=== PATIENT | female | born 1995 | race Caucasian/White ===

== ENCOUNTER 2019-08-02 19:02 | Inpatient (IN) | payer MEDICARE, OTHER ==
[~2019-08-02] VITALS: Ht 162.6 cm; Wt 47.9 kg
[~2019-08-02 19:02] MED LIST: APIX2.5T PO; CARV6.2511 PO; DIPH25CA58 PO; FLUT9.9S NS; FOLI0.8T21 PO; LEVO75TA5 PO; PANT20TA2 PO; POTA20TA4 PO; PRED-220 PO; SERT100T PO; SEVE800T8 PO; TACR1CAP5 PO; TRAM100T2 PO; TRAZ-118 PO; VANC125C3 PO
--- NOTE | 2019-08-02 19:18 | PHYS DOC ---
Past Medical History Past Medical History: A-Fib, GERD, Hyperthyroid, Immunosuppression, Other Additional Past Medical Histor: ESRD Past Surgical History: Appendectomy, Other Additional Past Surgical Histo: kidney transplant Smoking Status: Former Smoker Alcohol Use: None General Adult EDM: Chief Complaint: ALTERED MENTAL STATUS HPI: HPI: Patient is a 24 year old female who presents via EMS with report of confusion, reportedly having hallucinations at home, thinking that her long grandfather was there. Patient reportedly was noted to have altered mental status earlier today by family and home health did come by and evaluated patient and given patient some IV fluids. Patient does have end-stage renal disease and is on hemodialysis. Patient states that she hurts everywhere and has had nausea and vomiting. Patient stated that she has not made any urine for the last 5 years. Additional history is limited as patient is very poor historian. [] Review of Systems: Review of Systems: Constitutional: No reported fever or chills. [] Respiratory: Positive cough without shortness of breath. [] Cardiovascular: Denies chest pain or edema. [] GI: Complains of abdominal pain with nausea and vomiting. [] Musculoskeletal: Complains of diffuse body aches/pain. [] Unable to fully assess review of systems due to patient's inability to provide adequate history. Heart Score: Risk Factors: Risk Factors: DM, Current or recent (<one month) smoker, HTN, HLP, family history of CAD, obesity. Risk Scores: Score 0 - 3: 2.5% MACE over next 6 weeks - Discharge Home Score 4 - 6: 20.3% MACE over next 6 weeks - Admit for Clinical Observation Score 7 - 10: 72.7% MACE over next 6 weeks - Early Invasive Strategies Allergies: Allergies: Allergies Coded Allergies Type Severity Reaction Last Updated Verified Iodinated Contrast Media Allergy Mild 07/22/19 Yes NSAIDS (Non-Steroidal Anti-Inflamma Allergy Mild 07/22/19 Yes losartan Allergy Mild 07/22/19 Yes phenobarbital Allergy Mild 07/22/19 Yes Physical Exam: PE: Constitutional: Appears malnourished, in mild distress. [] HENT: Normocephalic, atraumatic, bilateral external ears normal, oropharynx dry, no oral exudates, nose normal. [] Eyes: PERRLA, EOMI, conjunctiva normal, no discharge. [] Neck: Normal range of motion, no tenderness, supple. [] Cardiovascular: Tachycardic rate with regular rhythm [] Lungs & Thorax: Bilateral breath sounds clear to auscultation [] Abdomen: Bowel sounds normal, soft, with diffuse tenderness. [] Skin: Warm, dry, no erythema, no rash. [] Extremities: No cyanosis, no clubbing, ROM intact, no edema. [] Neurologic: Awake and alert, no focal deficits noted. [] EKG: EKG: EKG demonstrates sinus tachycardia with a rate of 115. [] Radiology/Procedures: Radiology/Procedures: [] Impression: PROCEDURE: CT HEAD WO CONTRAST CT HEAD WO CONTRAST History: Altered mental status. Comparison: None. Technique: Noncontrast CT imaging was performed of the head. Exposure: One or more of the following individualized dose reduction techniques were utilized for this examination: 1. Automated exposure control 2. Adjustment of the mA and/or kV according to patient size 3. Use of iterative reconstruction technique. Findings: No intracranial hemorrhage. No mass effect. No hydrocephalus. Prominent falcine and tentorial calcifications. Postoperative changes bilateral globes. Imaged paranasal sinuses and mastoid air cells are clear. No acute calvarial fracture. Diffuse thickening of the maxillofacial bones without focal lesion. Atheromatous calcifications. Right superior scalp subcutaneous lesion measures 0.7 cm. Impression: 1. No acute intracranial abnormality. 2. Prominent falcine and tentorial calcifications. 3. Atheromatous calcifications advanced for age. 4. Right superior scalp subcutaneous lesion, may represent epidermal inclusion cyst. Electronically signed by: Tyrese Naidu DO (08/02/2019 9:26 PM) [facility] Course & Med Decision Making: Course & Med Decision Making Pertinent Labs and Imaging studies reviewed. (See chart for details) [] Dragon Disclaimer: Dragon Disclaimer: This electronic medical record was generated, in whole or in part, using a voice recognition dictation system. COVID-19 Patient Risks: Age 65 or older: No Sign of co-morbidity: Yes Exp to person + for COVID: No Exp to PUI: No Travel from affected area: No Lower respiratory symptoms: No Fever: No Other: No Comments: AMS; hallucinations PPE Use: Full PPE with N95 mask or PAPR: Yes Departure Departure Impression: Primary Impression: AMS (altered mental status) Qualified Codes: R41.82 - Altered mental status, unspecified Additional Impressions: Hallucination Failure to thrive in adult Disposition: 09 ADMITTED INPATIENT Admitting Physician: RADHA Condition: IMPROVED Referrals: BETTY MEYERS MD (PCP) KIANNA HERNANDEZ Jr. DO August 02, 2019 19:18
[2019-08-02 19:41] LABS: BASO # 0.2 x10^3/uL (0.0-0.2); BASO % 2 % (0-3); EOS # 0.1 x10^3/uL (0.0-0.7); EOS % 2 % (0-3); HEMATOCRIT 47.6 % (36.0-47.0); HEMOGLOBIN 15.6 g/dL (12.0-15.5); LYMPH # 1.3 x10^3/uL (1.0-4.8); LYMPH % 16 % (24-48); MEAN CORPUSCULAR HEMOGLOBIN 31 pg (25-35); MEAN CORPUSCULAR HGB CONC 33 g/dL (31-37); MEAN CORPUSCULAR VOLUME 95 fL (79-100); MONO # 0.8 x10^3/uL (0.0-1.1); MONO % 9 % (0-9); NEUT % 71 % (31-73); PLATELET COUNT 327 x10^3/uL (140-400); RED BLOOD COUNT 5.01 x10^6/uL (3.50-5.40); RED CELL DISTRIBUTION WIDTH 17.8 % (11.5-14.5); WHITE BLOOD COUNT 8.4 x10^3/uL (4.0-11.0)
[2019-08-02 19:49] LABS: CREATININE 8.1 mg/dL (0.6-1.0); GFR 6.2; POTASSIUM 4.4 mmol/L (3.5-5.1)
[2019-08-02 19:55] LABS: ALBUMIN 2.1 g/dL (3.4-5.0); ALBUMIN/GLOBULIN RATIO 0.9 (1.0-1.7); MAGNESIUM 1.9 mg/dL (1.8-2.4); PHOSPHORUS 5.3 mg/dL (2.6-4.7); TOTAL BILIRUBIN 0.3 mg/dL (0.2-1.0); TOTAL PROTEIN 4.5 g/dL (6.4-8.2)
--- NOTE | 2019-08-02 20:28 | RAD ---
EXAM: CHEST ONE VIEW. HISTORY: Cough. COMPARISON: 07/22/2019. FINDINGS: A frontal view of the chest is obtained. There are no confluent infiltrates. There is no pneumothorax or pleural effusion. The heart is not enlarged. Sclerosis of both humeral head suggests avascular necrosis. IMPRESSION: 1. No confluent infiltrates. 2. Correlate for bilateral avascular necrosis of the humeral heads. Electronically signed by: April Green MD (08/02/2019 8:25 PM) [facility]
[2019-08-02] MEDS ORDERED: DEXTROSE 50% 25 GM / 50ML DISP.SYRIN. IV ONE (20:30)
[2019-08-02 20:46] LABS: PREG TEST PT QUAL NEGATIVE (NEG)
--- NOTE | 2019-08-02 21:30 | RAD ---
CT HEAD WO CONTRAST History: Altered mental status. Comparison: None. Technique: Noncontrast CT imaging was performed of the head. Exposure: One or more of the following individualized dose reduction techniques were utilized for this examination: 1. Automated exposure control 2. Adjustment of the mA and/or kV according to patient size 3. Use of iterative reconstruction technique. Findings: No intracranial hemorrhage. No mass effect. No hydrocephalus. Prominent falcine and tentorial calcifications. Postoperative changes bilateral globes. Imaged paranasal sinuses and mastoid air cells are clear. No acute calvarial fracture. Diffuse thickening of the maxillofacial bones without focal lesion. Atheromatous calcifications. Right superior scalp subcutaneous lesion measures 0.7 cm. Impression: 1. No acute intracranial abnormality. 2. Prominent falcine and tentorial calcifications. 3. Atheromatous calcifications advanced for age. 4. Right superior scalp subcutaneous lesion, may represent epidermal inclusion cyst. Electronically signed by: Tyrese Naidu DO (08/02/2019 9:26 PM) [facility]
[2019-08-02] MEDS ORDERED: ONDANSETRON PF 4 MG/2 ML VIAL. IV PRN (23:00)
[2019-08-02] MEDS ORDERED: MORPHINE SULFATE 2 MG/ML VIAL. IV PRN (23:00)
[2019-08-03] MEDS ORDERED: DEXTROSE 50% 25 GM / 50ML DISP.SYRIN. IV ONE (00:45)
[2019-08-03] MEDS: IV DEXTROSE 10% 1,000 ML IV SCH ×2 (02:20→21:15)
[2019-08-03 02:45] VITALS: BP 106/80
--- NOTE | 2019-08-03 04:47 | NUR ---
Jennifer arrived around 0145 via bed from ED w/ AMS, Hallucinations, PUI and Failure to Thrive. She is A/O x 4 and will make needs known.
[2019-08-03 05:51] LABS: BASO # 0.2 x10^3/uL (0.0-0.2); BASO % 2 % (0-3); EOS # 0.2 x10^3/uL (0.0-0.7); EOS % 2 % (0-3); HEMATOCRIT 48.7 % (36.0-47.0); HEMOGLOBIN 15.5 g/dL (12.0-15.5); LYMPH # 1.4 x10^3/uL (1.0-4.8); LYMPH % 15 % (24-48); MEAN CORPUSCULAR HEMOGLOBIN 31 pg (25-35); MEAN CORPUSCULAR HGB CONC 32 g/dL (31-37); MEAN CORPUSCULAR VOLUME 97 fL (79-100); MONO % 10 % (0-9); NEUT # 6.8 x10^3/uL (1.8-7.7); NEUT % 71 % (31-73); PLATELET COUNT 286 x10^3/uL (140-400); RED BLOOD COUNT 5.04 x10^6/uL (3.50-5.40); RED CELL DISTRIBUTION WIDTH 18.3 % (11.5-14.5); WHITE BLOOD COUNT 9.6 x10^3/uL (4.0-11.0)
[2019-08-03 06:08] LABS: CALCIUM 8.8 mg/dL (8.5-10.1); CREATININE 8.6 mg/dL (0.6-1.0); GFR 5.8; POTASSIUM 4.2 mmol/L (3.5-5.1)
[2019-08-03 07:00] VITALS: BP 109/74
--- NOTE | 2019-08-03 07:33 | NUR ---
Just notified 's answering service about consult. Dr. Ybarra talent acquisition consultant.
[2019-08-03] MEDS: ACETAMINOPHEN 325 MG TABLET. PO PRN ×2 (08:14→14:58)
--- NOTE | 2019-08-03 08:31 | EKG ---
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 Electronically Signed On 08-03-2019 11:02:03 CDT by Darek Flynn
--- NOTE | 2019-08-03 09:38 | PDOC1 ---
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 She was admitted and treated for stopping PD at home and worsening colitis 8 days prior to this admission and continue on vancomycin therapy for recent c. difficile colitis after treatment for gluteal abscess at [facility]. Patient reportedly was noted to have altered mental status 5/10 that is worse than baseline per her mother and home health did come by and evaluated patient and gave patient some IV fluids, but is apparently calling nursing staff at [facility] requesting PICC access. Patient does have end-stage renal disease and is on peritoneal dialysis. Patient states that she hurts everywhere and has had nausea and vomiting. Patient stated that she has not made any urine for the last 5 years. Additional history is limited as patient is very poor historian. CT head - revealed no acute intracranial abnormality, but prominent falcine and tentorial calcifications as well as atheromatous calcifications advanced for age and a right superior scalp subcutaneous lesion (epidermal cyst?) She complains of chest pain during interview, but then says she thinks it went away, becomes tearful when asked how she is eating, says she has an appetite. She says she remembers me taking care of her in the hospital 10 days ago. Troponin 0.121->0.118 overnight. Labs consistent with ESRD. K 4.4 and Na 139. She was tested for COVID 19 in ED, admitted for further care Past Medical History Cardiovascular: AFIB Pulmonary: No pertinent hx GI: No pertinent hx Heme/Onc: No pertinent hx Hepatobiliary: No pertinent hx Psych: No pertinent hx Rheumatologic: No pertinent hx Infectious disease: No pertinent hx Renal/: Chronic renal failure Endocrine: Hypothyroidism Past Surgical History Past Surgical History: Appendectomy, Other Family History Family History: Hypertension Social History Smoke: No ALCOHOL: none Drugs: None Current Problem List Problem List Problems Medical Problems: (1) AMS (altered mental status) Status: Acute (2) Failure to thrive in adult Status: Acute (3) Hallucination Status: Acute Current Medications Current Medications Current Medications Dextrose (Dextrose 50%-Water Syringe) 12.5 gm 1X ONCE IV Last administered on 08/02/19at 20:38; Start 08/02/19 at 20:30; Stop 08/02/19 at 20:31; Status DC Ondansetron HCl (Zofran) 4 mg PRN Q8HRS PRN IV NAUSEA/VOMITING Last administered on 08/03/19at 02:21; Start 08/02/19 at 23:00; Stop 08/03/19 at 22:59 Morphine Sulfate (Morphine Sulfate) 2 mg PRN Q2HR PRN IV SEVERE PAIN 7-10 Last administered on 08/03/19at 01:00; Start 08/02/19 at 23:00; Stop 08/03/19 at 22:59 Dextrose (Dextrose 50%-Water Syringe) 12.5 gm 1X ONCE IV Last administered on 08/03/19at 00:35; Start 08/03/19 at 00:45; Stop 08/03/19 at 00:46; Status DC Dextrose 1,000 ml @ 50 mls/hr Q20H IV Last administered on 08/03/19at 02:20; Start 08/03/19 at 01:15 Acetaminophen (Tylenol) 650 mg PRN Q6HRS PRN PO HEADACHE Last administered on 08/03/19at 08:14; Start 08/03/19 at 08:00 Active Scripts Active Potassium Chloride (Potassium Chloride) 20 Meq Tablet.er 20 Meq PO DAILY 7 Days Vancomycin Hcl 125 Mg Capsule 1 Cap PO QID 10 Days Reported Tramadol Hcl 100 Mg Tbmp.24hr 100 Mg PO TID PRN PRN Flonase Allergy Relief (Fluticasone Propionate) 9.9 Ml [place].susp 2 Sprays NS PRN Renagel (Sevelamer Hcl) 800 Mg Tablet 800 Mg PO TID PRN Marry-Dori Tablet (Folic Acid/Vitamin B Comp W-C) 0.8 Mg Tablet 1 Tab PO DAILY 30 Days Trazodone Hcl 50 Mg Tablet 50 Mg PO HS Levothyroxine Sodium 75 Mcg Tablet 75 Mcg PO DAILYAC Eliquis (Apixaban) 2.5 Mg Tablet 2.5 Mg PO BID PRN Benadryl (Diphenhydramine Hcl) 25 Mg Capsule 2 Cap PO QHS 30 Days Prograf (Tacrolimus) 1 Mg Capsule 1 Mg PO BID Prednisone (Prednisone) 10 Mg Tablet 5 Mg PO DAILY Protonix (Pantoprazole Sodium) 20 Mg Tablet.dr 20 Mg PO DAILY Carvedilol (Carvedilol) 6.25 Mg Tablet 6.25 Mg PO DAILY Zoloft (Sertraline Hcl) 100 Mg Tablet 150 Mg PO DAILY Allergies Allergies: Coded Allergies: Iodinated Contrast Media (Verified Allergy, Intermediate, 08/03/19) NSAIDS (Non-Steroidal Anti-Inflamma (Verified Allergy, Intermediate, 08/03/19) losartan (Verified Allergy, Intermediate, 08/03/19) phenobarbital (Verified Allergy, Intermediate, 08/03/19) ROS General: YES: Fatigue, Malaise; No: Chills, Night Sweats, Appetite, Other PSYCHOLOGICAL ROS: YES: Anxiety, Behavioral Disorder, Disorientation, Memory difficulties; No: Concentration difficultie, Decreased libido, Depression, Hallucinations, Hostility, Irritablity, Mood Swings, Obsessive thoughts, Physical abuse, Sexual abuse, Sleep disturbances, Suicidal ideation, Other Eyes: No Blurry vision, No Decreased vision, No Double vision, No Dry eyes, No Excessive tearing, No Eye Pain, No Itchy Eyes, No Loss of vision, No Photophobia, No Scotomata, No Uses contacts, No Uses glasses, No Other HEENT: No: Heacaches, Visual Changes, Hearing change, Nasal congestion, Nasal discharge, Oral lesions, Sinus pain, Sore Throat, Epistaxis, Sneezing, Snoring, Tinnitus, Vertigo, Vocal changes, Other ALLERGY AND IMMUNOLOGY: No: Hives, Insect Bite Sensitivity, Itchy/Watery Eyes, Nasal Congestion, Post Nasal Drip, Seasonal Allergies, Other Hematological and Lymphatic: No: Bleeding Problems, Blood Clots, Blood Transfusions, Brusing, Night Sweats, Pallor, Swollen Lymph Nodes, Other ENDOCRINE: No: Breast Changes, Galactorrhea, Hair Pattern Changes, Hot Flashes, Malaise/lethargy, Mood Swings, Palpitations, Polydipsia/polyuria, Skin Changes, Temperature Intolerance, Unexpected Weight Changes, Other Breast: No New/Changing Breast Lumps, No Nipple changes, No Nipple discharge, No Other Respiratory: YES: Cough; No: Hemoptysis, Orthopnea, Pleuritic Pain, Shortness of breath, SOB with excertion, Sputum Changes, Stridor, Tachypnea, Wheezing, Other Cardiovascular: No Chest Pain, No Palpitations, No Orthopnea, No Paroxysmal Noc. Dyspnea, No Edema, No Lt Headedness, No Other Gastrointestinal: Yes Nausea; No Vomiting, No Abdominal Pain, No Diarrhea, No Constipation, No Melena, No Hematochezia, No Other Genitourinary: No Dysuria, No Frequency, No Incontinence, No Hematuria, No Retention, No Discharge, No Urgency, No Pain, No Flank Pain, No Other, No , No , No , No , No , No , No Musculoskeletal: Yes Gait Disturbance, Yes Joint Pain, Yes Joint Stiffness, Yes Muscular Weakness; No Joint Swelling, No Muscle Pain, No Pain In:, No Swelling In:, No Other Neurological: Yes Confusion, Yes Gait Disturbance, Yes Memory Loss, Yes Weakness; No Behavorial Changes, No Bowel/Bladder ControlChng, No Dizziness, No Headaches, No Impaired Coord/balance, No Numbness/Tingling, No Seizures, No Speech Problems, No Tremors, No Visual Changes, No Other Skin: No Dry Skin, No Eczema, No Hair Changes, No Lumps, No Mole Changes, No Mottling, No Nail Changes, No Pruritus, No Rash, No Skin Lesion Changes, No Other, No Acne Physical Exam General: Alert, Cooperative, No acute distress HEENT: Atraumatic, PERRLA, EOMI, Mucous membr. moist/pink Lungs: Clear to auscultation, Normal air movement Heart: S1S2, RRR, no thrills, no rubs, no gallops, no murmurs Abdomen: Normal bowel sounds, Soft, No tenderness, No hepatosplenomegaly, No masses, Other (PD catheter clean, dry intact) Extremities: No cyanosis, No edema, Normal pulses, Other (cachectic appearing, bony prominences apparent) Skin: No rashes, No significant lesion, Other (Healing gluteal ulcer) Neuro: Normal speech, Strength at 5/5 X4 ext, Normal tone, Sensation intact, Cranial nerves 3-12 NL, Reflexes 2+ Psych/Mental Status: Other (Confused) Vitals Vitals Vital Signs Date Time Temp Pulse Resp B/P (MAP) Pulse Ox O2 Delivery O2 Flow Rate FiO2 08/03/19 08:00 Room Air 08/03/19 07:00 99.0 80 18 109/74 (86) 100 99.0 Labs Labs Laboratory Tests Test 08/02/19 19:11 08/02/19 19:20 08/02/19 20:28 08/02/19 21:27 Sodium Level 139 mmol/L (136-145) Potassium Level 4.4 mmol/L (3.5-5.1) Chloride Level 102 mmol/L (98-107) Carbon Dioxide Level 24 mmol/L (21-32) Anion Gap 13 (6-14) Blood Urea Nitrogen 22 mg/dL (7-20) Creatinine 8.1 mg/dL (0.6-1.0) Estimated GFR (Cockcroft-Gault) 6.2 BUN/Creatinine Ratio 3 (6-20) Glucose Level 87 mg/dL (70-99) Calcium Level 9.0 mg/dL (8.5-10.1) Phosphorus Level 5.3 mg/dL (2.6-4.7) Magnesium Level 1.9 mg/dL (1.8-2.4) Total Bilirubin 0.3 mg/dL (0.2-1.0) Aspartate Amino Transf (AST/SGOT) 14 U/L (15-37) Alanine Aminotransferase (ALT/SGPT) 21 U/L (14-59) Alkaline Phosphatase 111 U/L (46-116) Total Protein 4.5 g/dL (6.4-8.2) Albumin 2.1 g/dL (3.4-5.0) Albumin/Globulin Ratio 0.9 (1.0-1.7) White Blood Count 8.4 x10^3/uL (4.0-11.0) Red Blood Count 5.01 x10^6/uL (3.50-5.40) Hemoglobin 15.6 g/dL (12.0-15.5) Hematocrit 47.6 % (36.0-47.0) Mean Corpuscular Volume 95 fL (79-100) Mean Corpuscular Hemoglobin 31 pg (25-35) Mean Corpuscular Hemoglobin Concent 33 g/dL (31-37) Red Cell Distribution Width 17.8 % (11.5-14.5) Platelet Count 327 x10^3/uL (140-400) Neutrophils (%) (Auto) 71 % (31-73) Lymphocytes (%) (Auto) 16 % (24-48) Monocytes (%) (Auto) 9 % (0-9) Eosinophils (%) (Auto) 2 % (0-3) Basophils (%) (Auto) 2 % (0-3) Neutrophils # (Auto) 6.0 x10^3/uL (1.8-7.7) Lymphocytes # (Auto) 1.3 x10^3/uL (1.0-4.8) Monocytes # (Auto) 0.8 x10^3/uL (0.0-1.1) Eosinophils # (Auto) 0.1 x10^3/uL (0.0-0.7) Basophils # (Auto) 0.2 x10^3/uL (0.0-0.2) Lactic Acid Level 2.7 mmol/L (0.4-2.0) Ammonia < 10 mcmol/L (11-34) Troponin I Quantitative 0.121 ng/mL (0.000-0.055) FA-Wav-H-Type Natriuretic Peptide > 40378 pg/mL (0-124) Serum Test, Qualitative Negative (NEG) Glucose (Fingerstick) 64 mg/dL (70-99) 91 mg/dL (70-99) Test 08/02/19 22:45 08/03/19 00:18 08/03/19 01:55 08/03/19 05:10 Lactic Acid Level 1.9 mmol/L (0.4-2.0) Glucose (Fingerstick) 51 mg/dL (70-99) 107 mg/dL (70-99) White Blood Count 9.6 x10^3/uL (4.0-11.0) Red Blood Count 5.04 x10^6/uL (3.50-5.40) Hemoglobin 15.5 g/dL (12.0-15.5) Hematocrit 48.7 % (36.0-47.0) Mean Corpuscular Volume 97 fL (79-100) Mean Corpuscular Hemoglobin 31 pg (25-35) Mean Corpuscular Hemoglobin Concent 32 g/dL (31-37) Red Cell Distribution Width 18.3 % (11.5-14.5) Platelet Count 286 x10^3/uL (140-400) Neutrophils (%) (Auto) 71 % (31-73) Lymphocytes (%) (Auto) 15 % (24-48) Monocytes (%) (Auto) 10 % (0-9) Eosinophils (%) (Auto) 2 % (0-3) Basophils (%) (Auto) 2 % (0-3) Neutrophils # (Auto) 6.8 x10^3/uL (1.8-7.7) Lymphocytes # (Auto) 1.4 x10^3/uL (1.0-4.8) Monocytes # (Auto) 1.0 x10^3/uL (0.0-1.1) Eosinophils # (Auto) 0.2 x10^3/uL (0.0-0.7) Basophils # (Auto) 0.2 x10^3/uL (0.0-0.2) Sodium Level 141 mmol/L (136-145) Potassium Level 4.2 mmol/L (3.5-5.1) Chloride Level 103 mmol/L (98-107) Carbon Dioxide Level 25 mmol/L (21-32) Anion Gap 13 (6-14) Blood Urea Nitrogen 24 mg/dL (7-20) Creatinine 8.6 mg/dL (0.6-1.0) Estimated GFR (Cockcroft-Gault) 5.8 Glucose Level 125 mg/dL (70-99) Calcium Level 8.8 mg/dL (8.5-10.1) Troponin I Quantitative 0.118 ng/mL (0.000-0.055) Test 08/03/19 06:11 08/03/19 07:37 Glucose (Fingerstick) 88 mg/dL (70-99) 90 mg/dL (70-99) Laboratory Tests Test 08/02/19 19:11 08/02/19 19:20 08/02/19 20:28 08/02/19 21:27 Sodium Level 139 mmol/L (136-145) Potassium Level 4.4 mmol/L (3.5-5.1) Chloride Level 102 mmol/L (98-107) Carbon Dioxide Level 24 mmol/L (21-32) Anion Gap 13 (6-14) Blood Urea Nitrogen 22 mg/dL (7-20) Creatinine 8.1 mg/dL (0.6-1.0) Estimated GFR (Cockcroft-Gault) 6.2 BUN/Creatinine Ratio 3 (6-20) Glucose Level 87 mg/dL (70-99) Calcium Level 9.0 mg/dL (8.5-10.1) Phosphorus Level 5.3 mg/dL (2.6-4.7) Magnesium Level 1.9 mg/dL (1.8-2.4) Total Bilirubin 0.3 mg/dL (0.2-1.0) Aspartate Amino Transf (AST/SGOT) 14 U/L (15-37) Alanine Aminotransferase (ALT/SGPT) 21 U/L (14-59) Alkaline Phosphatase 111 U/L (46-116) Total Protein 4.5 g/dL (6.4-8.2) Albumin 2.1 g/dL (3.4-5.0) Albumin/Globulin Ratio 0.9 (1.0-1.7) White Blood Count 8.4 x10^3/uL (4.0-11.0) Red Blood Count 5.01 x10^6/uL (3.50-5.40) Hemoglobin 15.6 g/dL (12.0-15.5) Hematocrit 47.6 % (36.0-47.0) Mean Corpuscular Volume 95 fL (79-100) Mean Corpuscular Hemoglobin 31 pg (25-35) Mean Corpuscular Hemoglobin Concent 33 g/dL (31-37) Red Cell Distribution Width 17.8 % (11.5-14.5) Platelet Count 327 x10^3/uL (140-400) Neutrophils (%) (Auto) 71 % (31-73) Lymphocytes (%) (Auto) 16 % (24-48) Monocytes (%) (Auto) 9 % (0-9) Eosinophils (%) (Auto) 2 % (0-3) Basophils (%) (Auto) 2 % (0-3) Neutrophils # (Auto) 6.0 x10^3/uL (1.8-7.7) Lymphocytes # (Auto) 1.3 x10^3/uL (1.0-4.8) Monocytes # (Auto) 0.8 x10^3/uL (0.0-1.1) Eosinophils # (Auto) 0.1 x10^3/uL (0.0-0.7) Basophils # (Auto) 0.2 x10^3/uL (0.0-0.2) Lactic Acid Level 2.7 mmol/L (0.4-2.0) Ammonia < 10 mcmol/L (11-34) Troponin I Quantitative 0.121 ng/mL (0.000-0.055) AS-Lba-I-Type Natriuretic Peptide > 26885 pg/mL (0-124) Serum Test, Qualitative Negative (NEG) Glucose (Fingerstick) 64 mg/dL (70-99) 91 mg/dL (70-99) Test 08/02/19 22:45 08/03/19 00:18 08/03/19 01:55 08/03/19 05:10 Lactic Acid Level 1.9 mmol/L (0.4-2.0) Glucose (Fingerstick) 51 mg/dL (70-99) 107 mg/dL (70-99) White Blood Count 9.6 x10^3/uL (4.0-11.0) Red Blood Count 5.04 x10^6/uL (3.50-5.40) Hemoglobin 15.5 g/dL (12.0-15.5) Hematocrit 48.7 % (36.0-47.0) Mean Corpuscular Volume 97 fL (79-100) Mean Corpuscular Hemoglobin 31 pg (25-35) Mean Corpuscular Hemoglobin Concent 32 g/dL (31-37) Red Cell Distribution Width 18.3 % (11.5-14.5) Platelet Count 286 x10^3/uL (140-400) Neutrophils (%) (Auto) 71 % (31-73) Lymphocytes (%) (Auto) 15 % (24-48) Monocytes (%) (Auto) 10 % (0-9) Eosinophils (%) (Auto) 2 % (0-3) Basophils (%) (Auto) 2 % (0-3) Neutrophils # (Auto) 6.8 x10^3/uL (1.8-7.7) Lymphocytes # (Auto) 1.4 x10^3/uL (1.0-4.8) Monocytes # (Auto) 1.0 x10^3/uL (0.0-1.1) Eosinophils # (Auto) 0.2 x10^3/uL (0.0-0.7) Basophils # (Auto) 0.2 x10^3/uL (0.0-0.2) Sodium Level 141 mmol/L (136-145) Potassium Level 4.2 mmol/L (3.5-5.1) Chloride Level 103 mmol/L (98-107) Carbon Dioxide Level 25 mmol/L (21-32) Anion Gap 13 (6-14) Blood Urea Nitrogen 24 mg/dL (7-20) Creatinine 8.6 mg/dL (0.6-1.0) Estimated GFR (Cockcroft-Gault) 5.8 Glucose Level 125 mg/dL (70-99) Calcium Level 8.8 mg/dL (8.5-10.1) Troponin I Quantitative 0.118 ng/mL (0.000-0.055) Test 08/03/19 06:11 08/03/19 07:37 Glucose (Fingerstick) 88 mg/dL (70-99) 90 mg/dL (70-99) Images Images CXR - There are no confluent infiltrates. There is no pneumothorax or pleural effusion. The heart is not enlarged. Sclerosis of both humeral head suggests avascular necrosis. IMPRESSION: 1. No confluent infiltrates. 2. Correlate for bilateral avascular necrosis of the humeral heads. CT head - No intracranial hemorrhage. No mass effect. No hydrocephalus. Prominent falcine and tentorial calcifications. Postoperative changes bilateral globes. Imaged paranasal sinuses and mastoid air cells are clear. No acute calvarial fracture. Diffuse thickening of the maxillofacial bones without focal lesion. Atheromatous calcifications. Right superior scalp subcutaneous lesion measures 0.7 cm. Impression: 1. No acute intracranial abnormality. 2. Prominent falcine and tentorial calcifications. 3. Atheromatous calcifications advanced for age. 4. Right superior scalp subcutaneous lesion, may represent epidermal inclusion cyst. VTE Prophylaxis Ordered VTE Prophylaxis Devices: No VTE Pharmacological Prophylaxi: Yes Assessment/Plan Assessment/Plan A/P: Acute encephalopathy - unclear etiology, seems metabolic, no sign this is toxic. Hypoglycemia - her mental status did not improve with glucose elevation, will monitor Colitis - 2/2 c. difficile will complete her vancomycin 10 day course here ESRD on PD - nephrology consulted C. Difficile - recently treated, will give her last few doses here Severe protein calorie malnutrition Failed renal transplant - will continue Elevated troponin - likely stress related, will monitor Lactic acidosis - trend. Likely from poor nutrition. Hemoconcentration - 2/2 dehydration from diarrhea Afib - paroxsymal by history, will cont eliquis, coreg if her BP can tolerate Hypothyroidism - apparently amiodarone induced, on levothyroxine now. Unable to walk - progressed over the past year likely 2/2 hyperphosphatemia Bilateral shoulder abnormalities on CXR - possibly avascular necrosis Diffuse pain - she has renal osteodystrophy, likely related to this. FEN - Renal diet PPX - eliquis FULL CODE Dispo - inpatient for acute mental status changes. COVID-19 CRITERIA: The patient was evaluated during the global COVID-19 pandemic, and that diagnosis was suspected/considered upon their initial presentation. Their evaluation, treatment and testing was consistent with current guidelines for patients who present with complaints or symptoms that may be related to COVID-19. LILA DEMPSEY MD August 03, 2019 09:38
[2019-08-03] MEDS ORDERED: HYDROmorphone 2 MG/ML VIAL IVP PRN (09:45)
[2019-08-03] MEDS: APIXABAN 2.5 MG TABLET. PO SCH ×3 (10:00→21:00)
[2019-08-03] MEDS: FOLIC/VIT B COMP W-C (RENAL) TABLET. PO SCH ×2 (10:00→10:08)
[2019-08-03] MEDS: POTASSIUM CHLORIDE 20 MEQ TABLET.ER. PO SCH ×2 (10:00→10:08)
[2019-08-03] MEDS: PANTOPRAZOLE 40 MG TABLET.DR. PO SCH ×2 (10:00→10:07)
[2019-08-03] MEDS: TACROLIMUS 1 MG CAPSULE PO SCH ×3 (10:00→21:00)
[2019-08-03] MEDS: LEVOTHYROXINE 75 MCG TABLET PO SCH ×2 (10:00→10:08)
[2019-08-03] MEDS: predniSONE 5 MG TABLET PO SCH ×2 (10:00→10:06)
[2019-08-03] MEDS: SERTRALINE 50 MG TABLET. PO SCH ×2 (10:07→10:30)
[2019-08-03] MEDS: traMADol 50 MG TABLET PO PRN (10:07)
[2019-08-03 10:58] VITALS: BP 111/66
--- NOTE | 2019-08-03 11:37 | PDOC2 ---
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 She was admitted recently with worsening colitis , dced on vancomycin for c. difficile colitis . She had a gluteal abscess at [facility] prior treated with Abx Patient states that she hurts everywhere and has had nausea and vomiting. Denies any RRF History is limited as patient is poor historian. Past Medical History Cardiovascular: AFIB Pulmonary: No pertinent hx GI: No pertinent hx Heme/Onc: No pertinent hx Hepatobiliary: No pertinent hx Psych: No pertinent hx Rheumatologic: No pertinent hx Infectious disease: No pertinent hx Renal/: Chronic renal failure Endocrine: Hypothyroidism Past Surgical History Past Surgical History: Appendectomy, Other Family History Family History: Hypertension Social History ALCOHOL: none Drugs: None Lives: with Family Current Problem List Problem List Problems Medical Problems: (1) AMS (altered mental status) Status: Acute (2) Failure to thrive in adult Status: Acute (3) Hallucination Status: Acute Current Medications Current Medications Current Medications Dextrose (Dextrose 50%-Water Syringe) 12.5 gm 1X ONCE IV Last administered on 08/02/19at 20:38; Admin Dose 12.5 GM; Start 08/02/19 at 20:30; Stop 08/02/19 at 20:31; Status DC Ondansetron HCl (Zofran) 4 mg PRN Q8HRS PRN IV NAUSEA/VOMITING Last administered on 08/03/19at 02:21; Admin Dose 4 MG; Start 08/02/19 at 23:00; Stop 08/03/19 at 09:41; Status DC Morphine Sulfate (Morphine Sulfate) 2 mg PRN Q2HR PRN IV SEVERE PAIN 7-10 Last administered on 08/03/19at 01:00; Admin Dose 2 MG; Start 08/02/19 at 23:00; Stop 08/03/19 at 09:41; Status DC Dextrose (Dextrose 50%-Water Syringe) 12.5 gm 1X ONCE IV Last administered on 08/03/19at 00:35; Admin Dose 12.5 GM; Start 08/03/19 at 00:45; Stop 08/03/19 at 00:46; Status DC Dextrose 1,000 ml @ 50 mls/hr Q20H IV Last administered on 08/03/19at 02:20; Admin Dose 50 MLS/HR; Start 08/03/19 at 01:15 Acetaminophen (Tylenol) 650 mg PRN Q6HRS PRN PO HEADACHE Last administered on 08/03/19at 08:14; Admin Dose 650 MG; Start 08/03/19 at 08:00 Ondansetron HCl (Zofran) 4 mg PRN Q4HRS PRN IV NAUSEA/VOMITING; Start 08/03/19 at 09:45 Hydromorphone HCl (Dilaudid) 0.4 mg PRN Q4HRS PRN IVP PAIN; Start 08/03/19 at 09:45 Apixaban (Eliquis) 2.5 mg BID PO Last administered on 08/03/19at 10:08; Admin Dose 2.5 MG; Start 08/03/19 at 10:00 Carvedilol (Coreg) 6.25 mg DAILY PO ; Start 08/04/19 at 09:00 Diphenhydramine HCl (Benadryl) 50 mg PRN QHS PRN PO sleep/itching; Start 08/03/19 at 21:00 Vitamin B Complex/ Vitamin C (Marry-Dori) 1 tab DAILY PO Last administered on 08/03/19 10:08; Admin Dose 1 TAB; Start 08/03/19 at 10:00 Levothyroxine Sodium (Synthroid) 75 mcg DAILYAC PO Last administered on 08/03/19 10:08; Admin Dose 75 MCG; Start 08/03/19 at 10:00 Potassium Chloride (Klor-Con) 20 meq DAILY PO Last administered on 08/03/19 10:08; Admin Dose 20 MEQ; Start 08/03/19 at 10:00 Prednisone (Prednisone) 5 mg DAILY PO Last administered on 08/03/19 10:06; Admin Dose 5 MG; Start 08/03/19 at 10:00 Tacrolimus (Prograf) 1 mg BID PO Last administered on 08/03/19 10:07; Admin Dose 1 MG; Start 08/03/19 at 10:00 Trazodone HCl (Desyrel) 50 mg HS PO ; Start 08/03/19 at 21:00 Fluticasone Propionate (Flonase) 2 spray PRN DAILY PRN NS ALLERGIC RHINITIS; S tart 08/04/19 at 09:00 Pantoprazole Sodium (Protonix) 40 mg DAILYAC PO Last administered on 08/03/19at 10:07; Admin Dose 40 MG; Start 08/03/19 at 10:00 Sertraline HCl (Zoloft) 150 mg DAILY PO Last administered on 08/03/19at 10:07; Admin Dose 150 MG; Start 08/03/19 at 10:30 Sevelamer Carbonate (Renvela) 800 mg TIDWMEALS PO ; Start 08/03/19 at 12:00 Tramadol HCl (Ultram) 100 mg PRN Q8HRS PRN PO PAIN Last administered on 08/03/19at 10:07; Admin Dose 100 MG; Start 08/03/19 at 10:15 Vancomycin HCl (Vancomycin Oral Solution) 125 mg [id number] PO ; Start 08/03/19 at 13:00; Stop 08/04/19 at 09:01 Info (Anti-Coagulation Monitoring By Pharmacy) 1 each PRN DAILY PRN MC SEE COMMENTS; Start 08/03/19 at 10:00 Active Scripts Active Potassium Chloride (Potassium Chloride) 20 Meq Tablet.er 20 Meq PO DAILY 7 Days Vancomycin Hcl 125 Mg Capsule 1 Cap PO QID 10 Days Reported Tramadol Hcl 100 Mg Tbmp.24hr 100 Mg PO TID PRN PRN Flonase Allergy Relief (Fluticasone Propionate) 9.9 Ml [facility].susp 2 Sprays NS PRN Renagel (Sevelamer Hcl) 800 Mg Tablet 800 Mg PO TID PRN Marry-Dori Tablet (Folic Acid/Vitamin B Comp W-C) 0.8 Mg Tablet 1 Tab PO DAILY 30 Days Trazodone Hcl 50 Mg Tablet 50 Mg PO HS Levothyroxine Sodium 75 Mcg Tablet 75 Mcg PO DAILYAC Eliquis (Apixaban) 2.5 Mg Tablet 2.5 Mg PO BID PRN Benadryl (Diphenhydramine Hcl) 25 Mg Capsule 2 Cap PO QHS 30 Days Prograf (Tacrolimus) 1 Mg Capsule 1 Mg PO BID Prednisone (Prednisone) 10 Mg Tablet 5 Mg PO DAILY Protonix (Pantoprazole Sodium) 20 Mg Tablet. 20 Mg PO DAILY Carvedilol (Carvedilol) 6.25 Mg Tablet 6.25 Mg PO DAILY Zoloft (Sertraline Hcl) 100 Mg Tablet 150 Mg PO DAILY Allergies Allergies: Coded Allergies: Iodinated Contrast Media (Verified Allergy, Intermediate, 08/03/19) NSAIDS (Non-Steroidal Anti-Inflamma (Verified Allergy, Intermediate, 08/03/19) losartan (Verified Allergy, Intermediate, 08/03/19) phenobarbital (Verified Allergy, Intermediate, 08/03/19) ROS Review of System Per HPI Physical Exam Physical Exam General: Alert, Cooperative, No acute distress HEEN OM moist Lungs CTA, Non labored Heart: s1 s2 Abdomen: Soft, No tenderness, PD catheter + Extremities: No clubbing, No cyanosis, No edema, Skin: No rashes, No CVA or sp tenderbess, No Mcgrath Vital Signs Vital Signs Date Time Temp Pulse Resp B/P (MAP) Pulse Ox O2 Delivery O2 Flow Rate FiO2 08/03/19 10:58 98.8 79 16 111/66 (81) 99 Room Air 98.8 Assessment & Plan ESRD on PD - Has been on Dialysis for 5 years [employer] [facility] [place] per home prescription (1.5% Dineal) , dw lpn home health Acute encephalopathy Severe protein calorie malnutrition Afib - paroxsymal by history, On eliquis, coreg Hypothyroidism - apparently amiodarone induced, on levothyroxine now. Severe protein calorie malnutrition Failed renal transplant Hyperphosphatemia- On Binders CoVid pending Labs Labs Laboratory Tests Test 08/02/19 19:11 08/02/19 19:20 08/02/19 20:28 08/02/19 21:27 Sodium Level 139 mmol/L (136-145) Potassium Level 4.4 mmol/L (3.5-5.1) Chloride Level 102 mmol/L (98-107) Carbon Dioxide Level 24 mmol/L (21-32) Anion Gap 13 (6-14) Blood Urea Nitrogen 22 mg/dL (7-20) Creatinine 8.1 mg/dL (0.6-1.0) Estimated GFR (Cockcroft-Gault) 6.2 BUN/Creatinine Ratio 3 (6-20) Glucose Level 87 mg/dL (70-99) Calcium Level 9.0 mg/dL (8.5-10.1) Phosphorus Level 5.3 mg/dL (2.6-4.7) Magnesium Level 1.9 mg/dL (1.8-2.4) Total Bilirubin 0.3 mg/dL (0.2-1.0) Aspartate Amino Transf (AST/SGOT) 14 U/L (15-37) Alanine Aminotransferase (ALT/SGPT) 21 U/L (14-59) Alkaline Phosphatase 111 U/L (46-116) Total Protein 4.5 g/dL (6.4-8.2) Albumin 2.1 g/dL (3.4-5.0) Albumin/Globulin Ratio 0.9 (1.0-1.7) White Blood Count 8.4 x10^3/uL (4.0-11.0) Red Blood Count 5.01 x10^6/uL (3.50-5.40) Hemoglobin 15.6 g/dL (12.0-15.5) Hematocrit 47.6 % (36.0-47.0) Mean Corpuscular Volume 95 fL (79-100) Mean Corpuscular Hemoglobin 31 pg (25-35) Mean Corpuscular Hemoglobin Concent 33 g/dL (31-37) Red Cell Distribution Width 17.8 % (11.5-14.5) Platelet Count 327 x10^3/uL (140-400) Neutrophils (%) (Auto) 71 % (31-73) Lymphocytes (%) (Auto) 16 % (24-48) Monocytes (%) (Auto) 9 % (0-9) Eosinophils (%) (Auto) 2 % (0-3) Basophils (%) (Auto) 2 % (0-3) Neutrophils # (Auto) 6.0 x10^3/uL (1.8-7.7) Lymphocytes # (Auto) 1.3 x10^3/uL (1.0-4.8) Monocytes # (Auto) 0.8 x10^3/uL (0.0-1.1) Eosinophils # (Auto) 0.1 x10^3/uL (0.0-0.7) Basophils # (Auto) 0.2 x10^3/uL (0.0-0.2) Lactic Acid Level 2.7 mmol/L (0.4-2.0) Ammonia < 10 mcmol/L (11-34) Troponin I Quantitative 0.121 ng/mL (0.000-0.055) KP-Kor-M-Type Natriuretic Peptide > 10611 pg/mL (0-124) Serum Test, Qualitative Negative (NEG) Glucose (Fingerstick) 64 mg/dL (70-99) 91 mg/dL (70-99) Test 08/02/19 22:45 08/03/19 00:18 08/03/19 01:55 08/03/19 05:10 Lactic Acid Level 1.9 mmol/L (0.4-2.0) Glucose (Fingerstick) 51 mg/dL (70-99) 107 mg/dL (70-99) White Blood Count 9.6 x10^3/uL (4.0-11.0) Red Blood Count 5.04 x10^6/uL (3.50-5.40) Hemoglobin 15.5 g/dL (12.0-15.5) Hematocrit 48.7 % (36.0-47.0) Mean Corpuscular Volume 97 fL (79-100) Mean Corpuscular Hemoglobin 31 pg (25-35) Mean Corpuscular Hemoglobin Concent 32 g/dL (31-37) Red Cell Distribution Width 18.3 % (11.5-14.5) Platelet Count 286 x10^3/uL (140-400) Neutrophils (%) (Auto) 71 % (31-73) Lymphocytes (%) (Auto) 15 % (24-48) Monocytes (%) (Auto) 10 % (0-9) Eosinophils (%) (Auto) 2 % (0-3) Basophils (%) (Auto) 2 % (0-3) Neutrophils # (Auto) 6.8 x10^3/uL (1.8-7.7) Lymphocytes # (Auto) 1.4 x10^3/uL (1.0-4.8) Monocytes # (Auto) 1.0 x10^3/uL (0.0-1.1) Eosinophils # (Auto) 0.2 x10^3/uL (0.0-0.7) Basophils # (Auto) 0.2 x10^3/uL (0.0-0.2) Sodium Level 141 mmol/L (136-145) Potassium Level 4.2 mmol/L (3.5-5.1) Chloride Level 103 mmol/L (98-107) Carbon Dioxide Level 25 mmol/L (21-32) Anion Gap 13 (6-14) Blood Urea Nitrogen 24 mg/dL (7-20) Creatinine 8.6 mg/dL (0.6-1.0) Estimated GFR (Cockcroft-Gault) 5.8 Glucose Level 125 mg/dL (70-99) Calcium Level 8.8 mg/dL (8.5-10.1) Troponin I Quantitative 0.118 ng/mL (0.000-0.055) Test 08/03/19 06:11 08/03/19 07:37 Glucose (Fingerstick) 88 mg/dL (70-99) 90 mg/dL (70-99) Laboratory Tests Test 08/02/19 19:11 08/02/19 19:20 08/02/19 20:28 08/02/19 21:27 Sodium Level 139 mmol/L (136-145) Potassium Level 4.4 mmol/L (3.5-5.1) Chloride Level 102 mmol/L (98-107) Carbon Dioxide Level 24 mmol/L (21-32) Anion Gap 13 (6-14) Blood Urea Nitrogen 22 mg/dL (7-20) Creatinine 8.1 mg/dL (0.6-1.0) Estimated GFR (Cockcroft-Gault) 6.2 BUN/Creatinine Ratio 3 (6-20) Glucose Level 87 mg/dL (70-99) Calcium Level 9.0 mg/dL (8.5-10.1) Phosphorus Level 5.3 mg/dL (2.6-4.7) Magnesium Level 1.9 mg/dL (1.8-2.4) Total Bilirubin 0.3 mg/dL (0.2-1.0) Aspartate Amino Transf (AST/SGOT) 14 U/L (15-37) Alanine Aminotransferase (ALT/SGPT) 21 U/L (14-59) Alkaline Phosphatase 111 U/L (46-116) Total Protein 4.5 g/dL (6.4-8.2) Albumin 2.1 g/dL (3.4-5.0) Albumin/Globulin Ratio 0.9 (1.0-1.7) White Blood Count 8.4 x10^3/uL (4.0-11.0) Red Blood Count 5.01 x10^6/uL (3.50-5.40) Hemoglobin 15.6 g/dL (12.0-15.5) Hematocrit 47.6 % (36.0-47.0) Mean Corpuscular Volume 95 fL (79-100) Mean Corpuscular Hemoglobin 31 pg (25-35) Mean Corpuscular Hemoglobin Concent 33 g/dL (31-37) Red Cell Distribution Width 17.8 % (11.5-14.5) Platelet Count 327 x10^3/uL (140-400) Neutrophils (%) (Auto) 71 % (31-73) Lymphocytes (%) (Auto) 16 % (24-48) Monocytes (%) (Auto) 9 % (0-9) Eosinophils (%) (Auto) 2 % (0-3) Basophils (%) (Auto) 2 % (0-3) Neutrophils # (Auto) 6.0 x10^3/uL (1.8-7.7) Lymphocytes # (Auto) 1.3 x10^3/uL (1.0-4.8) Monocytes # (Auto) 0.8 x10^3/uL (0.0-1.1) Eosinophils # (Auto) 0.1 x10^3/uL (0.0-0.7) Basophils # (Auto) 0.2 x10^3/uL (0.0-0.2) Lactic Acid Level 2.7 mmol/L (0.4-2.0) Ammonia < 10 mcmol/L (11-34) Troponin I Quantitative 0.121 ng/mL (0.000-0.055) HE-Lgr-F-Type Natriuretic Peptide > 55989 pg/mL (0-124) Serum Test, Qualitative Negative (NEG) Glucose (Fingerstick) 64 mg/dL (70-99) 91 mg/dL (70-99) Test 08/02/19 22:45 08/03/19 00:18 08/03/19 01:55 08/03/19 05:10 Lactic Acid Level 1.9 mmol/L (0.4-2.0) Glucose (Fingerstick) 51 mg/dL (70-99) 107 mg/dL (70-99) White Blood Count 9.6 x10^3/uL (4.0-11.0) Red Blood Count 5.04 x10^6/uL (3.50-5.40) Hemoglobin 15.5 g/dL (12.0-15.5) Hematocrit 48.7 % (36.0-47.0) Mean Corpuscular Volume 97 fL (79-100) Mean Corpuscular Hemoglobin 31 pg (25-35) Mean Corpuscular Hemoglobin Concent 32 g/dL (31-37) Red Cell Distribution Width 18.3 % (11.5-14.5) Platelet Count 286 x10^3/uL (140-400) Neutrophils (%) (Auto) 71 % (31-73) Lymphocytes (%) (Auto) 15 % (24-48) Monocytes (%) (Auto) 10 % (0-9) Eosinophils (%) (Auto) 2 % (0-3) Basophils (%) (Auto) 2 % (0-3) Neutrophils # (Auto) 6.8 x10^3/uL (1.8-7.7) Lymphocytes # (Auto) 1.4 x10^3/uL (1.0-4.8) Monocytes # (Auto) 1.0 x10^3/uL (0.0-1.1) Eosinophils # (Auto) 0.2 x10^3/uL (0.0-0.7) Basophils # (Auto) 0.2 x10^3/uL (0.0-0.2) Sodium Level 141 mmol/L (136-145) Potassium Level 4.2 mmol/L (3.5-5.1) Chloride Level 103 mmol/L (98-107) Carbon Dioxide Level 25 mmol/L (21-32) Anion Gap 13 (6-14) Blood Urea Nitrogen 24 mg/dL (7-20) Creatinine 8.6 mg/dL (0.6-1.0) Estimated GFR (Cockcroft-Gault) 5.8 Glucose Level 125 mg/dL (70-99) Calcium Level 8.8 mg/dL (8.5-10.1) Troponin I Quantitative 0.118 ng/mL (0.000-0.055) Test 08/03/19 06:11 08/03/19 07:37 Glucose (Fingerstick) 88 mg/dL (70-99) 90 mg/dL (70-99) Review All relevant outside records, renal labs, imaging studies, telemetry/EKG's were reviewed. VIRGIE SEALS MD August 03, 2019 11:37
[2019-08-03] MEDS: SEVELAMER CARBONATE 800 MG TABLET. PO SCH ×2 (12:00→17:00)
[2019-08-03] MEDS: VANCOMYCIN 125 MG/2.5 ML ORAL SOLUTION. PO SCH ×4 (13:00→21:00)
[2019-08-03] MEDS: LORazepam 0.5 MG TABLET PO PRN ×3 (14:14→22:16)
--- NOTE | 2019-08-03 14:48 | NUR ---
SS following up with discharge planning. SS reviewed pt chart and discussed with pt RN. Pt is from home with parents and is currently on room air. Pt has peritoneal dialysis at home and is currently on services with [facility], ; fax [phone]. Per RN, pt admitted for altered mental status. Pt is COVID19 pending. SS will continue to follow for discharge planning.
--- NOTE | 2019-08-03 14:59 | NUR ---
entered pt room to give ativan and tylenol. pt states "I think you guys are trying to kill me and I'm not taking those pills". questioned what she meant by that and she informed RN that she is having reactions to "all the meds I'm getting". explained to pt that she had only received tylenol and zofran to that point, and that she had refused her a.m. pills. Pt states "that's a lie and I'm calling my mom". pt proceeded to call mom on facetime and told her she thought staff was trying to kill her. mom reassured pt that this was not the case, that she needed to trust the staff. pt continued to refuse to take the meds. RN offered to leave pt alone to talk with mother. after stepping out of the room for a few minutes, pt called again for RN to return. pt then agreed to take pills and apologized for what she had said. med packs had already been discarded so unable to re-scan ativan and tylenol.
[2019-08-03 15:00] VITALS: BP 108/76
--- NOTE | 2019-08-03 17:55 | PDOC2 ---
NEUROLOGY CONSULT Date of Admission Date of Admission DATE: 08/03/19 TIME: 17:44 Reason for Consult Reason for Consult: IMPRESSION: Metabolic encephalopathy. Hypothyroidism, TSH 347.528 Confusion. Renal failure on dialysis. Elevate T 99.4 degree. Failed kidney transplant. AFib. RECOMMENDATIONS/PLAN: Treat medical diseases. Treat hypothyroidism per floor team. Brain MRI w/o contrast. Lab: see orders. OT/Pt. History of Present Illness This is a 24-year-old female patient with above medical diseases was hospitalized recently then discharged home. She was brought back yesterday due to mental status changes especially after dialysis. No focalized motor deficits reported. Neurology consultation is requested due to MS changes. Her TSH is significantly elevated. Past Medical History Cardiovascular: AFIB Pulmonary: No pertinent hx GI: No pertinent hx Heme/Onc: No pertinent hx Hepatobiliary: No pertinent hx Psych: No pertinent hx Rheumatologic: No pertinent hx Infectious disease: No pertinent hx Renal/: Chronic renal failure Endocrine: Hypothyroidism Past Surgical History Appendectomy. Family History =Hypertension Social History Smoke: No ALCOHOL: none Drugs: None Allergies Coded Allergies: Iodinated Contrast Media (Verified Allergy, Intermediate, 08/03/19) NSAIDS (Non-Steroidal Anti-Inflamma (Verified Allergy, Intermediate, 08/03/19) losartan (Verified Allergy, Intermediate, 08/03/19) phenobarbital (Verified Allergy, Intermediate, 08/03/19) MEDICATIONS: Refer to MAR REVIEW OF SYSTEMS: Constitutional: No malnutrition, cachexia. Head: No traumatic brain or head injury. Skin: No edema, or rash. Ear: No infection. Eyes: No vision loss or color blindness. Nose: No bleeding or purulent discharges. Hearing: No hearing decrease. Neck: No injury. Breast: No history of cancer, masses,or discharges. Cardiac: No [place], arrhythmia. Pulmonary: No COPD. GI: No GI ulcer, GI bleeding. Urinary/genital: Renal failure on dialysis. Endocrinologic: Hypothyroidism. Skeletomuscular: Generalized weakness. Neurological: see HP. Psychiatric: Denies drug use/abuse. Otherwise, not [id number] review of systems. Current Medications Current Medications Current Medications Dextrose (Dextrose 50%-Water Syringe) 12.5 gm 1X ONCE IV Last administered on 08/02/19at 20:38; Start 08/02/19 at 20:30; Stop 08/02/19 at 20:31; Status DC Ondansetron HCl (Zofran) 4 mg PRN Q8HRS PRN IV NAUSEA/VOMITING Last administered on 08/03/19at 02:21; Start 08/02/19 at 23:00; Stop 08/03/19 at 09:41; Status DC Morphine Sulfate (Morphine Sulfate) 2 mg PRN Q2HR PRN IV SEVERE PAIN 7-10 Last administered on 08/03/19at 01:00; Start 08/02/19 at 23:00; Stop 08/03/19 at 09:41; Status DC Dextrose (Dextrose 50%-Water Syringe) 12.5 gm 1X ONCE IV Last administered on 08/03/19at 00:35; Start 08/03/19 at 00:45; Stop 08/03/19 at 00:46; Status DC Dextrose 1,000 ml @ 50 mls/hr Q20H IV Last administered on 08/03/19at 02:20; Start 08/03/19 at 01:15 Acetaminophen (Tylenol) 650 mg PRN Q6HRS PRN PO HEADACHE Last administered on 08/03/19at 14:58; Start 08/03/19 at 08:00 Ondansetron HCl (Zofran) 4 mg PRN Q4HRS PRN IV NAUSEA/VOMITING; Start 08/03/19 at 09:45 Hydromorphone HCl (Dilaudid) 0.4 mg PRN Q4HRS PRN IVP PAIN; Start 08/03/19 at 09:45 Apixaban (Eliquis) 2.5 mg BID PO ; Start 08/03/19 at 10:00 Carvedilol (Coreg) 6.25 mg DAILY PO ; Start 08/04/19 at 09:00 Diphenhydramine HCl (Benadryl) 50 mg PRN QHS PRN PO sleep/itching; Start 08/03/19 at 21:00 Vitamin B Complex/ Vitamin C (Marry-Dori) 1 tab DAILY PO ; Start 08/03/19 at 10:00 Levothyroxine Sodium (Synthroid) 75 mcg DAILYAC PO ; Start 08/03/19 at 10:00 Potassium Chloride (Klor-Con) 20 meq DAILY PO ; Start 08/03/19 at 10:00 Prednisone (Prednisone) 5 mg DAILY PO ; Start 08/03/19 at 10:00 Tacrolimus (Prograf) 1 mg BID PO ; Start 08/03/19 at 10:00 Trazodone HCl (Desyrel) 50 mg HS PO ; Start 08/03/19 at 21:00 Fluticasone Propionate (Flonase) 2 spray PRN DAILY PRN NS ALLERGIC RHINITIS; Start 08/04/19 at 09:00 Pantoprazole Sodium (Protonix) 40 mg DAILYAC PO ; Start 08/03/19 at 10:00 Sertraline HCl (Zoloft) 150 mg DAILY PO ; Start 08/03/19 at 10:30 Sevelamer Carbonate (Renvela) 800 mg TIDWMEALS PO ; Start 08/03/19 at 12:00 Tramadol HCl (Ultram) 100 mg PRN Q8HRS PRN PO PAIN; Start 08/03/19 at 10:15 Vancomycin HCl (Vancomycin Oral Solution) 125 mg [id number] PO Last administered on 08/03/19at 13:00; Start 08/03/19 at 13:00; Stop 08/04/19 at 09:01 Info (Anti-Coagulation Monitoring By Pharmacy) 1 each PRN DAILY PRN MC SEE COMMENTS; Start 08/03/19 at 10:00 Lorazepam (Ativan) 0.5 mg PRN Q8HRS PRN PO ANXIETY / AGITATION Last administered on 08/03/19at 14:58; Start 08/03/19 at 13:30 Active Scripts Active Potassium Chloride (Potassium Chloride) 20 Meq Tablet.er 20 Meq PO DAILY 7 Days Vancomycin Hcl 125 Mg Capsule 1 Cap PO QID 10 Days Reported Tramadol Hcl 100 Mg Tbmp.24hr 100 Mg PO TID PRN PRN Flonase Allergy Relief (Fluticasone Propionate) 9.9 Ml [place].susp 2 Sprays NS PRN Renagel (Sevelamer Hcl) 800 Mg Tablet 800 Mg PO TID PRN Marry-Dori Tablet (Folic Acid/Vitamin B Comp W-C) 0.8 Mg Tablet 1 Tab PO DAILY 30 Days Trazodone Hcl 50 Mg Tablet 50 Mg PO HS Levothyroxine Sodium 75 Mcg Tablet 75 Mcg PO DAILYAC Eliquis (Apixaban) 2.5 Mg Tablet 2.5 Mg PO BID PRN Benadryl (Diphenhydramine Hcl) 25 Mg Capsule 2 Cap PO QHS 30 Days Prograf (Tacrolimus) 1 Mg Capsule 1 Mg PO BID Prednisone (Prednisone) 10 Mg Tablet 5 Mg PO DAILY Protonix (Pantoprazole Sodium) 20 Mg Tablet.dr 20 Mg PO DAILY Carvedilol (Carvedilol) 6.25 Mg Tablet 6.25 Mg PO DAILY Zoloft (Sertraline Hcl) 100 Mg Tablet 150 Mg PO DAILY Allergies Allergies: Allergies Coded Allergies Type Severity Reaction Last Updated Verified Iodinated Contrast Media Allergy Intermediate 08/03/19 Yes NSAIDS (Non-Steroidal Anti-Inflamma Allergy Intermediate 08/03/19 Yes losartan Allergy Intermediate 08/03/19 Yes phenobarbital Allergy Intermediate 08/03/19 Yes ROS Review of System The patient denies any associated fevers, chills, headache, ear pain, rhinorrhe a, sore throat, stiff neck, productive cough, chest pain, shortness of breath, back or flank pain, abdominal pain, nausea, vomiting, diarrhea, constipation, dysuria, rash, numbness, weakness, tingling, incontinence, difficulty ambulating, or diaphoresis. Physical Exam Physical Exam General: Well developed, well nourished, no acute distress, well appearing HEENT: Pupils equally round and reactive to light, EOMI, no discharge, normal conjunctiva Neck: Supple, no nuchal rigidity, no JVD, trachea midline, no tenderness Cardiac: RRR, no murmurs, no gallops, no rubs Chest/Lungs: CTAB, no wheeze, no rhonchi, no crackles Abdomen: soft, non-distended, no guarding, no peritoneal signs, non-tender Back: No tenderness Extremities: no edema, pulses intact, non-tender,capillary refill <3 sec bilateral upper and lower extremities, Neuro: Alert and oriented x 4, no focal deficits, normal speech Vitals Vitals: Vital Signs Date Time Temp Pulse Resp B/P (MAP) Pulse Ox O2 Delivery O2 Flow Rate FiO2 08/03/19 15:00 100.2 88 17 108/76 (87) 99 Room Air 100.2 Labs Labs Laboratory Tests Test 08/02/19 19:11 08/02/19 19:20 08/02/19 20:28 08/02/19 21:27 Sodium Level 139 mmol/L (136-145) Potassium Level 4.4 mmol/L (3.5-5.1) Chloride Level 102 mmol/L (98-107) Carbon Dioxide Level 24 mmol/L (21-32) Anion Gap 13 (6-14) Blood Urea Nitrogen 22 mg/dL (7-20) Creatinine 8.1 mg/dL (0.6-1.0) Estimated GFR (Cockcroft-Gault) 6.2 BUN/Creatinine Ratio 3 (6-20) Glucose Level 87 mg/dL (70-99) Calcium Level 9.0 mg/dL (8.5-10.1) Phosphorus Level 5.3 mg/dL (2.6-4.7) Magnesium Level 1.9 mg/dL (1.8-2.4) Total Bilirubin 0.3 mg/dL (0.2-1.0) Aspartate Amino Transf (AST/SGOT) 14 U/L (15-37) Alanine Aminotransferase (ALT/SGPT) 21 U/L (14-59) Alkaline Phosphatase 111 U/L (46-116) Total Protein 4.5 g/dL (6.4-8.2) Albumin 2.1 g/dL (3.4-5.0) Albumin/Globulin Ratio 0.9 (1.0-1.7) White Blood Count 8.4 x10^3/uL (4.0-11.0) Red Blood Count 5.01 x10^6/uL (3.50-5.40) Hemoglobin 15.6 g/dL (12.0-15.5) Hematocrit 47.6 % (36.0-47.0) Mean Corpuscular Volume 95 fL (79-100) Mean Corpuscular Hemoglobin 31 pg (25-35) Mean Corpuscular Hemoglobin Concent 33 g/dL (31-37) Red Cell Distribution Width 17.8 % (11.5-14.5) Platelet Count 327 x10^3/uL (140-400) Neutrophils (%) (Auto) 71 % (31-73) Lymphocytes (%) (Auto) 16 % (24-48) Monocytes (%) (Auto) 9 % (0-9) Eosinophils (%) (Auto) 2 % (0-3) Basophils (%) (Auto) 2 % (0-3) Neutrophils # (Auto) 6.0 x10^3/uL (1.8-7.7) Lymphocytes # (Auto) 1.3 x10^3/uL (1.0-4.8) Monocytes # (Auto) 0.8 x10^3/uL (0.0-1.1) Eosinophils # (Auto) 0.1 x10^3/uL (0.0-0.7) Basophils # (Auto) 0.2 x10^3/uL (0.0-0.2) Lactic Acid Level 2.7 mmol/L (0.4-2.0) Ammonia < 10 mcmol/L (11-34) Troponin I Quantitative 0.121 ng/mL (0.000-0.055) UB-Agn-D-Type Natriuretic Peptide > 03791 pg/mL (0-124) Serum Test, Qualitative Negative (NEG) Glucose (Fingerstick) 64 mg/dL (70-99) 91 mg/dL (70-99) Test 08/02/19 22:45 08/03/19 00:18 08/03/19 01:55 08/03/19 05:10 Lactic Acid Level 1.9 mmol/L (0.4-2.0) Glucose (Fingerstick) 51 mg/dL (70-99) 107 mg/dL (70-99) White Blood Count 9.6 x10^3/uL (4.0-11.0) Red Blood Count 5.04 x10^6/uL (3.50-5.40) Hemoglobin 15.5 g/dL (12.0-15.5) Hematocrit 48.7 % (36.0-47.0) Mean Corpuscular Volume 97 fL (79-100) Mean Corpuscular Hemoglobin 31 pg (25-35) Mean Corpuscular Hemoglobin Concent 32 g/dL (31-37) Red Cell Distribution Width 18.3 % (11.5-14.5) Platelet Count 286 x10^3/uL (140-400) Neutrophils (%) (Auto) 71 % (31-73) Lymphocytes (%) (Auto) 15 % (24-48) Monocytes (%) (Auto) 10 % (0-9) Eosinophils (%) (Auto) 2 % (0-3) Basophils (%) (Auto) 2 % (0-3) Neutrophils # (Auto) 6.8 x10^3/uL (1.8-7.7) Lymphocytes # (Auto) 1.4 x10^3/uL (1.0-4.8) Monocytes # (Auto) 1.0 x10^3/uL (0.0-1.1) Eosinophils # (Auto) 0.2 x10^3/uL (0.0-0.7) Basophils # (Auto) 0.2 x10^3/uL (0.0-0.2) Sodium Level 141 mmol/L (136-145) Potassium Level 4.2 mmol/L (3.5-5.1) Chloride Level 103 mmol/L (98-107) Carbon Dioxide Level 25 mmol/L (21-32) Anion Gap 13 (6-14) Blood Urea Nitrogen 24 mg/dL (7-20) Creatinine 8.6 mg/dL (0.6-1.0) Estimated GFR (Cockcroft-Gault) 5.8 Glucose Level 125 mg/dL (70-99) Calcium Level 8.8 mg/dL (8.5-10.1) Troponin I Quantitative 0.118 ng/mL (0.000-0.055) Vitamin B12 Level 1005 pg/mL (247-911) Thyroid Stimulating Hormone (TSH) 347.528 uIU/mL (0.358-3.74) Test 08/03/19 06:11 08/03/19 07:37 08/03/19 12:32 08/03/19 16:04 Glucose (Fingerstick) 88 mg/dL (70-99) 90 mg/dL (70-99) 86 mg/dL (70-99) 130 mg/dL (70-99) Laboratory Tests Test 08/02/19 19:11 08/02/19 19:20 08/02/19 20:28 08/02/19 21:27 Sodium Level 139 mmol/L (136-145) Potassium Level 4.4 mmol/L (3.5-5.1) Chloride Level 102 mmol/L (98-107) Carbon Dioxide Level 24 mmol/L (21-32) Anion Gap 13 (6-14) Blood Urea Nitrogen 22 mg/dL (7-20) Creatinine 8.1 mg/dL (0.6-1.0) Estimated GFR (Cockcroft-Gault) 6.2 BUN/Creatinine Ratio 3 (6-20) Glucose Level 87 mg/dL (70-99) Calcium Level 9.0 mg/dL (8.5-10.1) Phosphorus Level 5.3 mg/dL (2.6-4.7) Magnesium Level 1.9 mg/dL (1.8-2.4) Total Bilirubin 0.3 mg/dL (0.2-1.0) Aspartate Amino Transf (AST/SGOT) 14 U/L (15-37) Alanine Aminotransferase (ALT/SGPT) 21 U/L (14-59) Alkaline Phosphatase 111 U/L (46-116) Total Protein 4.5 g/dL (6.4-8.2) Albumin 2.1 g/dL (3.4-5.0) Albumin/Globulin Ratio 0.9 (1.0-1.7) White Blood Count 8.4 x10^3/uL (4.0-11.0) Red Blood Count 5.01 x10^6/uL (3.50-5.40) Hemoglobin 15.6 g/dL (12.0-15.5) Hematocrit 47.6 % (36.0-47.0) Mean Corpuscular Volume 95 fL (79-100) Mean Corpuscular Hemoglobin 31 pg (25-35) Mean Corpuscular Hemoglobin Concent 33 g/dL (31-37) Red Cell Distribution Width 17.8 % (11.5-14.5) Platelet Count 327 x10^3/uL (140-400) Neutrophils (%) (Auto) 71 % (31-73) Lymphocytes (%) (Auto) 16 % (24-48) Monocytes (%) (Auto) 9 % (0-9) Eosinophils (%) (Auto) 2 % (0-3) Basophils (%) (Auto) 2 % (0-3) Neutrophils # (Auto) 6.0 x10^3/uL (1.8-7.7) Lymphocytes # (Auto) 1.3 x10^3/uL (1.0-4.8) Monocytes # (Auto) 0.8 x10^3/uL (0.0-1.1) Eosinophils # (Auto) 0.1 x10^3/uL (0.0-0.7) Basophils # (Auto) 0.2 x10^3/uL (0.0-0.2) Lactic Acid Level 2.7 mmol/L (0.4-2.0) Ammonia < 10 mcmol/L (11-34) Troponin I Quantitative 0.121 ng/mL (0.000-0.055) ZG-Ido-Y-Type Natriuretic Peptide > 01023 pg/mL (0-124) Serum Test, Qualitative Negative (NEG) Glucose (Fingerstick) 64 mg/dL (70-99) 91 mg/dL (70-99) Test 08/02/19 22:45 08/03/19 00:18 08/03/19 01:55 08/03/19 05:10 Lactic Acid Level 1.9 mmol/L (0.4-2.0) Glucose (Fingerstick) 51 mg/dL (70-99) 107 mg/dL (70-99) White Blood Count 9.6 x10^3/uL (4.0-11.0) Red Blood Count 5.04 x10^6/uL (3.50-5.40) Hemoglobin 15.5 g/dL (12.0-15.5) Hematocrit 48.7 % (36.0-47.0) Mean Corpuscular Volume 97 fL (79-100) Mean Corpuscular Hemoglobin 31 pg (25-35) Mean Corpuscular Hemoglobin Concent 32 g/dL (31-37) Red Cell Distribution Width 18.3 % (11.5-14.5) Platelet Count 286 x10^3/uL (140-400) Neutrophils (%) (Auto) 71 % (31-73) Lymphocytes (%) (Auto) 15 % (24-48) Monocytes (%) (Auto) 10 % (0-9) Eosinophils (%) (Auto) 2 % (0-3) Basophils (%) (Auto) 2 % (0-3) Neutrophils # (Auto) 6.8 x10^3/uL (1.8-7.7) Lymphocytes # (Auto) 1.4 x10^3/uL (1.0-4.8) Monocytes # (Auto) 1.0 x10^3/uL (0.0-1.1) Eosinophils # (Auto) 0.2 x10^3/uL (0.0-0.7) Basophils # (Auto) 0.2 x10^3/uL (0.0-0.2) Sodium Level 141 mmol/L (136-145) Potassium Level 4.2 mmol/L (3.5-5.1) Chloride Level 103 mmol/L (98-107) Carbon Dioxide Level 25 mmol/L (21-32) Anion Gap 13 (6-14) Blood Urea Nitrogen 24 mg/dL (7-20) Creatinine 8.6 mg/dL (0.6-1.0) Estimated GFR (Cockcroft-Gault) 5.8 Glucose Level 125 mg/dL (70-99) Calcium Level 8.8 mg/dL (8.5-10.1) Troponin I Quantitative 0.118 ng/mL (0.000-0.055) Vitamin B12 Level 1005 pg/mL (247-911) Thyroid Stimulating Hormone (TSH) 347.528 uIU/mL (0.358-3.74) Test 08/03/19 06:11 08/03/19 07:37 08/03/19 12:32 08/03/19 16:04 Glucose (Fingerstick) 88 mg/dL (70-99) 90 mg/dL (70-99) 86 mg/dL (70-99) 130 mg/dL (70-99) ARMAND MONTGOMERY MD August 03, 2019 17:54
[2019-08-03 18:40] LABS: FREE T4 0.42 ng/dL (0.76-1.46)
[2019-08-03] MEDS: ONDANSETRON PF 4 MG/2 ML VIAL. IV PRN (19:42)
[2019-08-03 19:45] VITALS: BP 104/87
[2019-08-03] MEDS: traZODone 50 MG TABLET. PO SCH (21:00)
--- NOTE | 2019-08-03 22:17 | NUR ---
have been in pts room majority of shift so far. pt hallucinating, paranoid, uncooperative, defiant, and verbally aggressive. have sat at bedside trying to ease pts anxiety without much success. mother has called desk twice stating pt is "flipping out" due to not recognizing where she is and that she thinks we "are trying to kill her." pt did take hs meds but trazadone and benadryl have yet to help pt rest. pt just pt has just turned off dialysis machine, clamped tubing and turned her port to the off position. pt called her mom and with her assistance we got pt to let me unclamp her tubing.
[2019-08-03 23:00] VITALS: BP 110/77
[2019-08-04 03:25] VITALS: BP 98/48
[2019-08-04 07:00] VITALS: BP 95/62
[2019-08-04] MEDS: SERTRALINE 50 MG TABLET. PO SCH (08:30)
[2019-08-04] MEDS: SEVELAMER CARBONATE 800 MG TABLET. PO SCH ×3 (08:30→17:00)
[2019-08-04] MEDS: TACROLIMUS 0.5 MG CAPSULE PO SCH ×2 (08:30→20:32)
[2019-08-04] MEDS: POTASSIUM CHLORIDE 20 MEQ TABLET.ER. PO SCH (08:30)
[2019-08-04] MEDS: APIXABAN 2.5 MG TABLET. PO SCH ×2 (08:30→20:31)
[2019-08-04] MEDS: FOLIC/VIT B COMP W-C (RENAL) TABLET. PO SCH (08:31)
[2019-08-04] MEDS: predniSONE 5 MG TABLET PO SCH (08:31)
[2019-08-04] MEDS: traMADol 50 MG TABLET PO PRN ×2 (08:31→20:32)
[2019-08-04] MEDS: PANTOPRAZOLE 40 MG TABLET.DR. PO SCH (08:31)
[2019-08-04] MEDS: LEVOTHYROXINE 75 MCG TABLET PO SCH (08:31)
[2019-08-04] MEDS: VANCOMYCIN 125 MG/2.5 ML ORAL SOLUTION. PO SCH (08:33)
[2019-08-04] MEDS: LORazepam 0.5 MG TABLET PO PRN ×2 (08:44→20:31)
--- NOTE | 2019-08-04 08:58 | PDOC ---
PROGRESS NOTES Chief Complaint Chief Complaint A/P: Acute encephalopathy - clear etiology, significantly hypothyroid, seems metabolic, no sign this is toxic. Hypoglycemia - her mental status did not improve with glucose elevation, will monitor Colitis - 2/2 c. difficile will complete her vancomycin 10 day course here ESRD on PD - nephrology consulted C. Difficile - recently treated, will give her last few doses here Severe protein calorie malnutrition Failed renal transplant - will continue Elevated troponin - likely stress related, will monitor Lactic acidosis - trend. Likely from poor nutrition. Hemoconcentration - 2/2 dehydration from diarrhea Afib - paroxsymal by history, will cont eliquis, coreg if her BP can tolerate Hypothyroidism - apparently amiodarone induced, tested at 347, on levothyroxine now, will ensure it is administered an hour prior to other meds or food. Unable to walk - progressed over the past year likely 2/2 hyperphosphatemia Bilateral shoulder abnormalities on CXR - possibly avascular necrosis Diffuse pain - she has renal osteodystrophy, likely related to this. FEN - Renal diet PPX - eliquis FULL CODE Dispo - inpatient for acute mental status changes. COVID-19 CRITERIA: The patient was evaluated during the global COVID-19 pandemic, and that diagnosis was suspected/considered upon their initial presentation. Their evaluation, treatment and testing was consistent with current guidelines for patients who present with complaints or symptoms that may be related to COVID-19. 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 She was admitted and treated for stopping PD at home and worsening colitis 8 days prior to this admission and continue on vancomycin therapy for recent c. difficile colitis after treatment for gluteal abscess at [facility]. Patient reportedly was noted to have altered mental status 5/10 that is worse than baseline per her mother and home health did come by and evaluated patient and gave patient some IV fluids, but is apparently calling nursing staff at [facility] requesting PICC access. Patient does have end-stage renal disease and is on peritoneal dialysis. Patient states that she hurts everywhere and has had nausea and vomiting. Patient stated that she has not made any urine for the last 5 years. Additional history is limited as patient is very poor historian. CT head - revealed no acute intracranial abnormality, but prominent falcine and tentorial calcifications as well as atheromatous calcifications advanced for age and a right superior scalp subcutaneous lesion (epidermal cyst?) She complains of chest pain during interview, but then says she thinks it went away, becomes tearful when asked how she is eating, says she has an appetite. She says she remembers me taking care of her in the hospital 10 days ago. Troponin 0.121->0.118 overnight. Labs consistent with ESRD. K 4.4 and Na 139. Neurology consulted, ordered TSH, found significantly elevated at 347 with low T4 and T3. She was tested for COVID 19 in ED, admitted for further care TSH results discussed with mother, reportedly taking all medications recently. TMax 100.2F overnight. D/w mother need for appropriate dosing of levothyroxine. Vitals Vitals Vital Signs Date Time Temp Pulse Resp B/P (MAP) Pulse Ox O2 Delivery O2 Flow Rate FiO2 08/04/19 03:25 97.8 80 20 98/48 (65) 94 Room Air 97.8 Physical Exam General: Alert, Cooperative, No acute distress Abdomen: Normal bowel sounds, Soft, No tenderness, No hepatosplenomegaly, No masses, Other (PD catheter clean, dry intact) Extremities: No cyanosis, No edema, Normal pulses, Other (cachectic appearing, bony prominences apparent) Skin: No rashes, No significant lesion, Other (Healing gluteal ulcer) Labs LABS Laboratory Tests Test 08/03/19 12:32 08/03/19 16:04 08/03/19 21:08 08/04/19 08:50 Glucose (Fingerstick) 86 mg/dL (70-99) 130 mg/dL (70-99) 135 mg/dL (70-99) 93 mg/dL (70-99) Assessment and Plan Assessmemt and Plan Problems Medical Problems: (1) AMS (altered mental status) Status: Acute (2) Failure to thrive in adult Status: Acute (3) Hallucination Status: Acute Comment Review of Relevant I have reviewed the following items tim (where applicable) has been applied. Labs Laboratory Tests Test 08/02/19 19:11 5/10/20 19:20 08/02/19 20:28 08/02/19 21:27 Sodium Level 139 mmol/L (136-145) Potassium Level 4.4 mmol/L (3.5-5.1) Chloride Level 102 mmol/L (98-107) Carbon Dioxide Level 24 mmol/L (21-32) Anion Gap 13 (6-14) Blood Urea Nitrogen 22 mg/dL (7-20) Creatinine 8.1 mg/dL (0.6-1.0) Estimated GFR (Cockcroft-Gault) 6.2 BUN/Creatinine Ratio 3 (6-20) Glucose Level 87 mg/dL (70-99) Calcium Level 9.0 mg/dL (8.5-10.1) Phosphorus Level 5.3 mg/dL (2.6-4.7) Magnesium Level 1.9 mg/dL (1.8-2.4) Total Bilirubin 0.3 mg/dL (0.2-1.0) Aspartate Amino Transf (AST/SGOT) 14 U/L (15-37) Alanine Aminotransferase (ALT/SGPT) 21 U/L (14-59) Alkaline Phosphatase 111 U/L (46-116) Total Protein 4.5 g/dL (6.4-8.2) Albumin 2.1 g/dL (3.4-5.0) Albumin/Globulin Ratio 0.9 (1.0-1.7) White Blood Count 8.4 x10^3/uL (4.0-11.0) Red Blood Count 5.01 x10^6/uL (3.50-5.40) Hemoglobin 15.6 g/dL (12.0-15.5) Hematocrit 47.6 % (36.0-47.0) Mean Corpuscular Volume 95 fL (79-100) Mean Corpuscular Hemoglobin 31 pg (25-35) Mean Corpuscular Hemoglobin Concent 33 g/dL (31-37) Red Cell Distribution Width 17.8 % (11.5-14.5) Platelet Count 327 x10^3/uL (140-400) Neutrophils (%) (Auto) 71 % (31-73) Lymphocytes (%) (Auto) 16 % (24-48) Monocytes (%) (Auto) 9 % (0-9) Eosinophils (%) (Auto) 2 % (0-3) Basophils (%) (Auto) 2 % (0-3) Neutrophils # (Auto) 6.0 x10^3/uL (1.8-7.7) Lymphocytes # (Auto) 1.3 x10^3/uL (1.0-4.8) Monocytes # (Auto) 0.8 x10^3/uL (0.0-1.1) Eosinophils # (Auto) 0.1 x10^3/uL (0.0-0.7) Basophils # (Auto) 0.2 x10^3/uL (0.0-0.2) Lactic Acid Level 2.7 mmol/L (0.4-2.0) Ammonia < 10 mcmol/L (11-34) Troponin I Quantitative 0.121 ng/mL (0.000-0.055) JS-Uhy-F-Type Natriuretic Peptide > 34043 pg/mL (0-124) Serum Test, Qualitative Negative (NEG) Glucose (Fingerstick) 64 mg/dL (70-99) 91 mg/dL (70-99) Test 08/02/19 22:45 08/03/19 00:18 08/03/19 01:55 08/03/19 05:10 Lactic Acid Level 1.9 mmol/L (0.4-2.0) Glucose (Fingerstick) 51 mg/dL (70-99) 107 mg/dL (70-99) White Blood Count 9.6 x10^3/uL (4.0-11.0) Red Blood Count 5.04 x10^6/uL (3.50-5.40) Hemoglobin 15.5 g/dL (12.0-15.5) Hematocrit 48.7 % (36.0-47.0) Mean Corpuscular Volume 97 fL (79-100) Mean Corpuscular Hemoglobin 31 pg (25-35) Mean Corpuscular Hemoglobin Concent 32 g/dL (31-37) Red Cell Distribution Width 18.3 % (11.5-14.5) Platelet Count 286 x10^3/uL (140-400) Neutrophils (%) (Auto) 71 % (31-73) Lymphocytes (%) (Auto) 15 % (24-48) Monocytes (%) (Auto) 10 % (0-9) Eosinophils (%) (Auto) 2 % (0-3) Basophils (%) (Auto) 2 % (0-3) Neutrophils # (Auto) 6.8 x10^3/uL (1.8-7.7) Lymphocytes # (Auto) 1.4 x10^3/uL (1.0-4.8) Monocytes # (Auto) 1.0 x10^3/uL (0.0-1.1) Eosinophils # (Auto) 0.2 x10^3/uL (0.0-0.7) Basophils # (Auto) 0.2 x10^3/uL (0.0-0.2) Sodium Level 141 mmol/L (136-145) Potassium Level 4.2 mmol/L (3.5-5.1) Chloride Level 103 mmol/L (98-107) Carbon Dioxide Level 25 mmol/L (21-32) Anion Gap 13 (6-14) Blood Urea Nitrogen 24 mg/dL (7-20) Creatinine 8.6 mg/dL (0.6-1.0) Estimated GFR (Cockcroft-Gault) 5.8 Glucose Level 125 mg/dL (70-99) Calcium Level 8.8 mg/dL (8.5-10.1) Troponin I Quantitative 0.118 ng/mL (0.000-0.055) Vitamin B12 Level 1005 pg/mL (247-911) Thyroid Stimulating Hormone (TSH) 347.528 uIU/mL (0.358-3.74) Free Thyroxine 0.42 ng/dL (0.76-1.46) Free Triiodothyronine (T3) pg/mL 0.52 pg/mL (2.18-3.98) Test 08/03/19 06:11 08/03/19 07:37 08/03/19 12:32 08/03/19 16:04 Glucose (Fingerstick) 88 mg/dL (70-99) 90 mg/dL (70-99) 86 mg/dL (70-99) 130 mg/dL (70-99) Test 08/03/19 21:08 08/04/19 08:50 Glucose (Fingerstick) 135 mg/dL (70-99) 93 mg/dL (70-99) Laboratory Tests Test 08/03/19 12:32 08/03/19 16:04 08/03/19 21:08 08/04/19 08:50 Glucose (Fingerstick) 86 mg/dL (70-99) 130 mg/dL (70-99) 135 mg/dL (70-99) 93 mg/dL (70-99) Microbiology 08/02/19 Blood Culture - Preliminary, Resulted NO GROWTH AFTER 1 DAY Medications Current Medications Dextrose (Dextrose 50%-Water Syringe) 12.5 gm 1X ONCE IV Last administered on 08/02/19at 20:38; Start 08/02/19 at 20:30; Stop 08/02/19 at 20:31; Status DC Ondansetron HCl (Zofran) 4 mg PRN Q8HRS PRN IV NAUSEA/VOMITING Last administered on 08/03/19at 02:21; Start 08/02/19 at 23:00; Stop 08/03/19 at 09:41; Status DC Morphine Sulfate (Morphine Sulfate) 2 mg PRN Q2HR PRN IV SEVERE PAIN 7-10 Last administered on 08/03/19at 01:00; Start 08/02/19 at 23:00; Stop 08/03/19 at 09:41; Status DC Dextrose (Dextrose 50%-Water Syringe) 12.5 gm 1X ONCE IV Last administered on 08/03/19at 00:35; Start 08/03/19 at 00:45; Stop 08/03/19 at 00:46; Status DC Dextrose 1,000 ml @ 50 mls/hr Q20H IV Last administered on 08/03/19at 21:15; Start 08/03/19 at 01:15 Acetaminophen (Tylenol) 650 mg PRN Q6HRS PRN PO HEADACHE Last administered on 08/03/19at 14:58; Start 08/03/19 at 08:00 Ondansetron HCl (Zofran) 4 mg PRN Q4HRS PRN IV NAUSEA/VOMITING Last administered on 08/03/19at 19:42; Start 08/03/19 at 09:45 Hydromorphone HCl (Dilaudid) 0.4 mg PRN Q4HRS PRN IVP PAIN; Start 08/03/19 at 09:45 Apixaban (Eliquis) 2.5 mg BID PO Last administered on 08/04/19at 08:30; Start 08/03/19 at 10:00 Carvedilol (Coreg) 6.25 mg DAILY PO ; Start 08/04/19 at 09:00 Diphenhydramine HCl (Benadryl) 50 mg PRN QHS PRN PO sleep/itching; Start 08/03/19 at 21:00 Vitamin B Complex/ Vitamin C (Marry-Dori) 1 tab DAILY PO Last administered on 08/04/19 08:31; Start 08/03/19 at 10:00 Levothyroxine Sodium (Synthroid) 75 mcg DAILYAC PO Last administered on 08/04/19 08:31; Start 08/03/19 at 10:00 Potassium Chloride (Klor-Con) 20 meq DAILY PO Last administered on 08/04/19 08:30; Start 08/03/19 at 10:00 Prednisone (Prednisone) 5 mg DAILY PO Last administered on 08/04/19 08:31; Start 08/03/19 at 10:00 Tacrolimus (Prograf) 1 mg BID PO Last administered on 08/03/19 21:00; Start 08/03/19 at 10:00; Stop 08/04/19 at 04:20; Status DC Trazodone HCl (Desyrel) 50 mg HS PO Last administered on 08/03/19 21:00; S tart 08/03/19 at 21:00 Fluticasone Propionate (Flonase) 2 spray PRN DAILY PRN NS ALLERGIC RHINITIS; Start 08/04/19 at 09:00 Pantoprazole Sodium (Protonix) 40 mg DAILYAC PO Last administered on 08/04/19 08:31; Start 08/03/19 at 10:00 Sertraline HCl (Zoloft) 150 mg DAILY PO Last administered on 08/04/19 08:30; Start 08/03/19 at 10:30 Sevelamer Carbonate (Renvela) 800 mg TIDWMEALS PO Last administered on 08/04/19 08:30; Start 08/03/19 at 12:00 Tramadol HCl (Ultram) 100 mg PRN Q8HRS PRN PO PAIN Last administered on 08/04/19 08:31; Start 08/03/19 at 10:15 Vancomycin HCl (Vancomycin Oral Solution) 125 mg [id number] PO Last administered on 5/12/20at 08:33; Start 08/03/19 at 13:00; Stop 08/04/19 at 09:01 Info (Anti-Coagulation Monitoring By Pharmacy) 1 each PRN DAILY PRN MC SEE COMMENTS; Start 08/03/19 at 10:00 Lorazepam (Ativan) 0.5 mg PRN Q8HRS PRN PO ANXIETY / AGITATION Last admin istered on 08/04/19at 08:44; Start 08/03/19 at 13:30 Tacrolimus (Prograf) 1 mg BID PO Last administered on 08/04/19at 08:30; Start 08/04/19 at 09:00 Active Scripts Active Potassium Chloride (Potassium Chloride) 20 Meq Tablet.er 20 Meq PO DAILY 7 Days Vancomycin Hcl 125 Mg Capsule 1 Cap PO QID 10 Days Reported Tramadol Hcl 100 Mg Tbmp.24hr 100 Mg PO TID PRN PRN Flonase Allergy Relief (Fluticasone Propionate) 9.9 Ml Levels.susp 2 Sprays NS PRN Renagel (Sevelamer Hcl) 800 Mg Tablet 800 Mg PO TID PRN Marry-Dori Tablet (Folic Acid/Vitamin B Comp W-C) 0.8 Mg Tablet 1 Tab PO DAILY 30 Days Trazodone Hcl 50 Mg Tablet 50 Mg PO HS Levothyroxine Sodium 75 Mcg Tablet 75 Mcg PO DAILYAC Eliquis (Apixaban) 2.5 Mg Tablet 2.5 Mg PO BID PRN Benadryl (Diphenhydramine Hcl) 25 Mg Capsule 2 Cap PO QHS 30 Days Prograf (Tacrolimus) 1 Mg Capsule 1 Mg PO BID Prednisone (Prednisone) 10 Mg Tablet 5 Mg PO DAILY Protonix (Pantoprazole Sodium) 20 Mg Tablet.dr 20 Mg PO DAILY Carvedilol (Carvedilol) 6.25 Mg Tablet 6.25 Mg PO DAILY Zoloft (Sertraline Hcl) 100 Mg Tablet 150 Mg PO DAILY Vitals/I & O Vital Sign - Last 24 Hours 08/03/19 08/03/19 08/03/19 08/03/19 10:58 15:00 19:45 19:45 Temp 98.8 100.2 98.8 100.2 Pulse 79 88 79 Resp 16 17 20 B/P (MAP) 111/66 (81) 108/76 (87) 104/87 (93) Pulse Ox 99 99 98 O2 Delivery Room Air Room Air Room Air Room Air 08/03/19 08/04/19 23:00 03:25 Temp 98.6 97.8 98.6 97.8 Pulse 79 80 Resp 20 B/P (MAP) 110/77 (88) 98/48 (65) Pulse Ox 98 94 O2 Delivery Room Air Room Air Intake and Output 08/03/19 08/03/19 08/04/19 15:00 23:00 07:00 Intake Total 500 ml 360 ml 200 ml Balance 500 ml 360 ml 200 ml LILA DEMPSEY MD August 04, 2019 08:58
[2019-08-04] MEDS ORDERED: FLUTICASONE 50MCG/NASAL SPRAY 16GM BOTTLE. NS PRN (09:00)
[2019-08-04] MEDS: CARVEDILOL 6.25 MG TABLET. PO SCH (09:00)
[2019-08-04] MEDS ORDERED: LEVOTHYROXINE SODIUM IVP ONE (09:30)
[2019-08-04] MEDS ORDERED: NORMAL SALINE IVP ONE (09:30)
[2019-08-04] MEDS: ONDANSETRON PF 4 MG/2 ML VIAL. IV PRN ×3 (09:34→20:52)
[2019-08-04] MEDS: LIOTHYRONINE 5 MCG TABLET. PO SCH (09:38)
[2019-08-04 11:00] VITALS: BP 99/76
--- NOTE | 2019-08-04 11:00 | NUR ---
IP: Pt is COVID negative.
[2019-08-04] MEDS: ANTI-COAG MONITOR BY PHARMACY. MC PRN (13:08)
[2019-08-04] MEDS: IV DEXTROSE 10% 1,000 ML IV SCH (14:17)
[2019-08-04 14:30] VITALS: BP 103/72
--- NOTE | 2019-08-04 14:30 | NUR ---
SS following up with discharge planning. SS discussed with pt and pt's RN. Pt is COVID19 negative and transferring to room 667. Pt is currently on room air. SS will continue to follow for discharge planning.
--- NOTE | 2019-08-04 14:42 | PDOC ---
SUBJECTIVE ROS States feeling tired OBJECTIVE Vital Signs Vital Signs Date Time Temp Pulse Resp B/P (MAP) Pulse Ox O2 Delivery O2 Flow Rate FiO2 08/04/19 14:30 97.9 74 17 103/72 (82) 97 Room Air 97.9 I & 0 Intake and Output 08/04/19 07:00 Intake Total 1060 ml Balance 1060 ml Intake Oral 1060 ml # Voids 2 # Bowel Movements 2 PHYSICAL EXAM Physical Exam General: Alert, Cooperative, No acute distress HEEN OM moist Lungs CTA, Non labored Heart: s1 s2 Abdomen: Soft, No tenderness, PD catheter + Extremities: No clubbing, No cyanosis, No edema, Skin: No rashes, No CVA or sp tenderbess, No Mcgrath DIAGNOSIS/ASSESSMENT Assessment & Plan ESRD on PD - Has been on Dialysis for 5 years 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 Severe protein calorie malnutrition Failed renal transplant Hyperphosphatemia- On Binders CoVid Negative Evaluated during Global Covid 19 pandemic COMMENT/RELEVANT DATA Meds Current Medications Medications (Trade) Dose Ordered Sig/Olga Start Time Stop Time Status Last Admin Dose Admin Acetaminophen (Tylenol) 650 mg PRN Q6HRS PRN 08/03/19 08:00 08/03/19 14:58 650 MG Apixaban (Eliquis) 2.5 mg BID 08/03/19 10:00 08/04/19 08:30 2.5 MG Carvedilol (Coreg) 6.25 mg DAILY 08/04/19 09:00 Dextrose 1,000 ml @ 50 mls/hr Q20H 08/03/19 01:15 08/04/19 14:17 50 MLS/HR Dextrose (Dextrose 50%-Water Syringe) 12.5 gm 1X ONCE 08/03/19 00:45 08/03/19 00:46 DC 08/03/19 00:35 12.5 GM Diphenhydramine HCl (Benadryl) 50 mg PRN QHS PRN 08/03/19 21:00 Fluticasone Propionate (Flonase) 2 spray PRN DAILY PRN 08/04/19 09:00 Hydromorphone HCl (Dilaudid) 0.4 mg PRN Q4HRS PRN 08/03/19 09:45 Info (Anti-Coagulation Monitoring By Pharmacy) 1 each PRN DAILY PRN 08/03/19 10:00 08/04/19 13:08 1 EACH Levothyroxine Sodium (Synthroid) 75 mcg DAILY06 08/07/19 06:00 Levothyroxine Sodium 200 mcg/ Sodium Chloride 10 ml @ 200 mls/hr 1X ONCE 08/04/19 09:30 08/04/19 09:32 DC 08/04/19 09:38 200 MLS/HR Levothyroxine Sodium 50 mcg/ Sodium Chloride 5 ml @ 100 mls/hr DAILY 08/05/19 09:00 08/06/19 09:02 Liothyronine Sodium (Cytomel) 5 mcg DAILY 08/04/19 09:15 08/06/19 09:01 08/04/19 09:38 5 MCG Lorazepam (Ativan) 0.5 mg PRN Q8HRS PRN 08/03/19 13:30 08/04/19 08:44 0.5 MG Morphine Sulfate (Morphine Sulfate) 2 mg PRN Q2HR PRN 08/02/19 23:00 08/03/19 09:41 DC 08/03/19 01:00 2 MG Ondansetron HCl (Zofran) 4 mg PRN Q4HRS PRN 08/03/19 09:45 08/04/19 14:16 4 MG Pantoprazole Sodium (Protonix) 40 mg DAILYAC 08/03/19 10:00 08/04/19 08:31 40 MG Potassium Chloride (Klor-Con) 20 meq DAILY 08/03/19 10:00 08/04/19 08:30 20 MEQ Prednisone (Prednisone) 5 mg DAILY 08/03/19 10:00 08/04/19 08:31 5 MG Sertraline HCl (Zoloft) 150 mg DAILY 08/03/19 10:30 08/04/19 08:30 150 MG Sevelamer Carbonate (Renvela) 800 mg TIDWMEALS 08/03/19 12:00 08/04/19 11:46 800 MG Tacrolimus (Prograf) 1 mg BID 08/04/19 09:00 08/04/19 08:30 1 MG Tramadol HCl (Ultram) 100 mg PRN Q8HRS PRN 08/03/19 10:15 Trazodone HCl (Desyrel) 50 mg HS 08/03/19 21:00 08/03/19 21:00 50 MG Vancomycin HCl (Vancomycin Oral Solution) 125 mg [id number] 08/03/19 13:00 08/04/19 09:01 DC 08/04/19 08:33 125 MG Vitamin B Complex/ Vitamin C (Marry-Dori) 1 tab DAILY 08/03/19 10:00 08/04/19 08:31 1 TAB Lab Laboratory Tests Test 08/03/19 16:04 08/03/19 21:08 08/04/19 08:50 08/04/19 11:20 Glucose (Fingerstick) 130 mg/dL (70-99) 135 mg/dL (70-99) 93 mg/dL (70-99) 82 mg/dL (70-99) Results All relevant outside records, renal labs, imaging studies, telemetry/EKG's were reviewed. VIRGIE SEALS MD August 04, 2019 14:42
--- NOTE | 2019-08-04 16:57 | PDOC ---
PROGRESS NOTES Assessment Problems Medical Problems: (1) AMS (altered mental status) Status: Acute (2) Failure to thrive in adult Status: Acute (3) Hallucination Status: Acute Metabolic encephalopathy. Hypothyroidism, TSH 347.528 Renal failure on dialysis. Failed kidney transplant. AFib. Plan Treat medical diseases. Treat hypothyroidism per floor team. Go ahead with brain MRI w/o contrast. Discussed with mother Subjective no complaints Objective Vital Signs Date Time Temp Pulse Resp B/P (MAP) Pulse Ox O2 Delivery O2 Flow Rate FiO2 08/04/19 14:30 97.9 74 17 103/72 (82) 97 Room Air 97.9 Intake and Output 08/04/19 07:00 Intake Total 1060 ml Balance 1060 ml Intake Oral 1060 ml # Voids 2 # Bowel Movements 2 PHYSICAL EXAM Alert. Oriented to time, place and person. PERRL. EOMI. CN: no focal findings. Muscle tone: normal. Muscle strength: 4/5 DTR: 1+ Plantar reflex: flexor Gait: not examined in bed. Sensory exam: no abnormal findings. No cerebellar signs elicited. Review of Relevant I have reviewed the following items tim (where applicable) has been applied. Labs Laboratory Tests Test 08/02/19 19:11 08/02/19 19:20 08/02/19 19:32 08/02/19 20:28 Sodium Level 139 mmol/L (136-145) Potassium Level 4.4 mmol/L (3.5-5.1) Chloride Level 102 mmol/L (98-107) Carbon Dioxide Level 24 mmol/L (21-32) Anion Gap 13 (6-14) Blood Urea Nitrogen 22 mg/dL (7-20) Creatinine 8.1 mg/dL (0.6-1.0) Estimated GFR (Cockcroft-Gault) 6.2 BUN/Creatinine Ratio 3 (6-20) Glucose Level 87 mg/dL (70-99) Calcium Level 9.0 mg/dL (8.5-10.1) Phosphorus Level 5.3 mg/dL (2.6-4.7) Magnesium Level 1.9 mg/dL (1.8-2.4) Total Bilirubin 0.3 mg/dL (0.2-1.0) Aspartate Amino Transf (AST/SGOT) 14 U/L (15-37) Alanine Aminotransferase (ALT/SGPT) 21 U/L (14-59) Alkaline Phosphatase 111 U/L (46-116) Total Protein 4.5 g/dL (6.4-8.2) Albumin 2.1 g/dL (3.4-5.0) Albumin/Globulin Ratio 0.9 (1.0-1.7) White Blood Count 8.4 x10^3/uL (4.0-11.0) Red Blood Count 5.01 x10^6/uL (3.50-5.40) Hemoglobin 15.6 g/dL (12.0-15.5) Hematocrit 47.6 % (36.0-47.0) Mean Corpuscular Volume 95 fL (79-100) Mean Corpuscular Hemoglobin 31 pg (25-35) Mean Corpuscular Hemoglobin Concent 33 g/dL (31-37) Red Cell Distribution Width 17.8 % (11.5-14.5) Platelet Count 327 x10^3/uL (140-400) Neutrophils (%) (Auto) 71 % (31-73) Lymphocytes (%) (Auto) 16 % (24-48) Monocytes (%) (Auto) 9 % (0-9) Eosinophils (%) (Auto) 2 % (0-3) Basophils (%) (Auto) 2 % (0-3) Neutrophils # (Auto) 6.0 x10^3/uL (1.8-7.7) Lymphocytes # (Auto) 1.3 x10^3/uL (1.0-4.8) Monocytes # (Auto) 0.8 x10^3/uL (0.0-1.1) Eosinophils # (Auto) 0.1 x10^3/uL (0.0-0.7) Basophils # (Auto) 0.2 x10^3/uL (0.0-0.2) Lactic Acid Level 2.7 mmol/L (0.4-2.0) Ammonia < 10 mcmol/L (11-34) Troponin I Quantitative 0.121 ng/mL (0.000-0.055) ME-Kbb-C-Type Natriuretic Peptide > 83529 pg/mL (0-124) Serum Test, Qualitative Negative (NEG) Coronavirus (COVID-19)(PCR) See separate report Glucose (Fingerstick) 64 mg/dL (70-99) Test 08/02/19 21:27 08/02/19 22:45 08/03/19 00:18 08/03/19 01:55 Glucose (Fingerstick) 91 mg/dL (70-99) 51 mg/dL (70-99) 107 mg/dL (70-99) Lactic Acid Level 1.9 mmol/L (0.4-2.0) Test 08/03/19 05:10 08/03/19 06:11 08/03/19 07:37 08/03/19 12:32 White Blood Count 9.6 x10^3/uL (4.0-11.0) Red Blood Count 5.04 x10^6/uL (3.50-5.40) Hemoglobin 15.5 g/dL (12.0-15.5) Hematocrit 48.7 % (36.0-47.0) Mean Corpuscular Volume 97 fL (79-100) Mean Corpuscular Hemoglobin 31 pg (25-35) Mean Corpuscular Hemoglobin Concent 32 g/dL (31-37) Red Cell Distribution Width 18.3 % (11.5-14.5) Platelet Count 286 x10^3/uL (140-400) Neutrophils (%) (Auto) 71 % (31-73) Lymphocytes (%) (Auto) 15 % (24-48) Monocytes (%) (Auto) 10 % (0-9) Eosinophils (%) (Auto) 2 % (0-3) Basophils (%) (Auto) 2 % (0-3) Neutrophils # (Auto) 6.8 x10^3/uL (1.8-7.7) Lymphocytes # (Auto) 1.4 x10^3/uL (1.0-4.8) Monocytes # (Auto) 1.0 x10^3/uL (0.0-1.1) Eosinophils # (Auto) 0.2 x10^3/uL (0.0-0.7) Basophils # (Auto) 0.2 x10^3/uL (0.0-0.2) Sodium Level 141 mmol/L (136-145) Potassium Level 4.2 mmol/L (3.5-5.1) Chloride Level 103 mmol/L (98-107) Carbon Dioxide Level 25 mmol/L (21-32) Anion Gap 13 (6-14) Blood Urea Nitrogen 24 mg/dL (7-20) Creatinine 8.6 mg/dL (0.6-1.0) Estimated GFR (Cockcroft-Gault) 5.8 Glucose Level 125 mg/dL (70-99) Calcium Level 8.8 mg/dL (8.5-10.1) Troponin I Quantitative 0.118 ng/mL (0.000-0.055) Vitamin B12 Level 1005 pg/mL (247-911) Thyroid Stimulating Hormone (TSH) 347.528 uIU/mL (0.358-3.74) Free Thyroxine 0.42 ng/dL (0.76-1.46) Free Triiodothyronine (T3) pg/mL 0.52 pg/mL (2.18-3.98) Glucose (Fingerstick) 88 mg/dL (70-99) 90 mg/dL (70-99) 86 mg/dL (70-99) Test 08/03/19 16:04 08/03/19 21:08 08/04/19 08:50 08/04/19 11:20 Glucose (Fingerstick) 130 mg/dL (70-99) 135 mg/dL (70-99) 93 mg/dL (70-99) 82 mg/dL (70-99) Test 08/04/19 16:29 Glucose (Fingerstick) 105 mg/dL (70-99) Laboratory Tests Test 08/03/19 21:08 08/04/19 08:50 08/04/19 11:20 08/04/19 16:29 Glucose (Fingerstick) 135 mg/dL (70-99) 93 mg/dL (70-99) 82 mg/dL (70-99) 105 mg/dL (70-99) Microbiology 08/02/19 Blood Culture - Preliminary, Resulted NO GROWTH AFTER 1 DAY Medications Current Medications Dextrose (Dextrose 50%-Water Syringe) 12.5 gm 1X ONCE IV Last administered on 08/02/19at 20:38; Start 08/02/19 at 20:30; Stop 08/02/19 at 20:31; Status DC Ondansetron HCl (Zofran) 4 mg PRN Q8HRS PRN IV NAUSEA/VOMITING Last administered on 08/03/19at 02:21; Start 08/02/19 at 23:00; Stop 08/03/19 at 09:41; Status DC Morphine Sulfate (Morphine Sulfate) 2 mg PRN Q2HR PRN IV SEVERE PAIN 7-10 Last administered on 08/03/19at 01:00; Start 08/02/19 at 23:00; Stop 08/03/19 at 09:41; Status DC Dextrose (Dextrose 50%-Water Syringe) 12.5 gm 1X ONCE IV Last administered on 08/03/19at 00:35; Start 08/03/19 at 00:45; Stop 08/03/19 at 00:46; Status DC Dextrose 1,000 ml @ 50 mls/hr Q20H IV Last administered on 08/04/19 14:17; Start 08/03/19 at 01:15 Acetaminophen (Tylenol) 650 mg PRN Q6HRS PRN PO HEADACHE Last administered on 08/03/19at 14:58; Start 08/03/19 at 08:00 Ondansetron HCl (Zofran) 4 mg PRN Q4HRS PRN IV NAUSEA/VOMITING Last administere d on 08/04/19at 14:16; Start 08/03/19 at 09:45 Hydromorphone HCl (Dilaudid) 0.4 mg PRN Q4HRS PRN IVP PAIN; Start 08/03/19 at 09:45 Apixaban (Eliquis) 2.5 mg BID PO Last administered on 08/04/19at 08:30; Start 08/03/19 at 10:00 Carvedilol (Coreg) 6.25 mg DAILY PO ; Start 08/04/19 at 09:00 Diphenhydramine HCl (Benadryl) 50 mg PRN QHS PRN PO sleep/itching; Start 08/03/19 at 21:00 Vitamin B Complex/ Vitamin C (Marry-Dori) 1 tab DAILY PO Last administered on 08/04/19at 08:31; Start 08/03/19 at 10:00 Levothyroxine Sodium (Synthroid) 75 mcg DAILYAC PO Last administered on 08/04/19 08:31; Start 08/03/19 at 10:00; Stop 08/04/19 at 08:54; Status DC Potassium Chloride (Klor-Con) 20 meq DAILY PO Last administered on 08/04/19 08:30; Start 08/03/19 at 10:00 Prednisone (Prednisone) 5 mg DAILY PO Last administered on 08/04/19 08:31; Start 08/03/19 at 10:00 Tacrolimus (Prograf) 1 mg BID PO Last administered on 08/03/19 21:00; Start 08/03/19 at 10:00; Stop 08/04/19 at 04:20; Status DC Trazodone HCl (Desyrel) 50 mg HS PO Last administered on 08/03/19 21:00; Start 08/03/19 at 21:00 Fluticasone Propionate (Flonase) 2 spray PRN DAILY PRN NS ALLERGIC RHINITIS; Start 08/04/19 at 09:00 Pantoprazole Sodium (Protonix) 40 mg DAILYAC PO Last administered on 08/04/19 08:31; Start 08/03/19 at 10:00 Sertraline HCl (Zoloft) 150 mg DAILY PO Last administered on 08/04/19 08:30; Start 08/03/19 at 10:30 Sevelamer Carbonate (Renvela) 800 mg TIDWMEALS PO Last administered on 08/04/19 11:46; Start 08/03/19 at 12:00 Tramadol HCl (Ultram) 100 mg PRN Q8HRS PRN PO PAIN; Start 08/03/19 at 10:15 Vancomycin HCl (Vancomycin Oral Solution) 125 mg [id number] PO Last administered on 08/04/19 08:33; Start 08/03/19 at 13:00; Stop 08/04/19 at 09:01; Status DC Info (Anti-Coagulation Monitoring By Pharmacy) 1 each PRN DAILY PRN MC SEE COMMENTS Last administered on 08/04/19 13:08; Start 08/03/19 at 10:00 Lorazepam (Ativan) 0.5 mg PRN Q8HRS PRN PO ANXIETY / AGITATION Last administered on 08/04/19 08:44; Start 08/03/19 at 13:30 Tacrolimus (Prograf) 1 mg BID PO Last administered on 08/04/19 08:30; Start 08/04/19 at 09:00 Levothyroxine Sodium (Synthroid) 75 mcg DAILY06 PO ; Start 08/07/19 at 06:00 Levothyroxine Sodium 200 mcg/ Sodium Chloride 10 ml @ 200 mls/hr 1X ONCE IVP Last administered on 08/04/19at 09:38; Start 08/04/19 at 09:30; Stop 08/04/19 at 09:32; Status DC Levothyroxine Sodium 50 mcg/ Sodium Chloride 5 ml @ 100 mls/hr DAILY IVP ; Start 08/05/19 at 09:00; Stop 08/06/19 at 09:02 Liothyronine Sodium (Cytomel) 5 mcg DAILY PO Last administered on 08/04/19at 09:38; Start 08/04/19 at 09:15; Stop 08/06/19 at 09:01 Active Scripts Active Potassium Chloride (Potassium Chloride) 20 Meq Tablet.er 20 Meq PO DAILY 7 Days Vancomycin Hcl 125 Mg Capsule 1 Cap PO QID 10 Days Reported Tramadol Hcl 100 Mg Tbmp.24hr 100 Mg PO TID PRN PRN Flonase Allergy Relief (Fluticasone Propionate) 9.9 Ml Orient.susp 2 Sprays NS PRN Renagel (Sevelamer Hcl) 800 Mg Tablet 800 Mg PO TID PRN Marry-Droi Tablet (Folic Acid/Vitamin B Comp W-C) 0.8 Mg Tablet 1 Tab PO DAILY 30 Days Trazodone Hcl 50 Mg Tablet 50 Mg PO HS Levothyroxine Sodium 75 Mcg Tablet 75 Mcg PO DAILYAC Eliquis (Apixaban) 2.5 Mg Tablet 2.5 Mg PO BID PRN Benadryl (Diphenhydramine Hcl) 25 Mg Capsule 2 Cap PO QHS 30 Days Prograf (Tacrolimus) 1 Mg Capsule 1 Mg PO BID Prednisone (Prednisone) 10 Mg Tablet 5 Mg PO DAILY Protonix (Pantoprazole Sodium) 20 Mg Tablet.dr 20 Mg PO DAILY Carvedilol (Carvedilol) 6.25 Mg Tablet 6.25 Mg PO DAILY Zoloft (Sertraline Hcl) 100 Mg Tablet 150 Mg PO DAILY Vitals/I & O Vital Sign - Last 24 Hours 08/03/19 08/03/19 08/03/19 08/04/19 19:45 19:45 23:00 03:25 Temp 98.6 97.8 98.6 97.8 Pulse 79 79 80 Resp 20 20 B/P (MAP) 104/87 (93) 110/77 (88) 98/48 (65) Pulse Ox 98 98 94 O2 Delivery Room Air Room Air Room Air Room Air 08/04/19 08/04/19 08/04/19 08/04/19 07:00 08:00 09:00 11:00 Temp 98.8 98.4 98.8 98.4 Pulse 74 80 80 Resp 17 17 B/P (MAP) 95/62 (73) 95/62 99/76 (84) Pulse Ox 98 97 O2 Delivery Room Air Room Air Room Air 08/04/19 14:30 Temp 97.9 97.9 Pulse 74 Resp 17 B/P (MAP) 103/72 (82) Pulse Ox 97 O2 Delivery Room Air Intake and Output 08/03/19 08/03/19 08/04/19 15:00 23:00 07:00 Intake Total 500 ml 360 ml 200 ml Balance 500 ml 360 ml 200 ml FLORINA ELKINS MD August 04, 2019 16:57
--- NOTE | 2019-08-04 18:08 | NUR ---
Patient is requesting to have her heart monitor on because she claims she's having a "heart attack" and cant' breathe. This nurse took her VS BP 105/63 HR 114 RR 20 O2 sat 99% on room air. She's reassured that her vital signs are within the range but said that "that's not my heart rate." This nurse suggested ativan since she can have it to help her symptoms, but refused. She said that she doesn't want it since she took it already in the morning.The patient has been teary eyed and spoke to her mom over the phone. She also asked if she can have her blood glucose checked again despite reassurances that her glucose was ok.
[2019-08-04 19:00] VITALS: BP 97/62
--- NOTE | 2019-08-04 20:00 | NUR ---
Patient video her Peritoneal Dialysis therapy and sent a clip to her mother, She said, "The [facility] dialysis nurse here set it up all wrong! I do it all the time at home. I can set it up myself! You are all making me more sick then getting better." No one here knows how to take care of me and all the nurses here are causing me more harm, like those air bubbles are going to get inside of my body. I need to be transfer to [facility] and never come back to this Hospital again." Patient's Mother also panic and called multiple times to Hospital, This nurse was busy but charge nurse, LISA Cornelius had ran to room multiple times and had attempt to assist Patient and her Mother multiple times with this same situation. This nurse explained to her that the air bubbles she is talking about are in the tubes that are not even connected to her, showed both her and her mother which she still have on face time, on her IPhone currently while this nurse is in the room, Patient then calmed down as she and her mother notice that the Peritoneal Dialysis tube going towards her has not air bubbles and the mother explains to the Patients that the procedure looks correct. operations supervisor, LISA Freitas was also on unit and was notified of whole situation.
[2019-08-04] MEDS: traZODone 50 MG TABLET. PO SCH (20:31)
[2019-08-04] MEDS: diphenhydrAMINE HCL 25 MG CAPSULE PO PRN (20:32)
[2019-08-04 23:00] VITALS: BP 103/74
--- NOTE | 2019-08-05 00:30 | NUR ---
Patient called three hours after I already given her Tramadol for pain which was ordered 100mg q8Hr PRN pain, this nurse explained to her that it is order q8hrs and cannot be given any soon, when asked, What is your pain level on a scale of 0 to 10 with 10 being the worst? Patient answered, It does not hurt right now, it just comes and go, it is just a tingling feeling, I just want it just because I felt that if I dont take it now I will feel it soon. Explained to Patient that it was still too soon to give to her. Patient then said, I feel that you are just lying! This nurse shown patient the order on her profile where the doctor had ordered Tramadol 100 mg q8Hr PRN pain patient then was okayed with answer.
[2019-08-05 03:00] VITALS: BP 106/65
--- NOTE | 2019-08-05 03:30 | NUR ---
Patient called to Desk saying that her machine was making a sound this nurse went into room to see what was going on, upon entering room noted that Peritoneal Dialysis therapy machine was making noise saying to check Patient lines, this nurse check Patient lines and noted that the white clamp was clamp off tight, this nurse ask, Did you happened to rolled over accidently and clamp it up by accent? Patient smiled and said, You came in here and clamped it off. This nurse said, Why and how could I come in here to clamp you Dialysis tube off when I was at the desk with all the other staff when you called for me or my coworkers to come in here because your machine was beeping? Patient just continues on laughing as though it was funny to her. This nurse unclamp tube made sure clamp was further away from Patient, reset Peritoneal Dialysis therapy machine, reported issue, Patient behavior to Charge Nurse, LISA Cornelius.
[2019-08-05] MEDS: traMADol 50 MG TABLET PO PRN ×2 (05:50→17:02)
[2019-08-05] MEDS: ONDANSETRON PF 4 MG/2 ML VIAL. IV PRN ×4 (07:23→20:19)
[2019-08-05] MEDS: PANTOPRAZOLE 40 MG TABLET.DR. PO SCH (07:24)
--- NOTE | 2019-08-05 08:07 | PDOC ---
PROGRESS NOTES Chief Complaint Chief Complaint A/P: Acute encephalopathy - clear etiology, significantly hypothyroid, myxedema coma, seems metabolic, no sign this is toxic. 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 Hypoglycemia - her mental status did not improve with glucose elevation, will monitor as this is likely part of myxedema coma Colitis - 2/2 c. difficile will complete her vancomycin 10 day course here ESRD on PD - nephrology consulted C. Difficile - recently treated, will give her last few doses here Nausea - will add reglan prn Severe protein calorie malnutrition Failed renal transplant - will continue rejection meds, though an outpatient taper has been previously advised by consultants Elevated troponin - likely stress related, will monitor Lactic acidosis - trend. Likely from poor nutrition. Hemoconcentration - 2/2 dehydration from diarrhea Afib - paroxsymal by history, will cont eliquis, coreg if her BP can tolerate Unable to walk - progressed over the past year likely 2/2 hyperphosphatemia Bilateral shoulder abnormalities on CXR - possibly avascular necrosis Diffuse pain - she has renal osteodystrophy, likely related to this. FEN - Renal diet PPX - eliquis FULL CODE Dispo - inpatient for acute mental status changes. COVID-19 CRITERIA: The patient was evaluated during the global COVID-19 pandemic, and that diagnosis was suspected/considered upon their initial presentation. Their evaluation, treatment and testing was consistent with curr ent guidelines for patients who present with complaints or symptoms that may be related to COVID-19. 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 She was admitted and treated for stopping PD at home and worsening colitis 8 days prior to this admission and continue on vancomycin therapy for recent c. difficile colitis after treatment for gluteal abscess at [facility]. Patient reportedly was noted to have altered mental status 5/10 that is worse than baseline per her mother and home health did come by and evaluated patient and gave patient some IV fluids, but is apparently calling nursing staff at [facility] requesting PICC access. Patient does have end-stage renal disease and is on peritoneal dialysis. Patient states that she hurts everywhere and has had nausea and vomiting. Patient stated that she has not made any urine for the last 5 years. Additional history is limited as patient is very poor historian. CT head - revealed no acute intracranial abnormality, but prominent falcine and tentorial calcifications as well as atheromatous calcifications advanced for age and a right superior scalp subcutaneous lesion (epidermal cyst?) Troponin 0.121->0.118 overnight. Labs consistent with ESRD. K 4.4 and Na 139. Neurology consulted, ordered TSH, found significantly elevated at 347 with low T4 and T3. She was tested for COVID 19 in ED, NEGATIVE. Admitted for further care 08/03: Negative COVID 19. TSH results discussed with mother, reportedly taking all medications recently. TMax 100.2F overnight. D/w mother need for appropriate dosing of levothyroxine. More alert today. Afebrile overnight. MRI read as normal. Patient is paranoid that we are not telling her everything that is going on. I reassured her that she is being treated for myxedema coma. She has nausea and some epigastric discomfort that pantoprazole has not improved. Vitals Vitals Vital Signs Date Time Temp Pulse Resp B/P (MAP) Pulse Ox O2 Delivery O2 Flow Rate FiO2 08/05/19 06:50 18 97 Room Air 08/05/19 03:00 98.0 100 106/65 (79) 98.0 Physical Exam General: Alert, Cooperative, No acute distress Abdomen: Normal bowel sounds, Soft, No tenderness, No hepatosplenomegaly, No masses, Other (PD catheter clean, dry intact) Extremities: No cyanosis, No edema, Normal pulses, Other (cachectic appearing, bony prominences apparent) Skin: No rashes, No significant lesion, Other (Healing gluteal ulcer) Labs LABS Laboratory Tests Test 08/04/19 08:50 08/04/19 11:20 08/04/19 16:29 08/04/19 20:27 Glucose (Fingerstick) 93 mg/dL (70-99) 82 mg/dL (70-99) 105 mg/dL (70-99) 109 mg/dL (70-99) Assessment and Plan Assessmemt and Plan Problems Medical Problems: (1) AMS (altered mental status) Status: Acute (2) Failure to thrive in adult Status: Acute (3) Hallucination Status: Acute Comment Review of Relevant I have reviewed the following items tim (where applicable) has been applied. Labs Laboratory Tests Test 08/03/19 12:32 08/03/19 16:04 08/03/19 21:08 08/04/19 08:50 Glucose (Fingerstick) 86 mg/dL (70-99) 130 mg/dL (70-99) 135 mg/dL (70-99) 93 mg/dL (70-99) Test 08/04/19 11:20 08/04/19 16:29 08/04/19 20:27 Glucose (Fingerstick) 82 mg/dL (70-99) 105 mg/dL (70-99) 109 mg/dL (70-99) Laboratory Tests Test 08/04/19 08:50 08/04/19 11:20 08/04/19 16:29 08/04/19 20:27 Glucose (Fingerstick) 93 mg/dL (70-99) 82 mg/dL (70-99) 105 mg/dL (70-99) 109 mg/dL (70-99) Microbiology 08/02/19 Blood Culture - Preliminary, Resulted NO GROWTH AFTER 2 DAYS Medications Current Medications Dextrose (Dextrose 50%-Water Syringe) 12.5 gm 1X ONCE IV Last administered on 08/02/19at 20:38; Start 08/02/19 at 20:30; Stop 08/02/19 at 20:31; Status DC Ondansetron HCl (Zofran) 4 mg PRN Q8HRS PRN IV NAUSEA/VOMITING Last administered on 08/03/19at 02:21; Start 08/02/19 at 23:00; Stop 08/03/19 at 09:41; Status DC Morphine Sulfate (Morphine Sulfate) 2 mg PRN Q2HR PRN IV SEVERE PAIN 7-10 Last administered on 08/03/19at 01:00; Start 08/02/19 at 23:00; Stop 08/03/19 at 09:41; Status DC Dextrose (Dextrose 50%-Water Syringe) 12.5 gm 1X ONCE IV Last administered on 08/03/19at 00:35; Start 08/03/19 at 00:45; Stop 08/03/19 at 00:46; Status DC Dextrose 1,000 ml @ 50 mls/hr Q20H IV Last administered on 08/04/19 14:17; Start 08/03/19 at 01:15 Acetaminophen (Tylenol) 650 mg PRN Q6HRS PRN PO HEADACHE Last administered on 08/03/19 14:58; Start 08/03/19 at 08:00 Ondansetron HCl (Zofran) 4 mg PRN Q4HRS PRN IV NAUSEA/VOMITING Last administered on 08/05/19 07:23; Start 08/03/19 at 09:45 Hydromorphone HCl (Dilaudid) 0.4 mg PRN Q4HRS PRN IVP PAIN; Start 08/03/19 at 09:45 Apixaban (Eliquis) 2.5 mg BID PO Last administered on 08/04/19 20:31; Start 08/03/19 at 10:00 Carvedilol (Coreg) 6.25 mg DAILY PO ; Start 08/04/19 at 09:00 Diphenhydramine HCl (Benadryl) 50 mg PRN QHS PRN PO sleep/itching Last administered on 08/04/19 20:32; Start 08/03/19 at 21:00 Vitamin B Complex/ Vitamin C (Marry-Dori) 1 tab DAILY PO Last administered on 08/04/19 08:31; Start 08/03/19 at 10:00 Levothyroxine Sodium (Synthroid) 75 mcg DAILYAC PO Last administered on 08/04/19 08:31; Start 08/03/19 at 10:00; Stop 08/04/19 at 08:54; Status DC Potassium Chloride (Klor-Con) 20 meq DAILY PO Last administered on 08/04/19 08:30; Start 08/03/19 at 10:00 Prednisone (Prednisone) 5 mg DAILY PO Last administered on 08/04/19 08:31; Start 08/03/19 at 10:00 Tacrolimus (Prograf) 1 mg BID PO Last administered on 08/03/19 21:00; Start 08/03/19 at 10:00; Stop 08/04/19 at 04:20; Status DC Trazodone HCl (Desyrel) 50 mg HS PO Last administered on 5/12/20at 20:31; Start 08/03/19 at 21:00 Fluticasone Propionate (Flonase) 2 spray PRN DAILY PRN NS ALLERGIC RHINITIS; Start 08/04/19 at 09:00 Pantoprazole Sodium (Protonix) 40 mg DAILYAC PO Last administered on 08/05/19 07:24; Start 08/03/19 at 10:00 Sertraline HCl (Zoloft) 150 mg DAILY PO Last administered on 08/04/19 08:30; Start 08/03/19 at 10:30 Sevelamer Carbonate (Renvela) 800 mg TIDWMEALS PO Last administered on 08/04/19 11:46; Start 08/03/19 at 12:00 Tramadol HCl (Ultram) 100 mg PRN Q8HRS PRN PO PAIN Last administered on 08/05/19 05:50; Start 08/03/19 at 10:15 Vancomycin HCl (Vancomycin Oral Solution) 125 mg [id number] PO Last administered on 08/04/19 08:33; Start 08/03/19 at 13:00; Stop 08/04/19 at 09:01; Status DC Info (Anti-Coagulation Monitoring By Pharmacy) 1 each PRN DAILY PRN MC SEE COMMENTS Last administered on 08/04/19 13:08; Start 08/03/19 at 10:00 Lorazepam (Ativan) 0.5 mg PRN Q8HRS PRN PO ANXIETY / AGITATION Last administered on 08/04/19 08:44; Start 08/03/19 at 13:30 Tacrolimus (Prograf) 1 mg BID PO Last administered on 08/04/19at 20:32; Start 08/04/19 at 09:00 Levothyroxine Sodium (Synthroid) 75 mcg DAILY06 PO ; Start 08/07/19 at 06:00 Levothyroxine Sodium 200 mcg/ Sodium Chloride 10 ml @ 200 mls/hr 1X ONCE IVP Last administered on 08/04/19at 09:38; Start 08/04/19 at 09:30; Stop 08/04/19 at 09:32; Status DC Levothyroxine Sodium 50 mcg/ Sodium Chloride 5 ml @ 100 mls/hr DAILY IVP ; Start 08/05/19 at 09:00; Stop 08/06/19 at 09:02 Liothyronine Sodium (Cytomel) 5 mcg DAILY PO Last administered on 08/04/19at 09:38; Start 08/04/19 at 09:15; Stop 08/06/19 at 09:01 Active Scripts Active Potassium Chloride (Potassium Chloride) 20 Meq Tablet.er 20 Meq PO DAILY 7 Days Vancomycin Hcl 125 Mg Capsule 1 Cap PO QID 10 Days Reported Tramadol Hcl 100 Mg Tbmp.24hr 100 Mg PO TID PRN PRN Flonase Allergy Relief (Fluticasone Propionate) 9.9 Ml [place].susp 2 Sprays NS PRN Renagel (Sevelamer Hcl) 800 Mg Tablet 800 Mg PO TID PRN Marry-Dori Tablet (Folic Acid/Vitamin B Comp W-C) 0.8 Mg Tablet 1 Tab PO DAILY 30 Days Trazodone Hcl 50 Mg Tablet 50 Mg PO HS Levothyroxine Sodium 75 Mcg Tablet 75 Mcg PO DAILYAC Eliquis (Apixaban) 2.5 Mg Tablet 2.5 Mg PO BID PRN Benadryl (Diphenhydramine Hcl) 25 Mg Capsule 2 Cap PO QHS 30 Days Prograf (Tacrolimus) 1 Mg Capsule 1 Mg PO BID Prednisone (Prednisone) 10 Mg Tablet 5 Mg PO DAILY Protonix (Pantoprazole Sodium) 20 Mg Tablet.dr 20 Mg PO DAILY Carvedilol (Carvedilol) 6.25 Mg Tablet 6.25 Mg PO DAILY Zoloft (Sertraline Hcl) 100 Mg Tablet 150 Mg PO DAILY Vitals/I & O Vital Sign - Last 24 Hours 08/04/19 08/04/19 08/04/19 08/04/19 09:00 11:00 14:30 19:00 Temp 98.4 97.9 98.8 98.4 97.9 98.8 Pulse 80 80 74 102 Resp 17 17 18 B/P (MAP) 95/62 99/76 (84) 103/72 (82) 97/62 (74) Pulse Ox 97 97 97 O2 Delivery Room Air Room Air Room Air 08/04/19 08/04/19 08/04/19 08/04/19 20:00 20:32 21:32 23:00 Temp 98.0 98.0 Pulse 101 Resp 18 18 18 B/P (MAP) 103/74 (84) Pulse Ox 97 97 96 O2 Delivery Room Air Room Air Room Air Room Air 08/05/19 08/05/19 08/05/19 03:00 05:50 06:50 Temp 98.0 98.0 Pulse 100 Resp 18 18 18 B/P (MAP) 106/65 (79) Pulse Ox 97 97 97 O2 Delivery Room Air Room Air Room Air Intake and Output 08/04/19 08/04/19 08/05/19 15:00 23:00 07:00 Intake Total 500 ml 50 ml 100 ml Balance 500 ml 50 ml 100 ml Nutrition Consultation Dietary Evaluation: Recommendations by RD: Dietary education by RD, Increase Calorie Intake, Protein supplementation Comments: rec continue Renal diet with nepro bid Expected Outcomes/Goals: to meet >75% est nutr needs Interpretation of weight loss: >1-2% in 1 week Malnutrition Findings: Food and Nutrition Intake (Sev: <50% est energy req 5days Weight Status: Underweight LILA DEMPSEY MD August 05, 2019 08:07
[2019-08-05 08:45] VITALS: BP 108/82
--- NOTE | 2019-08-05 08:56 | RAD ---
MRI of the brain without contrast 08/05/2019 Clinical History: Altered mental status. Weakness. Technique: Unenhanced T1-weighted sagittal and axial, T2-weighted axial and coronal and FLAIR, gradient echo and diffusion-weighted axial images of the brain were obtained. Findings: Comparison is made to the patient's CT scan of the head dated 08/02/2019. Images from the study are degraded by patient motion. There is generalized parenchymal atrophy. Patchy and a few small scattered areas of increased signal intensity are seen within the periventricular and subcortical white matter of both cerebral hemispheres on the FLAIR and T2-weighted images consistent with areas of mild small vessel ischemic disease. No acute parenchymal abnormality is seen. No extra-axial fluid collection is seen. There is no MRI evidence of acute ischemia/infarction. The paranasal sinuses are essentially clear. There is a small right mastoid effusion. Normal flow voids are seen within the major vascular structures surrounding the brain parenchyma. Impression: No acute parenchymal abnormality is seen. Electronically signed by: Abdelrahman Vivas MD (08/05/2019 8:53 AM) [id number]
[2019-08-05] MEDS: FOLIC/VIT B COMP W-C (RENAL) TABLET. PO SCH (09:10)
[2019-08-05] MEDS: TACROLIMUS 0.5 MG CAPSULE PO SCH ×5 (09:10→23:09)
[2019-08-05] MEDS: SEVELAMER CARBONATE 800 MG TABLET. PO SCH ×3 (09:10→17:00)
[2019-08-05] MEDS: LIOTHYRONINE 5 MCG TABLET. PO SCH (09:10)
[2019-08-05] MEDS: SERTRALINE 50 MG TABLET. PO SCH (09:10)
[2019-08-05] MEDS: CARVEDILOL 6.25 MG TABLET. PO SCH (09:11)
[2019-08-05] MEDS: APIXABAN 2.5 MG TABLET. PO SCH ×5 (09:11→23:09)
[2019-08-05] MEDS: predniSONE 5 MG TABLET PO SCH (09:11)
[2019-08-05] MEDS: POTASSIUM CHLORIDE 20 MEQ TABLET.ER. PO SCH (09:13)
[2019-08-05] MEDS: LEVOTHYROXINE SODIUM INJ 50 MCG in NORMAL SALINE 5 ML IVP SCH (09:15)
[2019-08-05] MEDS: IV DEXTROSE 10% 1,000 ML IV SCH (09:15)
[2019-08-05] MEDS ORDERED: METOCLOPRAMIDE HCL 10 MG/2 ML VIAL. IVP ONE (09:45)
--- NOTE | 2019-08-05 09:49 | PDOC ---
PROGRESS NOTES Assessment Problems Medical Problems: (1) AMS (altered mental status) Status: Acute (2) Failure to thrive in adult Status: Acute (3) Hallucination Status: Acute Metabolic encephalopathy. Hypothyroidism, TSH 347.528 Renal failure on dialysis. Failed kidney transplant. Plan Treat medical diseases. Treat hypothyroidism per floor team. Okay for discharge neuro-drake Subjective No other complaints Objective Vital Signs Date Time Temp Pulse Resp B/P (MAP) Pulse Ox O2 Delivery O2 Flow Rate FiO2 08/05/19 09:11 98 108/82 08/05/19 08:45 97.7 16 100 Room Air 97.7 Intake and Output 08/05/19 07:00 Intake Total 650 ml Balance 650 ml Intake Oral 650 ml PHYSICAL EXAM Alert. Oriented to time, place and person. I told her I looked at her MRI and it looked fine to me but the radiologist needs to see it. The patient says that she was told that the doctor would look at it and she wonders why another doctor has to look at it. I explained that I just was looking at it on my own, but the radiologist makes the interpretation. Then the patient pointed to her tray and said that I should know she's a renal patient and why did she not have a renal diet. I explained to the patient that I did not order the diet for her and I would check with the nurse, but I note that the patient simply has salt and sugar on the side, which she could of course refrain from. PERRL. EOMI. CN: no focal findings. Muscle tone: normal. Muscle strength: 4/5 DTR: 1+ Plantar reflex: flexor Gait: not examined in bed. Sensory exam: no abnormal findings. No cerebellar signs elicited. Review of Relevant I have reviewed the following items tim (where applicable) has been applied. Labs Laboratory Tests Test 08/03/19 12:32 08/03/19 16:04 08/03/19 21:08 08/04/19 08:50 Glucose (Fingerstick) 86 mg/dL (70-99) 130 mg/dL (70-99) 135 mg/dL (70-99) 93 mg/dL (70-99) Test 08/04/19 11:20 08/04/19 16:29 08/04/19 20:27 08/05/19 08:47 Glucose (Fingerstick) 82 mg/dL (70-99) 105 mg/dL (70-99) 109 mg/dL (70-99) 68 mg/dL (70-99) Laboratory Tests Test 08/04/19 11:20 08/04/19 16:29 08/04/19 20:27 08/05/19 08:47 Glucose (Fingerstick) 82 mg/dL (70-99) 105 mg/dL (70-99) 109 mg/dL (70-99) 68 mg/dL (70-99) Microbiology 08/02/19 Blood Culture - Preliminary, Resulted NO GROWTH AFTER 2 DAYS Medications Current Medications Dextrose (Dextrose 50%-Water Syringe) 12.5 gm 1X ONCE IV Last administered on 08/02/19at 20:38; Start 08/02/19 at 20:30; Stop 08/02/19 at 20:31; Status DC Ondansetron HCl (Zofran) 4 mg PRN Q8HRS PRN IV NAUSEA/VOMITING Last administered on 08/03/19at 02:21; Start 08/02/19 at 23:00; Stop 08/03/19 at 09:41; Status DC Morphine Sulfate (Morphine Sulfate) 2 mg PRN Q2HR PRN IV SEVERE PAIN 7-10 Last administered on 08/03/19at 01:00; Start 08/02/19 at 23:00; Stop 08/03/19 at 09:41; Status DC Dextrose (Dextrose 50%-Water Syringe) 12.5 gm 1X ONCE IV Last administered on 08/03/19at 00:35; Start 08/03/19 at 00:45; Stop 08/03/19 at 00:46; Status DC Dextrose 1,000 ml @ 50 mls/hr Q20H IV Last administered on 08/05/19at 09:15; Start 08/03/19 at 01:15 Acetaminophen (Tylenol) 650 mg PRN Q6HRS PRN PO HEADACHE Last administered on 08/03/19at 14:58; Start 08/03/19 at 08:00 Ondansetron HCl (Zofran) 4 mg PRN Q4HRS PRN IV NAUSEA/VOMITING Last administered on 08/05/19at 07:23; Start 08/03/19 at 09:45 Hydromorphone HCl (Dilaudid) 0.4 mg PRN Q4HRS PRN IVP PAIN; Start 08/03/19 at 09:45 Apixaban (Eliquis) 2.5 mg BID PO Last administered on 08/05/19 09:11; Start 08/03/19 at 10:00 Carvedilol (Coreg) 6.25 mg DAILY PO Last administered on 08/05/19 09:11; Start 08/04/19 at 09:00 Diphenhydramine HCl (Benadryl) 50 mg PRN QHS PRN PO sleep/itching Last admin istered on 08/04/19at 20:32; Start 08/03/19 at 21:00 Vitamin B Complex/ Vitamin C (Marry-Dori) 1 tab DAILY PO Last administered on 08/05/19 09:10; Start 08/03/19 at 10:00 Levothyroxine Sodium (Synthroid) 75 mcg DAILYAC PO Last administered on 08/04/19 08:31; Start 08/03/19 at 10:00; Stop 08/04/19 at 08:54; Status DC Potassium Chloride (Klor-Con) 20 meq DAILY PO Last administered on 08/05/19 09:13; Start 08/03/19 at 10:00 Prednisone (Prednisone) 5 mg DAILY PO Last administered on 08/05/19 09:11; Start 08/03/19 at 10:00 Tacrolimus (Prograf) 1 mg BID PO Last administered on 08/03/19at 21:00; Start 08/03/19 at 10:00; Stop 08/04/19 at 04:20; Status DC Trazodone HCl (Desyrel) 50 mg HS PO Last administered on 08/04/19 20:31; Start 08/03/19 at 21:00 Fluticasone Propionate (Flonase) 2 spray PRN DAILY PRN NS ALLERGIC RHINITIS; Start 08/04/19 at 09:00 Pantoprazole Sodium (Protonix) 40 mg DAILYAC PO Last administered on 08/05/19at 07:24; Start 08/03/19 at 10:00 Sertraline HCl (Zoloft) 150 mg DAILY PO Last administered on 08/05/19at 09:10; Start 08/03/19 at 10:30 Sevelamer Carbonate (Renvela) 800 mg TIDWMEALS PO Last administered on 09:10; Start 08/03/19 at 12:00 Tramadol HCl (Ultram) 100 mg PRN Q8HRS PRN PO PAIN Last administered on 08/05/19at 05:50; Start 08/03/19 at 10:15 Vancomycin HCl (Vancomycin Oral Solution) 125 mg [id number] PO Last administered on 08/04/19 08:33; Start 08/03/19 at 13:00; Stop 08/04/19 at 09:01; Status DC Info (Anti-Coagulation Monitoring By Pharmacy) 1 each PRN DAILY PRN MC SEE COMMENTS Last administered on 08/04/19at 13:08; Start 08/03/19 at 10:00 Lorazepam (Ativan) 0.5 mg PRN Q8HRS PRN PO ANXIETY / AGITATION Last administered on 08/04/19at 08:44; Start 08/03/19 at 13:30 Tacrolimus (Prograf) 1 mg BID PO Last administered on 08/05/19 09:10; Start 08/04/19 at 09:00 Levothyroxine Sodium (Synthroid) 75 mcg DAILY06 PO ; Start 08/07/19 at 06:00 Levothyroxine Sodium 200 mcg/ Sodium Chloride 10 ml @ 200 mls/hr 1X ONCE IVP Last administered on 08/04/19at 09:38; Start 08/04/19 at 09:30; Stop 08/04/19 at 09:32; Status DC Levothyroxine Sodium 50 mcg/ Sodium Chloride 5 ml @ 100 mls/hr DAILY IVP Last administered on 08/05/19at 09:15; Start 08/05/19 at 09:00; Stop 08/06/19 at 09:02 Liothyronine Sodium (Cytomel) 5 mcg DAILY PO Last administered on 08/05/19 09:10; Start 08/04/19 at 09:15; Stop 08/06/19 at 09:01 Metoclopramide HCl (Reglan Vial) 5 mg 1X ONCE IVP ; Start 08/05/19 at 09:45; Stop 08/05/19 at 09:46 Active Scripts Active Potassium Chloride (Potassium Chloride) 20 Meq Tablet.er 20 Meq PO DAILY 7 Days Vancomycin Hcl 125 Mg Capsule 1 Cap PO QID 10 Days Reported Tramadol Hcl 100 Mg Tbmp.24hr 100 Mg PO TID PRN PRN Flonase Allergy Relief (Fluticasone Propionate) 9.9 Ml [place].susp 2 Sprays NS PRN Renagel (Sevelamer Hcl) 800 Mg Tablet 800 Mg PO TID PRN Marry-Dori Tablet (Folic Acid/Vitamin B Comp W-C) 0.8 Mg Tablet 1 Tab PO DAILY 30 Days Trazodone Hcl 50 Mg Tablet 50 Mg PO HS Levothyroxine Sodium 75 Mcg Tablet 75 Mcg PO DAILYAC Eliquis (Apixaban) 2.5 Mg Tablet 2.5 Mg PO BID PRN Benadryl (Diphenhydramine Hcl) 25 Mg Capsule 2 Cap PO QHS 30 Days Prograf (Tacrolimus) 1 Mg Capsule 1 Mg PO BID Prednisone (Prednisone) 10 Mg Tablet 5 Mg PO DAILY Protonix (Pantoprazole Sodium) 20 Mg Tablet.dr 20 Mg PO DAILY Carvedilol (Carvedilol) 6.25 Mg Tablet 6.25 Mg PO DAILY Zoloft (Sertraline Hcl) 100 Mg Tablet 150 Mg PO DAILY Vitals/I & O Vital Sign - Last 24 Hours 08/04/19 08/04/19 08/04/19 08/04/19 11:00 14:30 19:00 20:00 Temp 98.4 97.9 98.8 98.4 97.9 98.8 Pulse 80 74 102 Resp 17 17 18 B/P (MAP) 99/76 (84) 103/72 (82) 97/62 (74) Pulse Ox 97 97 97 O2 Delivery Room Air Room Air Room Air Room Air 08/04/19 08/04/19 08/04/19 08/05/19 20:32 21:32 23:00 03:00 Temp 98.0 98.0 98.0 98.0 Pulse 101 100 Resp 18 18 18 18 B/P (MAP) 103/74 (84) 106/65 (79) Pulse Ox 97 97 96 97 O2 Delivery Room Air Room Air Room Air Room Air 08/05/19 08/05/19 08/05/19 08/05/19 05:50 06:50 08:45 09:11 Temp 97.7 97.7 Pulse 98 98 Resp 18 18 16 B/P (MAP) 108/82 (91) 108/82 Pulse Ox 97 97 100 O2 Delivery Room Air Room Air Room Air Intake and Output 08/04/19 08/04/19 08/05/19 15:00 23:00 07:00 Intake Total 500 ml 50 ml 100 ml Balance 500 ml 50 ml 100 ml FLORINA ELKINS MD August 05, 2019 09:49
[2019-08-05] MEDS ORDERED: DEXTROSE 50% 25 GM / 50ML DISP.SYRIN. IV PRN (10:00)
[2019-08-05] MEDS ORDERED: LEVO75TA5 PO (10:37)
[2019-08-05] MEDS ORDERED: busPIRone 5 MG TABLET. PO PRN (10:45)
[2019-08-05] MEDS ORDERED: hydrOXYzine 10 MG TABLET PO PRN (10:45)
--- NOTE | 2019-08-05 11:12 | PDOC ---
SUBJECTIVE ROS Paranoid behavior documented by nursing and primary OBJECTIVE Vital Signs Vital Signs Date Time Temp Pulse Resp B/P (MAP) Pulse Ox O2 Delivery O2 Flow Rate FiO2 08/05/19 09:11 98 108/82 08/05/19 08:45 97.7 16 100 Room Air 97.7 I & 0 Intake and Output 08/05/19 07:00 Intake Total 650 ml Balance 650 ml Intake Oral 650 ml PHYSICAL EXAM Physical Exam General: Alert, Cooperative, No acute distress HEEN OM moist Lungs CTA, Non labored Heart: s1 s2 Abdomen: Soft, No tenderness, PD catheter + Extremities: No clubbing, No cyanosis, No edema, Skin: No rashes, No CVA or sp tenderbess, No Mcgrath DIAGNOSIS/ASSESSMENT Assessment & Plan ESRD on PD - Has been on Dialysis for 5 years 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 Severe protein calorie malnutrition Failed renal transplant Hyperphosphatemia- On Binders CoVid Negative COMMENT/RELEVANT DATA Meds Current Medications Medications (Trade) Dose Ordered Sig/Olga Start Time Stop Time Status Last Admin Dose Admin Acetaminophen (Tylenol) 650 mg PRN Q6HRS PRN 08/03/19 08:00 08/03/19 14:58 650 MG Apixaban (Eliquis) 2.5 mg BID 08/03/19 10:00 08/05/19 09:11 2.5 MG Buspirone HCl (Buspar) 5 mg PRN TID PRN 08/05/19 10:45 Carvedilol (Coreg) 6.25 mg DAILY 08/04/19 09:00 08/05/19 09:11 6.25 MG Dextrose (Dextrose 50%-Water Syringe) 12.5 gm PRN Q15MIN PRN 08/05/19 10:00 Diphenhydramine HCl (Benadryl) 50 mg PRN QHS PRN 08/03/19 21:00 08/04/19 20:32 50 MG Fluticasone Propionate (Flonase) 2 spray PRN DAILY PRN 08/04/19 09:00 Hydromorphone HCl (Dilaudid) 0.4 mg PRN Q4HRS PRN 08/03/19 09:45 Hydroxyzine HCl (Atarax) 10 mg PRN Q6HRS PRN 08/05/19 10:45 Info (Anti-Coagulation Monitoring By Pharmacy) 1 each PRN DAILY PRN 08/03/19 10:00 08/04/19 13:08 1 EACH Levothyroxine Sodium (Synthroid) 75 mcg DAILY06 08/07/19 06:00 Levothyroxine Sodium 200 mcg/ Sodium Chloride 10 ml @ 200 mls/hr 1X ONCE 08/04/19 09:30 08/04/19 09:32 DC 08/04/19 09:38 200 MLS/HR Levothyroxine Sodium 50 mcg/ Sodium Chloride 5 ml @ 100 mls/hr DAILY 08/05/19 09:00 08/06/19 09:02 08/05/19 09:15 100 MLS/HR Liothyronine Sodium (Cytomel) 5 mcg DAILY 08/04/19 09:15 08/06/19 09:01 08/05/19 09:10 5 MCG Lorazepam (Ativan) 0.5 mg PRN Q8HRS PRN 08/03/19 13:30 08/05/19 10:35 DC 08/04/19 08:44 0.5 MG Metoclopramide HCl (Reglan Vial) 5 mg 1X ONCE 08/05/19 09:45 08/05/19 09:46 DC 08/05/19 09:56 5 MG Morphine Sulfate (Morphine Sulfate) 2 mg PRN Q2HR PRN 08/02/19 23:00 08/03/19 09:41 DC 08/03/19 01:00 2 MG Ondansetron HCl (Zofran) 4 mg PRN Q4HRS PRN 08/03/19 09:45 08/05/19 07:23 4 MG Pantoprazole Sodium (Protonix) 40 mg DAILYAC 08/03/19 10:00 08/05/19 07:24 40 MG Potassium Chloride (Klor-Con) 20 meq DAILY 08/03/19 10:00 08/05/19 09:13 20 MEQ Prednisone (Prednisone) 5 mg DAILY 08/03/19 10:00 08/05/19 09:11 5 MG Sertraline HCl (Zoloft) 150 mg DAILY 08/03/19 10:30 08/05/19 09:10 150 MG Sevelamer Carbonate (Renvela) 800 mg TIDWMEALS 08/03/19 12:00 08/05/19 09:10 800 MG Tacrolimus (Prograf) 1 mg BID 08/04/19 09:00 08/05/19 09:10 1 MG Tramadol HCl (Ultram) 100 mg PRN Q8HRS PRN 08/03/19 10:15 08/05/19 05:50 100 MG Trazodone HCl (Desyrel) 50 mg HS 08/03/19 21:00 08/04/19 20:31 50 MG Vancomycin HCl (Vancomycin Oral Solution) 125 mg [id number] 08/03/19 13:00 08/04/19 09:01 DC 08/04/19 08:33 125 MG Vitamin B Complex/ Vitamin C (Marry-Dori) 1 tab DAILY 08/03/19 10:00 08/05/19 09:10 1 TAB Lab Laboratory Tests Test 08/04/19 11:20 08/04/19 16:29 08/04/19 20:27 08/05/19 08:47 Glucose (Fingerstick) 82 mg/dL (70-99) 105 mg/dL (70-99) 109 mg/dL (70-99) 68 mg/dL (70-99) Results All relevant outside records, renal labs, imaging studies, telemetry/EKG's were reviewed. VIRGIE SEALS MD August 05, 2019 11:12
[2019-08-05 11:36] VITALS: BP 120/85
[2019-08-05] MEDS: ANTI-COAG MONITOR BY PHARMACY. MC PRN (13:52)
--- NOTE | 2019-08-05 14:59 | NUR ---
SW following. Discussed with RN, pt not ready to discharge today, trying to stabilize thyroid level. Potential for discharge in the next couple days. SW will continue to follow.
[2019-08-05 15:15] VITALS: BP 127/90
[2019-08-05] MEDS ORDERED: OLAN2.5T3 PO (17:05)
--- NOTE | 2019-08-05 17:31 | PDOC1 ---
History & Psych Evaluation Date of Admission: Date of Admission DATE: 08/05/19 TIME: 17:14 Source: Source: Caregiver, Chart review, Patient Identification: Identification She is a young 24-year-old female with end-stage renal disease. Chief Complaint: Chief Complaint Mood instability, depression, anxiety, and paranoia History of Present Illness: HPI: She is a young female with known history of depression and anxiety with multiple medical comorbidities including ESRD admitted with altered mental status likely to metabolic encephalopathy. She has history of transplant rejection and on peritoneal dialysis. She is seen for initial psychiatric assessment. Upon interview, she appears irritable, frustrated, resistant to psychological exploration, and uncooperative. Seems to be confused and at times shouting. She called her mother over phone and FaceTime to discuss. According to the information provided by mother, she has longstanding history of depression, taking Zoloft 150 mg, since the age of 11. Recently, she is reportedly getting more confused and irrational. Talking about things that do not make any sense. She never had this kind of confusion previously. During conversation, patient had a panic attack with typical symptomatology, difficulty catching of her breath, and started shouting. Reportedly, having high anxiety and frequent panic attacks. For panic attacks, previously she was tried on Lorazepam or Atarax that made her worse and more confused. She continues to be depressed and anxious. Denies history of suicidal thoughts or attempt. Denies auditory or visual hallucinations. Past Psychiatric History: She has history of depression and anxiety. Denies history of suicidal attempt. She is on Zoloft 150 mg daily. Past Medical History: See medical chart for details Family History: Family history of psychiatric illness is not available. Social History: Social History: She lives with her mother, denies illicit substance use. Denies legal issues. Current Medications: Current Medications Current Medications Medications (Trade) Dose Ordered Sig/Olga Start Time Stop Time Status Last Admin Dose Admin Acetaminophen (Tylenol) 650 mg PRN Q6HRS PRN 08/03/19 08:00 08/03/19 14:58 650 MG Apixaban (Eliquis) 2.5 mg BID 08/03/19 10:00 08/05/19 09:11 2.5 MG Buspirone HCl (Buspar) 5 mg PRN TID PRN 08/05/19 10:45 08/05/19 11:04 5 MG Carvedilol (Coreg) 6.25 mg DAILY 08/04/19 09:00 08/05/19 09:11 6.25 MG Dextrose (Dextrose 50%-Water Syringe) 12.5 gm PRN Q15MIN PRN 08/05/19 10:00 08/05/19 12:09 12.5 GM Diphenhydramine HCl (Benadryl) 50 mg PRN QHS PRN 08/03/19 21:00 08/04/19 20:32 50 MG Fluticasone Propionate (Flonase) 2 spray PRN DAILY PRN 08/04/19 09:00 Hydromorphone HCl (Dilaudid) 0.4 mg PRN Q4HRS PRN 08/03/19 09:45 Hydroxyzine HCl (Atarax) 10 mg PRN Q6HRS PRN 08/05/19 10:45 08/05/19 17:02 10 MG Info (Anti-Coagulation Monitoring By Pharmacy) 1 each PRN DAILY PRN 08/03/19 10:00 08/05/19 13:52 1 EACH Levothyroxine Sodium (Synthroid) 75 mcg DAILY06 08/07/19 06:00 Levothyroxine Sodium 200 mcg/ Sodium Chloride 10 ml @ 200 mls/hr 1X ONCE 08/04/19 09:30 08/04/19 09:32 DC 08/04/19 09:38 200 MLS/HR Levothyroxine Sodium 50 mcg/ Sodium Chloride 5 ml @ 100 mls/hr DAILY 08/05/19 09:00 08/06/19 09:02 08/05/19 09:15 100 MLS/HR Liothyronine Sodium (Cytomel) 5 mcg DAILY 08/04/19 09:15 08/06/19 09:01 08/05/19 09:10 5 MCG Lorazepam (Ativan) 0.5 mg PRN Q8HRS PRN 08/03/19 13:30 08/05/19 10:35 DC 08/04/19 08:44 0.5 MG Metoclopramide HCl (Reglan Vial) 5 mg 1X ONCE 08/05/19 09:45 08/05/19 09:46 DC 08/05/19 09:56 5 MG Morphine Sulfate (Morphine Sulfate) 2 mg PRN Q2HR PRN 08/02/19 23:00 08/03/19 09:41 DC 08/03/19 01:00 2 MG Ondansetron HCl (Zofran) 4 mg PRN Q4HRS PRN 08/03/19 09:45 08/05/19 17:03 4 MG Pantoprazole Sodium (Protonix) 40 mg DAILYAC 08/03/19 10:00 08/05/19 07:24 40 MG Potassium Chloride (Klor-Con) 20 meq DAILY 08/03/19 10:00 08/05/19 09:13 20 MEQ Prednisone (Prednisone) 5 mg DAILY 08/03/19 10:00 08/05/19 09:11 5 MG Sertraline HCl (Zoloft) 150 mg DAILY 08/03/19 10:30 08/05/19 09:10 150 MG Sevelamer Carbonate (Renvela) 800 mg TIDWMEALS 08/03/19 12:00 08/05/19 09:10 800 MG Tacrolimus (Prograf) 1 mg BID 08/04/19 09:00 08/05/19 09:10 1 MG Tramadol HCl (Ultram) 100 mg PRN Q8HRS PRN 08/03/19 10:15 08/05/19 17:02 100 MG Trazodone HCl (Desyrel) 50 mg HS 08/03/19 21:00 08/04/19 20:31 50 MG Vancomycin HCl (Vancomycin Oral Solution) 125 mg [id number] 08/03/19 13:00 08/04/19 09:01 DC 08/04/19 08:33 125 MG Vitamin B Complex/ Vitamin C (Marry-Dori) 1 tab DAILY 08/03/19 10:00 08/05/19 09:10 1 TAB Allergies: Allergies: Coded Allergies: Iodinated Contrast Media (Verified Allergy, Intermediate, 08/03/19) NSAIDS (Non-Steroidal Anti-Inflamma (Verified Allergy, Intermediate, 08/03/19) losartan (Verified Allergy, Intermediate, 08/03/19) phenobarbital (Verified Allergy, Intermediate, 08/03/19) Mental Status Examination: Mental Status Examination Young female, appears in distress Uncooperative, difficult to engage. She is disoriented. Speech is rambling. Thought processes is concrete. Denies auditory or visual hallucinations. Denies suicidal or homicidal thoughts. She is paranoid. Mood is dysphoric. Affect is labile. Insight is limited, impulse control is fair. Judgment is fair. Attention span and concentration are impaired. ROS: Psychiatric review of system is positive for anxiety, panic attacks, confusion, altered mental status, depression, and paranoid ideation. Physical Exam: Refer to Physician's note. PEPPER PICKER: No focal deficit MSK: No EPS, TDK, or abnormal involuntary movements Vitals: Vitals Vital Signs Date Time Temp Pulse Resp B/P (MAP) Pulse Ox O2 Delivery O2 Flow Rate FiO2 08/05/19 17:02 16 Room Air 08/05/19 15:15 97.8 91 127/90 (102) 99 97.8 Labs: Labs Laboratory Tests Test 08/03/19 21:08 08/04/19 08:50 08/04/19 11:20 08/04/19 16:29 Glucose (Fingerstick) 135 mg/dL (70-99) 93 mg/dL (70-99) 82 mg/dL (70-99) 105 mg/dL (70-99) Test 08/04/19 20:27 08/05/19 08:47 08/05/19 11:57 08/05/19 16:59 Glucose (Fingerstick) 109 mg/dL (70-99) 68 mg/dL (70-99) 68 mg/dL (70-99) 99 mg/dL (70-99) Laboratory Tests Test 08/04/19 20:27 08/05/19 08:47 08/05/19 11:57 08/05/19 16:59 Glucose (Fingerstick) 109 mg/dL (70-99) 68 mg/dL (70-99) 68 mg/dL (70-99) 99 mg/dL (70-99) Diagnosis: Diagnosis: 1unspecified psychosis, likely to delirium. 2acute delirium, likely multifactorial and mixed 3unspecified anxiety disorder with panic attacks. 4depression Assessment: Young female with longstanding history of end-stage renal disease struggling with depression, severe anxiety with panic attacks, and psychosis. Apparently, her paranoia appears to be emerging from her delirium. Delirium appears to be multifactorial including uremic encephalopathy. Treatment options discussed in detail with patient and mother. Mother appears to be receptive with treatment. Recommending Zyprexa scheduled and as needed to help with delirium, mood instability, psychosis, and panic attacks. Plan: Start Zyprexa 2.5 mg nightly. She may take additional 2.5 mg during the day as needed for panic attacks. Avoid sedatives and hypnotics as they may worsen delirium. Monitor for psychosis, safety, and symptomatology. Will titrate Zyprexa accordingly. Risks, benefits, alternatives of the treatment are discussed. She is in agreement with plan and voiced understanding. Adverse drug reactions including but not limited to risk of metabolic syndrome, weight gain, EPS, tardive dyskinesia, and excessive sedation are discussed. She is informed to stop medication in case of adverse drug reactions. Thank you for involving good patient care. CELIA MEDINA MD August 05, 2019 17:31
--- NOTE | 2019-08-05 17:38 | RAD ---
INDICATION: Hypothyroidism COMPARISON: None. TECHNIQUE: Grayscale and color ultrasound images obtained of the thyroid. FINDINGS: Right Lobe: 40 x 18 x 12 mm. Left Lobe: 42 x 16 x 12 mm. There is a couple of nodules within the thyroid bilaterally with complex cystic appearance. This includes one on the right measuring 6 mm and on the left measuring 4 mm. There is some heterogeneity of the thyroid. IMPRESSION: * There are couple of complex cystic nodules in the thyroid bilaterally measuring up to 6 mm. Follow-up could be obtained in a year to ensure no growth. Electronically signed by: Cecil Camarillo MD (08/05/2019 5:35 PM) [id number]
[2019-08-05] MEDS ORDERED: OLANZapine 2.5 MG TABLET PO PRN (17:45)
[2019-08-05 19:57] VITALS: BP 122/89
[2019-08-05] MEDS: traZODone 50 MG TABLET. PO SCH ×3 (20:18→21:00)
[2019-08-05] MEDS: ACETAMINOPHEN 325 MG TABLET. PO PRN ×2 (20:18→20:43)
[2019-08-05] MEDS: OLANZapine 2.5 MG TABLET PO SCH ×3 (20:19→23:08)
[2019-08-05] MEDS ORDERED: METOPROLOL TARTRATE 5 MG/5 ML VIAL. IVP ONE (23:15)
[2019-08-05 23:36] VITALS: BP_SYST 116; BP_SYST 134; BP_DIAS 85; BP_DIAS 87
--- NOTE | 2019-08-06 01:59 | NUR ---
RECEIVED ORDERS FOR METOPROLOL FROM DR DEMPSEY AT APROX 11:30 PM FOR A HEART RATE OF 150 (BP @ 116/80). PT ASYMPTOMATIC. MED NOT GIVEN RATE DROPS TO 112. EKG DONE FOR ORDERS. PT NOW WITH MONITOR SHOWING SINUS TACH
[2019-08-06 03:38] VITALS: BP_SYST 124
--- NOTE | 2019-08-06 05:08 | NUR ---
PT REFUSES PM MEDS. APPEARS CONFUSED AND BELIEVES SHE IS GOING IN FOR SURGERY TOMORROW DESPITE NURSE ADVISING HER OTHERWISE
[2019-08-06 05:35] LABS: CREATININE 8.4 mg/dL (0.6-1.0); GFR 5.9; POTASSIUM 4.2 mmol/L (3.5-5.1)
[2019-08-06] MEDS: IV DEXTROSE 10% 1,000 ML IV SCH (06:23)
--- NOTE | 2019-08-06 06:35 | EKG ---
[facility] [address] [place] [address] Test Date: 2019-08-06 Test Time: 00:10:05 Pat Name: TY SANCHEZ Department: Room: [facility] Gender: F Manager Gyn: DELROY : 1995 Requested By: LILA DEMPSEY Order Number: [id number] Reading MD: Heron Patricio Measurements Intervals [place] Rate: 112 P: -61 MI: 178 QRS: 44 QRSD: 82 T: 44 QT: 340 QTc: 466 Interpretive Statements SINUS TACHYCARDIA Electronically Signed On 08-07-2019 8:33:55 CDT by Heron Patricio
[2019-08-06 07:46] VITALS: BP 114/83
[2019-08-06] MEDS: SEVELAMER CARBONATE 800 MG TABLET. PO SCH ×3 (08:00→18:19)
--- NOTE | 2019-08-06 10:31 | PDOC ---
SUBJECTIVE ROS stable OBJECTIVE Vital Signs Vital Signs Date Time Temp Pulse Resp B/P (MAP) Pulse Ox O2 Delivery O2 Flow Rate FiO2 08/06/19 07:46 98.1 94 12 114/83 (93) 96 Room Air 98.1 I & 0 Intake and Output 08/06/19 07:00 Intake Total 135 ml Balance 135 ml Intake Oral 135 ml PHYSICAL EXAM Physical Exam General: No acute distress HEEN OM moist Lungs CTA, Non labored Heart: s1 s2 Abdomen: Soft, No tenderness, PD catheter + Extremities: No clubbing, No cyanosis, No edema, Skin: No rashes, No CVA or sp tenderbess, No Mcgrath DIAGNOSIS/ASSESSMENT Assessment & Plan ESRD on PD - Has been on Dialysis for 5 years [employer] in [place] [facility] per 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 Severe protein calorie malnutrition Failed renal transplant Hyperphosphatemia- On Binders CoVid Negative COMMENT/RELEVANT DATA Meds Current Medications Medications (Trade) Dose Ordered Sig/Olga Start Time Stop Time Status Last Admin Dose Admin Acetaminophen (Tylenol) 650 mg PRN Q6HRS PRN 08/03/19 08:00 08/03/19 14:58 650 MG Apixaban (Eliquis) 2.5 mg BID 08/03/19 10:00 08/05/19 23:09 2.5 MG Buspirone HCl (Buspar) 5 mg PRN TID PRN 08/05/19 10:45 08/05/19 11:04 5 MG Carvedilol (Coreg) 6.25 mg DAILY 08/04/19 09:00 08/05/19 09:11 6.25 MG Dextrose (Dextrose 50%-Water Syringe) 12.5 gm PRN Q15MIN PRN 08/05/19 10:00 08/05/19 12:09 12.5 GM Diphenhydramine HCl (Benadryl) 50 mg PRN QHS PRN 08/03/19 21:00 08/04/19 20:32 50 MG Fluticasone Propionate (Flonase) 2 spray PRN DAILY PRN 08/04/19 09:00 Hydromorphone HCl (Dilaudid) 0.4 mg PRN Q4HRS PRN 08/03/19 09:45 Hydroxyzine HCl (Atarax) 10 mg PRN Q6HRS PRN 08/05/19 10:45 Info (Anti-Coagulation Monitoring By Pharmacy) 1 each PRN DAILY PRN 08/03/19 10:00 08/05/19 13:52 1 EACH Levothyroxine Sodium (Synthroid) 75 mcg DAILY06 08/07/19 06:00 Levothyroxine Sodium 200 mcg/ Sodium Chloride 10 ml @ 200 mls/hr 1X ONCE 08/04/19 09:30 08/04/19 09:32 DC 08/04/19 09:38 200 MLS/HR Levothyroxine Sodium 50 mcg/ Sodium Chloride 5 ml @ 100 mls/hr DAILY 08/05/19 09:00 08/06/19 09:02 DC 08/05/19 09:15 100 MLS/HR Liothyronine Sodium (Cytomel) 5 mcg DAILY 08/04/19 09:15 08/06/19 09:01 DC 08/05/19 09:10 5 MCG Lorazepam (Ativan) 0.5 mg PRN Q8HRS PRN 08/03/19 13:30 08/05/19 10:35 DC 08/04/19 08:44 0.5 MG Metoclopramide HCl (Reglan Vial) 5 mg 1X ONCE 08/05/19 09:45 08/05/19 09:46 DC 08/05/19 09:56 5 MG Metoprolol Tartrate (Lopressor Vial) 2.5 mg 1X ONCE 08/05/19 23:15 08/05/19 23:16 DC Morphine Sulfate (Morphine Sulfate) 2 mg PRN Q2HR PRN 08/02/19 23:00 08/03/19 09:41 DC 08/03/19 01:00 2 MG Olanzapine (ZyPREXA) 2.5 mg PRN DAILY PRN 08/05/19 17:45 Ondansetron HCl (Zofran) 4 mg PRN Q4HRS PRN 08/03/19 09:45 08/05/19 17:03 4 MG Pantoprazole Sodium (Protonix) 40 mg DAILYAC 08/03/19 10:00 08/05/19 07:24 40 MG Potassium Chloride (Klor-Con) 20 meq DAILY 08/03/19 10:00 08/05/19 09:13 20 MEQ Prednisone (Prednisone) 5 mg DAILY 08/03/19 10:00 08/05/19 09:11 5 MG Sertraline HCl (Zoloft) 150 mg DAILY 08/03/19 10:30 08/05/19 09:10 150 MG Sevelamer Carbonate (Renvela) 800 mg TIDWMEALS 08/03/19 12:00 08/05/19 09:10 800 MG Tacrolimus (Prograf) 1 mg BID 08/04/19 09:00 08/05/19 23:09 1 MG Tramadol HCl (Ultram) 100 mg PRN Q8HRS PRN 08/03/19 10:15 08/05/19 05:50 100 MG Trazodone HCl (Desyrel) 50 mg HS 08/03/19 21:00 08/04/19 20:31 50 MG Vancomycin HCl (Vancomycin Oral Solution) 125 mg [id number] 08/03/19 13:00 08/04/19 09:01 DC 08/04/19 08:33 125 MG Vitamin B Complex/ Vitamin C (Marry-Dori) 1 tab DAILY 08/03/19 10:00 08/05/19 09:10 1 TAB Lab Laboratory Tests Test 08/05/19 11:57 08/05/19 16:59 08/05/19 20:32 08/06/19 03:41 Glucose (Fingerstick) 68 mg/dL (70-99) 99 mg/dL (70-99) 97 mg/dL (70-99) Sodium Level 130 mmol/L (136-145) Potassium Level 4.2 mmol/L (3.5-5.1) Chloride Level 93 mmol/L (98-107) Carbon Dioxide Level 25 mmol/L (21-32) Anion Gap 12 (6-14) Blood Urea Nitrogen 29 mg/dL (7-20) Creatinine 8.4 mg/dL (0.6-1.0) Estimated GFR (Cockcroft-Gault) 5.9 Glucose Level 100 mg/dL (70-99) Calcium Level 9.0 mg/dL (8.5-10.1) Phosphorus Level 6.0 mg/dL (2.6-4.7) Albumin 2.0 g/dL (3.4-5.0) Test 08/06/19 07:38 Glucose (Fingerstick) 92 mg/dL (70-99) Results All relevant outside records, renal labs, imaging studies, telemetry/EKG's were reviewed. VIRGIE SEALS MD August 06, 2019 10:31
[2019-08-06 11:08] VITALS: BP 135/85
[2019-08-06] MEDS: LEVOTHYROXINE SODIUM INJ 50 MCG in NORMAL SALINE 5 ML IVP SCH (11:15)
[2019-08-06] MEDS: FOLIC/VIT B COMP W-C (RENAL) TABLET. PO SCH (11:17)
[2019-08-06] MEDS ORDERED: TACR1CAP5 PO (11:20)
--- NOTE | 2019-08-06 11:28 | SNU/HH DC ---
DISCHARGE WITH HOME HEALTH DISCHARGE INFORMATION: Discharge Date: August 06, 2019 Final Diagnosis: Problems Medical Problems: (1) AMS (altered mental status) Status: Acute (2) Failure to thrive in adult Status: Acute (3) Hallucination Status: Acute Condition on Discharge: Stable CODE STATUS: Code Status: Full HOME HEALTH: Face to Face: I certify this patient is under my care and that I, or a nurse practitioner or physician's assistant professor of biochemistry working with me, had a face to face encounter that meets the physician face to face encounter requirements with this patient on 08/06/2019. Medical Complications: Falls, Other (ESRD on PD, renal osteodystrophy. Myxedema coma) Jail For: Assess & Educate Safety, Assess/Skilled Observatio, Medication Management RN For Eval/Treatment: Yes Physical Therapy For: Evalulation/Treatment Occupational Therapy For: Evaluation/Treatment Pt Meets Homebound Status: Unsteady balance w/ amb,, Limited distance walking POST DISCHARGE ORDERS: Activity Instructions for Disc: Resume previous activity DIET AFTER DISCHARGE: Renal CHECKS AFTER DISCHARGE: Checks after discharge: Check blood press - daily FOLLOW-UP: PCP to follow Home Health: Dr. Danna Caballero - nephrology Additional Instructions: Dispense IV start kit Dispense IV tubing with extension set Infusion up to 3 days weekly with 500mL-1000mL 0.9% normal saline solution Follow Up With: Dr. Clinton Forman, psychiatry DC TO [facility]: Weekly BMP and magnesium level. [facility] 11/06/2019 CERTIFICATION STATEMENT: Certification Statement: Certification Statement: Based on the above finding, I certify that this patient is confined to the home and needs intermittent custodial care, physical therapy and/or speech therapy, or continues to need occupational therapy.~ This patient is under my care, and I have initiated the establishment of the plan of care.~ This patient will be followed by myself or a community physician who will periodically review the plan of care. Home Meds Active Scripts Tacrolimus (PROGRAF) 1 Mg Capsule, 1 MG PO DAILY for GVH for 30 Days, #30 CAP Prov:LILA DEMPSEY MD 08/06/19 Olanzapine (ZYPREXA) 2.5 Mg Tablet, 1 TAB PO QHS for Anxiety for 30 Days, #60 TAB 2 Refills QHS and up to once daily prn Prov:LILA DEMPSEY MD 08/05/19 Levothyroxine Sodium (LEVOTHYROXINE SODIUM) 75 Mcg Tablet, 75 MCG PO DAILYAC for THYROID SUPPLEMENT for 90 Days, #90 TAB 1 Refill Prov:LILA DEMPSEY MD 08/05/19 Potassium Chloride (POTASSIUM CHLORIDE ) 20 Meq Tablet.er, 20 MEQ PO DAILY for SUPPLEMENT for 7 Days, #7 TAB.SR Prov:LILA DEMPSEY MD 07/25/19 Vancomycin Hcl (VANCOMYCIN HCL) 125 Mg Capsule, 1 CAP PO QID for C. difficile colitis for 10 Days, #40 CAP 0 Refills Prov:LILA DEMPSEY MD 07/25/19 Reported Medications Tramadol Hcl (TRAMADOL HCL) 100 Mg Tbmp.24hr, 100 MG PO TID PRN PRN for PAIN, TAB 0 Refills 07/23/19 Fluticasone Propionate (Flonase Allergy Relief) 9.9 Ml Jackson.susp, 2 SPRAYS NS PRN for allergies, BOTTLE 07/22/19 Sevelamer Hcl (RENAGEL) 800 Mg Tablet, 800 MG PO TID PRN for ., TAB 07/22/19 Folic Acid/Vitamin B Comp W-C (OUSMANE-VASQUEZ TABLET) 0.8 Mg Tablet, 1 TAB PO DAILY for . for 30 Days, #30 TAB 0 Refills 07/22/19 Trazodone Hcl (TRAZODONE HCL) 50 Mg Tablet, 50 MG PO HS for ., TAB 07/22/19 Apixaban (ELIQUIS) 2.5 Mg Tablet, 2.5 MG PO BID PRN for ., TAB 07/22/19 Diphenhydramine Hcl (BENADRYL) 25 Mg Capsule, 2 CAP PO QHS for insomnia for 30 Days, #60 CAP 0 Refills 07/22/19 Prednisone (PREDNISONE ) 10 Mg Tablet, 5 MG PO DAILY for ., TAB 0 Refills 07/22/19 Pantoprazole Sodium (PROTONIX) 20 Mg Tablet.dr, 20 MG PO DAILY for ., TAB 07/22/19 Carvedilol (CARVEDILOL ) 6.25 Mg Tablet, 6.25 MG PO DAILY for CARDIAC, TAB 07/22/19 Sertraline Hcl (ZOLOFT) 100 Mg Tablet, 150 MG PO DAILY for ANTI-DEPRESSANT, TAB 0 Refills 07/22/19 LILA DEMPSEY MD August 06, 2019 11:28
[2019-08-06] MEDS: CARVEDILOL 6.25 MG TABLET. PO SCH (11:29)
[2019-08-06] MEDS: PANTOPRAZOLE 40 MG TABLET.DR. PO SCH (11:29)
[2019-08-06] MEDS: LIOTHYRONINE 5 MCG TABLET. PO SCH (11:30)
[2019-08-06] MEDS: POTASSIUM CHLORIDE 20 MEQ TABLET.ER. PO SCH (11:30)
[2019-08-06] MEDS: predniSONE 5 MG TABLET PO SCH (11:30)
[2019-08-06] MEDS: APIXABAN 2.5 MG TABLET. PO SCH (11:30)
[2019-08-06] MEDS: SERTRALINE 50 MG TABLET. PO SCH (11:30)
[2019-08-06] MEDS: TACROLIMUS 0.5 MG CAPSULE PO SCH ×2 (11:30→21:19)
--- NOTE | 2019-08-06 11:30 | PDOC ---
PROGRESS NOTES Chief Complaint Chief Complaint A/P: Acute encephalopathy - clear etiology, significantly hypothyroid, myxedema coma, seems metabolic, no sign this is toxic. 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 Hypoglycemia - her mental status did not improve with glucose elevation, will monitor as this is likely part of myxedema coma Colitis - 2/2 c. difficile will complete her vancomycin 10 day course here ESRD on PD - nephrology consulted C. Difficile - recently treated, will give her last few doses here Nausea - will add reglan prn Severe protein calorie malnutrition Failed renal transplant - will continue rejection meds, though an outpatient taper has been previously advised by consultants Elevated troponin - likely stress related, will monitor Lactic acidosis - trend. Likely from poor nutrition. Hemoconcentration - 2/2 dehydration from diarrhea Afib - paroxsymal by history, will cont eliquis, coreg if her BP can tolerate Unable to walk - progressed over the past year likely 2/2 hyperphosphatemia Bilateral shoulder abnormalities on CXR - possibly avascular necrosis Diffuse pain - she has renal osteodystrophy, likely related to this. FEN - Renal diet PPX - eliquis FULL CODE Dispo - inpatient for acute mental status changes. COVID-19 CRITERIA: The patient was evaluated during the global COVID-19 pandemic, and that diagnosis was suspected/considered upon their initial presentation. Their evaluation, treatment and testing was consistent with curr ent guidelines for patients who present with complaints or symptoms that may be related to COVID-19. 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 She was admitted and treated for stopping PD at home and worsening colitis 8 days prior to this admission and continue on vancomycin therapy for recent c. difficile colitis after treatment for gluteal abscess at [facility]. Patient reportedly was noted to have altered mental status 5/10 that is worse than baseline per her mother and home health did come by and evaluated patient and gave patient some IV fluids, but is apparently calling nursing staff at [facility] requesting PICC access. Patient does have end-stage renal disease and is on peritoneal dialysis. Patient states that she hurts everywhere and has had nausea and vomiting. Patient stated that she has not made any urine for the last 5 years. Additional history is limited as patient is very poor historian. CT head - revealed no acute intracranial abnormality, but prominent falcine and tentorial calcifications as well as atheromatous calcifications advanced for age and a right superior scalp subcutaneous lesion (epidermal cyst?) Troponin 0.121->0.118 overnight. Labs consistent with ESRD. K 4.4 and Na 139. Neurology consulted, ordered TSH, found significantly elevated at 347 with low T4 and T3. She was tested for COVID 19 in ED, NEGATIVE. Admitted for further care 08/03: Negative COVID 19. TSH results discussed with mother, reportedly taking all medications recently. TMax 100.2F overnight. D/w mother need for appropriate dosing of levothyroxine. 08/04: More alert today. Afebrile overnight. MRI read as normal. Patient is paranoid that we are not telling her everything that is going on. I reassured her that she is being treated for myxedema coma. She has nausea and some epigastric discomfort that pantoprazole has not improved. Seen by psychiatry, started on zyprexa 2.5mg qhs and up to BID. Overnight refused some of her medications. is anxious and agitated for a short while. Sleeping this morning but she states she feels better when awakened. Wishes to go home sodium 130 today K4.4 Vitals Vitals Vital Signs Date Time Temp Pulse Resp B/P (MAP) Pulse Ox O2 Delivery O2 Flow Rate FiO2 08/06/19 11:08 97.5 99 14 135/85 (102) 100 Room Air 97.5 Physical Exam General: Alert, Cooperative, No acute distress Abdomen: Normal bowel sounds, Soft, No tenderness, No hepatosplenomegaly, No masses, Other (PD catheter clean, dry intact) Extremities: No cyanosis, No edema, Normal pulses, Other (cachectic appearing, bony prominences apparent) Skin: No rashes, No significant lesion, Other (Healing gluteal ulcer) Labs LABS Laboratory Tests Test 08/05/19 11:57 08/05/19 16:59 08/05/19 20:32 08/06/19 03:41 Glucose (Fingerstick) 68 mg/dL (70-99) 99 mg/dL (70-99) 97 mg/dL (70-99) Sodium Level 130 mmol/L (136-145) Potassium Level 4.2 mmol/L (3.5-5.1) Chloride Level 93 mmol/L (98-107) Carbon Dioxide Level 25 mmol/L (21-32) Anion Gap 12 (6-14) Blood Urea Nitrogen 29 mg/dL (7-20) Creatinine 8.4 mg/dL (0.6-1.0) Estimated GFR (Cockcroft-Gault) 5.9 Glucose Level 100 mg/dL (70-99) Calcium Level 9.0 mg/dL (8.5-10.1) Phosphorus Level 6.0 mg/dL (2.6-4.7) Albumin 2.0 g/dL (3.4-5.0) Test 08/06/19 07:38 08/06/19 10:58 Glucose (Fingerstick) 92 mg/dL (70-99) 76 mg/dL (70-99) Assessment and Plan Assessmemt and Plan Problems Medical Problems: (1) AMS (altered mental status) Status: Acute (2) Failure to thrive in adult Status: Acute (3) Hallucination Status: Acute Comment Review of Relevant I have reviewed the following items tim (where applicable) has been applied. Labs Laboratory Tests Test 08/04/19 16:29 08/04/19 20:27 08/05/19 08:47 08/05/19 11:57 Glucose (Fingerstick) 105 mg/dL (70-99) 109 mg/dL (70-99) 68 mg/dL (70-99) 68 mg/dL (70-99) Test 08/05/19 16:59 08/05/19 20:32 08/06/19 03:41 08/06/19 07:38 Glucose (Fingerstick) 99 mg/dL (70-99) 97 mg/dL (70-99) 92 mg/dL (70-99) Sodium Level 130 mmol/L (136-145) Potassium Level 4.2 mmol/L (3.5-5.1) Chloride Level 93 mmol/L (98-107) Carbon Dioxide Level 25 mmol/L (21-32) Anion Gap 12 (6-14) Blood Urea Nitrogen 29 mg/dL (7-20) Creatinine 8.4 mg/dL (0.6-1.0) Estimated GFR (Cockcroft-Gault) 5.9 Glucose Level 100 mg/dL (70-99) Calcium Level 9.0 mg/dL (8.5-10.1) Phosphorus Level 6.0 mg/dL (2.6-4.7) Albumin 2.0 g/dL (3.4-5.0) Test 08/06/19 10:58 Glucose (Fingerstick) 76 mg/dL (70-99) Laboratory Tests Test 08/05/19 11:57 08/05/19 16:59 08/05/19 20:32 08/06/19 03:41 Glucose (Fingerstick) 68 mg/dL (70-99) 99 mg/dL (70-99) 97 mg/dL (70-99) Sodium Level 130 mmol/L (136-145) Potassium Level 4.2 mmol/L (3.5-5.1) Chloride Level 93 mmol/L (98-107) Carbon Dioxide Level 25 mmol/L (21-32) Anion Gap 12 (6-14) Blood Urea Nitrogen 29 mg/dL (7-20) Creatinine 8.4 mg/dL (0.6-1.0) Estimated GFR (Cockcroft-Gault) 5.9 Glucose Level 100 mg/dL (70-99) Calcium Level 9.0 mg/dL (8.5-10.1) Phosphorus Level 6.0 mg/dL (2.6-4.7) Albumin 2.0 g/dL (3.4-5.0) Test 08/06/19 07:38 08/06/19 10:58 Glucose (Fingerstick) 92 mg/dL (70-99) 76 mg/dL (70-99) Microbiology 08/02/19 Blood Culture - Preliminary, Resulted NO GROWTH AFTER 3 DAYS Medications Current Medications Dextrose (Dextrose 50%-Water Syringe) 12.5 gm 1X ONCE IV Last administered on 08/02/19at 20:38; Start 08/02/19 at 20:30; Stop 08/02/19 at 20:31; Status DC Ondansetron HCl (Zofran) 4 mg PRN Q8HRS PRN IV NAUSEA/VOMITING Last administered on 08/03/19 02:21; Start 08/02/19 at 23:00; Stop 08/03/19 at 09:41; Status DC Morphine Sulfate (Morphine Sulfate) 2 mg PRN Q2HR PRN IV SEVERE PAIN 7-10 Last administered on 08/03/19at 01:00; Start 08/02/19 at 23:00; Stop 08/03/19 at 09:41; Status DC Dextrose (Dextrose 50%-Water Syringe) 12.5 gm 1X ONCE IV Last administered on 08/03/19at 00:35; Start 08/03/19 at 00:45; Stop 08/03/19 at 00:46; Status DC Dextrose 1,000 ml @ 50 mls/hr Q20H IV Last administered on 08/06/19 06:23; Start 08/03/19 at 01:15 Acetaminophen (Tylenol) 650 mg PRN Q6HRS PRN PO HEADACHE Last administered on 08/03/19 14:58; Start 08/03/19 at 08:00 Ondansetron HCl (Zofran) 4 mg PRN Q4HRS PRN IV NAUSEA/VOMITING Last administered on 08/05/19 17:03; Start 08/03/19 at 09:45 Hydromorphone HCl (Dilaudid) 0.4 mg PRN Q4HRS PRN IVP PAIN; Start 08/03/19 at 09:45 Apixaban (Eliquis) 2.5 mg BID PO Last administered on 08/05/19 23:09; Start 08/03/19 at 10:00 Carvedilol (Coreg) 6.25 mg DAILY PO Last administered on 08/05/19 09:11; Start 08/04/19 at 09:00 Diphenhydramine HCl (Benadryl) 50 mg PRN QHS PRN PO sleep/itching Last administered on 08/04/19 20:32; Start 08/03/19 at 21:00 Vitamin B Complex/ Vitamin C (Marry-Dori) 1 tab DAILY PO Last administered on 08/05/19 09:10; Start 08/03/19 at 10:00 Levothyroxine Sodium (Synthroid) 75 mcg DAILYAC PO Last administered on 08/04/19 08:31; Start 08/03/19 at 10:00; Stop 08/04/19 at 08:54; Status DC Potassium Chloride (Klor-Con) 20 meq DAILY PO Last administered on 08/05/19 09:13; Start 08/03/19 at 10:00 Prednisone (Prednisone) 5 mg DAILY PO Last administered on 08/05/19at 09:11; Start 08/03/19 at 10:00 Tacrolimus (Prograf) 1 mg BID PO Last administered on 08/03/19at 21:00; Start 08/03/19 at 10:00; Stop 08/04/19 at 04:20; Status DC Trazodone HCl (Desyrel) 50 mg HS PO Last administered on 08/04/19 20:31; Start 08/03/19 at 21:00 Fluticasone Propionate (Flonase) 2 spray PRN DAILY PRN NS ALLERGIC RHINITIS; Start 08/04/19 at 09:00 Pantoprazole Sodium (Protonix) 40 mg DAILYAC PO Last administered on 08/05/19at 07:24; Start 08/03/19 at 10:00 Sertraline HCl (Zoloft) 150 mg DAILY PO Last administered on 08/05/19 09:10; Start 08/03/19 at 10:30 Sevelamer Carbonate (Renvela) 800 mg TIDWMEALS PO Last administered on 08/05/19 09:10; Start 08/03/19 at 12:00 Tramadol HCl (Ultram) 100 mg PRN Q8HRS PRN PO PAIN Last administered on 08/05/19 05:50; Start 08/03/19 at 10:15 Vancomycin HCl (Vancomycin Oral Solution) 125 mg [id number] PO Last administered on 08/04/19 08:33; Start 08/03/19 at 13:00; Stop 08/04/19 at 09:01; Status DC Info (Anti-Coagulation Monitoring By Pharmacy) 1 each PRN DAILY PRN MC SEE COMMENTS Last administered on 08/05/19at 13:52; Start 08/03/19 at 10:00 Lorazepam (Ativan) 0.5 mg PRN Q8HRS PRN PO ANXIETY / AGITATION Last administered on 08/04/19 08:44; Start 08/03/19 at 13:30; Stop 08/05/19 at 10:35; Status DC Tacrolimus (Prograf) 1 mg BID PO Last administered on 08/05/19at 23:09; Start 08/04/19 at 09:00 Levothyroxine Sodium (Synthroid) 75 mcg DAILY06 PO ; Start 08/07/19 at 06:00 Levothyroxine Sodium 200 mcg/ Sodium Chloride 10 ml @ 200 mls/hr 1X ONCE IVP Last administered on 08/04/19at 09:38; Start 08/04/19 at 09:30; Stop 08/04/19 at 09:32; Status DC Levothyroxine Sodium 50 mcg/ Sodium Chloride 5 ml @ 100 mls/hr DAILY IVP Last administered on 08/05/19at 09:15; Start 08/05/19 at 09:00; Stop 08/06/19 at 09:02; Status DC Liothyronine Sodium (Cytomel) 5 mcg DAILY PO Last administered on 08/05/19at 09:10; Start 08/04/19 at 09:15; Stop 08/06/19 at 09:01; Status DC Metoclopramide HCl (Reglan Vial) 5 mg 1X ONCE IVP Last administered on 08/05/19at 09:56; Start 08/05/19 at 09:45; Stop 08/05/19 at 09:46; Status DC Dextrose (Dextrose 50%-Water Syringe) 12.5 gm PRN Q15MIN PRN IV SEE COMMENTS Last administered on 08/05/19at 12:09; Start 08/05/19 at 10:00 Buspirone HCl (Buspar) 5 mg PRN TID PRN PO anxiety- 1ST CHOICE Last administered on 08/05/19at 11:04; Start 08/05/19 at 10:45 Hydroxyzine HCl (Atarax) 10 mg PRN Q6HRS PRN PO ANXIETY- 2ND CHOICE; Start 08/05/19 at 10:45 Olanzapine (ZyPREXA) 2.5 mg HS PO Last administered on 08/05/19at 23:08; Start 08/05/19 at 21:00 Olanzapine (ZyPREXA) 2.5 mg PRN DAILY PRN PO PSYCHOSIS, Anxiety ; Start 08/05/19 at 17:45 Metoprolol Tartrate (Lopressor Vial) 2.5 mg 1X ONCE IVP ; Start 08/05/19 at 23:15; Stop 08/05/19 at 23:16; Status DC Active Scripts Active Prograf (Tacrolimus) 1 Mg Capsule 1 Mg PO DAILY 30 Days Zyprexa (Olanzapine) 2.5 Mg Tablet 1 Tab PO QHS 30 Days QHS and up to once daily prn Levothyroxine Sodium 75 Mcg Tablet 75 Mcg PO DAILYAC 90 Days Potassium Chloride (Potassium Chloride) 20 Meq Tablet.er 20 Meq PO DAILY 7 Days Vancomycin Hcl 125 Mg Capsule 1 Cap PO QID 10 Days Reported Tramadol Hcl 100 Mg Tbmp.24hr 100 Mg PO TID PRN PRN Flonase Allergy Relief (Fluticasone Propionate) 9.9 Ml [place].susp 2 Sprays NS PRN Renagel (Sevelamer Hcl) 800 Mg Tablet 800 Mg PO TID PRN Marry-Dori Tablet (Folic Acid/Vitamin B Comp W-C) 0.8 Mg Tablet 1 Tab PO DAILY 30 Days Trazodone Hcl 50 Mg Tablet 50 Mg PO HS Eliquis (Apixaban) 2.5 Mg Tablet 2.5 Mg PO BID PRN Benadryl (Diphenhydramine Hcl) 25 Mg Capsule 2 Cap PO QHS 30 Days Prednisone (Prednisone) 10 Mg Tablet 5 Mg PO DAILY Protonix (Pantoprazole Sodium) 20 Mg Tablet.dr 20 Mg PO DAILY Carvedilol (Carvedilol) 6.25 Mg Tablet 6.25 Mg PO DAILY Zoloft (Sertraline Hcl) 100 Mg Tablet 150 Mg PO DAILY Vitals/I & O Vital Sign - Last 24 Hours 08/05/19 08/05/19 08/05/19 08/05/19 11:36 15:15 19:57 20:03 Temp 97.8 97.8 97.5 97.8 97.8 97.5 Pulse 97 91 105 Resp 16 16 20 B/P (MAP) 120/85 (97) 127/90 (102) 122/89 (100) Pulse Ox 98 99 100 O2 Delivery Room Air Room Air Room Air Room Air 08/05/19 08/06/19 08/06/19 08/06/19 23:36 03:38 07:46 11:08 Temp 97.6 98.1 97.5 97.6 98.1 97.5 Pulse 150 93 94 99 Resp 18 18 12 14 B/P (MAP) 116/87 (97) 124/ 114/83 (93) 135/85 (102) Pulse Ox 96 96 96 100 O2 Delivery Room Air Room Air Room Air Room Air Intake and Output 08/05/19 08/05/19 08/06/19 14:59 22:59 06:59 Intake Total 50 ml 25 ml 60 ml Balance 50 ml 25 ml 60 ml Nutrition Consultation Dietary Evaluation: Recommendations by RD: Dietary education by RD, Increase Calorie Intake, Protein supplementation Comments: rec continue Renal diet with nepro bid Expected Outcomes/Goals: to meet >75% est nutr needs Interpretation of weight loss: >1-2% in 1 week Malnutrition Findings: Food and Nutrition Intake (Sev: <50% est energy req 5days Weight Status: Underweight LILA DEMPSEY MD August 06, 2019 11:30
--- NOTE | 2019-08-06 11:31 | PDOC3 ---
Discharge Summary Visit Information Date of Admission: August 02, 2019 Date of Discharge: August 07, 2019 Admitting Diagnosis: Myxedema coma Final Diagnosis Problems Medical Problems: (1) AMS (altered mental status) Status: Acute (2) Failure to thrive in adult Status: Acute (3) Hallucination Status: Acute Brief Hospital Course Allergies Allergies Coded Allergies Type Severity Reaction Last Updated Verified Iodinated Contrast Media Allergy Intermediate 08/03/19 Yes NSAIDS (Non-Steroidal Anti-Inflamma Allergy Intermediate 08/03/19 Yes losartan Allergy Intermediate 08/03/19 Yes phenobarbital Allergy Intermediate 08/03/19 Yes Vital Signs Vital Signs Date Time Temp Pulse Resp B/P (MAP) Pulse Ox O2 Delivery O2 Flow Rate FiO2 08/06/19 11:08 97.5 99 14 135/85 (102) 100 Room Air 97.5 Lab Results Laboratory Tests Test 08/04/19 16:29 08/04/19 20:27 08/05/19 08:47 08/05/19 11:57 Glucose (Fingerstick) 105 mg/dL (70-99) 109 mg/dL (70-99) 68 mg/dL (70-99) 68 mg/dL (70-99) Test 08/05/19 16:59 08/05/19 20:32 08/06/19 03:41 08/06/19 07:38 Glucose (Fingerstick) 99 mg/dL (70-99) 97 mg/dL (70-99) 92 mg/dL (70-99) Sodium Level 130 mmol/L (136-145) Potassium Level 4.2 mmol/L (3.5-5.1) Chloride Level 93 mmol/L (98-107) Carbon Dioxide Level 25 mmol/L (21-32) Anion Gap 12 (6-14) Blood Urea Nitrogen 29 mg/dL (7-20) Creatinine 8.4 mg/dL (0.6-1.0) Estimated GFR (Cockcroft-Gault) 5.9 Glucose Level 100 mg/dL (70-99) Calcium Level 9.0 mg/dL (8.5-10.1) Phosphorus Level 6.0 mg/dL (2.6-4.7) Albumin 2.0 g/dL (3.4-5.0) Test 08/06/19 10:58 Glucose (Fingerstick) 76 mg/dL (70-99) Laboratory Tests Test 08/05/19 11:57 08/05/19 16:59 08/05/19 20:32 08/06/19 03:41 Glucose (Fingerstick) 68 mg/dL (70-99) 99 mg/dL (70-99) 97 mg/dL (70-99) Sodium Level 130 mmol/L (136-145) Potassium Level 4.2 mmol/L (3.5-5.1) Chloride Level 93 mmol/L (98-107) Carbon Dioxide Level 25 mmol/L (21-32) Anion Gap 12 (6-14) Blood Urea Nitrogen 29 mg/dL (7-20) Creatinine 8.4 mg/dL (0.6-1.0) Estimated GFR (Cockcroft-Gault) 5.9 Glucose Level 100 mg/dL (70-99) Calcium Level 9.0 mg/dL (8.5-10.1) Phosphorus Level 6.0 mg/dL (2.6-4.7) Albumin 2.0 g/dL (3.4-5.0) Test 08/06/19 07:38 08/06/19 10:58 Glucose (Fingerstick) 92 mg/dL (70-99) 76 mg/dL (70-99) Brief Hospital Course Ms Hummel is a 24 yo F w/ PMHx ESRD on 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 She was admitted and treated for stopping PD at home and worsening colitis 8 days prior to this admission and continue on vancomycin therapy for recent c. difficile colitis after treatment for gluteal abscess at [facility]. Patient reportedly was noted to have altered mental status 5/10 that is worse than baseline per her mother and home health did come by and evaluated patient and gave patient some IV fluids, but is apparently calling nursing staff at [facility] requesting PICC access. Patient does have end-stage renal disease and is on peritoneal dialysis. Patient states that she hurts everywhere and has had nausea and vomiting. Patient stated that she has not made any urine for the last 5 years. Additional history is limited as patient is very poor historian. CT head - revealed no acute intracranial abnormality, but prominent falcine and tentorial calcifications as well as atheromatous calcifications advanced for age and a right superior scalp subcutaneous lesion (epidermal cyst?) Troponin 0.121->0.118 overnight. Labs consistent with ESRD. K 4.4 and Na 139. Neurology consulted, ordered TSH, found significantly elevated at 347 with low T4 and T3. She was tested for COVID 19 in ED, NEGATIVE. Admitted for further care 08/03: Negative COVID 19. TSH results discussed with mother, reportedly taking all medications recently. TMax 100.2F overnight. D/w mother need for appropriate dosing of levothyroxine. 08/04: More alert today. Afebrile overnight. MRI read as normal. Patient is paranoid that we are not telling her everything that is going on. I reassured her that she is being treated for myxedema coma. She has nausea and some epigastric discomfort that pantoprazole has not improved. Seen by psychiatry, started on zyprexa 2.5mg qhs and up to BID. 08/05: Overnight refused some of her medications. is anxious and agitated for a short while. Sleeping this morning but she states she feels better when awakened. Wishes to go home sodium 130 today K4.4 Power PICC insertion today with no complications. She is a little more alert no shortness of breath or chest pain wishes to go home Problem list: Acute encephalopathy - clear etiology, significantly hypothyroid, myxedema coma, seems metabolic, no sign this is toxic. 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 Hypoglycemia - her mental status did not improve with glucose elevation, will monitor as this is likely part of myxedema coma Colitis - 2/2 c. difficile will complete her vancomycin 10 day course here ESRD on PD - nephrology consulted C. Difficile - recently treated, will give her last few doses here Nausea - will add reglan prn Severe protein calorie malnutrition Failed renal transplant - will continue rejection meds, though an outpatient tap er has been previously advised by consultants Elevated troponin - likely stress related, will monitor Lactic acidosis - trend. Likely from poor nutrition. Hemoconcentration - 2/2 dehydration from diarrhea Afib - paroxsymal by history, will cont eliquis, coreg if her BP can tolerate Unable to walk - progressed over the past year likely 2/2 hyperphosphatemia Bilateral shoulder abnormalities on CXR - possibly avascular necrosis Diffuse pain - she has renal osteodystrophy, likely related to this. FEN - Renal diet PPX - eliquis FULL CODE Dispo - inpatient for acute mental status changes. COVID-19 CRITERIA: The patient was evaluated during the global COVID-19 pandemic, and that diagnosis was suspected/considered upon their initial presentation. Their evaluation, treatment and testing was consistent with current guidelines for patients who present with complaints or symptoms that may be related to COVID-19. Greater than 30 minutes spent on d/c Discharge Information Condition at Discharge: Improved Follow Up: Weeks (1) Disposition/Orders: D/C to Home w/ HH Scheduled Carvedilol (Carvedilol ) 6.25 Mg Tablet, 6.25 MG PO DAILY for CARDIAC, (Reported) Entered as Reported by: MARIE LEE RN on 07/22/192223 Last Action: Continued on 08/03/19940 by LILA DEMPSEY MD Diphenhydramine Hcl (Benadryl) 25 Mg Capsule, 2 CAP PO QHS for insomnia for 30 Days, #60 Ref 0 (Reported) Entered as Reported by: MARIE LEE RN on 07/22/192225 Last Action: Continued on 08/03/19940 by LILA DEMPSEY MD Fluticasone Propionate (Flonase Allergy Relief) 9.9 Ml [place].susp, 2 SPRAYS NS PRN for allergies, (Reported) Entered as Reported by: MARIE LEE RN on 07/22/192230 Last Action: Converted on 08/03/19941 by LILA DEMPSEY MD Folic Acid/Vitamin B Comp W-C (Marry-Dori Tablet) 0.8 Mg Tablet, 1 TAB PO DAILY for . for 30 Days, #30 Ref 0 (Reported) Entered as Reported by: MARIE LEE RN on 07/22/192228 Last Action: Continued on 08/03/19940 by LILA DEMPSEY MD Levothyroxine Sodium (Levothyroxine Sodium) 75 Mcg Tablet, 75 MCG PO DAILYAC for THYROID SUPPLEMENT for 90 Days, #90 Ref 1 Prescribed by: LILA DEMPSEY MD on 08/05/19 1037 Olanzapine (Zyprexa) 2.5 Mg Tablet, 1 TAB PO QHS for Anxiety for 30 Days, #60 Ref 2 QHS and up to once daily prn Prescribed by: LILA DEMPSEY MD on 08/05/19 1705 Pantoprazole Sodium (Protonix) 20 Mg Tablet.dr, 20 MG PO DAILY for ., (Reported) Entered as Reported by: MARIE LEE RN on 07/22/192223 Last Action: Converted on 08/03/19941 by LILA DEMPSEY MD Potassium Chloride (Potassium Chloride ) 20 Meq Tablet.er, 20 MEQ PO DAILY for SUPPLEMENT for 7 Days, #7 Prescribed by: LILA DEMPSEY MD on 07/25/19 1412 Last Action: Continued on 08/03/19941 by LILA DEMPSEY MD Prednisone (Prednisone ) 10 Mg Tablet, 5 MG PO DAILY for ., Ref 0 (Reported) Entered as Reported by: MARIE LEE RN on 07/22/192224 Last Action: Continued on 08/03/19941 by LILA DEMPSEY MD Sertraline Hcl (Zoloft) 100 Mg Tablet, 150 MG PO DAILY for ANTI-DEPRESSANT, Ref 0 (Reported) Entered as Reported by: MARIE LEE RN on 07/22/192222 Last Action: Converted on 08/03/19941 by LILA DEMPSEY MD Tacrolimus (Prograf) 1 Mg Capsule, 1 MG PO DAILY for GVH for 30 Days, #30 Prescribed by: LILA DEMPSEY MD on 08/06/19 1120 Trazodone Hcl (Trazodone Hcl) 50 Mg Tablet, 50 MG PO HS for ., (Reported) Entered as Reported by: MARIE LEE RN on 07/22/192227 Last Action: Continued on 08/03/19941 by LILA DEMPSEY MD Vancomycin Hcl (Vancomycin Hcl) 125 Mg Capsule, 1 CAP PO QID for C. difficile colitis for 10 Days, #40 Ref 0 Prescribed by: LILA DEMPSEY MD on 07/25/19 1353 Last Action: Converted on 08/03/19941 by LILA DEMPSEY MD Scheduled PRN Apixaban (Eliquis) 2.5 Mg Tablet, 2.5 MG PO BID PRN for ., (Reported) Entered as Reported by: MARIE LEE RN on 07/22/192226 Last Action: Continued on 08/03/19940 by LILA DEMPSEY MD Sevelamer Hcl (Renagel) 800 Mg Tablet, 800 MG PO TID PRN for ., (Reported) Entered as Reported by: MARIE LEE RN on 07/22/192229 Last Action: Converted on 08/03/19941 by LILA DEMPSEY MD Tramadol Hcl (Tramadol Hcl) 100 Mg Tbmp.24hr, 100 MG PO TID PRN PRN for PAIN, Ref 0 (Reported) Entered as Reported by: ALEJANDRA WRIGHT on 07/23/19914 Last Action: Converted on 08/03/19941 by MD ROSELYN VÁSQUEZ CHRISTOPHER S MD August 06, 2019 11:31
--- NOTE | 2019-08-06 12:01 | NUR ---
SS following up with discharge planning. SS reviewed pt chart and discussed with pt RN. Discharge order on the chart for home with home healthcare. SS phoned and faxed clinical and discharge orders to [facility], ; fax [phone], and [facility], ; fax [phone]. Pt's RN notified.
--- NOTE | 2019-08-06 12:51 | PDOC ---
PROGRESS NOTES Assessment Problems Medical Problems: (1) AMS (altered mental status) Status: Acute (2) Failure to thrive in adult Status: Acute (3) Hallucination Status: Acute Metabolic encephalopathy. Hypothyroidism, TSH 347.528 Renal failure on dialysis. Failed kidney transplant. Note started on Zyprexa 08/04 night, psychiatrist on the case Nonspecific brain atrophy on the MRI Mastoid fluid of no clinical significance, could see ENT as outpatient Plan Treat medical diseases including hypothyroidism. Subjective Denies pain Objective Vital Signs Date Time Temp Pulse Resp B/P (MAP) Pulse Ox O2 Delivery O2 Flow Rate FiO2 08/06/19 11:29 99 135/85 08/06/19 11:08 97.5 14 100 Room Air 97.5 Intake and Output 08/06/19 06:59 Intake Total 135 ml Balance 135 ml Intake Oral 135 ml PHYSICAL EXAM Sleepy, arouses easily, nose location, not date, follows commands PERRL. EOMI. CN: no focal findings. Muscle tone: normal. Muscle strength: 4/5 DTR: 1+ Plantar reflex: flexor Gait: not examined in bed. Sensory exam: no abnormal findings. No cerebellar signs elicited. Review of Relevant I have reviewed the following items tim (where applicable) has been applied. Labs Laboratory Tests Test 08/04/19 16:29 08/04/19 20:27 08/05/19 08:47 08/05/19 11:57 Glucose (Fingerstick) 105 mg/dL (70-99) 109 mg/dL (70-99) 68 mg/dL (70-99) 68 mg/dL (70-99) Test 08/05/19 16:59 08/05/19 20:32 08/06/19 03:41 08/06/19 07:38 Glucose (Fingerstick) 99 mg/dL (70-99) 97 mg/dL (70-99) 92 mg/dL (70-99) Sodium Level 130 mmol/L (136-145) Potassium Level 4.2 mmol/L (3.5-5.1) Chloride Level 93 mmol/L (98-107) Carbon Dioxide Level 25 mmol/L (21-32) Anion Gap 12 (6-14) Blood Urea Nitrogen 29 mg/dL (7-20) Creatinine 8.4 mg/dL (0.6-1.0) Estimated GFR (Cockcroft-Gault) 5.9 Glucose Level 100 mg/dL (70-99) Calcium Level 9.0 mg/dL (8.5-10.1) Phosphorus Level 6.0 mg/dL (2.6-4.7) Albumin 2.0 g/dL (3.4-5.0) Test 08/06/19 10:58 Glucose (Fingerstick) 76 mg/dL (70-99) Laboratory Tests Test 08/05/19 16:59 08/05/19 20:32 08/06/19 03:41 08/06/19 07:38 Glucose (Fingerstick) 99 mg/dL (70-99) 97 mg/dL (70-99) 92 mg/dL (70-99) Sodium Level 130 mmol/L (136-145) Potassium Level 4.2 mmol/L (3.5-5.1) Chloride Level 93 mmol/L (98-107) Carbon Dioxide Level 25 mmol/L (21-32) Anion Gap 12 (6-14) Blood Urea Nitrogen 29 mg/dL (7-20) Creatinine 8.4 mg/dL (0.6-1.0) Estimated GFR (Cockcroft-Gault) 5.9 Glucose Level 100 mg/dL (70-99) Calcium Level 9.0 mg/dL (8.5-10.1) Phosphorus Level 6.0 mg/dL (2.6-4.7) Albumin 2.0 g/dL (3.4-5.0) Test 08/06/19 10:58 Glucose (Fingerstick) 76 mg/dL (70-99) Microbiology 08/02/19 Blood Culture - Preliminary, Resulted NO GROWTH AFTER 3 DAYS Medications Current Medications Dextrose (Dextrose 50%-Water Syringe) 12.5 gm 1X ONCE IV Last administered on 08/02/19at 20:38; Start 08/02/19 at 20:30; Stop 08/02/19 at 20:31; Status DC Ondansetron HCl (Zofran) 4 mg PRN Q8HRS PRN IV NAUSEA/VOMITING Last administered on 08/03/19at 02:21; Start 08/02/19 at 23:00; Stop 08/03/19 at 09:41; Status DC Morphine Sulfate (Morphine Sulfate) 2 mg PRN Q2HR PRN IV SEVERE PAIN 7-10 Last administered on 08/03/19 01:00; Start 08/02/19 at 23:00; Stop 08/03/19 at 09 :41; Status DC Dextrose (Dextrose 50%-Water Syringe) 12.5 gm 1X ONCE IV Last administered on 08/03/19at 00:35; Start 08/03/19 at 00:45; Stop 08/03/19 at 00:46; Status DC Dextrose 1,000 ml @ 50 mls/hr Q20H IV Last administered on 08/06/19at 06:23; Start 08/03/19 at 01:15 Acetaminophen (Tylenol) 650 mg PRN Q6HRS PRN PO HEADACHE Last administered on 08/03/19 14:58; Start 08/03/19 at 08:00 Ondansetron HCl (Zofran) 4 mg PRN Q4HRS PRN IV NAUSEA/VOMITING Last administered on 08/05/19at 17:03; Start 08/03/19 at 09:45 Hydromorphone HCl (Dilaudid) 0.4 mg PRN Q4HRS PRN IVP PAIN; Start 08/03/19 at 09:45 Apixaban (Eliquis) 2.5 mg BID PO Last administered on 08/05/19 23:09; Start 08/03/19 at 10:00 Carvedilol (Coreg) 6.25 mg DAILY PO Last administered on 08/05/19 09:11; Start 08/04/19 at 09:00 Diphenhydramine HCl (Benadryl) 50 mg PRN QHS PRN PO sleep/itching Last administered on 08/04/19at 20:32; Start 08/03/19 at 21:00 Vitamin B Complex/ Vitamin C (Marry-Dori) 1 tab DAILY PO Last administered on 08/05/19 09:10; Start 08/03/19 at 10:00 Levothyroxine Sodium (Synthroid) 75 mcg DAILYAC PO Last administered on 08/04/19 08:31; Start 08/03/19 at 10:00; Stop 08/04/19 at 08:54; Status DC Potassium Chloride (Klor-Con) 20 meq DAILY PO Last administered on 08/05/19at 09:13; Start 08/03/19 at 10:00 Prednisone (Prednisone) 5 mg DAILY PO Last administered on 08/05/19 09:11; Start 08/03/19 at 10:00 Tacrolimus (Prograf) 1 mg BID PO Last administered on 08/03/19at 21:00; Start 08/03/19 at 10:00; Stop 08/04/19 at 04:20; Status DC Trazodone HCl (Desyrel) 50 mg HS PO Last administered on 08/04/19at 20:31; Start 08/03/19 at 21:00 Fluticasone Propionate (Flonase) 2 spray PRN DAILY PRN NS ALLERGIC RHINITIS; Start 08/04/19 at 09:00 Pantoprazole Sodium (Protonix) 40 mg DAILYAC PO Last administered on 08/05/19 07:24; Start 08/03/19 at 10:00 Sertraline HCl (Zoloft) 150 mg DAILY PO Last administered on 08/05/19 09:10; Start 08/03/19 at 10:30 Sevelamer Carbonate (Renvela) 800 mg TIDWMEALS PO Last administered on 08/05/19 09:10; Start 08/03/19 at 12:00 Tramadol HCl (Ultram) 100 mg PRN Q8HRS PRN PO PAIN Last administered on 08/05/19 05:50; Start 08/03/19 at 10:15 Vancomycin HCl (Vancomycin Oral Solution) 125 mg [id number] PO Last administered on 08/04/19 08:33; Start 08/03/19 at 13:00; Stop 08/04/19 at 09:01; Status DC Info (Anti-Coagulation Monitoring By Pharmacy) 1 each PRN DAILY PRN MC SEE COMMENTS Last administered on 08/05/19 13:52; Start 08/03/19 at 10:00 Lorazepam (Ativan) 0.5 mg PRN Q8HRS PRN PO ANXIETY / AGITATION Last ad ministered on 08/04/19 08:44; Start 08/03/19 at 13:30; Stop 08/05/19 at 10:35; Status DC Tacrolimus (Prograf) 1 mg BID PO Last administered on 08/05/19 23:09; Start 08/04/19 at 09:00 Levothyroxine Sodium (Synthroid) 75 mcg DAILY06 PO ; Start 08/07/19 at 06:00 Levothyroxine Sodium 200 mcg/ Sodium Chloride 10 ml @ 200 mls/hr 1X ONCE IVP Last administered on 08/04/19at 09:38; Start 08/04/19 at 09:30; Stop 08/04/19 at 09:32; Status DC Levothyroxine Sodium 50 mcg/ Sodium Chloride 5 ml @ 100 mls/hr DAILY IVP Last administered on 08/06/19at 11:15; Start 08/05/19 at 09:00; Stop 08/06/19 at 09:02; Status DC Liothyronine Sodium (Cytomel) 5 mcg DAILY PO Last administered on 08/05/19at 09:10; Start 08/04/19 at 09:15; Stop 08/06/19 at 09:01; Status DC Metoclopramide HCl (Reglan Vial) 5 mg 1X ONCE IVP Last administered on 08/05/19at 09:56; Start 08/05/19 at 09:45; Stop 08/05/19 at 09:46; Status DC Dextrose (Dextrose 50%-Water Syringe) 12.5 gm PRN Q15MIN PRN IV SEE COMMENTS Last administered on 08/05/19at 12:09; Start 08/05/19 at 10:00 Buspirone HCl (Buspar) 5 mg PRN TID PRN PO anxiety- 1ST CHOICE Last administered on 08/05/19at 11:04; Start 08/05/19 at 10:45 Hydroxyzine HCl (Atarax) 10 mg PRN Q6HRS PRN PO ANXIETY- 2ND CHOICE; Start 08/05/19 at 10:45 Olanzapine (ZyPREXA) 2.5 mg HS PO Last administered on 08/05/19at 23:08; Start 08/05/19 at 21:00 Olanzapine (ZyPREXA) 2.5 mg PRN DAILY PRN PO PSYCHOSIS, Anxiety ; Start 08/05/19 at 17:45 Metoprolol Tartrate (Lopressor Vial) 2.5 mg 1X ONCE IVP ; Start 08/05/19 at 23: 15; Stop 08/05/19 at 23:16; Status DC Active Scripts Active Prograf (Tacrolimus) 1 Mg Capsule 1 Mg PO DAILY 30 Days Zyprexa (Olanzapine) 2.5 Mg Tablet 1 Tab PO QHS 30 Days QHS and up to once daily prn Levothyroxine Sodium 75 Mcg Tablet 75 Mcg PO DAILYAC 90 Days Potassium Chloride (Potassium Chloride) 20 Meq Tablet.er 20 Meq PO DAILY 7 Days Vancomycin Hcl 125 Mg Capsule 1 Cap PO QID 10 Days Reported Tramadol Hcl 100 Mg Tbmp.24hr 100 Mg PO TID PRN PRN Flonase Allergy Relief (Fluticasone Propionate) 9.9 Ml [place].susp 2 Sprays NS PRN Renagel (Sevelamer Hcl) 800 Mg Tablet 800 Mg PO TID PRN Marry-Dori Tablet (Folic Acid/Vitamin B Comp W-C) 0.8 Mg Tablet 1 Tab PO DAILY 30 Days Trazodone Hcl 50 Mg Tablet 50 Mg PO HS Eliquis (Apixaban) 2.5 Mg Tablet 2.5 Mg PO BID PRN Benadryl (Diphenhydramine Hcl) 25 Mg Capsule 2 Cap PO QHS 30 Days Prednisone (Prednisone) 10 Mg Tablet 5 Mg PO DAILY Protonix (Pantoprazole Sodium) 20 Mg Tablet.dr 20 Mg PO DAILY Carvedilol (Carvedilol) 6.25 Mg Tablet 6.25 Mg PO DAILY Zoloft (Sertraline Hcl) 100 Mg Tablet 150 Mg PO DAILY Vitals/I & O Vital Sign - Last 24 Hours 08/05/19 08/05/19 08/05/19 08/05/19 15:15 19:57 20:03 23:36 Temp 97.8 97.5 97.8 97.5 Pulse 91 105 150 Resp 16 20 18 B/P (MAP) 127/90 (102) 122/89 (100) 116/87 (97) Pulse Ox 99 100 96 O2 Delivery Room Air Room Air Room Air Room Air 08/06/19 08/06/19 08/06/19 08/06/19 03:38 07:46 11:08 11:29 Temp 97.6 98.1 97.5 97.6 98.1 97.5 Pulse 93 94 99 99 Resp 18 12 14 B/P (MAP) 124/ 114/83 (93) 135/85 (102) 135/85 Pulse Ox 96 96 100 O2 Delivery Room Air Room Air Room Air Intake and Output 08/05/19 08/05/19 08/06/19 14:59 22:59 06:59 Intake Total 50 ml 25 ml 60 ml Balance 50 ml 25 ml 60 ml Images MRI of the brain without contrast 08/05/2019 Clinical History: Altered mental status. Weakness. Technique: Unenhanced T1-weighted sagittal and axial, T2-weighted axial and coronal and FLAIR, gradient echo and diffusion-weighted axial images of the brain were obtained. Findings: Comparison is made to the patient's CT scan of the head dated 08/02/2019. Images from the study are degraded by patient motion. There is generalized parenchymal atrophy. Patchy and a few small scattered areas of increased signal intensity are seen within the periventricular and subcortical white matter of both cerebral hemispheres on the FLAIR and T2-weighted images consistent with areas of mild small vessel ischemic disease. No acute parenchymal abnormality is seen. No extra-axial fluid collection is seen. There is no MRI evidence of acute ischemia/infarction. The paranasal sinuses are essentially clear. There is a small right mastoid effusion. Normal flow voids are seen within the major vascular structures surrounding the brain parenchyma. Impression: No acute parenchymal abnormality is seen. FLORINA ELKINS MD August 06, 2019 12:50
[2019-08-06 15:27] VITALS: BP 127/92
--- NOTE | 2019-08-06 16:15 | PDOC ---
F/U PHYSCH PROG NOTE Subjective: Young female with end-stage renal disease seen for routine follow-up. Information is reviewed with nursing staff. No major emotional or behavioral breakdown reported overnight. She continues to be avoidant, however more res ponsive. States, she slept really well last night wanting to sleep more. Anxiety is reportedly the same, denies panic attacks. Denies suicidal or homicidal thoughts. Denies auditory or visual hallucinations. States, she like the medicine. Objective: Vital Signs: Vital Signs Date Time Temp Pulse Resp B/P (MAP) Pulse Ox O2 Delivery O2 Flow Rate FiO2 08/06/19 15:27 98.2 100 14 127/92 (104) 98 Room Air 98.2 Labs: Laboratory Tests Test 08/05/19 16:59 08/05/19 20:32 08/06/19 03:41 08/06/19 07:38 Glucose (Fingerstick) 99 mg/dL (70-99) 97 mg/dL (70-99) 92 mg/dL (70-99) Sodium Level 130 mmol/L (136-145) L Potassium Level 4.2 mmol/L (3.5-5.1) Chloride Level 93 mmol/L (98-107) L Carbon Dioxide Level 25 mmol/L (21-32) Anion Gap 12 (6-14) Blood Urea Nitrogen 29 mg/dL (7-20) H Creatinine 8.4 mg/dL (0.6-1.0) H Estimated GFR (Cockcroft-Gault) 5.9 Glucose Level 100 mg/dL (70-99) H Calcium Level 9.0 mg/dL (8.5-10.1) Phosphorus Level 6.0 mg/dL (2.6-4.7) H Albumin 2.0 g/dL (3.4-5.0) L Test 08/06/19 10:58 Glucose (Fingerstick) 76 mg/dL (70-99) Laboratory Tests 08/06/19 03:41 Medications: Current Medications Medications (Trade) Dose Ordered Sig/Olga Start Time Stop Time Status Last Admin Dose Admin Acetaminophen (Tylenol) 650 mg PRN Q6HRS PRN 08/03/19 08:00 08/03/19 14:58 650 MG Apixaban (Eliquis) 2.5 mg BID 08/03/19 10:00 08/06/19 13:58 DC 08/05/19 23:09 2.5 MG Buspirone HCl (Buspar) 5 mg PRN TID PRN 08/05/19 10:45 08/05/19 11:04 5 MG Carvedilol (Coreg) 6.25 mg DAILY 08/04/19 09:00 08/05/19 09:11 6.25 MG Dextrose (Dextrose 50%-Water Syringe) 12.5 gm PRN Q15MIN PRN 08/05/19 10:00 08/05/19 12:09 12.5 GM Diphenhydramine HCl (Benadryl) 50 mg PRN QHS PRN 08/03/19 21:00 08/04/19 20:32 50 MG Fluticasone Propionate (Flonase) 2 spray PRN DAILY PRN 08/04/19 09:00 Hydromorphone HCl (Dilaudid) 0.4 mg PRN Q4HRS PRN 08/03/19 09:45 Hydroxyzine HCl (Atarax) 10 mg PRN Q6HRS PRN 08/05/19 10:45 Info (Anti-Coagulation Monitoring By Pharmacy) 1 each PRN DAILY PRN 08/03/19 10:00 08/05/19 13:52 1 EACH Levothyroxine Sodium (Synthroid) 75 mcg DAILY06 08/07/19 06:00 08/06/19 14:05 DC Levothyroxine Sodium 200 mcg/ Sodium Chloride 10 ml @ 200 mls/hr 1X ONCE 08/04/19 09:30 08/04/19 09:32 DC 08/04/19 09:38 200 MLS/HR Levothyroxine Sodium 50 mcg/ Sodium Chloride 5 ml @ 100 mls/hr DAILY 08/07/19 09:00 Liothyronine Sodium (Cytomel) 5 mcg DAILY 08/04/19 09:15 08/06/19 09:01 DC 08/05/19 09:10 5 MCG Lorazepam (Ativan) 0.5 mg PRN Q8HRS PRN 08/03/19 13:30 08/05/19 10:35 DC 08/04/19 08:44 0.5 MG Metoclopramide HCl (Reglan Vial) 5 mg 1X ONCE 08/05/19 09:45 08/05/19 09:46 DC 08/05/19 09:56 5 MG Metoprolol Tartrate (Lopressor Vial) 2.5 mg 1X ONCE 08/05/19 23:15 08/05/19 23:16 DC Morphine Sulfate (Morphine Sulfate) 2 mg PRN Q2HR PRN 08/02/19 23:00 08/03/19 09:41 DC 08/03/19 01:00 2 MG Olanzapine (ZyPREXA) 2.5 mg PRN DAILY PRN 08/05/19 17:45 Ondansetron HCl (Zofran) 4 mg PRN Q4HRS PRN 08/03/19 09:45 08/05/19 17:03 4 MG Pantoprazole Sodium (Protonix) 40 mg DAILYAC 08/03/19 10:00 08/05/19 07:24 40 MG Potassium Chloride (Klor-Con) 20 meq DAILY 08/03/19 10:00 08/05/19 09:13 20 MEQ Prednisone (Prednisone) 5 mg DAILY 08/03/19 10:00 08/05/19 09:11 5 MG Sertraline HCl (Zoloft) 150 mg DAILY 08/03/19 10:30 08/05/19 09:10 150 MG Sevelamer Carbonate (Renvela) 800 mg TIDWMEALS 08/03/19 12:00 08/05/19 09:10 800 MG Tacrolimus (Prograf) 1 mg BID 08/04/19 09:00 08/05/19 23:09 1 MG Tramadol HCl (Ultram) 100 mg PRN Q8HRS PRN 08/03/19 10:15 08/05/19 05:50 100 MG Trazodone HCl (Desyrel) 50 mg HS 08/03/19 21:00 08/04/19 20:31 50 MG Vancomycin HCl (Vancomycin Oral Solution) 125 mg [id number] 08/03/19 13:00 08/04/19 09:01 DC 08/04/19 08:33 125 MG Vitamin B Complex/ Vitamin C (Marry-Dori) 1 tab DAILY 08/03/19 10:00 08/05/19 09:10 1 TAB Physical Exam: Physical Exam: Refer to Physician's note. MEAL MILLER: No focal deficit MSK: No EPS, TDK, or abnormal involuntary movements Diagnosis: 1unspecified psychosis, likely to delirium. 2acute delirium, likely multifactorial and mixed 3unspecified anxiety disorder with panic attacks. 4depression Assessment: Young female with longstanding history of end-stage renal disease struggling with depression, severe anxiety with panic attacks, and psychosis. Apparently, her paranoia appears to be emerging from her delirium. Delirium appears to be multifactorial including uremic encephalopathy. Treatment options discussed in detail with patient and mother. Mother appears to be receptive with treatment. Recommending Zyprexa scheduled and as needed to help with delirium, mood instability, psychosis, and panic attacks. Plan: Insomnia improved, anxiety is unchanged. No panic attacks reported. Continue Zyprexa 2.5 mg nightly. She may take additional 2.5 mg during the day as needed for panic attacks. Avoid sedatives and hypnotics as they may worsen delirium. Monitor for psychosis, safety, and symptomatology. Will titrate Zyprexa accordingly. Thank you for involving good patient care. CELIA MEDINA MD August 06, 2019 16:14
[2019-08-06 19:00] VITALS: BP 121/78
[2019-08-06] MEDS: OLANZapine 2.5 MG TABLET PO SCH (21:19)
[2019-08-06] MEDS: traZODone 50 MG TABLET. PO SCH (21:19)
[2019-08-06] MEDS: ONDANSETRON PF 4 MG/2 ML VIAL. IV PRN (21:31)
[2019-08-06] MEDS: diphenhydrAMINE HCL 25 MG CAPSULE PO PRN (21:49)
[2019-08-07] VITALS (11 sets, daily range): BP systolic 92–124; BP diastolic 60–82
[2019-08-07] MEDS: IV DEXTROSE 10% 1,000 ML IV SCH (05:26)
[2019-08-07] MEDS ORDERED: LEVOTHYROXINE 75 MCG TABLET PO SCH (06:00)
[2019-08-07] MEDS: PANTOPRAZOLE 40 MG TABLET.DR. PO SCH (07:30)
[2019-08-07] MEDS: SEVELAMER CARBONATE 800 MG TABLET. PO SCH ×2 (08:00→12:00)
--- NOTE | 2019-08-07 08:35 | PDOC ---
PROGRESS NOTES Chief Complaint Chief Complaint A/P: Acute encephalopathy - clear etiology, significantly hypothyroid, myxedema coma, seems metabolic, no sign this is toxic. 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 Hypoglycemia - her mental status did not improve with glucose elevation, will monitor as this is likely part of myxedema coma Colitis - 2/2 c. difficile will complete her vancomycin 10 day course here ESRD on PD - nephrology consulted C. Difficile - recently treated, will give her last few doses here Nausea - will add reglan prn Severe protein calorie malnutrition Failed renal transplant - will continue rejection meds, though an outpatient taper has been previously advised by consultants Elevated troponin - likely stress related, will monitor Lactic acidosis - trend. Likely from poor nutrition. Hemoconcentration - 2/2 dehydration from diarrhea Afib - paroxsymal by history, will cont eliquis, coreg if her BP can tolerate Unable to walk - progressed over the past year likely 2/2 hyperphosphatemia Bilateral shoulder abnormalities on CXR - possibly avascular necrosis Diffuse pain - she has renal osteodystrophy, likely related to this. FEN - Renal diet PPX - eliquis FULL CODE Dispo - inpatient for acute mental status changes. COVID-19 CRITERIA: The patient was evaluated during the global COVID-19 pandemic, and that diagnosis was suspected/considered upon their initial presentation. Their evaluation, treatment and testing was consistent with curr ent guidelines for patients who present with complaints or symptoms that may be related to COVID-19. 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 She was admitted and treated for stopping PD at home and worsening colitis 8 days prior to this admission and continue on vancomycin therapy for recent c. difficile colitis after treatment for gluteal abscess at [facility]. Patient reportedly was noted to have altered mental status 5/10 that is worse than baseline per her mother and home health did come by and evaluated patient and gave patient some IV fluids, but is apparently calling nursing staff at [facility] requesting PICC access. Patient does have end-stage renal disease and is on peritoneal dialysis. Patient states that she hurts everywhere and has had nausea and vomiting. Patient stated that she has not made any urine for the last 5 years. Additional history is limited as patient is very poor historian. CT head - revealed no acute intracranial abnormality, but prominent falcine and tentorial calcifications as well as atheromatous calcifications advanced for age and a right superior scalp subcutaneous lesion (epidermal cyst?) Troponin 0.121->0.118 overnight. Labs consistent with ESRD. K 4.4 and Na 139. Neurology consulted, ordered TSH, found significantly elevated at 347 with low T4 and T3. She was tested for COVID 19 in ED, NEGATIVE. Admitted for further care 08/03: Negative COVID 19. TSH results discussed with mother, reportedly taking all medications recently. TMax 100.2F overnight. D/w mother need for appropriate dosing of levothyroxine. 08/04: More alert today. Afebrile overnight. MRI read as normal. Patient is paranoid that we are not telling her everything that is going on. I reassured her that she is being treated for myxedema coma. She has nausea and some epigastric discomfort that pantoprazole has not improved. Seen by psychiatry, started on zyprexa 2.5mg qhs and up to BID. 08/05: Overnight refused some of her medications. is anxious and agitated for a short while. Sleeping this morning but she states she feels better when awakened. Wishes to go home sodium 130 today K4.4 Power PICC insertion today with no complications. She is a little more alert no shortness of breath or chest pain wishes to go home Vitals Vitals Vital Signs Date Time Temp Pulse Resp B/P (MAP) Pulse Ox O2 Delivery O2 Flow Rate FiO2 08/07/19 07:30 97.2 84 16 107/80 (89) 98 Room Air 97.2 Physical Exam General: Alert, Cooperative, No acute distress Abdomen: Normal bowel sounds, Soft, No tenderness, No hepatosplenomegaly, No masses, Other (PD catheter clean, dry intact) Extremities: No cyanosis, No edema, Normal pulses, Other (cachectic appearing, bony prominences apparent) Skin: No rashes, No significant lesion, Other (Healing gluteal ulcer) Labs LABS Laboratory Tests Test 08/06/19 10:58 08/06/19 17:27 08/06/19 21:41 08/07/19 07:41 Glucose (Fingerstick) 76 mg/dL (70-99) 79 mg/dL (70-99) 114 mg/dL (70-99) 107 mg/dL (70-99) Assessment and Plan Assessmemt and Plan Problems Medical Problems: (1) AMS (altered mental status) Status: Acute (2) Failure to thrive in adult Status: Acute (3) Hallucination Status: Acute Comment Review of Relevant I have reviewed the following items tim (where applicable) has been applied. Labs Laboratory Tests Test 08/05/19 08:47 08/05/19 11:57 08/05/19 16:59 08/05/19 20:32 Glucose (Fingerstick) 68 mg/dL (70-99) 68 mg/dL (70-99) 99 mg/dL (70-99) 97 mg/dL (70-99) Test 08/06/19 03:41 08/06/19 07:38 08/06/19 10:58 08/06/19 17:27 Sodium Level 130 mmol/L (136-145) Potassium Level 4.2 mmol/L (3.5-5.1) Chloride Level 93 mmol/L (98-107) Carbon Dioxide Level 25 mmol/L (21-32) Anion Gap 12 (6-14) Blood Urea Nitrogen 29 mg/dL (7-20) Creatinine 8.4 mg/dL (0.6-1.0) Estimated GFR (Cockcroft-Gault) 5.9 Glucose Level 100 mg/dL (70-99) Calcium Level 9.0 mg/dL (8.5-10.1) Phosphorus Level 6.0 mg/dL (2.6-4.7) Albumin 2.0 g/dL (3.4-5.0) Glucose (Fingerstick) 92 mg/dL (70-99) 76 mg/dL (70-99) 79 mg/dL (70-99) Test 08/06/19 21:41 08/07/19 07:41 Glucose (Fingerstick) 114 mg/dL (70-99) 107 mg/dL (70-99) Laboratory Tests Test 08/06/19 10:58 08/06/19 17:27 08/06/19 21:41 08/07/19 07:41 Glucose (Fingerstick) 76 mg/dL (70-99) 79 mg/dL (70-99) 114 mg/dL (70-99) 107 mg/dL (70-99) Microbiology 08/02/19 Blood Culture - Preliminary, Resulted NO GROWTH AFTER 4 DAYS Medications Current Medications Dextrose (Dextrose 50%-Water Syringe) 12.5 gm 1X ONCE IV Last administered on 08/02/19at 20:38; Start 08/02/19 at 20:30; Stop 08/02/19 at 20:31; Status DC Ondansetron HCl (Zofran) 4 mg PRN Q8HRS PRN IV NAUSEA/VOMITING Last administered on 08/03/19at 02:21; Start 08/02/19 at 23:00; Stop 08/03/19 at 09:41; Status DC Morphine Sulfate (Morphine Sulfate) 2 mg PRN Q2HR PRN IV SEVERE PAIN 7-10 Last administered on 08/03/19at 01:00; Start 08/02/19 at 23:00; Stop 08/03/19 at 09:41; Status DC Dextrose (Dextrose 50%-Water Syringe) 12.5 gm 1X ONCE IV Last administered on 08/03/19at 00:35; Start 08/03/19 at 00:45; Stop 08/03/19 at 00:46; Status DC Dextrose 1,000 ml @ 50 mls/hr Q20H IV Last administered on 08/07/19at 05:26; Start 08/03/19 at 01:15 Acetaminophen (Tylenol) 650 mg PRN Q6HRS PRN PO HEADACHE Last administered on 08/03/19at 14:58; Start 08/03/19 at 08:00 Ondansetron HCl (Zofran) 4 mg PRN Q4HRS PRN IV NAUSEA/VOMITING Last administered on 08/06/19at 21:31; Start 08/03/19 at 09:45 Hydromorphone HCl (Dilaudid) 0.4 mg PRN Q4HRS PRN IVP PAIN; Start 08/03/19 at 09:45 Apixaban (Eliquis) 2.5 mg BID PO Last administered on 08/05/19at 23:09; Start 08/03/19 at 10:00; Stop 08/06/19 at 13:58; Status DC Carvedilol (Coreg) 6.25 mg DAILY PO Last administered on 08/05/19 09:11; Start 08/04/19 at 09:00 Diphenhydramine HCl (Benadryl) 50 mg PRN QHS PRN PO sleep/itching Last administered on 08/06/19at 21:49; Start 08/03/19 at 21:00 Vitamin B Complex/ Vitamin C (Marry-Dori) 1 tab DAILY PO Last administered on 08/05/19 09:10; Start 08/03/19 at 10:00 Levothyroxine Sodium (Synthroid) 75 mcg DAILYAC PO Last administered on 08/04/19at 08:31; Start 08/03/19 at 10:00; Stop 08/04/19 at 08:54; Status DC Potassium Chloride (Klor-Con) 20 meq DAILY PO Last administered on 08/05/19 09:13; Start 08/03/19 at 10:00 Prednisone (Prednisone) 5 mg DAILY PO Last administered on 08/05/19at 09:11; Start 08/03/19 at 10:00 Tacrolimus (Prograf) 1 mg BID PO Last administered on 08/03/19at 21:00; Start 08/03/19 at 10:00; Stop 08/04/19 at 04:20; Status DC Trazodone HCl (Desyrel) 50 mg HS PO Last administered on 08/06/19at 21:19; Start 08/03/19 at 21:00 Fluticasone Propionate (Flonase) 2 spray PRN DAILY PRN NS ALLERGIC RHINITIS; Start 08/04/19 at 09:00 Pantoprazole Sodium (Protonix) 40 mg DAILYAC PO Last administered on 08/05/19at 07:24; Start 08/03/19 at 10:00 Sertraline HCl (Zoloft) 150 mg DAILY PO Last administered on 08/05/19at 09:10; Start 08/03/19 at 10:30 Sevelamer Carbonate (Renvela) 800 mg TIDWMEALS PO Last administered on 08/05/19at 09:10; Start 08/03/19 at 12:00 Tramadol HCl (Ultram) 100 mg PRN Q8HRS PRN PO PAIN Last administered on 08/05/19 05:50; Start 08/03/19 at 10:15 Vancomycin HCl (Vancomycin Oral Solution) 125 mg [id number] PO Last administered on 08/04/19at 08:33; Start 08/03/19 at 13:00; Stop 08/04/19 at 09:01; Status DC Info (Anti-Coagulation Monitoring By Pharmacy) 1 each PRN DAILY PRN MC SEE COMMENTS Last administered on 08/05/19at 13:52; Start 08/03/19 at 10:00 Lorazepam (Ativan) 0.5 mg PRN Q8HRS PRN PO ANXIETY / AGITATION Last administe red on 08/04/19at 08:44; Start 08/03/19 at 13:30; Stop 08/05/19 at 10:35; Status DC Tacrolimus (Prograf) 1 mg BID PO Last administered on 08/06/19at 21:19; Start 08/04/19 at 09:00 Levothyroxine Sodium (Synthroid) 75 mcg DAILY06 PO ; Start 08/07/19 at 06:00; Stop 08/06/19 at 14:05; Status DC Levothyroxine Sodium 200 mcg/ Sodium Chloride 10 ml @ 200 mls/hr 1X ONCE IVP Last administered on 08/04/19at 09:38; Start 08/04/19 at 09:30; Stop 08/04/19 at 09:32; Status DC Levothyroxine Sodium 50 mcg/ Sodium Chloride 5 ml @ 100 mls/hr DAILY IVP Last administered on 08/06/19at 11:15; Start 08/05/19 at 09:00; Stop 08/06/19 at 09:02; Status DC Liothyronine Sodium (Cytomel) 5 mcg DAILY PO Last administered on 08/05/19at 09:10; Start 08/04/19 at 09:15; Stop 08/06/19 at 09:01; Status DC Metoclopramide HCl (Reglan Vial) 5 mg 1X ONCE IVP Last administered on 08/05/19at 09:56; Start 08/05/19 at 09:45; Stop 08/05/19 at 09:46; Status DC Dextrose (Dextrose 50%-Water Syringe) 12.5 gm PRN Q15MIN PRN IV SEE COMMENTS Last administered on 5/13/20at 12:09; Start 08/05/19 at 10:00 Buspirone HCl (Buspar) 5 mg PRN TID PRN PO anxiety- 1ST CHOICE Last admini stered on 08/05/19at 11:04; Start 08/05/19 at 10:45 Hydroxyzine HCl (Atarax) 10 mg PRN Q6HRS PRN PO ANXIETY- 2ND CHOICE; Start 08/05/19 at 10:45 Olanzapine (ZyPREXA) 2.5 mg HS PO Last administered on 08/06/19at 21:19; Start 08/05/19 at 21:00 Olanzapine (ZyPREXA) 2.5 mg PRN DAILY PRN PO PSYCHOSIS, Anxiety ; Start 08/05/19 at 17:45 Metoprolol Tartrate (Lopressor Vial) 2.5 mg 1X ONCE IVP ; Start 08/05/19 at 23:15; Stop 08/05/19 at 23:16; Status DC Levothyroxine Sodium 50 mcg/ Sodium Chloride 5 ml @ 100 mls/hr DAILY IVP ; Start 08/07/19 at 09:00 Active Scripts Active Prograf (Tacrolimus) 1 Mg Capsule 1 Mg PO DAILY 30 Days Zyprexa (Olanzapine) 2.5 Mg Tablet 1 Tab PO QHS 30 Days QHS and up to once daily prn Levothyroxine Sodium 75 Mcg Tablet 75 Mcg PO DAILYAC 90 Days Potassium Chloride (Potassium Chloride) 20 Meq Tablet.er 20 Meq PO DAILY 7 Days Vancomycin Hcl 125 Mg Capsule 1 Cap PO QID 10 Days Reported Tramadol Hcl 100 Mg Tbmp.24hr 100 Mg PO TID PRN PRN Flonase Allergy Relief (Fluticasone Propionate) 9.9 Ml [place].susp 2 Sprays NS PRN Renagel (Sevelamer Hcl) 800 Mg Tablet 800 Mg PO TID PRN Marry-Dori Tablet (Folic Acid/Vitamin B Comp W-C) 0.8 Mg Tablet 1 Tab PO DAILY 30 Days Trazodone Hcl 50 Mg Tablet 50 Mg PO HS Eliquis (Apixaban) 2.5 Mg Tablet 2.5 Mg PO BID PRN Benadryl (Diphenhydramine Hcl) 25 Mg Capsule 2 Cap PO QHS 30 Days Prednisone (Prednisone) 10 Mg Tablet 5 Mg PO DAILY Protonix (Pantoprazole Sodium) 20 Mg Tablet. 20 Mg PO DAILY Carvedilol (Carvedilol) 6.25 Mg Tablet 6.25 Mg PO DAILY Zoloft (Sertraline Hcl) 100 Mg Tablet 150 Mg PO DAILY Vitals/I & O Vital Sign - Last 24 Hours 08/06/19 08/06/19 08/06/19 08/06/19 11:08 11:29 15:27 19:00 Temp 97.5 98.2 98.1 97.5 98.2 98.1 Pulse 99 99 100 104 Resp 14 14 17 B/P (MAP) 135/85 (102) 135/85 127/92 (104) 121/78 (92) Pulse Ox 100 98 95 O2 Delivery Room Air Room Air Room Air 08/06/19 08/07/19 08/07/19 20:03 03:00 07:30 Temp 98.2 97.2 98.2 97.2 Pulse 107 84 Resp 17 16 B/P (MAP) 106/81 (89) 107/80 (89) Pulse Ox 98 98 O2 Delivery Room Air Room Air Room Air Intake and Output 08/06/19 08/06/19 08/07/19 15:00 23:00 07:00 Intake Total 0 ml 0 ml 1000 ml Balance 0 ml 0 ml 1000 ml Nutrition Consultation Dietary Evaluation: Recommendations by RD: Dietary education by RD, Increase Calorie Intake, Protein supplementation Comments: rec continue Renal diet with nepro bid Expected Outcomes/Goals: to meet >75% est nutr needs Interpretation of weight loss: >1-2% in 1 week Malnutrition Findings: Food and Nutrition Intake (Sev: <50% est energy req 5days Weight Status: Underweight LILA DEMPSEY MD August 07, 2019 08:35
[2019-08-07] MEDS ORDERED: LEVOTHYROXINE SODIUM INJ 50 MCG in NORMAL SALINE 5 ML IVP SCH (09:00)
--- NOTE | 2019-08-07 09:19 | PDOC ---
PROGRESS NOTES Assessment Problems Medical Problems: (1) AMS (altered mental status) Status: Acute (2) Failure to thrive in adult Status: Acute (3) Hallucination Status: Acute Metabolic encephalopathy. Hypothyroidism, TSH 347.528 Renal failure on dialysis. Failed kidney transplant. Note started on Zyprexa 08/04 night, psychiatrist on the case Nonspecific brain atrophy on the MRI Mastoid fluid of no clinical significance, could see ENT as outpatient Plan Treat medical diseases including hypothyroidism. Okay for discharge Follow-up with neurology as needed Subjective Denies pain Objective Vital Signs Date Time Temp Pulse Resp B/P (MAP) Pulse Ox O2 Delivery O2 Flow Rate FiO2 08/07/19 07:30 97.2 84 16 107/80 (89) 98 Room Air 97.2 Intake and Output 08/07/19 07:00 Intake Total 1000 ml Balance 1000 ml Intake Oral 0 ml IV Total 1000 ml PHYSICAL EXAM Sleepy, arouses easily, knows location, not date, follows commands. Avoidant behavior PERRL. EOMI. CN: no focal findings. Muscle tone: normal. Muscle strength: 4/5 DTR: 1+ Plantar reflex: flexor Gait: not examined in bed. Sensory exam: no abnormal findings. No cerebellar signs elicited. Review of Relevant I have reviewed the following items tim (where applicable) has been applied. Labs Laboratory Tests Test 08/05/19 11:57 08/05/19 16:59 08/05/19 20:32 08/06/19 03:41 Glucose (Fingerstick) 68 mg/dL (70-99) 99 mg/dL (70-99) 97 mg/dL (70-99) Sodium Level 130 mmol/L (136-145) Potassium Level 4.2 mmol/L (3.5-5.1) Chloride Level 93 mmol/L (98-107) Carbon Dioxide Level 25 mmol/L (21-32) Anion Gap 12 (6-14) Blood Urea Nitrogen 29 mg/dL (7-20) Creatinine 8.4 mg/dL (0.6-1.0) Estimated GFR (Cockcroft-Gault) 5.9 Glucose Level 100 mg/dL (70-99) Calcium Level 9.0 mg/dL (8.5-10.1) Phosphorus Level 6.0 mg/dL (2.6-4.7) Albumin 2.0 g/dL (3.4-5.0) Test 08/06/19 07:38 08/06/19 10:58 08/06/19 17:27 08/06/19 21:41 Glucose (Fingerstick) 92 mg/dL (70-99) 76 mg/dL (70-99) 79 mg/dL (70-99) 114 mg/dL (70-99) Test 08/07/19 07:41 Glucose (Fingerstick) 107 mg/dL (70-99) Laboratory Tests Test 08/06/19 10:58 08/06/19 17:27 08/06/19 21:41 08/07/19 07:41 Glucose (Fingerstick) 76 mg/dL (70-99) 79 mg/dL (70-99) 114 mg/dL (70-99) 107 mg/dL (70-99) Microbiology 08/02/19 Blood Culture - Preliminary, Resulted NO GROWTH AFTER 4 DAYS Medications Current Medications Dextrose (Dextrose 50%-Water Syringe) 12.5 gm 1X ONCE IV Last administered on 08/02/19at 20:38; Start 08/02/19 at 20:30; Stop 08/02/19 at 20:31; Status DC Ondansetron HCl (Zofran) 4 mg PRN Q8HRS PRN IV NAUSEA/VOMITING Last administered on 08/03/19at 02:21; Start 08/02/19 at 23:00; Stop 08/03/19 at 09:41; Status DC Morphine Sulfate (Morphine Sulfate) 2 mg PRN Q2HR PRN IV SEVERE PAIN 7-10 Last administered on 08/03/19at 01:00; Start 08/02/19 at 23:00; Stop 08/03/19 at 09:41; Status DC Dextrose (Dextrose 50%-Water Syringe) 12.5 gm 1X ONCE IV Last administered on 08/03/19at 00:35; Start 08/03/19 at 00:45; Stop 08/03/19 at 00:46; Status DC Dextrose 1,000 ml @ 50 mls/hr Q20H IV Last administered on 08/07/19at 05:26; Start 08/03/19 at 01:15 Acetaminophen (Tylenol) 650 mg PRN Q6HRS PRN PO HEADACHE Last administered on 08/03/19at 14:58; Start 08/03/19 at 08:00 Ondansetron HCl (Zofran) 4 mg PRN Q4HRS PRN IV NAUSEA/VOMITING Last administered on 08/06/19 21:31; Start 08/03/19 at 09:45 Hydromorphone HCl (Dilaudid) 0.4 mg PRN Q4HRS PRN IVP PAIN; Start 08/03/19 at 09:45 Apixaban (Eliquis) 2.5 mg BID PO Last administered on 08/05/19 23:09; Start 08/03/19 at 10:00; Stop 08/06/19 at 13:58; Status DC Carvedilol (Coreg) 6.25 mg DAILY PO Last administered on 08/05/19 09:11; Start 08/04/19 at 09:00 Diphenhydramine HCl (Benadryl) 50 mg PRN QHS PRN PO sleep/itching Last administered on 08/06/19at 21:49; Start 08/03/19 at 21:00 Vitamin B Complex/ Vitamin C (Marry-Dori) 1 tab DAILY PO Last administered on 08/05/19 09:10; Start 08/03/19 at 10:00 Levothyroxine Sodium (Synthroid) 75 mcg DAILYAC PO Last administered on 08/04/19 08:31; Start 08/03/19 at 10:00; Stop 08/04/19 at 08:54; Status DC Potassium Chloride (Klor-Con) 20 meq DAILY PO Last administered on 08/05/19 09:13; Start 08/03/19 at 10:00 Prednisone (Prednisone) 5 mg DAILY PO Last administered on 08/05/19 09:11; Start 08/03/19 at 10:00 Tacrolimus (Prograf) 1 mg BID PO Last administered on 08/03/19 21:00; Start 08/03/19 at 10:00; Stop 08/04/19 at 04:20; Status DC Trazodone HCl (Desyrel) 50 mg HS PO Last administered on 08/06/19 21:19; Start 08/03/19 at 21:00 Fluticasone Propionate (Flonase) 2 spray PRN DAILY PRN NS ALLERGIC RHINITIS; Start 08/04/19 at 09:00 Pantoprazole Sodium (Protonix) 40 mg DAILYAC PO Last administered on 08/05/19 07:24; Start 08/03/19 at 10:00 Sertraline HCl (Zoloft) 150 mg DAILY PO Last administered on 08/05/19 09:10; Start 08/03/19 at 10:30 Sevelamer Carbonate (Renvela) 800 mg TIDWMEALS PO Last administered on 08/05/19 09:10; Start 08/03/19 at 12:00 Tramadol HCl (Ultram) 100 mg PRN Q8HRS PRN PO PAIN Last administered on 08/05/19at 05:50; Start 08/03/19 at 10:15 Vancomycin HCl (Vancomycin Oral Solution) 125 mg [id number] PO Last administered on 08/04/19at 08:33; Start 08/03/19 at 13:00; Stop 08/04/19 at 09:01; Status DC Info (Anti-Coagulation Monitoring By Pharmacy) 1 each PRN DAILY PRN MC SEE COMMENTS Last administered on 08/05/19at 13:52; Start 08/03/19 at 10:00 Lorazepam (Ativan) 0.5 mg PRN Q8HRS PRN PO ANXIETY / AGITATION Last administered on 08/04/19at 08:44; Start 08/03/19 at 13:30; Stop 08/05/19 at 10:35; Status DC Tacrolimus (Prograf) 1 mg BID PO Last administered on 08/06/19at 21:19; Start 08/04/19 at 09:00 Levothyroxine Sodium (Synthroid) 75 mcg DAILY06 PO ; Start 08/07/19 at 06:00; Stop 08/06/19 at 14:05; Status DC Levothyroxine Sodium 200 mcg/ Sodium Chloride 10 ml @ 200 mls/hr 1X ONCE IVP Last administered on 08/04/19at 09:38; Start 08/04/19 at 09:30; Stop 08/04/19 at 09:32; Status DC Levothyroxine Sodium 50 mcg/ Sodium Chloride 5 ml @ 100 mls/hr DAILY IVP Last administered on 08/06/19at 11:15; Start 08/05/19 at 09:00; Stop 08/06/19 at 09:02; Status DC Liothyronine Sodium (Cytomel) 5 mcg DAILY PO Last administered on 08/05/19at 09:10; Start 08/04/19 at 09:15; Stop 08/06/19 at 09:01; Status DC Metoclopramide HCl (Reglan Vial) 5 mg 1X ONCE IVP Last administered on 08/05/19at 09:56; Start 08/05/19 at 09:45; Stop 08/05/19 at 09:46; Status DC Dextrose (Dextrose 50%-Water Syringe) 12.5 gm PRN Q15MIN PRN IV SEE COMMENTS Last administered on 08/05/19at 12:09; Start 08/05/19 at 10:00 Buspirone HCl (Buspar) 5 mg PRN TID PRN PO anxiety- 1ST CHOICE Last administered on 08/05/19at 11:04; Start 08/05/19 at 10:45 Hydroxyzine HCl (Atarax) 10 mg PRN Q6HRS PRN PO ANXIETY- 2ND CHOICE; Start 08/05/19 at 10:45 Olanzapine (ZyPREXA) 2.5 mg HS PO Last administered on 08/06/19at 21:19; Start 08/05/19 at 21:00 Olanzapine (ZyPREXA) 2.5 mg PRN DAILY PRN PO PSYCHOSIS, Anxiety ; Start 07/23 06/11 at 17:45 Metoprolol Tartrate (Lopressor Vial) 2.5 mg 1X ONCE IVP ; Start 08/05/19 at 23:15; Stop 08/05/19 at 23:16; Status DC Levothyroxine Sodium 50 mcg/ Sodium Chloride 5 ml @ 100 mls/hr DAILY IVP Last administered on 08/07/19at 08:50; Start 08/07/19 at 09:00 Active Scripts Active Prograf (Tacrolimus) 1 Mg Capsule 1 Mg PO DAILY 30 Days Zyprexa (Olanzapine) 2.5 Mg Tablet 1 Tab PO QHS 30 Days QHS and up to once daily prn Levothyroxine Sodium 75 Mcg Tablet 75 Mcg PO DAILYAC 90 Days Potassium Chloride (Potassium Chloride) 20 Meq Tablet.er 20 Meq PO DAILY 7 Days Vancomycin Hcl 125 Mg Capsule 1 Cap PO QID 10 Days Reported Tramadol Hcl 100 Mg Tbmp.24hr 100 Mg PO TID PRN PRN Flonase Allergy Relief (Fluticasone Propionate) 9.9 Ml [place].susp 2 Sprays NS PRN Renagel (Sevelamer Hcl) 800 Mg Tablet 800 Mg PO TID PRN Marry-Dori Tablet (Folic Acid/Vitamin B Comp W-C) 0.8 Mg Tablet 1 Tab PO DAILY 30 Days Trazodone Hcl 50 Mg Tablet 50 Mg PO HS Eliquis (Apixaban) 2.5 Mg Tablet 2.5 Mg PO BID PRN Benadryl (Diphenhydramine Hcl) 25 Mg Capsule 2 Cap PO QHS 30 Days Prednisone (Prednisone) 10 Mg Tablet 5 Mg PO DAILY Protonix (Pantoprazole Sodium) 20 Mg Tablet.dr 20 Mg PO DAILY Carvedilol (Carvedilol) 6.25 Mg Tablet 6.25 Mg PO DAILY Zoloft (Sertraline Hcl) 100 Mg Tablet 150 Mg PO DAILY Vitals/I & O Vital Sign - Last 24 Hours 08/06/19 08/06/19 08/06/19 08/06/19 11:08 11:29 15:27 19:00 Temp 97.5 98.2 98.1 97.5 98.2 98.1 Pulse 99 99 100 104 Resp 14 14 17 B/P (MAP) 135/85 (102) 135/85 127/92 (104) 121/78 (92) Pulse Ox 100 98 95 O2 Delivery Room Air Room Air Room Air 08/06/19 08/07/19 08/07/19 20:03 03:00 07:30 Temp 98.2 97.2 98.2 97.2 Pulse 107 84 Resp 17 16 B/P (MAP) 106/81 (89) 107/80 (89) Pulse Ox 98 98 O2 Delivery Room Air Room Air Room Air Intake and Output 08/06/19 08/06/19 08/07/19 15:00 23:00 07:00 Intake Total 0 ml 0 ml 1000 ml Balance 0 ml 0 ml 1000 ml FLORINA ELKINS MD August 07, 2019 09:18
[2019-08-07 10:13] LABS: BASO # 0.2 x10^3/uL (0.0-0.2); BASO % 2 % (0-3); EOS # 0.1 x10^3/uL (0.0-0.7); EOS % 1 % (0-3); HEMATOCRIT 46.9 % (36.0-47.0); HEMOGLOBIN 15.4 g/dL (12.0-15.5); LYMPH % 10 % (24-48); MEAN CORPUSCULAR HEMOGLOBIN 31 pg (25-35); MEAN CORPUSCULAR HGB CONC 33 g/dL (31-37); MEAN CORPUSCULAR VOLUME 94 fL (79-100); MONO # 0.8 x10^3/uL (0.0-1.1); MONO % 8 % (0-9); NEUT # 7.9 x10^3/uL (1.8-7.7); NEUT % 79 % (31-73); PLATELET COUNT 241 x10^3/uL (140-400); RED BLOOD COUNT 5.01 x10^6/uL (3.50-5.40); RED CELL DISTRIBUTION WIDTH 18.2 % (11.5-14.5)
[2019-08-07 10:22] LABS: CALCIUM 8.3 mg/dL (8.5-10.1); CREATININE 8.9 mg/dL (0.6-1.0); GFR 5.6; POTASSIUM 4.2 mmol/L (3.5-5.1)
[2019-08-07] MEDS ORDERED: HEPARIN PF 500 UNIT/5 ML DISP.SYRIN. IVP ONE (10:23)
[2019-08-07] MEDS ORDERED: LIDOCAINE 1%/EPI 1:100,000 20 ML VIAL. ONE (10:23)
[2019-08-07 10:33] LABS: PROTHROMBIN TIME PATIENT 12.6 SEC (11.7-14.0)
[2019-08-07] MEDS ORDERED: MIDAZOLAM HCL/PF 2 MG/2 ML VIAL. ONE (10:35)
[2019-08-07] MEDS ORDERED: ceFAZolin SODIUM IV Push 1 GM VIAL. IVP ONE ×2 (10:35→11:15)
[2019-08-07] MEDS ORDERED: fentaNYL PF VIAL 100 MCG/2 ML VIAL ONE (10:35)
[2019-08-07] MEDS ORDERED: HEPARIN PF 500 UNIT/5 ML DISP.SYRIN. IVP PRN (11:15)
[2019-08-07] MEDS ORDERED: LIDOCAINE 1%/EPI 1:100,000 20 ML VIAL. INJ ONE (11:15)
[2019-08-07] MEDS ORDERED: MIDAZOLAM HCL/PF 2 MG/2 ML VIAL. IV ONE (11:15)
[2019-08-07] MEDS ORDERED: fentaNYL PF VIAL 100 MCG/2 ML VIAL IV ONE (11:15)
[2019-08-07] MEDS: TACROLIMUS 0.5 MG CAPSULE PO SCH (11:30)
[2019-08-07] MEDS: SERTRALINE 50 MG TABLET. PO SCH (11:30)
[2019-08-07] MEDS: predniSONE 5 MG TABLET PO SCH (11:30)
[2019-08-07] MEDS: POTASSIUM CHLORIDE 20 MEQ TABLET.ER. PO SCH (11:30)
[2019-08-07] MEDS: CARVEDILOL 6.25 MG TABLET. PO SCH (11:30)
[2019-08-07] MEDS: FOLIC/VIT B COMP W-C (RENAL) TABLET. PO SCH (11:30)
--- NOTE | 2019-08-07 11:34 | PDOC ---
SUBJECTIVE ROS stable OBJECTIVE Vital Signs Vital Signs Date Time Temp Pulse Resp B/P (MAP) Pulse Ox O2 Delivery O2 Flow Rate FiO2 08/07/19 11:31 98.2 64 18 124/76 (92) 98 Room Air 98.2 08/07/19 11:14 2.0 I & 0 Intake and Output 08/07/19 07:00 Intake Total 1000 ml Balance 1000 ml Intake Oral 0 ml IV Total 1000 ml PHYSICAL EXAM Physical Exam General: No acute distress HEEN OM moist Lungs CTA, Non labored Heart: s1 s2 Abdomen: Soft, No tenderness, PD catheter + Extremities: No clubbing, No cyanosis, No edema, Skin: No rashes, No CVA or sp tenderbess, No Mcgrath DIAGNOSIS/ASSESSMENT Assessment & Plan DIAGNOSIS/ASSESSMENT Assessment & Plan ESRD on PD - Has been on Dialysis for 5 years [facility] [facility] in [place] [facility] per home prescription (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 Severe protein calorie malnutrition Failed renal transplant Hyperphosphatemia- On Binders CoVid Negative COMMENT/RELEVANT DATA Meds Current Medications Medications (Trade) Dose Ordered Sig/Olga Start Time Stop Time Status Last Admin Dose Admin Acetaminophen (Tylenol) 650 mg PRN Q6HRS PRN 08/03/19 08:00 08/03/19 14:58 650 MG Apixaban (Eliquis) 2.5 mg BID 08/03/19 10:00 08/06/19 13:58 DC 08/05/19 23:09 2.5 MG Buspirone HCl (Buspar) 5 mg PRN TID PRN 08/05/19 10:45 08/05/19 11:04 5 MG Carvedilol (Coreg) 6.25 mg DAILY 08/04/19 09:00 08/05/19 09:11 6.25 MG Cefazolin Sodium (Ancef) 1 gm 1X ONCE 08/07/19 11:15 08/07/19 11:16 DC 08/07/19 10:49 1 GM Dextrose (Dextrose 50%-Water Syringe) 12.5 gm PRN Q15MIN PRN 08/05/19 10:00 08/05/19 12:09 12.5 GM Diphenhydramine HCl (Benadryl) 50 mg PRN QHS PRN 08/03/19 21:00 08/06/19 21:49 50 MG Fentanyl Citrate (Fentanyl 2ml Vial) 50 mcg 1X ONCE 08/07/19 11:15 08/07/19 11:16 DC 08/07/19 11:11 50 MCG Fluticasone Propionate (Flonase) 2 spray PRN DAILY PRN 08/04/19 09:00 Heparin Sodium (Porcine) (Hep Lock Adult) 500 unit PRN DAILY PRN 08/07/19 11:15 08/07/19 11:12 500 UNIT Hydromorphone HCl (Dilaudid) 0.4 mg PRN Q4HRS PRN 08/03/19 09:45 Hydroxyzine HCl (Atarax) 10 mg PRN Q6HRS PRN 08/05/19 10:45 Info (Anti-Coagulation Monitoring By Pharmacy) 1 each PRN DAILY PRN 08/03/19 10:00 08/05/19 13:52 1 EACH Levothyroxine Sodium (Synthroid) 75 mcg DAILY06 08/07/19 06:00 08/06/19 14:05 DC Levothyroxine Sodium 200 mcg/ Sodium Chloride 10 ml @ 200 mls/hr 1X ONCE 08/04/19 09:30 08/04/19 09:32 DC 08/04/19 09:38 200 MLS/HR Levothyroxine Sodium 50 mcg/ Sodium Chloride 5 ml @ 100 mls/hr DAILY 08/07/19 09:00 08/07/19 08:50 100 MLS/HR Lidocaine/ Epinephrine (LIDOCAINE 1%-EPI 1:100,000 Multi-Dose) 8 ml 1X ONCE 08/07/19 11:15 08/07/19 11:16 DC 08/07/19 11:11 8 ML Liothyronine Sodium (Cytomel) 5 mcg DAILY 08/04/19 09:15 08/06/19 09:01 DC 08/05/19 09:10 5 MCG Lorazepam (Ativan) 0.5 mg PRN Q8HRS PRN 08/03/19 13:30 08/05/19 10:35 DC 08/04/19 08:44 0.5 MG Metoclopramide HCl (Reglan Vial) 5 mg 1X ONCE 08/05/19 09:45 08/05/19 09:46 DC 08/05/19 09:56 5 MG Metoprolol Tartrate (Lopressor Vial) 2.5 mg 1X ONCE 08/05/19 23:15 08/05/19 23:16 DC Midazolam HCl (Versed) 1 mg 1X ONCE 08/07/19 11:15 08/07/19 11:16 DC 08/07/19 11:11 1 MG Morphine Sulfate (Morphine Sulfate) 2 mg PRN Q2HR PRN 08/02/19 23:00 08/03/19 09:41 DC 08/03/19 01:00 2 MG Olanzapine (ZyPREXA) 2.5 mg PRN DAILY PRN 08/05/19 17:45 Ondansetron HCl (Zofran) 4 mg PRN Q4HRS PRN 08/03/19 09:45 08/06/19 21:31 4 MG Pantoprazole Sodium (Protonix) 40 mg DAILYAC 08/03/19 10:00 08/05/19 07:24 40 MG Potassium Chloride (Klor-Con) 20 meq DAILY 08/03/19 10:00 08/05/19 09:13 20 MEQ Prednisone (Prednisone) 5 mg DAILY 08/03/19 10:00 08/05/19 09:11 5 MG Sertraline HCl (Zoloft) 150 mg DAILY 08/03/19 10:30 08/05/19 09:10 150 MG Sevelamer Carbonate (Renvela) 800 mg TIDWMEALS 08/03/19 12:00 08/05/19 09:10 800 MG Tacrolimus (Prograf) 1 mg BID 08/04/19 09:00 08/06/19 21:19 1 MG Tramadol HCl (Ultram) 100 mg PRN Q8HRS PRN 08/03/19 10:15 08/05/19 05:50 100 MG Trazodone HCl (Desyrel) 50 mg HS 08/03/19 21:00 08/06/19 21:19 50 MG Vancomycin HCl (Vancomycin Oral Solution) 125 mg [id number] 08/03/19 13:00 08/04/19 09:01 DC 08/04/19 08:33 125 MG Vitamin B Complex/ Vitamin C (Marry-Dori) 1 tab DAILY 08/03/19 10:00 08/05/19 09:10 1 TAB Lab Laboratory Tests Test 08/06/19 17:27 08/06/19 21:41 08/07/19 07:41 08/07/19 09:47 Glucose (Fingerstick) 79 mg/dL (70-99) 114 mg/dL (70-99) 107 mg/dL (70-99) White Blood Count 10.0 x10^3/uL (4.0-11.0) Red Blood Count 5.01 x10^6/uL (3.50-5.40) Hemoglobin 15.4 g/dL (12.0-15.5) Hematocrit 46.9 % (36.0-47.0) Mean Corpuscular Volume 94 fL (79-100) Mean Corpuscular Hemoglobin 31 pg (25-35) Mean Corpuscular Hemoglobin Concent 33 g/dL (31-37) Red Cell Distribution Width 18.2 % (11.5-14.5) Platelet Count 241 x10^3/uL (140-400) Neutrophils (%) (Auto) 79 % (31-73) Lymphocytes (%) (Auto) 10 % (24-48) Monocytes (%) (Auto) 8 % (0-9) Eosinophils (%) (Auto) 1 % (0-3) Basophils (%) (Auto) 2 % (0-3) Neutrophils # (Auto) 7.9 x10^3/uL (1.8-7.7) Lymphocytes # (Auto) 1.0 x10^3/uL (1.0-4.8) Monocytes # (Auto) 0.8 x10^3/uL (0.0-1.1) Eosinophils # (Auto) 0.1 x10^3/uL (0.0-0.7) Basophils # (Auto) 0.2 x10^3/uL (0.0-0.2) Prothrombin Time 12.6 SEC (11.7-14.0) Prothromb Time International Ratio 1.0 (0.8-1.1) Sodium Level 127 mmol/L (136-145) Potassium Level 4.2 mmol/L (3.5-5.1) Chloride Level 91 mmol/L (98-107) Carbon Dioxide Level 25 mmol/L (21-32) Anion Gap 11 (6-14) Blood Urea Nitrogen 28 mg/dL (7-20) Creatinine 8.9 mg/dL (0.6-1.0) Estimated GFR (Cockcroft-Gault) 5.6 Glucose Level 84 mg/dL (70-99) Calcium Level 8.3 mg/dL (8.5-10.1) Test 08/07/19 11:27 Glucose (Fingerstick) 84 mg/dL (70-99) Results All relevant outside records, renal labs, imaging studies, telemetry/EKG's were reviewed. VIRGIE SEALS MD August 07, 2019 11:34
[2019-08-07] MEDS: traMADol 50 MG TABLET PO PRN (11:55)
[2019-08-07] MEDS: ONDANSETRON PF 4 MG/2 ML VIAL. IV PRN (11:58)
--- NOTE | 2019-08-07 13:43 | NUR ---
Patient underwent PICC line placement this morning, came back to the unit at 1130,VSS, awake, alert.
--- NOTE | 2019-08-07 14:26 | NUR ---
Discharge Note: TY SANCHEZ [address] Discharge instructions and discharge home medications reviewed with patient's mom and a copy given. All questions have been answered and understanding verbalized. The following instructions and handouts were given: Take home meds as directed. Vancomycin PO to consume available med. Peritoneal dialysis daily Discontinued lines and drains: powerpicc line in place, right chest; dressing clean, dry and intact peripheral IV removed, catheter intact, no complications upon removal. Patient discharged to home with home health via wheelchair accompanied by the patient's mom at 1415. Addendum: 08/07/19 at 1535 by ALEJANDRA WRIGHT RN home meds discussed with patient's mom over the phone, verbalized understanding
--- NOTE | 2019-08-07 16:38 | RAD ---
Procedure: Ultrasound and fluoroscopically guided placement of tunnel central venous catheter. 08/07/2019 2:34 PM Clinical Indication: TPN outpatient. Dr. Sutton, nephrology order, james BOTELLO 08/04 @11p Sedation: Conscious sedation was administered for 34 minutes. The patient was monitored by a qualified independent observer throughout the time of sedation. Please refer to the medical record for exact doses of medications utilized to achieve moderate sedation. Fluoroscopy time: .4 minutes Dose area product: 1Gycm2 Consent: The procedure was explained in its entirety to the patient or the patients designated lead generation representative by a member of the treatment team, including a discussion of the risks, benefits and commonly accepted alternatives to the procedure, as well as the expected consequences of no therapy whatsoever. Discussion of the risks included, but was not limited to, those that are most frequent and those that are rare but possibly severe or life-threatening, as well as the possibility of unforeseen complications. Sterility: All elements of maximal sterile barrier technique including the use of a cap, mask, sterile gown, sterile gloves, large sterile sheet, appropriate hand hygiene, and 2% chlorhexidine for cutaneous antisepsis (or acceptable alternative antiseptic per current guidelines) were followed for this procedure. Technique and Findings: Following informed consent, the patient was prepped and draped in the usual sterile fashion. Ultrasound interrogation of the right neck revealed patency and compressibility of the right internal jugular vein. A 21-gauge micropuncture was then used to gain access to this vein under ultrasound guidance. A hard copy ultrasound image was recorded. The needle was exchanged over a wire for a sheath. A small incision was made several centimeters inferior to the right clavicle. A power line was trimmed to length, advanced from the small skin incision to the venotomy site, and then advanced through a peel-away sheath to the level of the cavoatrial junction. Catheter was found to flush and aspirate normally. Catheter was secured in place with 2-0 Prolene suture and a sterile dressing was applied. Catheter was packed with heparin per protocol. The neck dermatotomy was closed with Dermabond. No immediate complications were identified. Impression: Successful ultrasound and fluoroscopically guided placement of a right internal jugular tunneled central venous catheter
== END 2019-08-07 14:00 | disposition home health service (06) | DRG 80 ==
LOC: ER 19:02 → 6 SOUTH 22:55
PROVIDERS: ADMIT Family Medicine; ATTEND Family Medicine
PROC: 0JH63XZ Insertion of Tunneled Vascular Access Device into Chest Subcutaneous Tissue and Fascia, Percutaneous Approach (ICD-10-PCS; principal; 2019-08-07)
PROC: 02HV33Z Insertion of Infusion Device into Superior Vena Cava, Percutaneous Approach (ICD-10-PCS; 2019-08-07)
PROC: B5181ZA Fluoroscopy of Superior Vena Cava using Low Osmolar Contrast, Guidance (ICD-10-PCS; 2019-08-07)
PROC: B548ZZA Ultrasonography of Superior Vena Cava, Guidance (ICD-10-PCS; 2019-08-07)
DX: E03.5 Myxedema coma (principal); G93.41 Metabolic encephalopathy; E43 Unspecified severe protein-calorie malnutrition; N18.6 End stage renal disease; A04.72 Enterocolitis due to Clostridium difficile, not specified as recurrent; E87.2 Acidosis; F05 Delirium due to known physiological condition; Z94.0 Kidney transplant status; Z68.1 Body mass index [BMI] 19.9 or less, adult; E16.2 Hypoglycemia, unspecified; F32.9 Major depressive disorder, single episode, unspecified; F41.0 Panic disorder [episodic paroxysmal anxiety]; I48.91 Unspecified atrial fibrillation; R62.7 Adult failure to thrive; Z79.899 Other long term (current) drug therapy; Z81.8 Family history of other mental and behavioral disorders; Z82.49 Family history of ischemic heart disease and other diseases of the circulatory system; Z87.891 Personal history of nicotine dependence; Z90.49 Acquired absence of other specified parts of digestive tract; Z99.2 Dependence on renal dialysis; E05.90 Thyrotoxicosis, unspecified without thyrotoxic crisis or storm; E86.0 Dehydration; K21.9 Gastro-esophageal reflux disease without esophagitis; Z88.8 Allergy status to other drugs, medicaments and biological substances; Z91.041 Radiographic dye allergy status; E83.39 Other disorders of phosphorus metabolism; Z20.828 Contact with and (suspected) exposure to other viral communicable diseases; N25.0 Renal osteodystrophy
CPT/HCPCS: 36415; 36558; 70450; 70551; 71045; 76536; 76937; 77001; 80048; 80053; 80069; 82140; 82607; 82962; 83605; 83735; 83880; 84100; 84439; 84443; 84481; 84484; 84703; 85025; 85610; 87040; 87635; 93005; 96374; 96375; 96376; 99152; 99153; 99285; C1751; C1892; J0690; J1642; J2250; J2270; J2405; J2765; J3010; J3490; J7042; J7507; J7512; G0378; Q0163

== ENCOUNTER 2019-09-29 08:07 | Outpatient (CLI) | payer MEDICARE, OTHER ==
[~2019-09-29] VITALS: Ht 162.6 cm; Wt 51.7 kg
[~2019-09-29 08:07] MED LIST changes: +OLAN2.5T3 PO
[2019-09-29 08:30] VITALS: BP 142/97
[2019-09-29] MEDS ORDERED: CARV25TA PO (08:46)
[2019-09-29] MEDS ORDERED: MELA5TAB20 PO (08:46)
[2019-09-29 09:00] VITALS: BP 108/72
[2019-09-29] MEDS ORDERED: LIDOCAINE WITH 8.4% SOD BICARB 3 ML DISP.SYRIN. ONE (09:21)
[2019-09-29 09:25] LABS: PROTHROMBIN TIME PATIENT 14.1 SEC (11.7-14.0)
[2019-09-29 09:51] VITALS: BP 104/76
[2019-09-29 10:06] VITALS: BP 99/60
--- NOTE | 2019-09-29 10:22 | NUR ---
Discharge Note: TY SANCHEZ Discharge instructions and discharge home medications reviewed with Parent and a copy given. All questions have been answered and understanding verbalized. The following instructions and handouts were given: incision care Discontinued lines and drains: Central Line DL(power line)intact. Patient discharged to Home or Self Care withParentvia Wheelchair. Patient's mother instructed to have patient sit up for 4 hours and monitor for bleeding.
--- NOTE | 2019-09-30 08:21 | RAD ---
09/30/2019 6:16 AM Removal of right internal jugular tunneled central venous catheter Indication: No longer requires chronic central venous access Discussion: The risks and benefits of the procedure were discussed the patient. Informed consent was obtained. A timeout procedure was performed. The pre-existing catheter over the right chest was prepped and draped using maximum sterile barrier technique. All elements of maximal sterile barrier technique including the use of a cap, mask, sterile gown, sterile gloves, large sterile sheet, appropriate hand hygiene, and 2% chlorhexidine for cutaneous antisepsis (or acceptable alternative antiseptic per current guidelines) were followed for this procedure. Catheter was removed with traction. Manual pressure was held. No immediate complications were identified. Sterile dressings were applied. Impression: Removal of right internal jugular power line
== END 2019-09-29 10:35 | disposition home or self-care (01) ==
LOC: INTRAD 08:07
PROVIDERS: ATTEND Internal Medicine Nephrology
DX: Z45.2 Encounter for adjustment and management of vascular access device (principal); Z79.01 Long term (current) use of anticoagulants
CPT/HCPCS: 36415; 36589; 85610

== ENCOUNTER 2019-12-06 19:57 | Inpatient (IN) | payer MEDICARE, OTHER ==
[~2019-12-06] VITALS: Ht 165.1 cm; Wt 53.8 kg
[~2019-12-06 19:57] MED LIST changes: +CARV25TA PO; +MELA5TAB20 PO
[2019-12-06] MEDS ORDERED: ONDANSETRON PF 4 MG/2 ML VIAL. IVP ONE (20:00)
[2019-12-06] MEDS ORDERED: IV NORMAL SALINE 1000ML BAG 1,000 ML IV ONE (20:00)
[2019-12-06] MEDS ORDERED: FAMOTIDINE 20 MG/2 ML VIAL IVP ONE (20:00)
[2019-12-06] MEDS ORDERED: fentaNYL PF VIAL 100 MCG/2 ML VIAL IVP ONE (20:15)
[2019-12-06 20:42] LABS: BASO # 0.2 x10^3/uL (0.0-0.2); BASO % 2 % (0-3); EOS % 0 % (0-3); HEMATOCRIT 33.1 % (36.0-47.0); HEMOGLOBIN 10.6 g/dL (12.0-15.5); LYMPH # 0.5 x10^3/uL (1.0-4.8); LYMPH % 5 % (24-48); MEAN CORPUSCULAR HEMOGLOBIN 32 pg (25-35); MEAN CORPUSCULAR HGB CONC 32 g/dL (31-37); MEAN CORPUSCULAR VOLUME 99 fL (79-100); MONO # 0.7 x10^3/uL (0.0-1.1); MONO % 8 % (0-9); NEUT # 8.3 x10^3/uL (1.8-7.7); NEUT % 86 % (31-73); PLATELET COUNT 454 x10^3/uL (140-400); RED BLOOD COUNT 3.35 x10^6/uL (3.50-5.40); RED CELL DISTRIBUTION WIDTH 16.5 % (11.5-14.5); WHITE BLOOD COUNT 9.7 x10^3/uL (4.0-11.0)
[2019-12-06 20:52] LABS: PROTHROMBIN TIME PATIENT 13.4 SEC (11.7-14.0)
[2019-12-06 20:54] LABS: CALCIUM 9.4 mg/dL (8.5-10.1); GFR 6.3; POTASSIUM 3.9 mmol/L (3.5-5.1); PREG TEST PT QUAL NEGATIVE (NEG)
[2019-12-06 20:58] LABS: % BANDS 4 % (0-9); % BASOS 1 % (0-3); % EOS 1 % (0-5); % LYMPHS 4 % (24-48); % MONOS 4 % (0-10); % SEGS 86 % (35-66); ANISOCYTOSIS SLIGHT; PLT ESTIMATE INCREASED (ADEQUATE)
[2019-12-06 21:00] LABS: ALBUMIN 2.3 g/dL (3.4-5.0); ALBUMIN/GLOBULIN RATIO 0.6 (1.0-1.7); MAGNESIUM 2.6 mg/dL (1.8-2.4); TOTAL BILIRUBIN 0.4 mg/dL (0.2-1.0); TOTAL PROTEIN 6.1 g/dL (6.4-8.2)
[2019-12-06] MEDS ORDERED: fentaNYL PF VIAL 100 MCG/2 ML VIAL IV ONE (21:30)
[2019-12-06] MEDS ORDERED: ASPIRIN CHEWABLE 81 MG TABLET. PO ONE (21:30)
--- NOTE | 2019-12-06 21:34 | PHYS DOC ---
Past Medical History Past Medical History: Renal Disease, Other Additional Past Medical Histor: ESRD on peritoneal dialysis, COLITIS Past Surgical History: Other Additional Past Surgical Histo: CAPD DIALYSIS CATHETER Smoking Status: Former Smoker (1 year) Alcohol Use: None Drug Use: None General Adult EDM: Chief Complaint: DIZZY/LIGHT HEADED HPI: HPI: Patient is a 24 year old female with pmh of ESRD on nursing home peritoneal dialysis presents with report of generalized weakness with associated nausea and vomiting. Mother and patient reports symptoms seemed to occur after eating "a burrito". Denies known sick contacts. Denies known exposure to COVID-19. Denies fever/chills. Reports some "burning" chest pain. Mother also reports patient's blood pressure has been slightly lower than normal. Mother reports patient normally has lower blood pressure of 90s/60s. Mother reports patient is currently on "hospice" for "pain and her ESRD". Repor ts that they presented for symptomatic treatment for nausea and for IVF hydration but do not want to be admitted. Review of Systems: Review of Systems: Constitutional: Denies fever or chills; reports generalized malaise Eyes: Denies change in visual acuity, redness, or eye pain HENT: Denies nasal congestion or sore throat Respiratory: Denies cough or shortness of breath Cardiovascular: Reports chest pain; denies palpitations GI: Denies abdominal pain; reports nausea and vomiting : Denies dysuria or hematuria Musculoskeletal: Denies back pain or joint pain Integument: Denies rash or skin lesions Neurologic: Denies headache, focal weakness or sensory changes Complete systems were reviewed and found to be within normal limits, except as documented in this note. Heart Score: HEART Score for Chest Pain: HEART Score for Chest Pain Response (Comments) Value History Slighlty/Non-Suspicious 0 ECG Nonspecific Repolarizatio 1 Age < 45 0 Risk Factors 1 or 2 Risk Factors 1 Troponin >3 x Normal Limit 2 Total 4 Risk Factors: Risk Factors: DM, Current or recent (<one month) smoker, HTN, HLP, family history of CAD, obesity. Risk Scores: Score 0 - 3: 2.5% MACE over next 6 weeks - Discharge Home Score 4 - 6: 20.3% MACE over next 6 weeks - Admit for Clinical Observation Score 7 - 10: 72.7% MACE over next 6 weeks - Early Invasive Strategies Current Medications: Current Medications Medications (Trade) Dose Ordered Sig/Olga Start Time Stop Time Status Last Admin Dose Admin Aspirin (Aspirin Chewable) 324 mg 1X ONCE 12/06/19 21:30 12/06/19 21:31 DC 12/06/19 21:19 324 MG Famotidine (Pepcid Vial) 20 mg 1X ONCE 12/06/19 20:00 12/06/19 20:05 DC 12/06/19 20:28 20 MG Fentanyl Citrate (Fentanyl 2ml Vial) 50 mcg 1X ONCE 12/06/19 21:30 12/06/19 21:31 DC 12/06/19 21:19 50 MCG Ondansetron HCl (Zofran) 4 mg 1X ONCE 12/06/19 20:00 12/06/19 20:05 DC 12/06/19 20:27 4 MG Sodium Chloride 1,000 ml @ 1,000 mls/hr 1X ONCE 12/06/19 20:00 12/06/19 20:59 DC 12/06/19 20:28 1,000 MLS/HR Allergies: Allergies: Allergies Coded Allergies Type Severity Reaction Last Updated Verified Iodinated Contrast Media Allergy Intermediate 08/03/19 Yes NSAIDS (Non-Steroidal Anti-Inflamma Allergy Intermediate 08/03/19 Yes losartan Allergy Intermediate 08/03/19 Yes phenobarbital Allergy Intermediate 08/03/19 Yes olanzapine Allergy Unknown 09/29/19 Yes Physical Exam: PE: Constitutional: Adult female, no acute distress, ill but non-toxic appearance HENT: Normocephalic, atraumatic, mucous membranes tacky Eyes: Conjunctiva normal, no discharge Neck: Normal range of motion, supple Lungs & Thorax: Equal chest rise and fall, no respiratory distress Abdomen: Soft, no tenderness/guarding/rebound tenderness, peritoneal cath in place Skin: Warm, dry, no erythema, no rash Extremities: No tenderness, ROM intact, no edema Neurologic: Alert and oriented X 3, no focal deficits noted Psychologic: Affect normal, judgement normal Current Patient Data: Labs: Laboratory Tests Test 12/06/19 20:34 White Blood Count 9.7 x10^3/uL (4.0-11.0) Red Blood Count 3.35 x10^6/uL (3.50-5.40) L Hemoglobin 10.6 g/dL (12.0-15.5) L Hematocrit 33.1 % (36.0-47.0) L Mean Corpuscular Volume 99 fL (79-100) Mean Corpuscular Hemoglobin 32 pg (25-35) Mean Corpuscular Hemoglobin Concent 32 g/dL (31-37) Red Cell Distribution Width 16.5 % (11.5-14.5) H Platelet Count 454 x10^3/uL (140-400) H Neutrophils (%) (Auto) 86 % (31-73) H Lymphocytes (%) (Auto) 5 % (24-48) L Monocytes (%) (Auto) 8 % (0-9) Eosinophils (%) (Auto) 0 % (0-3) Basophils (%) (Auto) 2 % (0-3) Neutrophils # (Auto) 8.3 x10^3/uL (1.8-7.7) H Lymphocytes # (Auto) 0.5 x10^3/uL (1.0-4.8) L Monocytes # (Auto) 0.7 x10^3/uL (0.0-1.1) Eosinophils # (Auto) 0.0 x10^3/uL (0.0-0.7) Basophils # (Auto) 0.2 x10^3/uL (0.0-0.2) Segmented Neutrophils % 86 % (35-66) H Band Neutrophils % 4 % (0-9) Lymphocytes % 4 % (24-48) L Monocytes % 4 % (0-10) Eosinophils % 1 % (0-5) Basophils % 1 % (0-3) Platelet Estimate Increased (ADEQUATE) Anisocytosis Slight Prothrombin Time 13.4 SEC (11.7-14.0) Prothrombin Time INR 1.1 (0.8-1.1) Activated Partial Thromboplast Time 39 SEC (24-38) H Sodium Level 132 mmol/L (136-145) L Potassium Level 3.9 mmol/L (3.5-5.1) Chloride Level 90 mmol/L (98-107) L Carbon Dioxide Level 23 mmol/L (21-32) Anion Gap 19 (6-14) H Blood Urea Nitrogen 45 mg/dL (7-20) H Creatinine 8.0 mg/dL (0.6-1.0) H Estimated GFR (Cockcroft-Gault) 6.3 BUN/Creatinine Ratio 6 (6-20) Glucose Level 110 mg/dL (70-99) H Calcium Level 9.4 mg/dL (8.5-10.1) Magnesium Level 2.6 mg/dL (1.8-2.4) H Total Bilirubin 0.4 mg/dL (0.2-1.0) Aspartate Amino Transferase (AST) 34 U/L (15-37) Alanine Aminotransferase (ALT) 18 U/L (14-59) Alkaline Phosphatase 166 U/L (46-116) H Creatine Kinase 214 U/L (26-192) H Creatine Kinase MB (Mass) 34.2 ng/mL (0.0-3.6) H Creatine Kinase MB Relative Index 16.0 % (0-4) H Troponin I Quantitative 3.380 ng/mL (0.000-0.055) Total Protein 6.1 g/dL (6.4-8.2) L Albumin 2.3 g/dL (3.4-5.0) L Albumin/Globulin Ratio 0.6 (1.0-1.7) L Lipase 220 U/L (73-393) Serum Test, Qualitative Negative (NEG) Laboratory Tests 12/06/19 20:34 Laboratory Tests 12/06/19 20:34 Vital Signs: Vital Signs Date Time Temp Pulse Resp B/P (MAP) Pulse Ox O2 Delivery O2 Flow Rate FiO2 12/06/19 20:04 105 16 83/57 (66) 99 Room Air EKG: EKG: @2052 Sinus tachycardia at 103bpm, J point elevation to V1-V2, ST depression noted to II, aVF, and V3-V6, QRS 92ms, QT/QTc 332/437ms Radiology/Procedures: Radiology/Procedures: [] Course & Med Decision Making: Course & Med Decision Making Pertinent Lab studies reviewed. (See chart for details) Patient who was on hospice due to chronic pain and ESRD with peritoneal dialysis presents with report of generalized malaise, N/V, and chest pain. Reported chest pain as "burning". Denies known sick contacts. Patient with clinical signs of dehydration> IVF hydration given. Pain/nausea addressed. EKG with some ST depressions. Labs obtained and posted to chart. Troponin significantly elevated >3. ASA given. Discussed case with Dr. Shirley (Cardiology) regarding. Recommends heparin bolus/gtt and in agreement with consultation. Patient requiring admission for further evaluation and treatment. Discussed with Dr. Akers (hospitalist) who is in agreement with admit. Patient and family aware she would have to come off of hospice for admission. Discussed findings and plan with patient and her mother, who acknowledge understanding and agreement. Dragon Disclaimer: Dragon Disclaimer: This electronic medical record was generated, in whole or in part, using a voice recognition dictation system. Departure Departure Impression: Primary Impression: NSTEMI (non-ST elevated myocardial infarction) Additional Impression: Peritoneal dialysis status Disposition: ADMITTED INPATIENT Admitting Physician: RADHA (Oswald) Condition: GUARDED Referrals: David ANN MD (PCP) Justicifation of Admission Dx: Justifications for Admission: Justification of Admission Dx: Yes MS: Acute NSTEMI Critical Care Time Critical care time was 30 minutes which includes time at bedside, spent in discussion of patient's care with specialists and/or family members, with interpretation of laboratory and/or radiological studies and is exclusive of procedures. BAILEE CACERES DO Dec 06, 2019 21:34
[2019-12-06] MEDS ORDERED: HEPARIN for IV BOLUS 10,000 UNIT/10 ML VIAL. IV ONE (22:00)
[2019-12-06 22:30] VITALS: BP 77/48
[2019-12-06] MEDS: HEPARIN 25,000UTS/250ML PREMIX 250 ML IV PRN (23:14)
[2019-12-06] MEDS: fentaNYL PF VIAL 100 MCG/2 ML VIAL IV PRN (23:15)
[2019-12-07] MEDS ORDERED: CLON0.5T4 PO (00:10)
[2019-12-07] MEDS ORDERED: OXYC10TA46 PO (00:10)
[2019-12-07] MEDS ORDERED: LEVO150T5 PO (00:10)
[2019-12-07] MEDS ORDERED: BREX2TAB PO (00:10)
[2019-12-07] MEDS: ANTI-COAG MONITOR BY PHARMACY. MC PRN ×2 (00:24→14:49)
[2019-12-07 00:45] LABS: CHOLESTEROL/HDL RATIO 3.3
[2019-12-07] MEDS ORDERED: predniSONE 20 MG TABLET PO ONE (01:30)
[2019-12-07] MEDS ORDERED: fentaNYL PF VIAL 100 MCG/2 ML VIAL IVP ONE (01:30)
[2019-12-07] MEDS: ONDANSETRON PF 4 MG/2 ML VIAL. IV PRN ×3 (01:36→16:10)
--- NOTE | 2019-12-07 02:20 | RAD ---
Examination: CT chest abdomen pelvis without contrast HISTORY: History of chest pain, abdominal pain COMPARISON: CT of the abdomen pelvis from 07/22 2019 TECHNIQUE: Axial CT images of the chest abdomen pelvis were performed without contrast. Coronal and sagittal reformats are performed Exposure: One or more of the following individualized dose reduction techniques were utilized for this examination: 1. Automated exposure control 2. Adjustment of the mA and/or kV according to patient size 3. Use of iterative reconstruction technique FINDINGS: The central airways are patent. Moderate cardiomegaly. There is a 5.5 mm nodule identified in the right lower lobe of the lung. Faint groundglass airspace opacities identified in the bilateral lungs. No evidence of free air identified in the abdomen. The evaluation of the solid organs is limited due to lack of IV contrast. The evaluation of bowel is limited due to lack of oral contrast. Mild perihepatic fluid is identified. There is mild fat stranding identified about the mildly distended gallbladder.. The spleen demonstrates minimal perisplenic fluid. The stomach is mildly distended. The visualized pancreas grossly appears unremarkable with small bowel is nondilated Feces and gas noted in the colon. Mild thickened appearance of the wall of the descending colon with minimal surrounding fat stranding. The appendix is normal. Small amount of free fluid identified in the abdomen. Calcified density identified in the right iliac fossa region likely prior abandoned renal transplant. A tubing is identified in the left midabdomen could be peritoneal dialysis catheter. The [place] kidneys are not well-visualized. Mild degenerative changes thoracic and lumbar spine. IMPRESSION: 1. Distended gallbladder with surrounding fat stranding. Cholecystitis is not excluded. Recommend ultrasound right upper quadrant abdomen. 2. Mild thickened appearance of the wall of the descending colon could be mild colitis. 3. Mild ascites. 4. Faint groundglass airspace opacities identified in the bilateral lungs likely atelectasis or infiltrates. 5.5 mm nodule identified in the right lower lobe of the lung. Follow-up per Fleischner Society guidelines with a follow-up CT in 6-12 months. Electronically signed by: Alton Rodrigues MD (12/07/2019 2:17 AM) [id number]
[2019-12-07 03:08] VITALS: BP 80/46
--- NOTE | 2019-12-07 03:36 | NUR ---
Patient arrived at 2230 via gurney. Patient complained of pain from chest down to legs. Administered PRN Fentanyl. Patient on peritineal dialysis and contacted Dr. Ybarra and did not see emergent need for peritineal dialysis and will assess in the AM. Patient had a troponin of 8.[address] Shirley and new orders for chest ct, 60mg of prednisone, and fentanyl x1. Patients mother is at bedside. Medications reviewed. Patient on hospice care when arrived and discharged once admitted.
[2019-12-07] MEDS: fentaNYL PF VIAL 100 MCG/2 ML VIAL IV PRN ×7 (03:48→20:04)
[2019-12-07] MEDS: HEPARIN for IV BOLUS 10,000 UNIT/10 ML VIAL. IV PRN ×2 (05:58→12:20)
[2019-12-07 07:00] VITALS: BP 84/58
--- NOTE | 2019-12-07 08:06 | PDOC1 ---
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 Has not been eating and drinking well at home for the last 3 weeks since transitioning from home health to hospice (for pain management, not end-of-life care per patient and mother). Yesterday began vomiting after eating a breakfast burrito. Vomiting persisted yesterday and was dizzy and hypotensive. Mother was concerned about dehydration so they came to the ED for IVFs. Troponin 3 and climbing overnight. Labs consistent with ESRD and Na 132. TSH, found significantly elevated at 107 CT chest abdomen pelvis with no obstruction, stool apparent, distended gallbladder. EKG - Sinus tachycardia at 103bpm, J point elevation to V1-V2, ST depression noted to II, aVF, and V3-V6, QRS 92ms, QT/QTc 332/437ms Admitted for further care. Past Medical History Cardiovascular: AFIB Pulmonary: No pertinent hx GI: No pertinent hx Heme/Onc: No pertinent hx Hepatobiliary: No pertinent hx Psych: No pertinent hx Rheumatologic: No pertinent hx Infectious disease: No pertinent hx Renal/: Chronic renal failure Endocrine: Hypothyroidism Past Surgical History Past Surgical History: Appendectomy, Other Family History Family History: Hypertension Social History Smoke: No ALCOHOL: none Drugs: None Current Problem List Problem List Problems Medical Problems: (1) NSTEMI (non-ST elevated myocardial infarction) Status: Acute (2) Peritoneal dialysis status Status: Acute Current Medications Current Medications Current Medications Ondansetron HCl (Zofran) 4 mg 1X ONCE IVP Last administered on 12/06/19at 20 :27; Start 12/06/19 at 20:00; Stop 12/06/19 at 20:05; Status DC Famotidine (Pepcid Vial) 20 mg 1X ONCE IVP Last administered on 12/06/19at 20:28; Start 12/06/19 at 20:00; Stop 12/06/19 at 20:05; Status DC Sodium Chloride 1,000 ml @ 1,000 mls/hr 1X ONCE IV Last administered on 12/06/19 20:28; Start 12/06/19 at 20:00; Stop 12/06/19 at 20:59; Status DC Fentanyl Citrate (Fentanyl 2ml Vial) 50 mcg 1X ONCE IVP Last administered on 12/06/19 20:27; Start 12/06/19 at 20:15; Stop 12/06/19 at 20:18; Status DC Fentanyl Citrate (Fentanyl 2ml Vial) 50 mcg 1X ONCE IV Last administered on 12/06/19 21:19; Start 12/06/19 at 21:30; Stop 12/06/19 at 21:31; Status DC Aspirin (Aspirin Chewable) 324 mg 1X ONCE PO Last administered on 12/06/19 21:19; Start 12/06/19 at 21:30; Stop 12/06/19 at 21:31; Status DC Heparin Sodium (Porcine) (Heparin Sodium) 3,600 unit 1X ONCE IV Last administe red on 12/06/19at 22:57; Start 12/06/19 at 22:00; Stop 12/06/19 at 22:01; Status DC Heparin Sodium/ Dextrose 250 ml @ 0 mls/hr CONT PRN IV PER PROTOCOL Last administered on 12/06/19 23:14; Start 12/06/19 at 21:30 Heparin Sodium (Porcine) (Heparin Sodium) 1,500 unit PRN Q6HRS PRN IV FOR UFH LEVEL LESS THAN 0.2 Last administered on 12/07/19 05:58; Start 12/06/19 at 21:30 Ondansetron HCl (Zofran) 4 mg PRN Q8HRS PRN IV NAUSEA/VOMITING 1ST CHOICE Last administered on 12/07/19 01:36; Start 12/06/19 at 21:30; Stop 12/07/19 at 21:29 Fentanyl Citrate (Fentanyl 2ml Vial) 50 mcg PRN Q2HRS PRN IV SEVERE PAIN 7-10 Last administered on 12/07/19 06:47; Start 12/06/19 at 21:30 Info (Anti-Coagulation Monitoring By Pharmacy) 1 each PRN DAILY PRN MC SEE COMMENTS Last administered on 12/07/19at 00:24; Start 12/06/19 at 21:45 Fentanyl Citrate (Fentanyl 2ml Vial) 50 mcg 1X ONCE IVP Last administered on 12/07/19at 01:30; Start 12/07/19 at 01:30; Stop 12/07/19 at 01:31; Status DC Prednisone (Prednisone) 60 mg 1X ONCE PO Last administered on 12/07/19at 01:31; Start 12/07/19 at 01:30; Stop 12/07/19 at 01:31; Status DC Active Scripts Active Prograf (Tacrolimus) 1 Mg Capsule 1 Mg PO DAILY 30 Days Reported Rexulti (Brexpiprazole) 2 Mg Tablet 1 Tab PO HS 30 Days Clonazepam 0.5 Mg Tablet 0.25 Mg PO HS Oxycontin (Oxycodone HCl) 10 Mg Tab.er.12h 1 Tab PO PRN Q4HRS PRN MDD 2 Tablet(s) 30 Days Levothyroxine Sodium 150 Mcg Tablet 1 Tab PO DAILY Melatonin 5 Mg Tab.rapdis 1 Tab PO QHS 30 Days Marry-Dori Tablet (Folic Acid/Vitamin B Comp W-C) 0.8 Mg Tablet 1 Tab PO DAILY 30 Days Trazodone Hcl 50 Mg Tablet 50 Mg PO HS Benadryl (Diphenhydramine Hcl) 25 Mg Capsule 2 Cap PO QHS 30 Days Prednisone (Prednisone) 10 Mg Tablet 5 Mg PO DAILY Protonix (Pantoprazole Sodium) 20 Mg Tablet.dr 20 Mg PO DAILY Zoloft (Sertraline Hcl) 100 Mg Tablet 150 Mg PO DAILY Allergies Allergies: Coded Allergies: Iodinated Contrast Media (Verified Allergy, Intermediate, 08/03/19) NSAIDS (Non-Steroidal Anti-Inflamma (Verified Allergy, Intermediate, 08/03/19) hydroxyzine (Verified Allergy, Intermediate, 12/07/19) losartan (Verified Allergy, Intermediate, 08/03/19) olanzapine (Verified Allergy, Intermediate, 12/06/19) phenobarbital (Verified Allergy, Intermediate, 08/03/19) pregabalin (Verified Allergy, Intermediate, 12/07/19) ROS General: YES: Fatigue; No: Chills, Night Sweats, Malaise, Appetite, Other PSYCHOLOGICAL ROS: YES: Anxiety, Depression, Disorientation; No: Behavioral Disorder, Concentration difficultie, Decreased libido, Hallucinations, Hostility, Irritablity, Memory difficulties, Mood Swings, Obsessive thoughts, Physical abuse, Sexual abuse, Sleep disturbances, Suicidal ideation, Other Eyes: No Blurry vision, No Decreased vision, No Double vision, No Dry eyes, No Excessive tearing, No Eye Pain, No Itchy Eyes, No Loss of vision, No Photophobia, No Scotomata, No Uses contacts, No Uses glasses, No Other HEENT: No: Heacaches, Visual Changes, Hearing change, Nasal congestion, Nasal discharge, Oral lesions, Sinus pain, Sore Throat, Epistaxis, Sneezing, Snoring, Tinnitus, Vertigo, Vocal changes, Other ALLERGY AND IMMUNOLOGY: No: Hives, Insect Bite Sensitivity, Itchy/Watery Eyes, Nasal Congestion, Post Nasal Drip, Seasonal Allergies, Other Hematological and Lymphatic: No: Bleeding Problems, Blood Clots, Blood Transfusions, Brusing, Night Sweats, Pallor, Swollen Lymph Nodes, Other ENDOCRINE: No: Breast Changes, Galactorrhea, Hair Pattern Changes, Hot Flashes, Malaise/lethargy, Mood Swings, Palpitations, Polydipsia/polyuria, Skin Changes, Temperature Intolerance, Unexpected Weight Changes, Other Breast: No New/Changing Breast Lumps, No Nipple changes, No Nipple discharge, No Other Respiratory: No: Cough, Hemoptysis, Orthopnea, Pleuritic Pain, Shortness of breath, SOB with excertion, Sputum Changes, Stridor, Tachypnea, Wheezing, Other Cardiovascular: No Chest Pain, No Palpitations, No Orthopnea, No Paroxysmal Noc. Dyspnea, No Edema, No Lt Headedness, No Other Gastrointestinal: Yes Nausea, Yes Vomiting, Yes Abdominal Pain, Yes Constipation; No Diarrhea, No Melena, No Hematochezia, No Other Genitourinary: No Dysuria, No Frequency, No Incontinence, No Hematuria, No Retention, No Discharge, No Urgency, No Pain, No Flank Pain, No Other, No , No , No , No , No , No , No Musculoskeletal: Yes Gait Disturbance, Yes Joint Stiffness, Yes Muscle Pain, Yes Muscular Weakness; No Joint Pain, No Joint Swelling, No Pain In:, No Swelling In:, No Other Neurological: Yes Confusion, Yes Gait Disturbance; No Behavorial Changes, No Bowel/Bladder ControlChng, No Dizziness, No Headaches, No Impaired Coord/balance, No Memory Loss, No Numbness/Tingling, No Seizures, No Speech Problems, No Tremors, No Visual Changes, No Weakness, No Other Skin: Yes Rash, Yes Skin Lesion Changes; No Dry Skin, No Eczema, No Hair Changes, No Lumps, No Mole Changes, No Mottling, No Nail Changes, No Pruritus, No Other, No Acne Physical Exam General: Alert, Cooperative, mild distress HEENT: Atraumatic, PERRLA, EOMI, Mucous membr. moist/pink Lungs: Other (biabasilar crackles) Heart: S1S2, RRR, no thrills, no rubs Abdomen: Normal bowel sounds, Soft, No tenderness, No hepatosplenomegaly, No masses Rectal Exam: not examined Extremities: No clubbing, No cyanosis, No edema, Normal pulses, No tendernes s/swelling Skin: No rashes, No breakdown Neuro: Normal speech, Strength at 5/5 X4 ext, Normal tone, Sensation intact, Cranial nerves 3-12 NL, Reflexes 2+ Psych/Mental Status: Other (Confused) Vitals Vitals Vital Signs Date Time Temp Pulse Resp B/P (MAP) Pulse Ox O2 Delivery O2 Flow Rate FiO2 12/07/19 07:17 16 100 Room Air 12/07/19 03:08 98.6 103 80/46 (57) 98.6 Labs Labs Laboratory Tests Test 12/06/19 20:34 12/07/19 00:02 12/07/19 03:40 White Blood Count 9.7 x10^3/uL (4.0-11.0) Red Blood Count 3.35 x10^6/uL (3.50-5.40) Hemoglobin 10.6 g/dL (12.0-15.5) Hematocrit 33.1 % (36.0-47.0) Mean Corpuscular Volume 99 fL (79-100) Mean Corpuscular Hemoglobin 32 pg (25-35) Mean Corpuscular Hemoglobin Concent 32 g/dL (31-37) Red Cell Distribution Width 16.5 % (11.5-14.5) Platelet Count 454 x10^3/uL (140-400) Neutrophils (%) (Auto) 86 % (31-73) Lymphocytes (%) (Auto) 5 % (24-48) Monocytes (%) (Auto) 8 % (0-9) Eosinophils (%) (Auto) 0 % (0-3) Basophils (%) (Auto) 2 % (0-3) Neutrophils # (Auto) 8.3 x10^3/uL (1.8-7.7) Lymphocytes # (Auto) 0.5 x10^3/uL (1.0-4.8) Monocytes # (Auto) 0.7 x10^3/uL (0.0-1.1) Eosinophils # (Auto) 0.0 x10^3/uL (0.0-0.7) Basophils # (Auto) 0.2 x10^3/uL (0.0-0.2) Segmented Neutrophils % 86 % (35-66) Band Neutrophils % 4 % (0-9) Lymphocytes % 4 % (24-48) Monocytes % 4 % (0-10) Eosinophils % 1 % (0-5) Basophils % 1 % (0-3) Platelet Estimate Increased (ADEQUATE) Anisocytosis Slight Prothrombin Time 13.4 SEC (11.7-14.0) Prothromb Time International Ratio 1.1 (0.8-1.1) Activated Partial Thromboplast Time 39 SEC (24-38) Sodium Level 132 mmol/L (136-145) Potassium Level 3.9 mmol/L (3.5-5.1) Chloride Level 90 mmol/L (98-107) Carbon Dioxide Level 23 mmol/L (21-32) Anion Gap 19 (6-14) Blood Urea Nitrogen 45 mg/dL (7-20) Creatinine 8.0 mg/dL (0.6-1.0) Estimated GFR (Cockcroft-Gault) 6.3 BUN/Creatinine Ratio 6 (6-20) Glucose Level 110 mg/dL (70-99) Calcium Level 9.4 mg/dL (8.5-10.1) Magnesium Level 2.6 mg/dL (1.8-2.4) Total Bilirubin 0.4 mg/dL (0.2-1.0) Aspartate Amino Transf (AST/SGOT) 34 U/L (15-37) Alanine Aminotransferase (ALT/SGPT) 18 U/L (14-59) Alkaline Phosphatase 166 U/L (46-116) Creatine Kinase 214 U/L (26-192) Creatine Kinase MB (Mass) 34.2 ng/mL (0.0-3.6) Creatine Kinase MB Relative Index 16.0 % (0-4) Troponin I Quantitative 3.380 ng/mL (0.000-0.055) 8.803 ng/mL (0.000-0.055) 15.520 ng/mL (0.000-0.055) Total Protein 6.1 g/dL (6.4-8.2) Albumin 2.3 g/dL (3.4-5.0) Albumin/Globulin Ratio 0.6 (1.0-1.7) Lipase 220 U/L (73-393) Serum Test, Qualitative Negative (NEG) Triglycerides Level 68 mg/dL (0-150) Cholesterol Level 198 mg/dL (0-200) LDL Cholesterol, Calculated 124 mg/dL (0-100) VLDL Cholesterol, Calculated 14 mg/dL (0-40) Non-HDL Cholesterol Calculated 138 mg/dL (0-129) HDL Cholesterol 60 mg/dL (40-60) Cholesterol/HDL Ratio 3.3 Heparin Anti-Xa Act, Unfractionated < 0.10 IU/mL (0.30-0.70) Laboratory Tests Test 12/06/19 20:34 12/07/19 00:02 12/07/19 03:40 White Blood Count 9.7 x10^3/uL (4.0-11.0) Red Blood Count 3.35 x10^6/uL (3.50-5.40) Hemoglobin 10.6 g/dL (12.0-15.5) Hematocrit 33.1 % (36.0-47.0) Mean Corpuscular Volume 99 fL (79-100) Mean Corpuscular Hemoglobin 32 pg (25-35) Mean Corpuscular Hemoglobin Concent 32 g/dL (31-37) Red Cell Distribution Width 16.5 % (11.5-14.5) Platelet Count 454 x10^3/uL (140-400) Neutrophils (%) (Auto) 86 % (31-73) Lymphocytes (%) (Auto) 5 % (24-48) Monocytes (%) (Auto) 8 % (0-9) Eosinophils (%) (Auto) 0 % (0-3) Basophils (%) (Auto) 2 % (0-3) Neutrophils # (Auto) 8.3 x10^3/uL (1.8-7.7) Lymphocytes # (Auto) 0.5 x10^3/uL (1.0-4.8) Monocytes # (Auto) 0.7 x10^3/uL (0.0-1.1) Eosinophils # (Auto) 0.0 x10^3/uL (0.0-0.7) Basophils # (Auto) 0.2 x10^3/uL (0.0-0.2) Segmented Neutrophils % 86 % (35-66) Band Neutrophils % 4 % (0-9) Lymphocytes % 4 % (24-48) Monocytes % 4 % (0-10) Eosinophils % 1 % (0-5) Basophils % 1 % (0-3) Platelet Estimate Increased (ADEQUATE) Anisocytosis Slight Prothrombin Time 13.4 SEC (11.7-14.0) Prothromb Time International Ratio 1.1 (0.8-1.1) Activated Partial Thromboplast Time 39 SEC (24-38) Sodium Level 132 mmol/L (136-145) Potassium Level 3.9 mmol/L (3.5-5.1) Chloride Level 90 mmol/L (98-107) Carbon Dioxide Level 23 mmol/L (21-32) Anion Gap 19 (6-14) Blood Urea Nitrogen 45 mg/dL (7-20) Creatinine 8.0 mg/dL (0.6-1.0) Estimated GFR (Cockcroft-Gault) 6.3 BUN/Creatinine Ratio 6 (6-20) Glucose Level 110 mg/dL (70-99) Calcium Level 9.4 mg/dL (8.5-10.1) Magnesium Level 2.6 mg/dL (1.8-2.4) Total Bilirubin 0.4 mg/dL (0.2-1.0) Aspartate Amino Transf (AST/SGOT) 34 U/L (15-37) Alanine Aminotransferase (ALT/SGPT) 18 U/L (14-59) Alkaline Phosphatase 166 U/L (46-116) Creatine Kinase 214 U/L (26-192) Creatine Kinase MB (Mass) 34.2 ng/mL (0.0-3.6) Creatine Kinase MB Relative Index 16.0 % (0-4) Troponin I Quantitative 3.380 ng/mL (0.000-0.055) 8.803 ng/mL (0.000-0.055) 15.520 ng/mL (0.000-0.055) Total Protein 6.1 g/dL (6.4-8.2) Albumin 2.3 g/dL (3.4-5.0) Albumin/Globulin Ratio 0.6 (1.0-1.7) Lipase 220 U/L (73-393) Serum Test, Qualitative Negative (NEG) Triglycerides Level 68 mg/dL (0-150) Cholesterol Level 198 mg/dL (0-200) LDL Cholesterol, Calculated 124 mg/dL (0-100) VLDL Cholesterol, Calculated 14 mg/dL (0-40) Non-HDL Cholesterol Calculated 138 mg/dL (0-129) HDL Cholesterol 60 mg/dL (40-60) Cholesterol/HDL Ratio 3.3 Heparin Anti-Xa Act, Unfractionated < 0.10 IU/mL (0.30-0.70) Images Images CT chest/abdomen/pelvis: The central airways are patent. Moderate cardiomegaly. There is a 5.5 mm nodule identified in the right lower lobe of the lung. Faint groundglass airspace opacities identified in the bilateral lungs. No evidence of free air identified in the abdomen. The evaluation of the solid organs is limited due to lack of IV contrast. The evaluation of bowel is limited due to lack of oral contrast. Mild perihepatic fluid is identified. There is mild fat stranding identified about the mildly distended gallbladder.. The spleen demonstrates minimal perisplenic fluid. The stomach is mildly distended. The visualized pancreas grossly appears unre markable with small bowel is nondilated Feces and gas noted in the colon. Mild thickened appearance of the wall of the descending colon with minimal surrounding fat stranding. The appendix is normal. Small amount of free fluid identified in the abdomen. Calcified density identified in the right iliac fossa region likely prior abandoned renal transplant. A tubing is identified in the left midabdomen could be peritoneal dialysis catheter. The samish kidneys are not well-visualized. Mild degenerative changes thoracic and lumbar spine. IMPRESSION: 1. Distended gallbladder with surrounding fat stranding. Cholecystitis is not excluded. Recommend ultrasound right upper quadrant abdomen. 2. Mild thickened appearance of the wall of the descending colon could be mild colitis. 3. Mild ascites. 4. Faint groundglass airspace opacities identified in the bilateral lungs likely atelectasis or infiltrates. 5.5 mm nodule identified in the right lower lobe of the lung. Follow-up per Fleischner Society guidelines with a follow-up CT in 6- 12 months. VTE Prophylaxis Ordered VTE Prophylaxis Devices: Yes VTE Pharmacological Prophylaxi: Yes Assessment/Plan Assessment/Plan A/P: Nausea and vomiting - multifactorial with constipation from opioids, possible NSTEMI and possible gallbladder colic. Will give IV antiemetics Distended gallbladder - will assess with ultrasound Acute encephalopathy - clear etiology, significantly hypothyroid, myxedema coma, seems metabolic, no sign this is toxic. 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 NSTEMI - with highly elevated troponin. Despite her young age, the possibility of coronary calcifications does exist ESRD on PD - nephrology consulted H/o C. Difficile - recently treated Hyponatremia - ok for IVF, will d/ nephrology Severe protein calorie malnutrition - albumin 2.3 Failed renal transplant - will continue rejection meds, though an outpatient taper has been previously advised by consultants Lactic acidosis - trend. Likely from poor nutrition. Hemoconcentration - 2/2 dehydration from diarrhea Afib - paroxsymal by history, off eliquis and coreg previously Unable to walk - progressed over the past year likely 2/2 hyperphosphatemia Bilateral shoulder abnormalities on CXR - possibly avascular necrosis Diffuse pain - she has renal osteodystrophy, likely related to this. FEN - Renal diet PPX - eliquis FULL CODE Dispo - inpatient for acute mental status changes. Justifications for Admission Other Justification LILA DEMPSEY MD Dec 07, 2019 08:06
[2019-12-07] MEDS: FOLIC/VIT B COMP W-C (RENAL) TABLET. PO SCH (08:34)
[2019-12-07] MEDS: TACROLIMUS 0.5 MG CAPSULE. PO SCH (08:38)
[2019-12-07] MEDS: SERTRALINE 50 MG TABLET. PO SCH (08:39)
[2019-12-07] MEDS: PANTOPRAZOLE 40 MG TABLET.DR. PO SCH (08:40)
[2019-12-07] MEDS: predniSONE 10 MG TABLET PO SCH (08:42)
--- NOTE | 2019-12-07 08:47 | EKG ---
[facility] [address] [place] [address] Test Date: 2019-12-06 Test Time: 20:52:58 Pat Name: TY SANCHEZ Department: Room: Gender: F [employer]ist: : 1995 Requested By: BAILEE CACERES Order Number: [id number] Reading MD: Measurements Intervals [place] Rate: 103 P: -64 ME: 236 QRS: 26 QRSD: 92 T: 156 QT: 332 QTc: 437 Interpretive Statements SUPRAVENTRICULAR RHYTHM PROLONGED ME INTERVAL LEFT ATRIAL ABNORMALITY QRS(T) CONTOUR ABNORMALITY CONSISTENT WITH SEPTAL MYOCARDIAL DAMAGE ST ABNORMALITY, POSSIBLE INFERIOR SUBENDOCARDIAL INJURY ABNORMAL ECG RI6.02 Compared to ECG 12/06/2019 20:51:22 No significant changes
--- NOTE | 2019-12-07 10:22 | PDOC2 ---
YISSEL GALINDO CARTRIDGE GAUGER 12/07/19 1021: CARDIAC CONSULT DATE OF CONSULT Date of Consult DATE: 12/07/19 TIME: 10:13 REASON FOR CONSULT Reason for Consult: NSTEMI REFERRING PHYSICIAN Referring Physician: Dr. Cifuentes SOURCE Source: Chart review, Patient HISTORY OF PRESENT ILLNESS HISTORY OF PRESENT ILLNESS This is a 24 yo female who presented secondary to dizziness. Troponin noted to be elevated, which prompted this consult. Patient has a history of FSGS s/p renal transplant in 2011. Transplant failed and was place in PD in 2016. Has a history of AFIB s/p ablation in 2016. Has been on Hospice service. Has not been eating and drinking well at home for the last 3 weeks. BP has been low and has been off Coreg. The night before last, has burrito with salsa ans began having burning sensation in her central chest. The following morning began vomiting. Vomiting persisted yesterday and was dizzy and hypotensive. Mother was concerned about dehydration so they came to the ED for IVFs. Initial labs noted with NSTEM I with trop of 3, which prompted this consult. Patient continues to have nausea/vomiting. No palpitations, SOA, or diaphoresis. Mother reports compliance with meds and PD. PAST MEDICAL HISTORY Cardiovascular: AFIB GI: GERD Psych: Anxiety Renal/: Chronic renal failure (ESRD ) Endocrine: Hypothyroidism PAST SURGICAL HISTORY Past Surgical History: Appendectomy, Tonsillectomy, Other (renal transplant, AFIB ablation ) FAMILY HISTORY Family History: Hypertension SOCIAL HISTORY Smoke: No ALCOHOL: none Drugs: None Lives: with Family CURRENT MEDICATIONS CURRENT MEDICATIONS Current Medications Medications (Trade) Dose Ordered Sig/Olga Route PRN Reason Start Time Stop Time Status Last Admin Dose Admin Ondansetron HCl (Zofran) 4 mg 1X ONCE IVP 12/06/19 20:00 12/06/19 20:05 DC 12/06/19 20:27 Famotidine (Pepcid Vial) 20 mg 1X ONCE IVP 12/06/19 20:00 12/06/19 20:05 DC 12/06/19 20:28 Sodium Chloride 1,000 ml @ 1,000 mls/hr 1X ONCE IV 12/06/19 20:00 12/06/19 20:59 DC 12/06/19 20:28 Fentanyl Citrate (Fentanyl 2ml Vial) 50 mcg 1X ONCE IVP 12/06/19 20:15 12/06/19 20:18 DC 12/06/19 20:27 Fentanyl Citrate (Fentanyl 2ml Vial) 50 mcg 1X ONCE IV 12/06/19 21:30 12/06/19 21:31 DC 12/06/19 21:19 Aspirin (Aspirin Chewable) 324 mg 1X ONCE PO 12/06/19 21:30 12/06/19 21:31 DC 12/06/19 21:19 Heparin Sodium (Porcine) (Heparin Sodium) 3,600 unit 1X ONCE IV 12/06/19 22:00 12/06/19 22:01 DC 12/06/19 22:57 Heparin Sodium/ Dextrose 250 ml @ 0 mls/hr CONT PRN IV PER PROTOCOL 12/06/19 21:30 12/06/19 23:14 Heparin Sodium (Porcine) (Heparin Sodium) 1,500 unit PRN Q6HRS PRN IV FOR UFH LEVEL LESS THAN 0.2 12/06/19 21:30 12/07/19 05:58 Ondansetron HCl (Zofran) 4 mg PRN Q8HRS PRN IV NAUSEA/VOMITING 1ST CHOICE 12/06/19 21:30 12/07/19 21:29 12/07/19 08:44 Fentanyl Citrate (Fentanyl 2ml Vial) 50 mcg PRN Q2HRS PRN IV SEVERE PAIN 7-10 12/06/19 21:30 12/07/19 09:48 Info (Anti-Coagulation Monitoring By Pharmacy) 1 each PRN DAILY PRN MC SEE COMMENTS 12/06/19 21:45 12/07/19 00:24 Fentanyl Citrate (Fentanyl 2ml Vial) 50 mcg 1X ONCE IVP 12/07/19 01:30 12/07/19 01:31 DC 12/07/19 01:30 Prednisone (Prednisone) 60 mg 1X ONCE PO 12/07/19 01:30 12/07/19 01:31 DC 12/07/19 01:31 Vitamin B Complex/ Vitamin C (Marry-Dori) 1 tab DAILY PO 12/07/19 09:00 12/07/19 08:34 Levothyroxine Sodium (Synthroid) 150 mcg DAILY06 PO 12/07/19 10:30 12/07/19 09:43 Prednisone (Prednisone) 20 mg DAILY PO 12/07/19 09:00 12/07/19 08:42 Pantoprazole Sodium (Protonix) 40 mg DAILYAC PO 12/07/19 08:30 12/07/19 08:40 Sertraline HCl (Zoloft) 150 mg DAILY PO 12/07/19 09:00 12/07/19 08:39 Tacrolimus (Prograf) 1 mg DAILY PO 12/07/19 09:00 12/07/19 08:38 ALLERGIES ALLERGIES: Coded Allergies: Iodinated Contrast Media (Verified Allergy, Intermediate, 08/03/19) NSAIDS (Non-Steroidal Anti-Inflamma (Verified Allergy, Intermediate, 08/03/19) hydroxyzine (Verified Allergy, Intermediate, 12/07/19) losartan (Verified Allergy, Intermediate, 08/03/19) olanzapine (Verified Allergy, Intermediate, 12/06/19) phenobarbital (Verified Allergy, Intermediate, 08/03/19) pregabalin (Verified Allergy, Intermediate, 12/07/19) ROS Review of System 14 point ROS conducted with pertinent positives noted above in HPI PHYSICAL EXAM General: Alert, Oriented X3, Cooperative, No acute distress, Other (ill appearing ) HEENT: Atraumatic Lungs: Clear to auscultation, Normal air movement Heart: Regular rate Abdomen: Soft, No tenderness Extremities: No edema, Normal pulses Skin: No significant lesion Neuro: Normal speech, Sensation intact Psych/Mental Status: Mental status NL, Mood NL MUSCULOSKELETAL: Osteoarthritic changes both hands VITALS/I&O VITALS/I&O: Vital Signs Date Time Temp Pulse Resp B/P (MAP) Pulse Ox O2 Delivery O2 Flow Rate FiO2 12/07/19 09:48 15 100 Room Air 12/07/19 07:00 98.4 102 84/58 (67) 98.4 I & O 12/06/19 12/06/19 12/07/19 15:00 23:00 07:00 Intake Total 0 ml Balance 0 ml LABS Lab: Laboratory Tests Test 12/06/19 20:34 12/07/19 00:02 12/07/19 03:40 White Blood Count 9.7 x10^3/uL (4.0-11.0) Red Blood Count 3.35 x10^6/uL (3.50-5.40) L Hemoglobin 10.6 g/dL (12.0-15.5) L Hematocrit 33.1 % (36.0-47.0) L Mean Corpuscular Volume 99 fL (79-100) Mean Corpuscular Hemoglobin 32 pg (25-35) Mean Corpuscular Hemoglobin Concent 32 g/dL (31-37) Red Cell Distribution Width 16.5 % (11.5-14.5) H Platelet Count 454 x10^3/uL (140-400) H Neutrophils (%) (Auto) 86 % (31-73) H Lymphocytes (%) (Auto) 5 % (24-48) L Monocytes (%) (Auto) 8 % (0-9) Eosinophils (%) (Auto) 0 % (0-3) Basophils (%) (Auto) 2 % (0-3) Neutrophils # (Auto) 8.3 x10^3/uL (1.8-7.7) H Lymphocytes # (Auto) 0.5 x10^3/uL (1.0-4.8) L Monocytes # (Auto) 0.7 x10^3/uL (0.0-1.1) Eosinophils # (Auto) 0.0 x10^3/uL (0.0-0.7) Basophils # (Auto) 0.2 x10^3/uL (0.0-0.2) Segmented Neutrophils % 86 % (35-66) H Band Neutrophils % 4 % (0-9) Lymphocytes % 4 % (24-48) L Monocytes % 4 % (0-10) Eosinophils % 1 % (0-5) Basophils % 1 % (0-3) Platelet Estimate Increased (ADEQUATE) Anisocytosis Slight Prothrombin Time 13.4 SEC (11.7-14.0) Prothrombin Time INR 1.1 (0.8-1.1) Activated Partial Thromboplast Time 39 SEC (24-38) H Sodium Level 132 mmol/L (136-145) L Potassium Level 3.9 mmol/L (3.5-5.1) Chloride Level 90 mmol/L (98-107) L Carbon Dioxide Level 23 mmol/L (21-32) Anion Gap 19 (6-14) H Blood Urea Nitrogen 45 mg/dL (7-20) H Creatinine 8.0 mg/dL (0.6-1.0) H Estimated GFR (Cockcroft-Gault) 6.3 BUN/Creatinine Ratio 6 (6-20) Glucose Level 110 mg/dL (70-99) H Calcium Level 9.4 mg/dL (8.5-10.1) Magnesium Level 2.6 mg/dL (1.8-2.4) H Total Bilirubin 0.4 mg/dL (0.2-1.0) Aspartate Amino Transferase (AST) 34 U/L (15-37) Alanine Aminotransferase (ALT) 18 U/L (14-59) Alkaline Phosphatase 166 U/L (46-116) H Creatine Kinase 214 U/L (26-192) H Creatine Kinase MB (Mass) 34.2 ng/mL (0.0-3.6) H Creatine Kinase MB Relative Index 16.0 % (0-4) H Troponin I Quantitative 3.380 ng/mL (0.000-0.055) 8.803 ng/mL (0.000-0.055) 15.520 ng/mL (0.000-0.055) Total Protein 6.1 g/dL (6.4-8.2) L Albumin 2.3 g/dL (3.4-5.0) L Albumin/Globulin Ratio 0.6 (1.0-1.7) L Lipase 220 U/L (73-393) Serum Test, Qualitative Negative (NEG) Triglycerides Level 68 mg/dL (0-150) Cholesterol Level 198 mg/dL (0-200) LDL Cholesterol, Calculated 124 mg/dL (0-100) H VLDL Cholesterol, Calculated 14 mg/dL (0-40) Non-HDL Cholesterol Calculated 138 mg/dL (0-129) H HDL Cholesterol 60 mg/dL (40-60) Cholesterol/HDL Ratio 3.3 Heparin Anti-Xa Act, Unfractionated < 0.10 IU/mL (0.30-0.70) L Thyroid Stimulating Hormone (TSH) 107.180 uIU/mL (0.358-3.74) H Laboratory Tests 12/06/19 20:34 Laboratory Tests 12/06/19 20:34 ASSESSMENT/PLAN ASSESSMENT/PLAN 1. Dizziness, nausea/vomiting, dehydration. CT with distended gallbladder 2. NSTEMI; trop highest 15. Possibly type II, demand ischemia 3. Myxedema coma, Hypothyroidism; TSH 107. as per PCP 4. 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 s/p renal transplant 2011, which failed. Has been on PD since 2016. 5. PAFIB s/p ablation therapy in 2016; Has been off coreg due to hypotension and off Elquis as well 6. GERD 7. Depression, anxiety 8. Chronic pain Recommendations Trend trop Lipids Continue heparin gt Start IVFs Echo to assess LV systolic function Consider further ischemic evaluation pending trop trend and echo results Supportive care Keep NPO p MN. ERICA DEAN MD 12/07/19 1635: CARDIAC CONSULT ASSESSMENT/PLAN ASSESSMENT/PLAN Patient seen and examined Dizziness with nausea and vomiting. Decreased oral intake over the past several days. Rhythm stable. Will treat with IV fluids and monitor. Non-ST elevated myocardial infarction. Troponin of 15. On anticoagulation. Pain-free during our examination. Patient is 24 years old. Awaiting echo results. Possible cardiac catheterization based on clinical course and echo results. Of note the patient is not allergic to contrast but was advised to avoid contrast in the past prior to developing end-stage renal disease. Myxedema. Hypothyroidism with a TSH of 107. Being followed and treated by the primary service. End-stage renal disease. Status post failed renal transplant. On peritoneal dialysis for the past 4 years. Followed by renal. History of atrial fibrillation. Status post ablation in 2016. Chronic pain. Apparently has generalized pain that has been treated through a pain clinic or hospice type arrangement. Thank you for allowing us to participate in the care of your patient. YISSEL GALINDO APRN Dec 07, 2019 10:21 ERICA DEAN MD Dec 07, 2019 16:35
[2019-12-07] MEDS ORDERED: LEVOTHYROXINE 150 MCG TABLET PO SCH (10:30)
[2019-12-07 11:00] VITALS: BP 90/64
[2019-12-07] MEDS: IV NORMAL SALINE 1000ML BAG 1,000 ML IV SCH ×2 (11:27→20:04)
[2019-12-07] MEDS ORDERED: BISACODYL 10 MG SUPP.RECT. PR PRN (11:45)
[2019-12-07] MEDS ORDERED: NORMAL SALINE IV SCH (12:00)
[2019-12-07] MEDS ORDERED: LEVOTHYROXINE SODIUM IV SCH (12:00)
--- NOTE | 2019-12-07 14:05 | NUR ---
SS following for discharge planning. SS reviewed pt chart and discussed with pt RN. Pt is from home with family and is currently on room air. Pt has peritoneal dialysis at home. Pt having heart cath tomorrow. Discharge plan is to home when medically ready. SS will continue to follow for discharge planning.
[2019-12-07 15:00] VITALS: BP 88/64
--- NOTE | 2019-12-07 15:22 | PDOC2 ---
CONSULT Date of Consult Date of Consult DATE: 12/07/19 TIME: 15:13 Reason for Consult Reason for Consult: ESRD Referring Physician Referring Physician: JADON Identification/Chief Complaint Chief Complaint WEAKNESS, CHEST PAIN Source Source: Chart review, Patient History of Present Illness Reason for Visit: THIS IS A 24 YR OLD WITH DIZZINESS. SHE IS ON PD DUE TO FSGS. HAD A RENAL TX IN 2011 BUT FAILED I BELIEVE DUE TO ABMR OR POSSIBLE RECURRENT PRIMARY DZ. HAS BEEN HYPOTENSIVE. NOT EATING MUCH. HAS BEEN DOING APD WITH 1.5% DIANEAL SOLUTION. UNFORTUNATELY ENZYMES POSITIVE FOR NSTEMI. SHE DID DESCRIBE SOME CHEST DISCOMFORT BUT IMPROVED. CARDIOLOGY IS EVALUATING THE PT AT THIS TIME. LABS ARE C/W ESRD. Past Medical History Cardiovascular: AFIB Pulmonary: No pertinent hx GI: GERD Heme/Onc: No pertinent hx Hepatobiliary: No pertinent hx Psych: Anxiety Rheumatologic: No pertinent hx Infectious disease: No pertinent hx Renal/: Chronic renal failure (ESRD ) Endocrine: Hypothyroidism Past Surgical History Past Surgical History: Appendectomy, Tonsillectomy, Other (renal transplant, AFIB ablation ) Family History Family History: Hypertension Social History No ALCOHOL: none Drugs: None Lives: with Family Current Problem List Problem List Problems Medical Problems: (1) NSTEMI (non-ST elevated myocardial infarction) Status: Acute (2) Peritoneal dialysis status Status: Acute Current Medications Current Medications Current Medications Ondansetron HCl (Zofran) 4 mg 1X ONCE IVP Last administered on 12/06/19at 20:27; Start 12/06/19 at 20:00; Stop 12/06/19 at 20:05; Status DC Famotidine (Pepcid Vial) 20 mg 1X ONCE IVP Last administered on 12/06/19at 20:28; Start 12/06/19 at 20:00; Stop 12/06/19 at 20:05; Status DC Sodium Chloride 1,000 ml @ 1,000 mls/hr 1X ONCE IV Last administered on 12/06/19at 20:28; Start 12/06/19 at 20:00; Stop 12/06/19 at 20:59; Status DC Fentanyl Citrate (Fentanyl 2ml Vial) 50 mcg 1X ONCE IVP Last administered on 12/06/19at 20:27; Start 12/06/19 at 20:15; Stop 12/06/19 at 20:18; Status DC Fentanyl Citrate (Fentanyl 2ml Vial) 50 mcg 1X ONCE IV Last administered on 12/06/19 21:19; Start 12/06/19 at 21:30; Stop 12/06/19 at 21:31; Status DC Aspirin (Aspirin Chewable) 324 mg 1X ONCE PO Last administered on 12/06/19 21:19; Start 12/06/19 at 21:30; Stop 12/06/19 at 21:31; Status DC Heparin Sodium (Porcine) (Heparin Sodium) 3,600 unit 1X ONCE IV Last administered on 12/06/19at 22:57; Start 12/06/19 at 22:00; Stop 12/06/19 at 22:01; Status DC Heparin Sodium/ Dextrose 250 ml @ 0 mls/hr CONT PRN IV PER PROTOCOL Last administered on 12/06/19 23:14; Start 12/06/19 at 21:30 Heparin Sodium (Porcine) (Heparin Sodium) 1,500 unit PRN Q6HRS PRN IV FOR UFH LEVEL LESS THAN 0.2 Last administered on 12/07/19 12:20; Start 12/06/19 at 21:30 Ondansetron HCl (Zofran) 4 mg PRN Q8HRS PRN IV NAUSEA/VOMITING 1ST CHOICE Last administered on 12/07/19 08:44; Start 12/06/19 at 21:30; Stop 12/07/19 at 21:29 Fentanyl Citrate (Fentanyl 2ml Vial) 50 mcg PRN Q2HRS PRN IV SEVERE PAIN 7-10 Last administered on 12/07/19at 11:34; Start 12/06/19 at 21:30 Info (Anti-Coagulation Monitoring By Pharmacy) 1 each PRN DAILY PRN MC SEE COMMENTS Last administered on 12/07/19at 14:49; Start 12/06/19 at 21:45 Fentanyl Citrate (Fentanyl 2ml Vial) 50 mcg 1X ONCE IVP Last administered on 12/07/19 01:30; Start 12/07/19 at 01:30; Stop 12/07/19 at 01:31; Status DC Prednisone (Prednisone) 60 mg 1X ONCE PO Last administered on 12/07/19 01:31; Start 12/07/19 at 01:30; Stop 12/07/19 at 01:31; Status DC Clonazepam (KlonoPIN) 0.25 mg PRN QHS PRN PO sleep/anxiety; Start 12/07/19 at 21:00 Diphenhydramine HCl (Benadryl) 50 mg PRN QHS PRN PO anxiety/sleep; Start 12/07/19 at 08:15 Vitamin B Complex/ Vitamin C (Marry-Dori) 1 tab DAILY PO Last administered on 12/07/19at 08:34; Start 12/07/19 at 09:00 Levothyroxine Sodium (Synthroid) 150 mcg DAILY06 PO Last administered on 12/07/19at 09:43; Start 12/07/19 at 10:30; Stop 12/07/19 at 11:38; Status DC Oxycodone HCl (Roxicodone) 5 mg PRN Q4HRS PRN PO MODERATE TO SEVERE PAIN; Star t 12/07/19 at 08:45 Prednisone (Prednisone) 20 mg DAILY PO Last administered on 12/07/19at 08:42; Start 12/07/19 at 09:00 Trazodone HCl (Desyrel) 50 mg HS PO ; Start 12/07/19 at 21:00 Aripiprazole (Abilify) 5 mg QHS PO ; Start 12/07/19 at 21:00 Non-Formulary Medication (Melatonin ) 1 tab QHS PO ; Start 12/07/19 at 21:00; Status UNV Pantoprazole Sodium (Protonix) 40 mg DAILYAC PO Last administered on 12/07/19at 08:40; Start 12/07/19 at 08:30 Sertraline HCl (Zoloft) 150 mg DAILY PO Last administered on 12/07/19at 08:39; Start 12/07/19 at 09:00 Tacrolimus (Prograf) 1 mg DAILY PO Last administered on 12/07/19at 08:38; Start 12/07/19 at 09:00 Sodium Chloride 1,000 ml @ 100 mls/hr Q10H IV Last administered on 12/07/19at 11:27; Start 12/07/19 at 11:15 Levothyroxine Sodium 75 mcg/ Sodium Chloride 5 ml @ 100 mls/hr Q3DAYS IV Last administered on 12/07/19at 12:10; Start 12/07/19 at 12:00 Bisacodyl (Dulcolax Supp) 10 mg PRN DAILY PRN RI CONSTIPATION; Start 12/07/19 at 11:45 Polyethylene Glycol (miraLAX PACKET) 17 gm DAILY16 PO ; Start 12/07/19 at 16:00 Psyllium Hydrophilic Mucilloid (Metamucil Fiber Packet) 1 pkt DAILY16 PO ; Start 12/07/19 at 16:00 Active Scripts Active Prograf (Tacrolimus) 1 Mg Capsule 1 Mg PO DAILY 30 Days Reported Rexulti (Brexpiprazole) 2 Mg Tablet 1 Tab PO HS 30 Days Clonazepam 0.5 Mg Tablet 0.25 Mg PO HS Oxycontin (Oxycodone HCl) 10 Mg Tab.er.12h 1 Tab PO PRN Q4HRS PRN MDD 2 Tablet(s) 30 Days Levothyroxine Sodium 150 Mcg Tablet 1 Tab PO DAILY Melatonin 5 Mg Tab.rapdis 1 Tab PO QHS 30 Days Marry-Dori Tablet (Folic Acid/Vitamin B Comp W-C) 0.8 Mg Tablet 1 Tab PO DAILY 30 Days Trazodone Hcl 50 Mg Tablet 50 Mg PO HS Benadryl (Diphenhydramine Hcl) 25 Mg Capsule 2 Cap PO QHS 30 Days Prednisone (Prednisone) 10 Mg Tablet 5 Mg PO DAILY Protonix (Pantoprazole Sodium) 20 Mg Tablet.dr 20 Mg PO DAILY Zoloft (Sertraline Hcl) 100 Mg Tablet 150 Mg PO DAILY Allergies Allergies: Coded Allergies: Iodinated Contrast Media (Verified Allergy, Intermediate, 08/03/19) NSAIDS (Non-Steroidal Anti-Inflamma (Verified Allergy, Intermediate, 08/03/19) hydroxyzine (Verified Allergy, Intermediate, 12/07/19) losartan (Verified Allergy, Intermediate, 08/03/19) olanzapine (Verified Allergy, Intermediate, 12/06/19) phenobarbital (Verified Allergy, Intermediate, 08/03/19) pregabalin (Verified Allergy, Intermediate, 12/07/19) ROS General: YES: Fatigue, Malaise, Appetite PSYCHOLOGICAL ROS: YES: Anxiety, Depression Eyes: Yes Decreased vision Cardiovascular: yes Chest Pain Gastrointestinal: Yes Nausea, Yes Constipation Genitourinary: YES Other (ANURIA) Musculoskeletal: Yes Muscular Weakness Neurological: Yes Weakness Skin: Yes Dry Skin Physical Exam Physical Exam PD CATH WITH NO DRAINAGE General: Alert, Oriented X3, Cooperative, No acute distress HEENT: Atraumatic Lungs: Clear to auscultation Heart: Regular rate Abdomen: Normal bowel sounds, Soft, No tenderness Extremities: No clubbing Skin: No rashes Neuro: Normal speech, Cranial nerves 3-12 NL Psych/Mental Status: Mental status NL, Other (FLAT AFFECT) MUSCULOSKELETAL: No joint tenderness, Other (DIFFUSE ATROPHY) Vitals VITALS Vital Signs Date Time Temp Pulse Resp B/P (MAP) Pulse Ox O2 Delivery O2 Flow Rate FiO2 12/07/19 12:05 98 Room Air 12/07/19 11:00 98.4 93 21 90/64 (73) 98.4 Labs Labs Laboratory Tests Test 12/06/19 20:34 12/07/19 00:02 12/07/19 03:40 12/07/19 11:30 White Blood Count 9.7 x10^3/uL (4.0-11.0) Red Blood Count 3.35 x10^6/uL (3.50-5.40) Hemoglobin 10.6 g/dL (12.0-15.5) Hematocrit 33.1 % (36.0-47.0) Mean Corpuscular Volume 99 fL (79-100) Mean Corpuscular Hemoglobin 32 pg (25-35) Mean Corpuscular Hemoglobin Concent 32 g/dL (31-37) Red Cell Distribution Width 16.5 % (11.5-14.5) Platelet Count 454 x10^3/uL (140-400) Neutrophils (%) (Auto) 86 % (31-73) Lymphocytes (%) (Auto) 5 % (24-48) Monocytes (%) (Auto) 8 % (0-9) Eosinophils (%) (Auto) 0 % (0-3) Basophils (%) (Auto) 2 % (0-3) Neutrophils # (Auto) 8.3 x10^3/uL (1.8-7.7) Lymphocytes # (Auto) 0.5 x10^3/uL (1.0-4.8) Monocytes # (Auto) 0.7 x10^3/uL (0.0-1.1) Eosinophils # (Auto) 0.0 x10^3/uL (0.0-0.7) Basophils # (Auto) 0.2 x10^3/uL (0.0-0.2) Segmented Neutrophils % 86 % (35-66) Band Neutrophils % 4 % (0-9) Lymphocytes % 4 % (24-48) Monocytes % 4 % (0-10) Eosinophils % 1 % (0-5) Basophils % 1 % (0-3) Platelet Estimate Increased (ADEQUATE) Anisocytosis Slight Prothrombin Time 13.4 SEC (11.7-14.0) Prothromb Time International Ratio 1.1 (0.8-1.1) Activated Partial Thromboplast Time 39 SEC (24-38) Sodium Level 132 mmol/L (136-145) Potassium Level 3.9 mmol/L (3.5-5.1) Chloride Level 90 mmol/L (98-107) Carbon Dioxide Level 23 mmol/L (21-32) Anion Gap 19 (6-14) Blood Urea Nitrogen 45 mg/dL (7-20) Creatinine 8.0 mg/dL (0.6-1.0) Estimated GFR (Cockcroft-Gault) 6.3 BUN/Creatinine Ratio 6 (6-20) Glucose Level 110 mg/dL (70-99) Calcium Level 9.4 mg/dL (8.5-10.1) Magnesium Level 2.6 mg/dL (1.8-2.4) Total Bilirubin 0.4 mg/dL (0.2-1.0) Aspartate Amino Transf (AST/SGOT) 34 U/L (15-37) Alanine Aminotransferase (ALT/SGPT) 18 U/L (14-59) Alkaline Phosphatase 166 U/L (46-116) Creatine Kinase 214 U/L (26-192) Creatine Kinase MB (Mass) 34.2 ng/mL (0.0-3.6) Creatine Kinase MB Relative Index 16.0 % (0-4) Troponin I Quantitative 3.380 ng/mL (0.000-0.055) 8.803 ng/mL (0.000-0.055) 15.520 ng/mL (0.000-0.055) Total Protein 6.1 g/dL (6.4-8.2) Albumin 2.3 g/dL (3.4-5.0) Albumin/Globulin Ratio 0.6 (1.0-1.7) Lipase 220 U/L (73-393) Serum Test, Qualitative Negative (NEG) Triglycerides Level 68 mg/dL (0-150) Cholesterol Level 198 mg/dL (0-200) LDL Cholesterol, Calculated 124 mg/dL (0-100) VLDL Cholesterol, Calculated 14 mg/dL (0-40) Non-HDL Cholesterol Calculated 138 mg/dL (0-129) HDL Cholesterol 60 mg/dL (40-60) Cholesterol/HDL Ratio 3.3 Heparin Anti-Xa Act, Unfractionated < 0.10 IU/mL (0.30-0.70) 0.18 IU/mL (0.30-0.70) Thyroid Stimulating Hormone (TSH) 107.180 uIU/mL (0.358-3.74) Test 12/07/19 13:30 Troponin I Quantitative 26.669 ng/mL (0.000-0.055) Laboratory Tests Test 12/06/19 20:34 12/07/19 00:02 12/07/19 03:40 12/07/19 11:30 White Blood Count 9.7 x10^3/uL (4.0-11.0) Red Blood Count 3.35 x10^6/uL (3.50-5.40) Hemoglobin 10.6 g/dL (12.0-15.5) Hematocrit 33.1 % (36.0-47.0) Mean Corpuscular Volume 99 fL (79-100) Mean Corpuscular Hemoglobin 32 pg (25-35) Mean Corpuscular Hemoglobin Concent 32 g/dL (31-37) Red Cell Distribution Width 16.5 % (11.5-14.5) Platelet Count 454 x10^3/uL (140-400) Neutrophils (%) (Auto) 86 % (31-73) Lymphocytes (%) (Auto) 5 % (24-48) Monocytes (%) (Auto) 8 % (0-9) Eosinophils (%) (Auto) 0 % (0-3) Basophils (%) (Auto) 2 % (0-3) Neutrophils # (Auto) 8.3 x10^3/uL (1.8-7.7) Lymphocytes # (Auto) 0.5 x10^3/uL (1.0-4.8) Monocytes # (Auto) 0.7 x10^3/uL (0.0-1.1) Eosinophils # (Auto) 0.0 x10^3/uL (0.0-0.7) Basophils # (Auto) 0.2 x10^3/uL (0.0-0.2) Segmented Neutrophils % 86 % (35-66) Band Neutrophils % 4 % (0-9) Lymphocytes % 4 % (24-48) Monocytes % 4 % (0-10) Eosinophils % 1 % (0-5) Basophils % 1 % (0-3) Platelet Estimate Increased (ADEQUATE) Anisocytosis Slight Prothrombin Time 13.4 SEC (11.7-14.0) Prothromb Time International Ratio 1.1 (0.8-1.1) Activated Partial Thromboplast Time 39 SEC (24-38) Sodium Level 132 mmol/L (136-145) Potassium Level 3.9 mmol/L (3.5-5.1) Chloride Level 90 mmol/L (98-107) Carbon Dioxide Level 23 mmol/L (21-32) Anion Gap 19 (6-14) Blood Urea Nitrogen 45 mg/dL (7-20) Creatinine 8.0 mg/dL (0.6-1.0) Estimated GFR (Cockcroft-Gault) 6.3 BUN/Creatinine Ratio 6 (6-20) Glucose Level 110 mg/dL (70-99) Calcium Level 9.4 mg/dL (8.5-10.1) Magnesium Level 2.6 mg/dL (1.8-2.4) Total Bilirubin 0.4 mg/dL (0.2-1.0) Aspartate Amino Transf (AST/SGOT) 34 U/L (15-37) Alanine Aminotransferase (ALT/SGPT) 18 U/L (14-59) Alkaline Phosphatase 166 U/L (46-116) Creatine Kinase 214 U/L (26-192) Creatine Kinase MB (Mass) 34.2 ng/mL (0.0-3.6) Creatine Kinase MB Relative Index 16.0 % (0-4) Troponin I Quantitative 3.380 ng/mL (0.000-0.055) 8.803 ng/mL (0.000-0.055) 15.520 ng/mL (0.000-0.055) Total Protein 6.1 g/dL (6.4-8.2) Albumin 2.3 g/dL (3.4-5.0) Albumin/Globulin Ratio 0.6 (1.0-1.7) Lipase 220 U/L (73-393) Serum Test, Qualitative Negative (NEG) Triglycerides Level 68 mg/dL (0-150) Cholesterol Level 198 mg/dL (0-200) LDL Cholesterol, Calculated 124 mg/dL (0-100) VLDL Cholesterol, Calculated 14 mg/dL (0-40) Non-HDL Cholesterol Calculated 138 mg/dL (0-129) HDL Cholesterol 60 mg/dL (40-60) Cholesterol/HDL Ratio 3.3 Heparin Anti-Xa Act, Unfractionated < 0.10 IU/mL (0.30-0.70) 0.18 IU/mL (0.30-0.70) Thyroid Stimulating Hormone (TSH) 107.180 uIU/mL (0.358-3.74) Test 12/07/19 13:30 Troponin I Quantitative 26.669 ng/mL (0.000-0.055) Assessment/Plan Assessment/Plan IMP DEHYDRATION DIZZINESS NSTEMI ESRD DUE TO FSGS FAILED RENAL TX IN 2016-HAD TX IN 2011 ANEMIA OF ESRD PAFIB-HX OF ABLATION PLAN CARDIOLOGY EVALUATION HYDRATION WITH ISOTONIC SALINE HOLD PD TODAY AUDREY WHEN NEEDED WILL FOLLOW ABENA HALL MD Dec 07, 2019 15:22
[2019-12-07] MEDS: PSYLLIUM HUSK (SUGAR FREE) 1 PKT PACKET PO SCH (16:09)
[2019-12-07] MEDS: POLYETHYLENE GLYCOL 3350 17 GM PACKET. PO SCH (16:09)
--- NOTE | 2019-12-07 16:22 | CARD ---
MR#: [id number] Date of Study: 12/07/2019 Ordering Physician: BAILEE CACERES, Referring Physician: BAILEE CACERES, Tech: Jody Larry APPROVED REPORT EXAM: Two-dimensional and M-mode echocardiogram with Doppler and color Doppler. Other Information Quality : GoodHR: 94bpm INDICATION Atrial Fibrillation Chest Pain 2D DIMENSIONS Left Atrium(2D)3.9 (1.6-4.0cm)IVSd1.0 (0.7-1.1cm) Aortic Root(2D)2.8 (2.0-3.7cm)LVDd5.3 (3.9-5.9cm) LVOT Diameter1.9 (1.8-2.4cm)PWd0.9 (0.7-1.1cm) LVDs4.0 (2.5-4.0cm)FS (%) 24.4 % SV64.1 mlLVEF(%)48.2 (>50%) Aortic Valve AoV Peak Virgil.91.9cm/sAoV VTI10.6cm AO Peak GR.3.4mmHgLVOT VTI 7.71cm AO Mean GR.2mmHg Mitral Valve MV E Dfbpagrk76.9cm/sMV E Peak Gr.55mmHg MV DECEL [id number] A Kltbwsou32.5cm/s MV E Mean Gr.1mmHgE/A Ratio1.1 TDI Lateral E' P. V9.85cm/sMedial E' P. V6.76cm/s E/Lateral E'6.7E/Medial E'9.7 Tricuspid Valve TR P. Tnxfvwvy179kp/sRAP VWFMZBBF3kwLp TR Peak Gr.20gxFgIWLE82myDq LEFT VENTRICLE The left ventricle is normal size. There is normal left ventricular wall thickness. The left ventricu lar systolic function is severely impaired. The Ejection Fraction is 20%. There is severe global hypo kinesis of the left ventricle. RIGHT VENTRICLE The right ventricle is mildly dilated. There is normal right ventricular wall thickness. Systolic fun ction is moderately reduced. ATRIA The left atrium size is normal. The right atrium is mildly dilated. The interatrial septum is intact with no evidence for an atrial septal defect or patent foramen ovale as noted on 2-D or Doppler imagi ng. AORTIC VALVE The aortic valve is normal in structure and function. Doppler and Color Flow revealed no significant aortic regurgitation. Calculated aortic valve area is 1.98 cm2 with maximum pressure gradient of 4 mm Hg and mean pressure gradient of 2 mmHg. There is no significant aortic valvular stenosis. MITRAL VALVE The mitral valve is normal in structure and function. There is no evidence of mitral valve prolapse. There is no mitral valve stenosis. Doppler and Color-flow revealed mild to moderate mitral regurgitat ion. TRICUSPID VALVE The tricuspid valve is normal in structure and function. Doppler and Color Flow revealed moderate to severe tricuspid regurgitation with an estimated PAP of 28 mmHg. There is no tricuspid valve stenosis . PULMONIC VALVE The pulmonary valve is normal in structure and function. Doppler and Color Flow revealed trace pulmon ic valvular regurgitation. GREAT VESSELS The aortic root is normal in size. The IVC is normal in size and collapses >50% with inspiration. PERICARDIAL EFFUSION There is no evidence of significant pericardial effusion. Critical Notification Critical Value: No <Conclusion> The left ventricular systolic function is severely impaired. The Ejection Fraction is 20%. Mild to moderate mitral regurgitation. Moderate to severe tricuspid regurgitation with an estimated PAP of 28 mmHg. There is no evidence of significant pericardial effusion. Signed by : Heron Patricio, Electronically Approved : 12/07/2019 16:22:14
[2019-12-07 19:50] VITALS: BP 93/71
[2019-12-07] MEDS: HEPARIN 25,000UTS/250ML PREMIX 250 ML IV PRN (20:05)
[2019-12-07] MEDS: traZODone 50 MG TABLET. PO SCH (20:06)
[2019-12-07] MEDS: ARIPiprazole 5 MG TABLET PO SCH (20:08)
[2019-12-07] MEDS: clonazePAM 0.5 MG TABLET PO PRN (20:12)
[2019-12-07] MEDS: diphenhydrAMINE HCL 25 MG CAPSULE PO PRN (20:12)
[2019-12-07] MEDS ORDERED: NON FORMULARY ITEM (Melatonin 1 TAB) PO SCH (21:00)
[2019-12-07] MEDS: ONDANSETRON PF 4 MG/2 ML VIAL. IVP PRN (23:53)
[2019-12-07] MEDS: fentaNYL PF VIAL 100 MCG/2 ML VIAL IVP PRN (23:54)
[2019-12-08] VITALS (21 sets, daily range): BP systolic 71–102; BP diastolic 55–78
[2019-12-08] MEDS: ONDANSETRON PF 4 MG/2 ML VIAL. IVP PRN ×3 (05:52→17:55)
[2019-12-08] MEDS: fentaNYL PF VIAL 100 MCG/2 ML VIAL IVP PRN ×6 (05:52→19:06)
[2019-12-08 07:35] LABS: CREATININE 8.3 mg/dL (0.6-1.0); POTASSIUM 5.2 mmol/L (3.5-5.1)
[2019-12-08 07:44] LABS: BASO # 0.1 x10^3/uL (0.0-0.2); BASO % 1 % (0-3); EOS % 0 % (0-3); HEMATOCRIT 30.3 % (36.0-47.0); HEMOGLOBIN 9.6 g/dL (12.0-15.5); LYMPH # 1.7 x10^3/uL (1.0-4.8); LYMPH % 14 % (24-48); MEAN CORPUSCULAR HEMOGLOBIN 32 pg (25-35); MEAN CORPUSCULAR HGB CONC 32 g/dL (31-37); MEAN CORPUSCULAR VOLUME 100 fL (79-100); MONO # 1.8 x10^3/uL (0.0-1.1); MONO % 15 % (0-9); NEUT # 8.4 x10^3/uL (1.8-7.7); NEUT % 70 % (31-73); PLATELET COUNT 429 x10^3/uL (140-400); RED BLOOD COUNT 3.03 x10^6/uL (3.50-5.40); RED CELL DISTRIBUTION WIDTH 16.8 % (11.5-14.5)
--- NOTE | 2019-12-08 07:55 | PDOC ---
[facility] PROGRESS NOTE Date of Service DOS: DATE: 12/08/19 TIME: 07:54 Chief Complaint Chief Complaint A/P: Nausea and vomiting - multifactorial with constipation from opioids, possible NSTEMI and possible gallbladder colic. Will give IV antiemetics Distended gallbladder - will assess with ultrasound Acute encephalopathy - clear etiology, significantly hypothyroid, myxedema coma, seems metabolic, no sign this is toxic. 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 NSTEMI - with highly elevated troponin. Despite her young age, the possibility of coronary calcifications does exist Cardiomyopathy - uncertain etiology ESRD on PD - nephrology consulted H/o C. Difficile - recently treated Hyponatremia - ok for IVF, will d/ nephrology Severe protein calorie malnutrition - albumin 2.3 Failed renal transplant - will continue rejection meds, though an outpatient taper has been previously advised by consultants Lactic acidosis - trend. Likely from poor nutrition. Hemoconcentration - 2/2 dehydration from diarrhea Afib - paroxsymal by history, off eliquis and coreg previously Unable to walk - progressed over the past year likely 2/2 hyperphosphatemia Bilateral shoulder abnormalities on CXR - possibly avascular necrosis Diffuse pain - she has renal osteodystrophy, likely related to this. FEN - Renal diet PPX - eliquis FULL CODE Dispo - inpatient for acute mental status changes. 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 Has not been eating and drinking well at home for the last 3 weeks since transitioning from home health to hospice (for pain management, not end-of-life care per patient and mother). Yesterday began vomiting after eating a breakfast burrito. Vomiting persisted yesterday and was dizzy and hypotensive. Mother was concerned about dehydration so they came to the ED for IVFs. Troponin 3 and climbing overnight. Labs consistent with ESRD and Na 132. TSH, found significantly elevated at 107 CT chest abdomen pelvis with no obstruction, stool apparent, distended gallbladder. EKG - Sinus tachycardia at 103bpm, J point elevation to V1-V2, ST depression noted to II, aVF, and V3-V6, QRS 92ms, QT/QTc 332/437ms Admitted for further care. Troponin increased to 26. Echocardiogram revealed EF of 20%. She is c/o pain all over. No BM as of yet. Vitals/I&O Vitals/I&O: Vital Signs Date Time Temp Pulse Resp B/P (MAP) Pulse Ox O2 Delivery O2 Flow Rate FiO2 12/08/19 06:22 18 Room Air 12/08/19 03:50 97.6 100 97/70 (79) 97 97.6 I & O 12/07/19 12/07/19 12/08/19 15:00 23:00 07:00 Intake Total 0 ml 0 ml 1300 ml Balance 0 ml 0 ml 1300 ml Physical Exam General: Alert, Oriented X3, Cooperative, No acute distress Heart: Regular rate Abdomen: Normal bowel sounds, Soft, No tenderness Extremities: No clubbing Skin: No rashes Labs Labs: Laboratory Tests Test 12/07/19 11:30 12/07/19 13:30 12/07/19 17:50 12/07/19 23:52 Heparin Anti-Xa Act, Unfractionated 0.18 IU/mL (0.30-0.70) 0.24 IU/mL (0.30-0.70) 0.24 IU/mL (0.30-0.70) Troponin I Quantitative 26.669 ng/mL (0.000-0.055) Test 12/08/19 07:00 White Blood Count 12.0 x10^3/uL (4.0-11.0) Red Blood Count 3.03 x10^6/uL (3.50-5.40) Hemoglobin 9.6 g/dL (12.0-15.5) Hematocrit 30.3 % (36.0-47.0) Mean Corpuscular Volume 100 fL (79-100) Mean Corpuscular Hemoglobin 32 pg (25-35) Mean Corpuscular Hemoglobin Concent 32 g/dL (31-37) Red Cell Distribution Width 16.8 % (11.5-14.5) Platelet Count 429 x10^3/uL (140-400) Neutrophils (%) (Auto) 70 % (31-73) Lymphocytes (%) (Auto) 14 % (24-48) Monocytes (%) (Auto) 15 % (0-9) Eosinophils (%) (Auto) 0 % (0-3) Basophils (%) (Auto) 1 % (0-3) Neutrophils # (Auto) 8.4 x10^3/uL (1.8-7.7) Lymphocytes # (Auto) 1.7 x10^3/uL (1.0-4.8) Monocytes # (Auto) 1.8 x10^3/uL (0.0-1.1) Eosinophils # (Auto) 0.0 x10^3/uL (0.0-0.7) Basophils # (Auto) 0.1 x10^3/uL (0.0-0.2) Sodium Level 131 mmol/L (136-145) Potassium Level 5.2 mmol/L (3.5-5.1) Chloride Level 93 mmol/L (98-107) Carbon Dioxide Level 20 mmol/L (21-32) Anion Gap 18 (6-14) Blood Urea Nitrogen 60 mg/dL (7-20) Creatinine 8.3 mg/dL (0.6-1.0) Estimated GFR (Cockcroft-Gault) 6.0 Glucose Level 81 mg/dL (70-99) Calcium Level 9.0 mg/dL (8.5-10.1) Assessment and Plan Assessmemt and Plan Problems Medical Problems: (1) NSTEMI (non-ST elevated myocardial infarction) Status: Acute (2) Peritoneal dialysis status Status: Acute Comment Review of Relevant I have reviewed the following items tim (where applicable) has been applied. Medications: Current Medications Medications (Trade) Dose Ordered Sig/Olga Route PRN Reason Start Time Stop Time Status Last Admin Dose Admin Clonazepam (KlonoPIN) 0.25 mg PRN QHS PRN PO sleep/anxiety 12/07/19 21:00 12/07/19 20:12 Diphenhydramine HCl (Benadryl) 50 mg PRN QHS PRN PO anxiety/sleep 12/07/19 08:15 12/07/19 20:12 Vitamin B Complex/ Vitamin C (Marry-Dori) 1 tab DAILY PO 12/07/19 09:00 12/07/19 08:34 Levothyroxine Sodium (Synthroid) 150 mcg DAILY06 PO 12/07/19 10:30 12/07/19 11:38 DC 12/07/19 09:43 Prednisone (Prednisone) 20 mg DAILY PO 12/07/19 09:00 12/07/19 08:42 Trazodone HCl (Desyrel) 50 mg HS PO 12/07/19 21:00 12/07/19 20:06 Pantoprazole Sodium (Protonix) 40 mg DAILYAC PO 12/07/19 08:30 12/07/19 08:40 Sertraline HCl (Zoloft) 150 mg DAILY PO 12/07/19 09:00 12/07/19 08:39 Tacrolimus (Prograf) 1 mg DAILY PO 12/07/19 09:00 12/07/19 08:38 Sodium Chloride 1,000 ml @ 100 mls/hr Q10H IV 12/07/19 11:15 12/07/19 20:04 Levothyroxine Sodium 75 mcg/ Sodium Chloride 5 ml @ 100 mls/hr Q3DAYS IV 12/07/19 12:00 12/07/19 12:10 Polyethylene Glycol (miraLAX PACKET) 17 gm DAILY16 PO 12/07/19 16:00 12/07/19 16:09 Psyllium Hydrophilic Mucilloid (Metamucil Fiber Packet) 1 pkt DAILY16 PO 12/07/19 16:00 12/07/19 16:09 Fentanyl Citrate (Fentanyl 2ml Vial) 50 mcg PRN Q2HR PRN IVP PAIN 12/07/19 18:45 12/08/19 05:52 Ondansetron HCl (Zofran) 4 mg PRN Q4HRS PRN IVP NAUSEA/VOMITING 1ST CHOICE 12/07/19 21:00 12/08/19 05:52 Justifications for Admission Other Justification LILA DEMPSEY MD Dec 08, 2019 07:55
[2019-12-08] MEDS: IV NORMAL SALINE 1000ML BAG 1,000 ML IV SCH ×2 (08:41→20:50)
[2019-12-08] MEDS ORDERED: HEPARIN for IV BOLUS 10,000 UNIT/10 ML VIAL. ONE (09:52)
[2019-12-08] MEDS ORDERED: MIDAZOLAM HCL/PF 2 MG/2 ML VIAL. ONE (09:52)
[2019-12-08] MEDS ORDERED: fentaNYL PF VIAL 100 MCG/2 ML VIAL ONE (09:52)
[2019-12-08] MEDS ORDERED: VERAPAMIL 5 MG/2 ML VIAL. ONE (09:52)
[2019-12-08] MEDS ORDERED: NITROGLYCERIN 200 MCG/2 ML SYRINGE FOR CATH/VASC LAB. ONE (09:53)
[2019-12-08] MEDS ORDERED: ONDANSETRON PF 4 MG/2 ML VIAL. ONE (09:53)
[2019-12-08] MEDS ORDERED: LIDOCAINE 1% PF 2 ML VIAL. ONE (09:59)
--- NOTE | 2019-12-08 10:04 | PDOC ---
MODERATE SEDATION ASSESSMENT RISKS/ALTERNATIVES Risks/Alternatives Risks and alternatives of this type of sedation and procedure discussed with: RISK/ALTERNATIVES: Patient H & P ON CHART H & P H & P on chart and reviewed for co-morbid conditions and appropriate labs. H&P ON CHART: Yes STATUS PREG STATUS ASSESSED: N/A MEDS/ALLERGIES REVIEWED Meds/Allergies Reviewed Medications and Allergies including time and route of recently administered narcotics and sedatives. MEDS/ALLERGIES REVIEWED: Yes ASA RATING ASA RATING: III AIRWAY ASSESSMENT Airway Assessment Airway patency, oral function limitations, presence of caps, crowns, dentures, partials, and ability to extend neck assessed. AIRWAY ASSESSMENT: Yes MALLAMPATI SCORE MALLAMPATI SCORE: II PRE-SEDATION ASSESSMENT PRE-SEDATION ASSESSMENT: Yes PADMINI CORDOVA MD Dec 08, 2019 10:04
[2019-12-08] MEDS ORDERED: LIDOCAINE 1% PF 2 ML VIAL. INJ ONE (10:30)
[2019-12-08] MEDS ORDERED: VERAPAMIL 5 MG/2 ML VIAL. IART ONE (10:30)
[2019-12-08] MEDS ORDERED: IV NORMAL SALINE 500ML BAG 500 ML IV ONE (10:30)
[2019-12-08] MEDS ORDERED: NITROGLYCERIN 200 MCG/2 ML SYRINGE FOR CATH/VASC LAB. IART ONE (10:30)
[2019-12-08] MEDS ORDERED: ONDANSETRON PF 4 MG/2 ML VIAL. IVP ONE (10:30)
[2019-12-08] MEDS ORDERED: IODIXANOL 320 MG/ML 100 ML VIAL. IART ONE (10:30)
[2019-12-08] MEDS ORDERED: HEPARIN for IV BOLUS 10,000 UNIT/10 ML VIAL. IART ONE (10:30)
[2019-12-08] MEDS ORDERED: MIDAZOLAM HCL/PF 2 MG/2 ML VIAL. IV ONE (10:30)
[2019-12-08] MEDS ORDERED: fentaNYL PF VIAL 100 MCG/2 ML VIAL IV ONE (10:30)
[2019-12-08] MEDS ORDERED: CONTRAST GIVEN. MC PRN (10:45)
[2019-12-08] MEDS: SERTRALINE 50 MG TABLET. PO SCH (10:49)
[2019-12-08] MEDS: PANTOPRAZOLE 40 MG TABLET.DR. PO SCH (10:50)
[2019-12-08] MEDS: FOLIC/VIT B COMP W-C (RENAL) TABLET. PO SCH (10:50)
[2019-12-08] MEDS: predniSONE 10 MG TABLET PO SCH (10:50)
[2019-12-08] MEDS: TACROLIMUS 0.5 MG CAPSULE. PO SCH (10:50)
--- NOTE | 2019-12-08 11:12 | NUR ---
SS following up with discharge planning. SS reviewed pt chart and discussed with pt RN. Pt is currently on room air. Pt had heart cath today. SS will continue to follow for discharge planning.
--- NOTE | 2019-12-08 12:06 | CARD ---
MR#: [id number] Date of Study: 12/08/2019 Ordering Physician: YISSEL GALINDO, Referring Physician: YISSEL GALINDO, Tech: VEE FRASER RTR APPROVED REPORT Technologist: VEE FRASER RTR Nurse: Xiomara Springer R.N. Procedure(s) performed: MODERATE SEDATION TIME: 25 MINUTES FLUORO TIME: 2.6 MIN DOSE: 21.5 GYCM2 CONTRAST: 19CC VISI NYHA: CLASS 4 [facility], Coronary angiography HISTORY The patient is a 24 year-old female with a history of : renal failure with dialysis, diabetes mellitu s with treatment. INDICATION The indication(s) include : non-STEMI . CS Clinical Frailty Scale [facility] Clinical Frailty Scale: Severely Frail Heart Failure Heart Failure: Yes If Yes, Newly Diagnosed: Yes If Yes, HF Type: Systolic PROCEDURE NARRATIVE Clinical information: 24-year-old woman with a prior history of failed renal transplant presented to the hospital with dysp mona and a non-STEMI. Troponin peaked at 26. Due to severe LV dysfunction she was taken to the [facility] for further evaluation and treatment. Informed consent: Written informed consent was obtained from the patient after adequate discussion of the risks and breann efits of the procedure. Procedure details: ACCESS: The right wrist was prepped and draped in usual sterile fashion. Under 1% lidocaine local anesthesia a 5 Cymraes Terumo sheath was placed in the right radial artery via the Seldinger technique. DIAGNOSTIC ANGIOGRAPHY: Right and left coronary arteries were engaged with a 5 Cymraes TIG catheter. Diagnostic angiography i n multiple views were obtained. Next, he catheter was placed in the left ventricle and a LVEDP was m easured. A pullback was performed. All catheters were exchanged over J-tip guidewire. FINDINGS: ======= Aorta: 110/80 LVEDP: 19 mmHg Left ventriculogram: Deferred due to known severe LV dysfunction on echocardiogram. Coronary angiography: LM: Large caliber vessel with normal angiographic appearance LAD: Moderate caliber vessel with normal angiographic appearance. LCX: Moderate caliber non-dominant vessel with normal angiographic appearance. RCA: Large caliber dominant vessel with normal angiographic appearance. *Overall flow suggestive of severe endothelial dysfunction and severe heart failure. CLOSURE: At case completion the right radial sheath was removed and a Terumo radial band was applied with 11 m L of air. Hemostasis was achieved. COMPLICATIONS: No acute complications noted Conclusion 1. Mildly elevated left-sided filling pressures. 2. No angiographic evidence of significant coronary disease. 3. Likely diffuse stress-induced cardiomyopathy with endothelial dysfunction. Recommendations 1. Extensive discussion was held with the patient's mother with regards to poor prognosis given melody re cardiomyopathy and end-stage renal disease. Patient does not have any significant options for tra nsplantation given severe debility and calciphylaxis limiting mobility. Possible transfer to [facility] for consideration of advanced heart failure therapies depending on patient wishes. Signed by : Matthew Green, Electronically Approved : 12/08/2019 12:05:52
--- NOTE | 2019-12-08 12:10 | PDOC ---
Renal-Progress Notes Subjective Notes Notes TIRED History of Present Illness Hx of present illness NO CHANGE Vitals Vitals Vital Signs Date Time Temp Pulse Resp B/P (MAP) Pulse Ox O2 Delivery O2 Flow Rate FiO2 12/08/19 11:00 97.7 97 22 73/57 (62) 91 Room Air 97.7 12/08/19 10:40 2.0 Weight Weight [ ] I.O. Intake and Output Intake and Output 12/08/19 07:00 Intake Total 1300 ml Balance 1300 ml Intake Oral 0 ml IV Total 1300 ml Labs Labs Laboratory Tests Test 12/07/19 13:30 12/07/19 17:50 12/07/19 23:52 12/08/19 07:00 Troponin I Quantitative 26.669 ng/mL (0.000-0.055) Heparin Anti-Xa Act, Unfractionated 0.24 IU/mL (0.30-0.70) 0.24 IU/mL (0.30-0.70) 0.21 IU/mL (0.30-0.70) White Blood Count 12.0 x10^3/uL (4.0-11.0) Red Blood Count 3.03 x10^6/uL (3.50-5.40) Hemoglobin 9.6 g/dL (12.0-15.5) Hematocrit 30.3 % (36.0-47.0) Mean Corpuscular Volume 100 fL (79-100) Mean Corpuscular Hemoglobin 32 pg (25-35) Mean Corpuscular Hemoglobin Concent 32 g/dL (31-37) Red Cell Distribution Width 16.8 % (11.5-14.5) Platelet Count 429 x10^3/uL (140-400) Neutrophils (%) (Auto) 70 % (31-73) Lymphocytes (%) (Auto) 14 % (24-48) Monocytes (%) (Auto) 15 % (0-9) Eosinophils (%) (Auto) 0 % (0-3) Basophils (%) (Auto) 1 % (0-3) Neutrophils # (Auto) 8.4 x10^3/uL (1.8-7.7) Lymphocytes # (Auto) 1.7 x10^3/uL (1.0-4.8) Monocytes # (Auto) 1.8 x10^3/uL (0.0-1.1) Eosinophils # (Auto) 0.0 x10^3/uL (0.0-0.7) Basophils # (Auto) 0.1 x10^3/uL (0.0-0.2) Sodium Level 131 mmol/L (136-145) Potassium Level 5.2 mmol/L (3.5-5.1) Chloride Level 93 mmol/L (98-107) Carbon Dioxide Level 20 mmol/L (21-32) Anion Gap 18 (6-14) Blood Urea Nitrogen 60 mg/dL (7-20) Creatinine 8.3 mg/dL (0.6-1.0) Estimated GFR (Cockcroft-Gault) 6.0 Glucose Level 81 mg/dL (70-99) Calcium Level 9.0 mg/dL (8.5-10.1) Procalcitonin 0.24 ng/mL (0.00-0.10) Review of Systems Constitutional: yes: malaise, weakness, alert, oriented Ears/Nose/Throat: Yes: no symptom reported Eyes: Yes: no symptom reported Pulmonary: Yes no symptom reported Cardiovascular: Yes near syncope Gastrointestional: Yes: nausea, constipation Genitourinary: Yes: no symptom reported Musculoskeletal: Yes: muscle stiffness Skin: Yes no symptom reported Psychiatric/Neurological: Yes: no symptom reported Endocrine: Yes: no symptom reported Physical Exam General Appearance: no apparent distress Skin: warm Respiratory: bilateral CTA Heart: S1S2 Abdomen: soft Genitourinary: bladder flat Extremities: pulses present Neurology: alert, oriented, Ext weakness Assessment Assessment IMP DEHYDRATION DIZZINESS NSTEMI ESRD DUE TO FSGS FAILED RENAL TX IN 2016-HAD TX IN 2011 ANEMIA OF ESRD PAFIB-HX OF ABLATION CM WITH NL CORS AND EF OF 20% SEVERE HYPOTHYROIDISM PLAN CARDIOLOGY EVALUATION HYDRATION WITH ISOTONIC SALINE PD TONIGHT THYROID REPLACEMENT AUDREY WHEN NEEDED WILL FOLLOW ABENA HALL MD Dec 08, 2019 12:10
[2019-12-08] MEDS: ANTI-COAG MONITOR BY PHARMACY. MC PRN ×2 (13:43→13:44)
[2019-12-08] MEDS: PSYLLIUM HUSK (SUGAR FREE) 1 PKT PACKET PO SCH (14:23)
[2019-12-08] MEDS: POLYETHYLENE GLYCOL 3350 17 GM PACKET. PO SCH (14:23)
[2019-12-08] MEDS: oxyCODONE IR 5 MG TABLET PO PRN ×2 (16:40→20:47)
[2019-12-08] MEDS: diphenhydrAMINE HCL 25 MG CAPSULE PO PRN (19:06)
--- NOTE | 2019-12-08 20:30 | NUR ---
RN in room going over medications ordered and ready to give to patient. Patients mother was upset stating patient is on Rexulti 2mg and Melatonin for sleep. Per Peyman in pharmacy Dr Johnson ordered Abilify for replacement because it is similar. Patient refused Abilify. RN told patient and her mother they are welcome to bring their preferred medications to [facility]. We will send to pharmacy for label & clarification. Nurses will be able to scan and acknowledge on MAR. This will allow nurse to know what is given and want time it is due. No charge to the patient. Clarified so we are aware of what the patient is taking while inpatient. Also RN wanted to pursue better pain control for patient. Mother stated patient is not wanting PO pain control because she was getting sick to her stomach. RN informed pt's mother that it would be helpful to the patient if patient had BM. Patient has not had BM since [facility] 12/06/19. Patient reports she is working on drinking Metamucil fiber drink at bedside. RN will continue to educate and monitor.
[2019-12-08] MEDS: clonazePAM 0.5 MG TABLET PO PRN (20:47)
[2019-12-08] MEDS ORDERED: DARBEPOETIN ALFA 60 MCG/0.3 ML DISP.SYRIN. SQ SCH (21:00)
[2019-12-08] MEDS: ARIPiprazole 5 MG TABLET PO SCH (21:00)
[2019-12-08] MEDS: traZODone 50 MG TABLET. PO SCH (21:05)
[2019-12-09] VITALS (7 sets, daily range): BP systolic 92–106; BP diastolic 73–84
[2019-12-09] MEDS ORDERED: fentaNYL 50MCG/HR PATCH 1 PATCH PATCH.TD72 TD SCH (02:30)
[2019-12-09] MEDS ORDERED: LEVOTHYROXINE 150 MCG TABLET PO SCH (08:00)
--- NOTE | 2019-12-09 08:06 | PDOC ---
[facility] [facility] PROGRESS NOTE Date of Service DOS: DATE: 12/09/19 TIME: 08:06 Chief Complaint Chief Complaint A/P: Nausea and vomiting - multifactorial with constipation from opioids, possible NSTEMI and possible gallbladder colic. Will give IV antiemetics Distended gallbladder - will assess with ultrasound Acute encephalopathy - clear etiology, significantly hypothyroid, myxedema coma, seems metabolic, no sign this is toxic. 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 NSTEMI - with highly elevated troponin. Despite her young age, the possibility of coronary calcifications does exist Cardiomyopathy - uncertain etiology ESRD on PD - nephrology consulted H/o C. Difficile - recently treated Hyponatremia - ok for IVF, will d/ nephrology Severe protein calorie malnutrition - albumin 2.3 Failed renal transplant - will continue rejection meds, though an outpatient taper has been previously advised by consultants Lactic acidosis - trend. Likely from poor nutrition. Hemoconcentration - 2/2 dehydration from diarrhea Afib - paroxsymal by history, off eliquis and coreg previously Unable to walk - progressed over the past year likely 2/2 hyperphosphatemia Bilateral shoulder abnormalities on CXR - possibly avascular necrosis Diffuse pain - she has renal osteodystrophy, likely related to this. FEN - Renal diet PPX - eliquis FULL CODE Dispo - inpatient for acute mental status changes. 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 Has not been eating and drinking well at home for the last 3 weeks since transitioning from home health to hospice (for pain management, not end-of-life care per patient and mother). Yesterday began vomiting after eating a breakfast burrito. Vomiting persisted yesterday and was dizzy and hypotensive. Mother was concerned about dehydration so they came to the ED for IVFs. Troponin 3 and climbing overnight. Labs consistent with ESRD and Na 132. TSH, found significantly elevated at 107 CT chest abdomen pelvis with no obstruction, stool apparent, distended gallbladder. EKG - Sinus tachycardia at 103bpm, J point elevation to V1-V2, ST depression noted to II, aVF, and V3-V6, QRS 92ms, QT/QTc 332/437ms Admitted for further care. 12/07: Troponin increased to 26. Echocardiogram revealed EF of 20%. She is c/o pain all over. No BM as of yet. To cardiac cath with no obstructive lesions Tolerated PD well last night. Fentanyl patch is helping with her pain. She is more alert after IV levothyroxine dosing. Vitals/I&O Vitals/I&O: Vital Signs Date Time Temp Pulse Resp B/P (MAP) Pulse Ox O2 Delivery O2 Flow Rate FiO2 12/09/19 04:50 16 95 Room Air 2.0 12/09/19 03:13 97.5 88 103/79 (87) 97.5 I & O 12/08/19 12/08/19 12/09/19 15:00 23:00 07:00 Intake Total 0 ml 180 ml 720 ml Balance 0 ml 180 ml 720 ml Physical Exam General: Alert, Oriented X3, Cooperative, No acute distress Heart: Regular rate Abdomen: Normal bowel sounds, Soft, No tenderness Extremities: No clubbing Skin: No rashes Assessment and Plan Assessmemt and Plan Problems Medical Problems: (1) NSTEMI (non-ST elevated myocardial infarction) Status: Acute (2) Peritoneal dialysis status Status: Acute Comment Review of Relevant I have reviewed the following items tim (where applicable) has been applied. Medications: Current Medications Medications (Trade) Dose Ordered Sig/Olga Route PRN Reason Start Time Stop Time Status Last Admin Dose Admin Nitroglycerin (Nitroglycerin) 100 mcg 1X ONCE IART 12/08/19 10:30 12/08/19 10:37 DC 12/08/19 10:10 Verapamil HCl (Verapamil) 1.25 mg 1X ONCE IART 12/08/19 10:30 12/08/19 10:37 DC 12/08/19 10:10 Heparin Sodium (Porcine) (Heparin Sodium) 1,250 unit 1X ONCE IART 12/08/19 10:30 12/08/19 10:38 DC 12/08/19 10:10 Heparin Sodium/ Sodium Chloride (HEPARIN for ARTERIAL LINE FLUSH) 1,000 unit 1X ONCE IART 12/08/19 10:30 12/08/19 10:37 DC 12/08/19 10:10 Heparin Sodium/ Sodium Chloride (HEPARIN for ARTERIAL LINE FLUSH) 1,000 unit 1X ONCE IART 12/08/19 10:30 12/08/19 10:37 DC 12/08/19 10:10 Midazolam HCl (Versed) 1 mg 1X ONCE IV 12/08/19 10:30 12/08/19 10:37 DC 12/08/19 10:10 Fentanyl Citrate (Fentanyl 2ml Vial) 50 mcg 1X ONCE IV 12/08/19 10:30 12/08/19 10:37 DC 12/08/19 10:10 Iodixanol (Visipaque 320) 19 ml 1X ONCE IART 12/08/19 10:30 12/08/19 10:37 DC 12/08/19 10:30 Lidocaine HCl (Xylocaine-Mpf 1% 2ml Vial) 1 ml 1X ONCE INJ 12/08/19 10:30 12/08/19 10:37 DC 12/08/19 10:10 Ondansetron HCl (Zofran) 4 mg 1X ONCE IVP 12/08/19 10:30 12/08/19 10:37 DC 12/08/19 10:33 Sodium Chloride 500 ml @ 500 mls/hr 1X ONCE IV 12/08/19 10:30 12/08/19 11:29 DC 12/08/19 10:13 Darbepoetin Arnadlo (ARANESP for DIALYSIS PTS) 60 mcg WEEKLYHS SQ 12/08/19 21:00 12/08/19 20:51 Fentanyl (Duragesic 50mcg/ Hr Patch) 1 patch Q3DAYS TD 12/09/19 02:30 12/09/19 04:50 Justifications for Admission Other Justification LILA DEMPSEY MD Dec 09, 2019 08:06
[2019-12-09] MEDS ORDERED: LEVOTHYROXINE SODIUM IVP SCH (09:00)
[2019-12-09] MEDS ORDERED: NORMAL SALINE IVP SCH (09:00)
[2019-12-09] MEDS: PANTOPRAZOLE 40 MG TABLET.DR. PO SCH (09:03)
[2019-12-09] MEDS: predniSONE 10 MG TABLET PO SCH (09:03)
[2019-12-09] MEDS: FOLIC/VIT B COMP W-C (RENAL) TABLET. PO SCH (09:03)
[2019-12-09] MEDS: SERTRALINE 50 MG TABLET. PO SCH (09:04)
[2019-12-09 09:09] LABS: BASO # 0.1 x10^3/uL (0.0-0.2); BASO % 1 % (0-3); EOS % 0 % (0-3); HEMATOCRIT 33.6 % (36.0-47.0); HEMOGLOBIN 10.8 g/dL (12.0-15.5); LYMPH # 1.1 x10^3/uL (1.0-4.8); LYMPH % 9 % (24-48); MEAN CORPUSCULAR HEMOGLOBIN 32 pg (25-35); MEAN CORPUSCULAR HGB CONC 32 g/dL (31-37); MEAN CORPUSCULAR VOLUME 100 fL (79-100); MONO # 1.5 x10^3/uL (0.0-1.1); MONO % 13 % (0-9); NEUT # 8.6 x10^3/uL (1.8-7.7); NEUT % 76 % (31-73); PLATELET COUNT 430 x10^3/uL (140-400); RED BLOOD COUNT 3.35 x10^6/uL (3.50-5.40); RED CELL DISTRIBUTION WIDTH 16.4 % (11.5-14.5); WHITE BLOOD COUNT 11.3 x10^3/uL (4.0-11.0)
[2019-12-09] MEDS: ONDANSETRON PF 4 MG/2 ML VIAL. IVP PRN ×2 (09:14→18:21)
[2019-12-09 09:19] LABS: CALCIUM 8.9 mg/dL (8.5-10.1); CREATININE 7.1 mg/dL (0.6-1.0); GFR 7.2; POTASSIUM 3.6 mmol/L (3.5-5.1)
[2019-12-09 09:27] LABS: MAGNESIUM 2.4 mg/dL (1.8-2.4)
[2019-12-09 09:29] LABS: PHOSPHORUS 10.2 mg/dL (2.6-4.7)
--- NOTE | 2019-12-09 10:57 | PDOC ---
CARDIO Progress Notes Date and Time Date of Service 12/09/19 Time of Evaluation 1020 Subjective Subjective: No Chest Pain, No shortness of breath, Other (feeling better today. ) Vitals Vitals Vital Signs Date Time Temp Pulse Resp B/P (MAP) Pulse Ox O2 Delivery O2 Flow Rate FiO2 12/09/19 07:00 98.0 91 21 97/75 (82) 98 Room Air 98.0 12/09/19 04:50 2.0 Weight Weight [ ] Input and Output Intake and Output Intake and Output 12/09/19 07:00 Intake Total 900 ml Balance 900 ml Intake Oral 180 ml Other 720 ml Laboratory Labs Laboratory Tests Test 12/09/19 08:55 White Blood Count 11.3 x10^3/uL (4.0-11.0) Red Blood Count 3.35 x10^6/uL (3.50-5.40) Hemoglobin 10.8 g/dL (12.0-15.5) Hematocrit 33.6 % (36.0-47.0) Mean Corpuscular Volume 100 fL (79-100) Mean Corpuscular Hemoglobin 32 pg (25-35) Mean Corpuscular Hemoglobin Concent 32 g/dL (31-37) Red Cell Distribution Width 16.4 % (11.5-14.5) Platelet Count 430 x10^3/uL (140-400) Neutrophils (%) (Auto) 76 % (31-73) Lymphocytes (%) (Auto) 9 % (24-48) Monocytes (%) (Auto) 13 % (0-9) Eosinophils (%) (Auto) 0 % (0-3) Basophils (%) (Auto) 1 % (0-3) Neutrophils # (Auto) 8.6 x10^3/uL (1.8-7.7) Lymphocytes # (Auto) 1.1 x10^3/uL (1.0-4.8) Monocytes # (Auto) 1.5 x10^3/uL (0.0-1.1) Eosinophils # (Auto) 0.0 x10^3/uL (0.0-0.7) Basophils # (Auto) 0.1 x10^3/uL (0.0-0.2) Sodium Level 131 mmol/L (136-145) Potassium Level 3.6 mmol/L (3.5-5.1) Chloride Level 95 mmol/L (98-107) Carbon Dioxide Level 22 mmol/L (21-32) Anion Gap 14 (6-14) Blood Urea Nitrogen 56 mg/dL (7-20) Creatinine 7.1 mg/dL (0.6-1.0) Estimated GFR (Cockcroft-Gault) 7.2 Glucose Level 133 mg/dL (70-99) Calcium Level 8.9 mg/dL (8.5-10.1) Phosphorus Level 10.2 mg/dL (2.6-4.7) Magnesium Level 2.4 mg/dL (1.8-2.4) Review of Systems Constitutional: yes: malaise, weakness, alert, oriented Ears/Nose/Throat: Yes: no symptom reported Eyes: Yes: no symptom reported Pulmonary: Yes no symptom reported Cardiovascular: Yes near syncope Gastrointestional: Yes: nausea, constipation Genitourinary: Yes: no symptom reported Musculoskeletal: Yes: muscle stiffness Skin: Yes no symptom reported Psychiatric/Neurological: Yes: no symptom reported Endocrine: Yes: no symptom reported Physical Exam HEENT: Neck Supple W Full Motion Chest: Symmetric LUNGS: Other (diminished bases) Heart: RRR Abdomen: Soft N/T Extremities: No Edema Neurology: alert, oriented, follow commands, Ext weakness, other (ill appearing ) Assessment Assessment 1. Dizziness, nausea/vomiting, dehydration. CT with distended gallbladder 2. NSTEMI; trop highest 26. Type II, demand ischemia. Cath without obstructive disease. 3. Myxedema coma, Hypothyroidism; TSH 107. as per PCP 4. 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 s/p renal transplant 2011, which failed. Has been on PD since 2016. 5. PAFIB s/p ablation therapy in 2016; Has been off coreg due to hypotension and off Elquis as well 6. Chronic systolic CHF with NICM; LVEF 20%. clinically compensated 7. GERD 8. Depression, anxiety 9. Chronic pain Recommendations BP remains marginal Will start low-dose Toprol with BP parameters No ACEi/ARB at this time as BP with not tolerate Needs referral to academic center for evaluation of advanced HF therapies. D/w mother; will most likely refer on an outpatient basis if she continues to improved clinically. Supportive care Justicifation of Admission Dx: Justifications for Admission: Justification of Admission Dx: Yes NC: Acute NSTEMI YISSEL GALINDO APRN Dec 09, 2019 10:57
[2019-12-09] MEDS: METOPROLOL SUCC 24HR ER 25 MG TAB.ER.24H. PO SCH (11:00)
--- NOTE | 2019-12-09 12:42 | NUR ---
SS following up with discharge planning. SS reviewed pt chart and discussed with pt RN. Pt is currently on room air. Per RN, blood pressure is low and pt is constipated and nauseas. Pt had Peritoneal dialysis overnight. Discharge plan is to home with family when medically stable. SS will continue to follow for discharge planning.
--- NOTE | 2019-12-09 13:20 | PDOC ---
Renal-Progress Notes Subjective Notes Notes FEELING BETTER History of Present Illness Hx of present illness STABLE Vitals Vitals Vital Signs Date Time Temp Pulse Resp B/P (MAP) Pulse Ox O2 Delivery O2 Flow Rate FiO2 12/09/19 11:00 97.7 95 21 95/75 (82) 100 Room Air 97.7 12/09/19 08:00 2.0 Weight Weight [ ] I.O. Intake and Output Intake and Output 12/09/19 07:00 Intake Total 900 ml Balance 900 ml Intake Oral 180 ml Other 720 ml Labs Labs Laboratory Tests Test 12/09/19 08:55 White Blood Count 11.3 x10^3/uL (4.0-11.0) Red Blood Count 3.35 x10^6/uL (3.50-5.40) Hemoglobin 10.8 g/dL (12.0-15.5) Hematocrit 33.6 % (36.0-47.0) Mean Corpuscular Volume 100 fL (79-100) Mean Corpuscular Hemoglobin 32 pg (25-35) Mean Corpuscular Hemoglobin Concent 32 g/dL (31-37) Red Cell Distribution Width 16.4 % (11.5-14.5) Platelet Count 430 x10^3/uL (140-400) Neutrophils (%) (Auto) 76 % (31-73) Lymphocytes (%) (Auto) 9 % (24-48) Monocytes (%) (Auto) 13 % (0-9) Eosinophils (%) (Auto) 0 % (0-3) Basophils (%) (Auto) 1 % (0-3) Neutrophils # (Auto) 8.6 x10^3/uL (1.8-7.7) Lymphocytes # (Auto) 1.1 x10^3/uL (1.0-4.8) Monocytes # (Auto) 1.5 x10^3/uL (0.0-1.1) Eosinophils # (Auto) 0.0 x10^3/uL (0.0-0.7) Basophils # (Auto) 0.1 x10^3/uL (0.0-0.2) Sodium Level 131 mmol/L (136-145) Potassium Level 3.6 mmol/L (3.5-5.1) Chloride Level 95 mmol/L (98-107) Carbon Dioxide Level 22 mmol/L (21-32) Anion Gap 14 (6-14) Blood Urea Nitrogen 56 mg/dL (7-20) Creatinine 7.1 mg/dL (0.6-1.0) Estimated GFR (Cockcroft-Gault) 7.2 Glucose Level 133 mg/dL (70-99) Calcium Level 8.9 mg/dL (8.5-10.1) Phosphorus Level 10.2 mg/dL (2.6-4.7) Magnesium Level 2.4 mg/dL (1.8-2.4) Review of Systems Constitutional: yes: malaise, weakness, alert, oriented Ears/Nose/Throat: Yes: no symptom reported Eyes: Yes: no symptom reported Pulmonary: Yes no symptom reported Cardiovascular: Yes near syncope Gastrointestional: Yes: nausea, constipation Genitourinary: Yes: no symptom reported Musculoskeletal: Yes: muscle stiffness Skin: Yes no symptom reported Psychiatric/Neurological: Yes: no symptom reported Endocrine: Yes: no symptom reported Physical Exam General Appearance: no apparent distress Skin: warm Respiratory: bilateral CTA Heart: S1S2 Abdomen: soft Genitourinary: bladder flat Extremities: pulses present Neurology: alert, oriented, Ext weakness Assessment Assessment IMP DEHYDRATION DIZZINESS NSTEMI ESRD DUE TO FSGS FAILED RENAL TX IN 2016-HAD TX IN 2011 ANEMIA OF ESRD PAFIB-HX OF ABLATION CM WITH NL CORS AND EF OF 20% SEVERE HYPOTHYROIDISM PLAN CARDIOLOGY EVALUATION HYDRATION WITH ISOTONIC SALINE PD TONIGHT AGAIN WITH 1.5% DIANEAL THYROID REPLACEMENT AUDREY WHEN NEEDED WILL FOLLOW ABENA HALL MD Dec 09, 2019 13:20
[2019-12-09] MEDS: fentaNYL PF VIAL 100 MCG/2 ML VIAL IVP PRN ×2 (13:44→18:32)
--- NOTE | 2019-12-09 13:45 | NUR ---
Patient complaining of pain 10/01, states her bottom hurts & her chest hurts like she "can't breathe". Patient turned. Dr. Johnson notified. IV Fentanyl administered. Patient resting more comfortably now. Will continue to monitor. Addendum: 12/09/19 at 1518 by SUZETTE TRUJILLO RN VSS at this time.
[2019-12-09] MEDS: PSYLLIUM HUSK (SUGAR FREE) 1 PKT PACKET PO SCH (16:00)
[2019-12-09] MEDS: POLYETHYLENE GLYCOL 3350 17 GM PACKET. PO SCH (18:15)
[2019-12-09] MEDS: oxyCODONE IR 5 MG TABLET PO PRN (18:21)
[2019-12-09] MEDS: ARIPiprazole 5 MG TABLET PO SCH (21:00)
[2019-12-09] MEDS: traZODone 50 MG TABLET. PO SCH (21:34)
[2019-12-09] MEDS: diphenhydrAMINE HCL 25 MG CAPSULE PO PRN (21:35)
[2019-12-09] MEDS: clonazePAM 0.5 MG TABLET PO PRN (21:35)
[2019-12-09] MEDS: IV NORMAL SALINE 1000ML BAG 1,000 ML IV SCH (21:52)
[2019-12-10 03:55] VITALS: BP 90/66
[2019-12-10] MEDS ORDERED: SODIUM BICARB ADULT 8.4% 50 MEQ/50 ML DISP.SYRIN. ONE (06:00)
[2019-12-10] MEDS ORDERED: EPINEPHrine SYRINGE 1 MG/10 ML SYRINGE ONE (06:00)
[2019-12-10] MEDS: IV NORMAL SALINE 1000ML BAG 1,000 ML IV SCH (06:17)
[2019-12-10 07:00] VITALS: BP 86/70
--- NOTE | 2019-12-10 08:14 | PDOC ---
[facility] PROGRESS NOTE Date of Service DOS: DATE: 12/10/19 TIME: 08:14 Chief Complaint Chief Complaint A/P: Nausea and vomiting - multifactorial with constipation from opioids, possible NSTEMI and possible gallbladder colic. Will give IV antiemetics Distended gallbladder - will assess with ultrasound Acute encephalopathy - clear etiology, significantly hypothyroid, myxedema coma, seems metabolic, no sign this is toxic. 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 NSTEMI - with highly elevated troponin. Despite her young age, the possibility of coronary calcifications does exist Cardiomyopathy - uncertain etiology ESRD on PD - nephrology consulted H/o C. Difficile - recently treated Hyponatremia - ok for IVF, will d/ nephrology Severe protein calorie malnutrition - albumin 2.3 Failed renal transplant - will continue rejection meds, though an outpatient taper has been previously advised by consultants Lactic acidosis - trend. Likely from poor nutrition. Hemoconcentration - 2/2 dehydration from poor PO intake Afib - paroxsymal by history, off eliquis and coreg previously Unable to walk - progressed over the past year likely 2/2 hyperphosphatemia Bilateral shoulder abnormalities on CXR - possibly avascular necrosis Diffuse pain - she has renal osteodystrophy, likely related to this. FEN - Renal diet PPX - eliquis FULL CODE Dispo - inpatient for acute mental status changes. 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 Has not been eating and drinking well at home for the last 3 weeks since transitioning from home health to hospice (for pain management, not end-of-life care per patient and mother). Yesterday began vomiting after eating a breakfast burrito. Vomiting persisted yesterday and was dizzy and hypotensive. Mother was concerned about dehydration so they came to the ED for IVFs. Troponin 3 and climbing overnight. Labs consistent with ESRD and Na 132. TSH, found significantly elevated at 107 CT chest abdomen pelvis with no obstruction, stool apparent, distended gallbladder. EKG - Sinus tachycardia at 103bpm, J point elevation to V1-V2, ST depression noted to II, aVF, and V3-V6, QRS 92ms, QT/QTc 332/437ms Admitted for further care. 12/07: Troponin increased to 26. Echocardiogram revealed EF of 20%. She is c/o pain all over. No BM as of yet. To cardiac cath with no obstructive lesions 12/08: Tolerated PD well last night. Fentanyl patch is helping with her pain. She is more alert after IV levothyroxine dosing. This morning initially was up eating breakfast. There was a status change later in the morning when she became less responsive and vomited and became tachycardic. Stat ABG showed pH of 7.25, PCO2 of 17 and PO2 of 138. Lab was unable to obtain labs. Stat CT head shows no acute abnormality. Discussed with mother and grandmother bedside transfer to ICU for rapid decline in her condition is indicated. She does not wish for CPR but is okay with ventilator, meds and shocks. Vitals/I&O Vitals/I&O: Vital Signs Date Time Temp Pulse Resp B/P (MAP) Pulse Ox O2 Delivery O2 Flow Rate FiO2 12/10/19 03:55 98.3 93 16 90/66 (74) 99 Room Air 98.3 12/09/19 20:00 2.0 I & O 12/09/19 12/09/19 12/10/19 15:00 23:00 07:00 Intake Total 600 ml 520 ml 960 ml Output Total 0 ml Balance 600 ml 520 ml 960 ml Physical Exam General: Alert, Oriented X3, Cooperative, No acute distress Heart: Regular rate Abdomen: Normal bowel sounds, Soft, No tenderness Extremities: No clubbing Skin: No rashes Labs Labs: Laboratory Tests Test 12/09/19 08:55 White Blood Count 11.3 x10^3/uL (4.0-11.0) Red Blood Count 3.35 x10^6/uL (3.50-5.40) Hemoglobin 10.8 g/dL (12.0-15.5) Hematocrit 33.6 % (36.0-47.0) Mean Corpuscular Volume 100 fL (79-100) Mean Corpuscular Hemoglobin 32 pg (25-35) Mean Corpuscular Hemoglobin Concent 32 g/dL (31-37) Red Cell Distribution Width 16.4 % (11.5-14.5) Platelet Count 430 x10^3/uL (140-400) Neutrophils (%) (Auto) 76 % (31-73) Lymphocytes (%) (Auto) 9 % (24-48) Monocytes (%) (Auto) 13 % (0-9) Eosinophils (%) (Auto) 0 % (0-3) Basophils (%) (Auto) 1 % (0-3) Neutrophils # (Auto) 8.6 x10^3/uL (1.8-7.7) Lymphocytes # (Auto) 1.1 x10^3/uL (1.0-4.8) Monocytes # (Auto) 1.5 x10^3/uL (0.0-1.1) Eosinophils # (Auto) 0.0 x10^3/uL (0.0-0.7) Basophils # (Auto) 0.1 x10^3/uL (0.0-0.2) Sodium Level 131 mmol/L (136-145) Potassium Level 3.6 mmol/L (3.5-5.1) Chloride Level 95 mmol/L (98-107) Carbon Dioxide Level 22 mmol/L (21-32) Anion Gap 14 (6-14) Blood Urea Nitrogen 56 mg/dL (7-20) Creatinine 7.1 mg/dL (0.6-1.0) Estimated GFR (Cockcroft-Gault) 7.2 Glucose Level 133 mg/dL (70-99) Calcium Level 8.9 mg/dL (8.5-10.1) Phosphorus Level 10.2 mg/dL (2.6-4.7) Magnesium Level 2.4 mg/dL (1.8-2.4) Assessment and Plan Assessmemt and Plan Problems Medical Problems: (1) NSTEMI (non-ST elevated myocardial infarction) Status: Acute (2) Peritoneal dialysis status Status: Acute Comment Review of Relevant I have reviewed the following items tim (where applicable) has been applied. Medications: Current Medications Medications (Trade) Dose Ordered Sig/Olga Route PRN Reason Start Time Stop Time Status Last Admin Dose Admin Levothyroxine Sodium 75 mcg/ Sodium Chloride 5 ml @ 100 mls/hr Q3DAYS IVP 12/09/19 09:00 12/09/19 10:06 Justifications for Admission Other Justification LILA DEMPSEY MD Dec 10, 2019 08:14
[2019-12-10] MEDS: FOLIC/VIT B COMP W-C (RENAL) TABLET. PO SCH (08:43)
[2019-12-10] MEDS: ONDANSETRON PF 4 MG/2 ML VIAL. IVP PRN (08:43)
[2019-12-10] MEDS: oxyCODONE IR 5 MG TABLET PO PRN (08:43)
[2019-12-10] MEDS: PANTOPRAZOLE 40 MG TABLET.DR. PO SCH (08:44)
[2019-12-10] MEDS: SERTRALINE 50 MG TABLET. PO SCH (08:44)
[2019-12-10] MEDS: predniSONE 10 MG TABLET PO SCH (08:44)
[2019-12-10] MEDS: METOPROLOL SUCC 24HR ER 25 MG TAB.ER.24H. PO SCH (10:18)
[2019-12-10 11:00] VITALS: BP 109/77
[2019-12-10] MEDS ORDERED: METOPROLOL TARTRATE 5 MG/5 ML VIAL. IVP PRN (11:00)
[2019-12-10] MEDS ORDERED: LACTULOSE for RECTAL 200 GM/300 ML SOLUTION. PR SCH (12:00)
--- NOTE | 2019-12-10 12:22 | PDOC ---
Renal-Progress Notes Subjective Notes Notes CHRONIC PAIN History of Present Illness Hx of present illness STABLE Vitals Vitals Vital Signs Date Time Temp Pulse Resp B/P (MAP) Pulse Ox O2 Delivery O2 Flow Rate FiO2 12/10/19 11:09 150 12/10/19 07:00 98.4 20 86/70 (75) 98 Room Air 98.4 12/09/19 20:00 2.0 Weight Weight [ ] I.O. Intake and Output Intake and Output 12/10/19 07:00 Intake Total 2080 ml Output Total 0 ml Balance 2080 ml Intake Oral 1240 ml Other 840 ml Output Urine Total 0 ml Labs Labs Laboratory Tests Test 12/10/19 11:56 Glucose (Fingerstick) 133 mg/dL (70-99) Review of Systems Constitutional: yes: malaise, weakness, alert, oriented Ears/Nose/Throat: Yes: no symptom reported Eyes: Yes: no symptom reported Pulmonary: Yes no symptom reported Cardiovascular: Yes near syncope Gastrointestional: Yes: nausea, constipation Genitourinary: Yes: no symptom reported Musculoskeletal: Yes: muscle stiffness Skin: Yes no symptom reported Psychiatric/Neurological: Yes: no symptom reported Endocrine: Yes: no symptom reported Physical Exam General Appearance: no apparent distress Skin: warm Respiratory: bilateral CTA Heart: S1S2 Abdomen: soft Genitourinary: bladder flat Extremities: pulses present Neurology: alert, oriented, follow commands, Ext weakness, other (ill appearing ) Assessment Assessment IMP DEHYDRATION-BETTER DIZZINESS NSTEMI ESRD DUE TO FSGS FAILED RENAL TX IN 2016-HAD TX IN 2011 ANEMIA OF ESRD PAFIB-HX OF ABLATION CM WITH NL CORS AND EF OF 20% SEVERE HYPOTHYROIDISM PLAN ENC PO CARDIOLOGY EVALUATION STOP HYDRATION PD TONIGHT AGAIN WITH 1.5% DIANEAL THYROID REPLACEMENT AUDREY WHEN NEEDED WILL FOLLOW ABENA HALL MD Dec 10, 2019 12:22
--- NOTE | 2019-12-10 12:44 | PDOC ---
YISSEL GALINDO [employer] 12/10/19 1244: CARDIO Progress Notes Date and Time Date of Service 12/10/19 Time of Evaluation 1210 Subjective Subjective: No Chest Pain, No shortness of breath, Other (feeling better today. ) Vitals Vitals Vital Signs Date Time Temp Pulse Resp B/P (MAP) Pulse Ox O2 Delivery O2 Flow Rate FiO2 12/10/19 11:09 150 12/10/19 07:00 98.4 20 86/70 (75) 98 Room Air 98.4 12/09/19 20:00 2.0 Weight Weight [ ] Input and Output Intake and Output Intake and Output 12/10/19 07:00 Intake Total 2080 ml Output Total 0 ml Balance 2080 ml Intake Oral 1240 ml Other 840 ml Output Urine Total 0 ml Laboratory Labs Laboratory Tests Test 12/10/19 11:56 Glucose (Fingerstick) 133 mg/dL (70-99) Review of Systems Constitutional: yes: malaise, weakness, alert, oriented Ears/Nose/Throat: Yes: no symptom reported Eyes: Yes: no symptom reported Pulmonary: Yes no symptom reported Cardiovascular: Yes near syncope Gastrointestional: Yes: nausea, constipation Genitourinary: Yes: no symptom reported Musculoskeletal: Yes: muscle stiffness Skin: Yes no symptom reported Psychiatric/Neurological: Yes: no symptom reported Endocrine: Yes: no symptom reported Physical Exam HEENT: Neck Supple W Full Motion Chest: Symmetric Heart: irregularly irregular (with RVR. rate 130) Abdomen: Soft N/T Extremities: No Edema Neurology: other (drowsy, ill appearing ) Assessment Assessment 1. Dizziness, nausea/vomiting, dehydration. Vomited again this am. 2. NSTEMI; trop highest 26. Type II, demand ischemia. Cath without obstructive disease. 3. Myxedema coma, Hypothyroidism; TSH 107. as per PCP 4. 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 s/p renal transplant 2011, which failed. Has been on PD since 2016. 5. PAFIB s/p ablation therapy in 2016; Noted in AFIB with RVR this am. s/p IV metoprolol 6. Chronic systolic CHF with NICM; LVEF 20%. clinically compensated 7. GERD 8. Depression, anxiety 9. Chronic pain 10. Encephalopathy; mentation change this am following episode of vomiting. Right sided weakness. CT head for further evaluation Recommendations Continue metoprolol Will given dose of IV dig x1 now octavio rate remains uncontrolled despite metoprolol IVP Needs antiarrhythmic therapy, but poor candidate for flecainide with significant LV dysfunction and poor candidate for Amiodarone due to age and thyroid disease. Will discuss further with primary metal worker. Consider resumption of OAC for stroke prophylaxis No ACEi/ARB at this time as BP with not tolerate Supportive care Justicifation of Admission Dx: Justifications for Admission: Justification of Admission Dx: Yes NV: Acute NSTEMI ERICA DEAN MD 12/10/19 1821: CARDIO Progress Notes Assessment Assessment Patient seen and evaluated Dizziness, nausea/vomiting, dehydration. Vomited again this am. NSTEMI; trop highest 26. Type II, demand ischemia. Cath without obstructive disease. Myxedema coma, Hypothyroidism; TSH 107. 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 s/p renal transplant 2011, which failed. PD since 2015. PAFIB s/p ablation therapy in 2016; Noted in AFIB with RVR this am. s/p IV metoprolol, dig as needed. Chronic systolic CHF with NICM; LVEF 20%. HF clinically improved. Encephalopathy; mentation change this am following episode of vomiting. Right sided weakness. CT head for further evaluation YISSEL GALINDO APRN Dec 10, 2019 12:44 ERICA DEAN MD Dec 10, 2019 18:21
[2019-12-10] MEDS ORDERED: DIGOXIN IV 500 MCG/2 ML AMPUL. IV ONE (12:45)
[2019-12-10 12:58] VITALS: BP 92/74
[2019-12-10 13:08] LABS: BASE EXCESS ABG -17 mmol/L (-3-3); HCO3 ABG 8 mmol/L (21-28); PO2 ABG 138 mmHg (85-108); SAT O2 ABG 98 % (92-99)
--- NOTE | 2019-12-10 13:12 | RAD ---
CT HEAD WO CONTRAST Date: 12/10/2019 11:55 AM Clinical Indication: Altered mental status Comparison: MRI 08/05/2019. CT 08/02/2019. Technique: 5 mm axial tomographic images were obtained of the head without contrast. These were viewed on brain and bone windows. One or more of the following dose reduction techniques were utilized: Automated exposure control (AEC), Adjustment of mA and/or kV according to patient size, Use of iterative reconstruction technique such as ASiR, CT scan done according to ALARA and image gently/image wisely Findings: The brain parenchyma is normal in attenuation. No intra- or extra-axial mass or fluid collection. No acute hemorrhage. The ventricles are normal in size, shape, and morphology. The edwards-white matter junction is normal. The subarachnoid cisterns are patent. Prominent dural calcifications. The visualized paranasal sinuses are normal. The visualized portions of the orbits and globes are normal. The mastoid air cells are clear. The inspector and hand packager topogram shows no lytic lesion or fracture. Impression: No acute intracranial process. Electronically signed by: Reinier Davies MD (12/10/2019 1:09 PM) [id number]
[2019-12-10 13:19] LABS: FIO2 ABG 28/2L NC; PCO2 ABG 17 mmHg (35-46)
--- NOTE | 2019-12-10 13:24 | PDOC1 ---
History & Psych Evaluation Date of Service: DOS: DATE: 12/10/19 TIME: 13:20 Current Medications: Current Medications Current Medications Medications (Trade) Dose Ordered Sig/Olga Start Time Stop Time Status Last Admin Dose Admin Aripiprazole (Abilify) 5 mg QHS 12/07/19 21:00 Aspirin (Aspirin Chewable) 324 mg 1X ONCE 12/06/19 21:30 12/06/19 21:31 DC 12/06/19 21:19 324 MG Bisacodyl (Dulcolax Supp) 10 mg PRN DAILY PRN 12/07/19 11:45 Clonazepam (KlonoPIN) 0.25 mg PRN QHS PRN 12/07/19 21:00 12/09/19 21:35 0.25 MG Darbepoetin Arnaldo (ARANESP for DIALYSIS PTS) 60 mcg WEEKLYHS 12/08/19 21:00 12/08/19 20:51 60 MCG Digoxin (Lanoxin) 250 mcg 1X ONCE 12/10/19 12:45 12/10/19 12:46 DC 12/10/19 12:58 250 MCG Diphenhydramine HCl (Benadryl) 50 mg PRN QHS PRN 12/07/19 08:15 12/09/19 21:35 50 MG Famotidine (Pepcid Vial) 20 mg 1X ONCE 12/06/19 20:00 12/06/19 20:05 DC 12/06/19 20:28 20 MG Fentanyl (Duragesic 50mcg/ Hr Patch) 1 patch Q3DAYS 12/09/19 02:30 12/09/19 04:50 1 PATCH Fentanyl Citrate (Fentanyl 2ml Vial) 50 mcg 1X ONCE 12/08/19 10:30 12/08/19 10:37 DC 12/08/19 10:10 50 MCG Heparin Sodium (Porcine) (Heparin Sodium) 1,250 unit 1X ONCE 12/08/19 10:30 12/08/19 10:38 DC 12/08/19 10:10 1,250 UNIT Heparin Sodium/ Dextrose 250 ml @ 0 mls/hr CONT PRN 12/06/19 21:30 12/07/19 20:05 10 MLS/HR Heparin Sodium/ Sodium Chloride (HEPARIN for ARTERIAL LINE FLUSH) 1,000 unit 1X ONCE 12/08/19 10:30 12/08/19 10:37 DC 12/08/19 10:10 1,000 UNIT Info (Anti-Coagulation Monitoring By Pharmacy) 1 each PRN DAILY PRN 12/06/19 21:45 12/08/19 13:44 1 EACH Info (CONTRAST GIVEN -- Rx MONITORING) 1 each PRN DAILY PRN 12/08/19 10:45 12/10/19 10:44 DC Iodixanol (Visipaque 320) 19 ml 1X ONCE 12/08/19 10:30 12/08/19 10:37 DC 12/08/19 10:30 19 ML Lactulose (LACTULOSE 300ML for RECTAL) 200 gm Q6HRS 12/10/19 12:00 Levothyroxine Sodium (Synthroid) 150 mcg DAILY06 12/09/19 08:00 12/09/19 08:14 DC Levothyroxine Sodium 75 mcg/ Sodium Chloride 5 ml @ 100 mls/hr Q3DAYS 12/09/19 09:00 12/09/19 10:06 100 MLS/HR Lidocaine HCl (Xylocaine-Mpf 1% 2ml Vial) 1 ml 1X ONCE 12/08/19 10:30 12/08/19 10:37 DC 12/08/19 10:10 1 ML Metoprolol Succinate (Toprol Xl) 25 mg DAILY 12/09/19 11:00 12/10/19 10:18 25 MG Metoprolol Tartrate (Lopressor Vial) 5 mg PRN Q6HRS PRN 12/10/19 11:00 12/10/19 11:09 5 MG Midazolam HCl (Versed) 1 mg 1X ONCE 12/08/19 10:30 12/08/19 10:37 DC 12/08/19 10:10 1 MG Nitroglycerin (Nitroglycerin) 100 mcg 1X ONCE 12/08/19 10:30 12/08/19 10:37 DC 12/08/19 10:10 100 MCG Non-Formulary Medication (Melatonin ) 1 tab QHS 12/07/19 21:00 UNV Ondansetron HCl (Zofran) 4 mg 1X ONCE 12/08/19 10:30 12/08/19 10:37 DC 12/08/19 10:33 4 MG Oxycodone HCl (Roxicodone) 5 mg PRN Q4HRS PRN 12/07/19 08:45 12/10/19 08:43 5 MG Pantoprazole Sodium (Protonix) 40 mg DAILYAC 12/07/19 08:30 12/10/19 08:44 40 MG Polyethylene Glycol (miraLAX PACKET) 17 gm DAILY16 12/07/19 16:00 12/09/19 18:15 17 GM Prednisone (Prednisone) 20 mg DAILY 12/07/19 09:00 12/10/19 08:44 20 MG Psyllium Hydrophilic Mucilloid (Metamucil Fiber Packet) 1 pkt DAILY16 12/07/19 16:00 12/07/19 16:09 1 PKT Sertraline HCl (Zoloft) 150 mg DAILY 12/07/19 09:00 12/10/19 08:44 150 MG Sodium Chloride 500 ml @ 500 mls/hr 1X ONCE 12/08/19 10:30 12/08/19 11:29 DC 12/08/19 10:13 500 MLS/HR Tacrolimus (Prograf) 1 mg DAILY 12/07/19 09:00 12/08/19 12:11 DC 12/08/19 10:50 1 MG Trazodone HCl (Desyrel) 50 mg HS 12/07/19 21:00 12/09/19 21:34 50 MG Verapamil HCl (Verapamil) 1.25 mg 1X ONCE 12/08/19 10:30 12/08/19 10:37 DC 12/08/19 10:10 1.25 MG Vitamin B Complex/ Vitamin C (Marry-Dori) 1 tab DAILY 12/07/19 09:00 12/10/19 08:43 1 TAB Allergies: Allergies: Coded Allergies: Iodinated Contrast Media (Verified Allergy, Intermediate, 08/03/19) NSAIDS (Non-Steroidal Anti-Inflamma (Verified Allergy, Intermediate, 08/03/19) hydroxyzine (Verified Allergy, Intermediate, 12/07/19) losartan (Verified Allergy, Intermediate, 08/03/19) olanzapine (Verified Allergy, Intermediate, 12/06/19) phenobarbital (Verified Allergy, Intermediate, 08/03/19) pregabalin (Verified Allergy, Intermediate, 12/07/19) ROS: CONSTITUTIONAL: No fever or chills EYES: No recent changes SKIN: No rash or itching CARDIOVASCULAR: No chest pain, syncope, palpitations, or edema RESPIRATORY: No SOB or cough GASTROINTESTINAL: No nausea, vomiting or abdominal pain NEUROLOGICAL: No headaches or weakness ENDOCRINE: No cold or heat intolerance GENITOURINARY: No urgency or frequency of urination MUSCULOSKELETAL: No back pain or joint pain LYMPHATICS: No enlarged lymph nodes PSYCHIATRIC: No anxiety or depression Physical Exam: Refer to Physician's note. MARKETING WRITER: No focal deficit MSK: No EPS, TDK, or abnormal involuntary movements Vitals: Vitals Vital Signs Date Time Temp Pulse Resp B/P (MAP) Pulse Ox O2 Delivery O2 Flow Rate FiO2 12/10/19 12:58 145 92/74 12/10/19 11:00 98.4 22 100 Nasal Cannula 2.0 98.4 Labs: Labs Laboratory Tests Test 12/09/19 08:55 12/10/19 11:53 12/10/19 11:56 White Blood Count 11.3 x10^3/uL (4.0-11.0) Red Blood Count 3.35 x10^6/uL (3.50-5.40) Hemoglobin 10.8 g/dL (12.0-15.5) Hematocrit 33.6 % (36.0-47.0) Mean Corpuscular Volume 100 fL (79-100) Mean Corpuscular Hemoglobin 32 pg (25-35) Mean Corpuscular Hemoglobin Concent 32 g/dL (31-37) Red Cell Distribution Width 16.4 % (11.5-14.5) Platelet Count 430 x10^3/uL (140-400) Neutrophils (%) (Auto) 76 % (31-73) Lymphocytes (%) (Auto) 9 % (24-48) Monocytes (%) (Auto) 13 % (0-9) Eosinophils (%) (Auto) 0 % (0-3) Basophils (%) (Auto) 1 % (0-3) Neutrophils # (Auto) 8.6 x10^3/uL (1.8-7.7) Lymphocytes # (Auto) 1.1 x10^3/uL (1.0-4.8) Monocytes # (Auto) 1.5 x10^3/uL (0.0-1.1) Eosinophils # (Auto) 0.0 x10^3/uL (0.0-0.7) Basophils # (Auto) 0.1 x10^3/uL (0.0-0.2) Sodium Level 131 mmol/L (136-145) Potassium Level 3.6 mmol/L (3.5-5.1) Chloride Level 95 mmol/L (98-107) Carbon Dioxide Level 22 mmol/L (21-32) Anion Gap 14 (6-14) Blood Urea Nitrogen 56 mg/dL (7-20) Creatinine 7.1 mg/dL (0.6-1.0) Estimated GFR (Cockcroft-Gault) 7.2 Glucose Level 133 mg/dL (70-99) Calcium Level 8.9 mg/dL (8.5-10.1) Phosphorus Level 10.2 mg/dL (2.6-4.7) Magnesium Level 2.4 mg/dL (1.8-2.4) O2 Saturation 98 % (92-99) Arterial Blood pH 7.25 (7.35-7.45) Arterial Blood pCO2 at Patient Temp 17 mmHg (35-46) Arterial Blood pO2 at Patient Temp 138 mmHg (85-108) Arterial Blood HCO3 8 mmol/L (21-28) Arterial Blood Base Excess -17 mmol/L (-3-3) FiO2 28/2l nc Glucose (Fingerstick) 133 mg/dL (70-99) Laboratory Tests Test 12/10/19 11:53 12/10/19 11:56 O2 Saturation 98 % (92-99) Arterial Blood pH 7.25 (7.35-7.45) Arterial Blood pCO2 at Patient Temp 17 mmHg (35-46) Arterial Blood pO2 at Patient Temp 138 mmHg (85-108) Arterial Blood HCO3 8 mmol/L (21-28) Arterial Blood Base Excess -17 mmol/L (-3-3) FiO2 28/2l nc Glucose (Fingerstick) 133 mg/dL (70-99) CELIA MEDINA MD Dec 10, 2019 13:24
[2019-12-10] MEDS ORDERED: SODIUM BICARB ADULT 8.4% 50 MEQ/50 ML DISP.SYRIN. IV ONE ×2 (13:30→14:30)
[2019-12-10] MEDS ORDERED: CALCIUM CARBONATE 500 MG TAB.CHEW PO PRN (13:30)
[2019-12-10] MEDS ORDERED: NALOXONE 0.4 MG/ML VIAL. IV ONE (14:00)
--- NOTE | 2019-12-10 14:00 | NUR ---
Nursing: Patient alert and oriented on morning assessment. A fib HR 90. Metoprolol held due to hypotension. 0930: Heart Rate began to increase A fib RVR. Called and spoke with Raquel Feliciano. (see eMAR). Patient ate breakfast including eggs and sausage. Patient began vomiting shortly after eating. Approximately 1100 patient heart rate still elevated Dr. Johnson on unit and ordered IV Metoprolol (see eMAR). Jodie notified of heart rate. Assessed by Dr. Johnson. Approximately 11:30 Patient appeared more drowsy, change in speech, fatigue. Dr. Johnson on unit and assessed patient. Imaging and labs ordered. Patient transferred to ICU approximately 1400. Patients mother at bedside.
--- NOTE | 2019-12-10 14:20 | NUR ---
SS following up with discharge planning. SS reviewed pt chart and discussed with pt RN. Pt is currently on room air. Pt became unresponsive and being transferred to ICU room 107. SS will continue to follow for discharge planning.
[2019-12-10] MEDS ORDERED: NOREPINEPHRINE VIAL 8 MG in IV DEXTROSE 5% 250 ML IV PRN ×2 (14:30→14:45)
--- NOTE | 2019-12-10 14:48 | RAD ---
CHEST AP ONLY Clinical indications: Vomiting with possible aspiration. Comparison: August 02, 2019. Findings: Mild bilateral perihilar bronchial thickening seen consistent with bronchitis. There is an ill-defined infiltrate within the right lower lung zone. No pleural effusion or pneumothorax is seen. Heart size and upper right mediastinum are accentuated due to rotation towards the right side and AP magnification. Impression: Bilateral bronchitis. Ill-defined infiltrate within the right lower lung zone. Electronically signed by: Ang Coyle MD (12/10/2019 2:45 PM) [id number]
[2019-12-10] MEDS ORDERED: ETOMIDATE 20 MG/10 ML VIAL. IV ONE ×2 (14:53→15:00)
[2019-12-10] MEDS ORDERED: ROCURONIUM 50 MG/5 ML VIAL. ONE ×2 (14:53→15:00)
[2019-12-10] MEDS ORDERED: MIDAZOLAM HCL/PF 5 MG/5 ML VIAL. ONE ×2 (15:00→15:03)
[2019-12-10] MEDS ORDERED: MIDAZOLAM HCL 100 MG in IV NORMAL SALINE 100ML 100 ML IV PRN (15:15)
[2019-12-10] MEDS ORDERED: MIDAZOLAM 100mg/100ml NS BAG 100 ML IV PRN (15:15)
--- NOTE | 2019-12-10 15:39 | PDOC3 ---
Discharge Summary Visit Information Date of Admission: Dec 06, 2019 Date of Discharge: Dec 10, 2019 Admitting Diagnosis: NSTEMI Final Diagnosis Problems Medical Problems: (1) NSTEMI (non-ST elevated myocardial infarction) Status: Acute (2) Peritoneal dialysis status Status: Acute Brief Hospital Course Allergies Allergies Coded Allergies Type Severity Reaction Last Updated Verified Iodinated Contrast Media Allergy Intermediate 08/03/19 Yes NSAIDS (Non-Steroidal Anti-Inflamma Allergy Intermediate 08/03/19 Yes hydroxyzine Allergy Intermediate 12/07/19 Yes losartan Allergy Intermediate 08/03/19 Yes olanzapine Allergy Intermediate 12/06/19 Yes phenobarbital Allergy Intermediate 08/03/19 Yes pregabalin Allergy Intermediate 12/07/19 Yes Vital Signs Vital Signs Date Time Temp Pulse Resp B/P (MAP) Pulse Ox O2 Delivery O2 Flow Rate FiO2 12/10/19 15:11 Ventilator 12/10/19 12:58 145 92/74 12/10/19 11:00 98.4 22 100 2.0 98.4 Lab Results Laboratory Tests Test 12/09/19 08:55 12/10/19 11:53 12/10/19 11:56 White Blood Count 11.3 x10^3/uL (4.0-11.0) Red Blood Count 3.35 x10^6/uL (3.50-5.40) Hemoglobin 10.8 g/dL (12.0-15.5) Hematocrit 33.6 % (36.0-47.0) Mean Corpuscular Volume 100 fL (79-100) Mean Corpuscular Hemoglobin 32 pg (25-35) Mean Corpuscular Hemoglobin Concent 32 g/dL (31-37) Red Cell Distribution Width 16.4 % (11.5-14.5) Platelet Count 430 x10^3/uL (140-400) Neutrophils (%) (Auto) 76 % (31-73) Lymphocytes (%) (Auto) 9 % (24-48) Monocytes (%) (Auto) 13 % (0-9) Eosinophils (%) (Auto) 0 % (0-3) Basophils (%) (Auto) 1 % (0-3) Neutrophils # (Auto) 8.6 x10^3/uL (1.8-7.7) Lymphocytes # (Auto) 1.1 x10^3/uL (1.0-4.8) Monocytes # (Auto) 1.5 x10^3/uL (0.0-1.1) Eosinophils # (Auto) 0.0 x10^3/uL (0.0-0.7) Basophils # (Auto) 0.1 x10^3/uL (0.0-0.2) Sodium Level 131 mmol/L (136-145) Potassium Level 3.6 mmol/L (3.5-5.1) Chloride Level 95 mmol/L (98-107) Carbon Dioxide Level 22 mmol/L (21-32) Anion Gap 14 (6-14) Blood Urea Nitrogen 56 mg/dL (7-20) Creatinine 7.1 mg/dL (0.6-1.0) Estimated GFR (Cockcroft-Gault) 7.2 Glucose Level 133 mg/dL (70-99) Calcium Level 8.9 mg/dL (8.5-10.1) Phosphorus Level 10.2 mg/dL (2.6-4.7) Magnesium Level 2.4 mg/dL (1.8-2.4) O2 Saturation 98 % (92-99) Arterial Blood pH 7.25 (7.35-7.45) Arterial Blood pCO2 at Patient Temp 17 mmHg (35-46) Arterial Blood pO2 at Patient Temp 138 mmHg (85-108) Arterial Blood HCO3 8 mmol/L (21-28) Arterial Blood Base Excess -17 mmol/L (-3-3) FiO2 28/2l nc Glucose (Fingerstick) 133 mg/dL (70-99) Laboratory Tests Test 12/10/19 11:53 12/10/19 11:56 O2 Saturation 98 % (92-99) Arterial Blood pH 7.25 (7.35-7.45) Arterial Blood pCO2 at Patient Temp 17 mmHg (35-46) Arterial Blood pO2 at Patient Temp 138 mmHg (85-108) Arterial Blood HCO3 8 mmol/L (21-28) Arterial Blood Base Excess -17 mmol/L (-3-3) FiO2 28/2l nc Glucose (Fingerstick) 133 mg/dL (70-99) Brief Hospital Course Ms Hummel is a 24 yo F w/ PMHx 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 Had not been eating and drinking well at home for the last 3 weeks since transitioning from home health to hospice (for pain management, not end-of-life care per patient and mother). She was taken off her cardiac meds, eliquis and renal medications. Started vomiting after eating a breakfast burrito prior to admit. Vomiting persisted yesterday and was dizzy and hypotensive. Mother was concerned about dehydration so they came to the ED for IVFs. Troponin 3 and climbing overnight. Labs consistent with ESRD and Na 132. TSH, found significantly elevated at 107 CT chest abdomen pelvis with no obstruction, stool apparent, distended gallbladder. EKG - Sinus tachycardia at 103bpm, J point elevation to V1-V2, ST depression noted to II, aVF, and V3-V6, QRS 92ms, QT/QTc 332/437ms Admitted for further care. 12/07: Troponin increased to 26. Echocardiogram revealed EF of 20%. She is c/o pain all over. No BM as of yet. To cardiac cath with no obstructive lesions 12/08: Tolerated PD well last night. Fentanyl patch helping with her pain. More alert after IV levothyroxine dosing. The morning of discharge was initially was up eating breakfast. There was a status change later in the morning when she became less responsive and vomited and became tachycardic. Stat ABG showed pH of 7.25, PCO2 of 17 and PO2 of 138. Lab was unable to obtain labs. Stat CT head showed no acute abnormality. Discussed with mother and grandmother bedside transfer to ICU for rapid decline in her condition indicated. She did not wish for CPR but was okay with ventilator, meds and shocks. Patient intubated and during central line placement patient noted to go into asystole at 1315. Meds only code initiated with epinephrine. PEA noted. 3 additional rounds of epinephrine, bicarbonate, calcium given. Mother and grandmother bedside asked for further heroic measures to cease. Time of 1530 Problem list: Nausea and vomiting - multifactorial with constipation from opioids, possible NSTEMI and possible gallbladder colic. Will give IV antiemetics Distended gallbladder - will assess with ultrasound Acute encephalopathy - clear etiology, significantly hypothyroid, myxedema coma, seems metabolic, no sign this is toxic. 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 NSTEMI - with highly elevated troponin. Was likely a PE Cardiomyopathy - uncertain etiology ESRD on PD H/o C. Difficile Hyponatremia Severe protein calorie malnutrition - albumin 2.3 Failed renal transplant - will continue rejection meds, though an outpatient taper has been previously advised by consultants Lactic acidosis - trend. Likely from poor nutrition. Hemoconcentration - 2/2 dehydration from poor PO intake Afib - paroxsymal by history, off eliquis and coreg previously Unable to walk - progressed over the past year likely 2/2 hyperphosphatemia Bilateral shoulder abnormalities on CXR - possibly avascular necrosis Diffuse pain - she has renal osteodystrophy, likely related to this. 135 minutes of care spent on day of patient expiration Discharge Information Condition at Discharge: / Disposition/Orders: Scheduled Brexpiprazole (Rexulti) 2 Mg Tablet, 1 TAB PO HS for antipsychotic for 30 Days, #30 Ref 0 (Reported) Entered as Reported by: AMARJIT AKERS on 12/07/199 Last Action: Converted on 12/07/19806 by LILA DEMPSEY MD Clonazepam (Clonazepam) 0.5 Mg Tablet, 0.25 MG PO HS for Insomnia, (Reported) Entered as Reported by: AMARJIT AKERS on 12/07/199 Last Action: Continued on 12/07/19805 by LILA DEMPSEY MD Diphenhydramine Hcl (Benadryl) 25 Mg Capsule, 2 CAP PO QHS for insomnia for 30 Days, #60 Ref 0 (Reported) Entered as Reported by: MARIE LEE RN on 07/22/192225 Last Action: Continued on 12/07/19805 by LILA DEMPSEY MD Folic Acid/Vitamin B Comp W-C (Marry-Dori Tablet) 0.8 Mg Tablet, 1 TAB PO DAILY for . for 30 Days, #30 Ref 0 (Reported) Entered as Reported by: MARIE LEE RN on 07/22/192228 Last Action: Continued on 12/07/19805 by LILA DEMPSEY MD Levothyroxine Sodium (Levothyroxine Sodium) 150 Mcg Tablet, 1 TAB PO DAILY for Hypothyroid, #30 Ref 5 (Reported) Entered as Reported by: AMARJIT AKERS on 12/07/199 Last Action: Continued on 12/07/19805 by LILA DEMPSEY MD Melatonin (Melatonin) 5 Mg Tab.rapdis, 1 TAB PO QHS for sleep for 30 Days, #30 Ref 0 (Reported) Entered as Reported by: Daylin Fisher on 09/29/1944 Last Action: Converted on 12/07/19806 by LILA DEMPSEY MD Pantoprazole Sodium (Protonix) 20 Mg Tablet.dr, 20 MG PO DAILY for ., (Reported) Entered as Reported by: MARIE LEE RN on 07/22/192223 Last Action: Converted on 12/07/19806 by LILA DEMPSEY MD Prednisone (Prednisone ) 10 Mg Tablet, 5 MG PO DAILY for ., Ref 0 (Reported) Entered as Reported by: MARIE LEE RN on 07/22/192224 Last Action: Continued on 12/07/19805 by LILA DEMPSEY MD Sertraline Hcl (Zoloft) 100 Mg Tablet, 150 MG PO DAILY for ANTI-DEPRESSANT, Ref 0 (Reported) Entered as Reported by: MARIE LEE RN on 07/22/192222 Last Action: Converted on 12/07/19806 by LILA DEMPSEY MD Tacrolimus (Prograf) 1 Mg Capsule, 1 MG PO DAILY for GVH for 30 Days, #30 Prescribed by: LLIA DEMPSEY MD on 08/06/191119 Last Action: Converted on 12/07/19806 by LILA DEMPSEY MD Trazodone Hcl (Trazodone Hcl) 50 Mg Tablet, 50 MG PO HS for ., (Reported) Entered as Reported by: MARIE LEE RN on 07/22/192227 Last Action: Continued on 12/07/19805 by LILA DEMPSEY MD Scheduled PRN Oxycodone HCl (Oxycontin) 10 Mg Tab.er.12h, 1 TAB PO PRN Q4HRS PRN for PAIN MDD 2 Tablet(s) for 30 Days, Ref 0 (Reported) Entered as Reported by: AMARJIT AKERS on 12/07/199 Last Action: Continued on 12/07/19805 by LILA DEMPSEY MD Discontinued Medications Apixaban (Eliquis) 2.5 Mg Tablet, 2.5 MG PO BID PRN for ., (Reported) Entered as Reported by: MARIE LEE RN on 07/22/192226 Last Action: Discontinued on 12/07/199 by AMARJIT AKERS Carvedilol (Coreg) 25 Mg Tablet, 12.5 MG PO BIDWMEALS for CARDIAC, (Reported) Entered as Reported by: Daylin Fisher on 09/29/19 0846 Last Action: Discontinued on 12/07/199 by AMARJIT AKERS Tramadol Hcl (Tramadol Hcl) 100 Mg Tbmp.24hr, 100 MG PO TID PRN PRN for PAIN, Ref 0 (Reported) Entered as Reported by: ALEJANDRA WRIGHT on 07/23/19 0915 Last Action: Discontinued on 12/07/199 by AMARJIT AKERS Justicifation of Admission Dx: Justifications for Admission: Justification of Admission Dx: Yes UT: Acute NSTEMI LILA DEMPSEY MD Dec 10, 2019 15:39
--- NOTE | 2019-12-10 16:01 | NUR ---
Patient transfer to room 107 at 1430 from room 211. Patient unresponsive on arrival, unable to ge a BP or a reliable O2 sat on 15L 100% non rebreather, Levo was started. Anesthesia to room to place a CL and an A-line at 1445. Decision was made by anesthesia to intubate; patient intubated at 1500. After intubation patient went Asystole at 1515. Code status per patient's mother was intubation only no chest compressions. Chemical code was started at 1515. Five doses of Epi given along with two amps of Bicarb. Patients mother in the room bedside, decision was made to stop treatment. Time of 1530.
--- NOTE | 2019-12-10 18:45 | NUR ---
ONI called with [facility]. Referral number is [id number].
== END 2019-12-10 15:30 | disposition expired ==
LOC: ER 19:57 → 2 NORTH 21:30 → 1 WEST ICU 12-10 14:02
PROVIDERS: ADMIT Internal Medicine; ATTEND Internal Medicine
PROC: B2111ZZ Fluoroscopy of Multiple Coronary Arteries using Low Osmolar Contrast (ICD-10-PCS; principal; 2019-12-08)
PROC: B2151ZZ Fluoroscopy of Left Heart using Low Osmolar Contrast (ICD-10-PCS; 2019-12-08)
PROC: 4A023N7 Measurement of Cardiac Sampling and Pressure, Left Heart, Percutaneous Approach (ICD-10-PCS; 2019-12-08)
PROC: 0BH17EZ Insertion of Endotracheal Airway into Trachea, Via Natural or Artificial Opening (ICD-10-PCS; 2019-12-10)
PROC: 05HY33Z Insertion of Infusion Device into Upper Vein, Percutaneous Approach (ICD-10-PCS; 2019-12-10)
PROC: 5A1935Z Respiratory Ventilation, Less than 24 Consecutive Hours (ICD-10-PCS; 2019-12-10)
DX: I21.4 Non-ST elevation (NSTEMI) myocardial infarction (principal); N18.6 End stage renal disease; E43 Unspecified severe protein-calorie malnutrition; E03.5 Myxedema coma; G93.41 Metabolic encephalopathy; E87.1 Hypo-osmolality and hyponatremia; I42.8 Other cardiomyopathies; I50.22 Chronic systolic (congestive) heart failure; R18.8 Other ascites; T86.12 Kidney transplant failure; D63.1 Anemia in chronic kidney disease; E86.0 Dehydration; F32.9 Major depressive disorder, single episode, unspecified; F41.9 Anxiety disorder, unspecified; G47.00 Insomnia, unspecified; G89.29 Other chronic pain; I48.0 Paroxysmal atrial fibrillation; K21.9 Gastro-esophageal reflux disease without esophagitis; K59.03 Drug induced constipation; T40.2X5A Adverse effect of other opioids, initial encounter; Y92.89 Other specified places as the place of occurrence of the external cause; Z79.01 Long term (current) use of anticoagulants; Z79.899 Other long term (current) drug therapy; Z82.49 Family history of ischemic heart disease and other diseases of the circulatory system; Z87.891 Personal history of nicotine dependence; Z99.2 Dependence on renal dialysis; Z88.8 Allergy status to other drugs, medicaments and biological substances; Z91.041 Radiographic dye allergy status; K82.8 Other specified diseases of gallbladder
CPT/HCPCS: 36415; 36600; 70450; 71045; 71250; 74176; 80048; 80053; 80061; 82553; 82805; 82962; 83690; 83735; 84100; 84145; 84443; 84484; 84703; 85007; 85025; 85520; 85610; 85730; 93005; 93306; 93458; 94002; 96361; 96374; 96375; 96376; 99152; 99153; 99291; C1769; C1892; J0171; J0882; J1160; J1644; J2250; J2310; J2405; J3010; J3490; J7030; J7040; J7507; J7512; Q9967; G0378; Q0163